=== PATIENT | male | born 1935 | race Caucasian/White ===

== ENCOUNTER → 2016-07-21 | Outpatient (CLI) | payer OTHER, BC ==
[~2016-07-21] MED LIST: ALL100 PO; AMB10 PO; AMLO2.5T PO; ASCA500 PO; BMX1 PO; CHOL100010 PO; CMBIN INH; CRG625 PO; GLIP-199 PO; LOSA100T2 PO; LYR50 PO; OXYC-57 PO; PRAV40TA2 PO; PRLSR20 PO
--- NOTE | 2016-07-21 10:52 | DIAGNOSTIC IMAGING REPORT ---
KUB HISTORY: Right-sided groin pain. Pubic pain. COMPARISON: Abdomen and pelvis CT 01/14/2011. FINDINGS: The bowel gas pattern is unremarkable. There are no dilated loops of small bowel to suggest an obstruction. No renal calculi. No ureteral calculi. No pneumoperitoneum or pneumatosis. No fractures within the visualized osseous structures. There is mild right and moderate left hip osteoarthritis. A few punctate calcifications overlying the sacrum are likely vascular. Multiple calcified pleural plaques seen within the lung bases. IMPRESSION: No renal or ureteral stones. Calcified pleural plaques. Electronically signed by: Milan Mast M.D. 07/21/2016 10:50 AM Dictated Date/Time: 07/21/2016 10:48 AM
== END | disposition home or self-care (01) ==
LOC: C.RAD 10:23
PROVIDERS: ATTEND Urology
DX: R10.30 Lower abdominal pain, unspecified (principal)

== ENCOUNTER → 2017-08-15 | Outpatient (CLI) | payer OTHER, BC | END | disposition home or self-care (01) | LOC: C.PATHSPEC 17:59 | PROVIDERS: ATTEND Urology | DX: R97.20 Elevated prostate specific antigen [PSA] (principal) ==

== ENCOUNTER → 2017-11-02 | Outpatient (CLI) | payer OTHER, BC ==
--- NOTE | 2017-11-02 14:49 | DIAGNOSTIC IMAGING REPORT ---
LEFT AXILLARY ULTRASOUND CLINICAL HISTORY: Left axillary pain and swelling. History of prior mastectomy. COMPARISON STUDY: No previous studies for comparison. FINDINGS: There is a thick walled complex fluid collection within the left chest wall at the site of the patient's mastectomy incision. This measures 5.7 x 1.0 x 4.5 cm. The patient reports a postoperative fluid collection at the same location which required multiple drainages. The significance of the current finding is therefore not known. There is a fatty replaced 20 mm left axillary lymph node. IMPRESSION: 1. Fatty-replaced 20 mm left axillary lymph node. No suspicious adenopathy by ultrasound criteria 2. 5.7 x 1.0 x 4.5 cm thick-walled complex fluid collection, at the site of the patient's prior mastectomy incision. Electronically signed by: Ciro Daly M.D. 11/02/2017 2:48 PM Dictated Date/Time: 11/02/2017 2:43 PM
== END | disposition home or self-care (01) ==
LOC: C.ULTRBC 14:03
PROVIDERS: ATTEND Internal Medicine
DX: M60.1 Interstitial myositis (principal); Z90.12 Acquired absence of left breast and nipple

== ENCOUNTER → 2018-02-19 | Outpatient (CLI) | payer OTHER, BC | END | disposition home or self-care (01) | LOC: C.LABBFT 14:51 | PROVIDERS: ATTEND Urology | DX: N40.3 Nodular prostate with lower urinary tract symptoms (principal); R97.20 Elevated prostate specific antigen [PSA] ==

== ENCOUNTER 2019-06-02 11:36 | Inpatient (IN) ==
[2019-06-02] MEDS ORDERED: FAMOTIDINE 20MG IV PUSH 20 MG/5 ML SYR IV STA (12:30)
[2019-06-02] MEDS ORDERED: SODIUM CHLORIDE 0.9% 500 ML IV ONE (12:30)
[2019-06-02] MEDS ORDERED: PROCHLORPERAZINE 1 ML IV ONE (12:30)
[2019-06-02] MEDS ORDERED: ACETAMINOPHEN 1,000 MG/100 ML VIAL IV STA (12:34)
--- NOTE | 2019-06-02 12:38 | Emergency Department Note ---
Entered by Mara Kelley acting as a scribe for History of Present Illness General Chief complaint: Abdominal Pain Stated complaint: BELLY PAIN Time Seen by Provider: 06/02/19 12:05 Source: patient Mode of arrival: ambulatory Limitations: no limitations History of Present Illness Onset (ago): hour(s) 10 Location: abdomen Radiation: non-radiation Pain Consistency: + constant Associated symptoms: + nausea/vomiting and + other (-diarrhea); no chest pain and no shortness of breath Treatments prior to arrival: none The patient is an 83 year old female who presents to the ED with complaints of abdominal pain that started a few hours after he ate dinner last night. He states he ate dinner at a restaurant and has also vomited several times in the past few hours. He denies any diarrhea, chest pain or shortness of breath. He admits to a history of GERD and states he had an endoscopy performed 2 months ago. He does admit to a history of diverticulitis. Home Medications Home Medications Medication Instructions Recorded Confirmed Type allopurinol 100 mg PO QDL 06/02/19 06/02/19 History allopurinol 300 mg PO QDL 06/02/19 06/02/19 History amlodipine 10 mg PO QAM 06/02/19 06/02/19 History aspirin 81 mg PO QAM 06/02/19 06/02/19 History carvedilol 6.25 mg PO BID 06/02/19 06/02/19 History duloxetine 20 mg PO QAM 06/02/19 06/02/19 History finasteride 5 mg PO QAM 06/02/19 06/02/19 History furosemide 20 mg PO QAM 06/02/19 06/02/19 History glipizide 10 mg PO BIDM 06/02/19 06/02/19 History losartan-hydrochlorothiazide 1 tab PO QAM 06/02/19 06/02/19 History omeprazole 20 mg PO BIDM 06/02/19 06/02/19 History oxycodone-acetaminophen 1 tab PO QID PRN 06/02/19 06/02/19 History pregabalin [Lyrica] 75 mg PO TID 06/02/19 06/02/19 History sodium chloride 1 drp OPB UD 06/02/19 06/02/19 History tamsulosin 0.4 mg PO HS 06/02/19 06/02/19 History zolpidem 5 mg PO HS 06/02/19 06/02/19 History Allergies Allergy/AdvReac Type Severity Reaction Status Date / Time LISBETH Inhibitors AdvReac Intermediate COUGH Verified 06/02/19 16:57 Past Med/Surg History Medical History BPH (benign prostatic hyperplasia) Breast cancer in male S/P Left mastectomy, radiation, chemo; 1998 Chronic pain CKD (chronic kidney disease), stage III Diabetes mellitus, type II Diverticulitis Dyslipidemia GERD (gastroesophageal reflux disease) Gout Hypertension Neuropathy Schatzki's ring EGD: 04/08/19 - gastritis, Schatzki ring, hiatal hernia - Dr Brunner EGD: 04/17/18 Surgical History History of esophagogastroduodenoscopy (EGD) History of mastectomy Left, 1998 Family History Other Colorectal cancer Diabetes Hypertension Social History Preferred Language: Arabic Communication Ability: Effective Beliefs That Will Affect Care: None marital status: Current Living Situation: Spouse Other Information That Helps Us Care for You: No Feels Safe at Home: Yes Safety Concerns: Feels Safe At This Time Smoking Status: Former smoker Hx Alcohol Use: Yes (1 shot hard liquor daily ) Alcohol type: hard liquor Hx Substance Use: No Review of Systems See HPI for pertinent positives & negatives. and A total of 10 systems reviewed and were otherwise negative Physical Exam Vital Signs Vital Signs - 24 hr 06/02/19 11:39 06/02/19 12:10 06/02/19 12:59 Temperature 36.3 C L Temperature Source Oral Pulse Rate 80 Pulse Rate [Finger] 67 Respiratory Rate 18 18 Respiratory Effort / Characteristics Non-Labored Spontaneous Non-Labored Respiratory Depth Normal Normal Respiratory Pattern Regular Blood Pressure 123/74 Blood Pressure [Right Arm] 167/81 H Blood Pressure Mean 90 Blood Pressure Mean [Right Arm] 109 Blood Pressure Position Sitting Pulse Oximetry 97 97 96 Oxygen Delivery Method Room Air Room Air Sepsis Recent Fever Within 48 Hours No Sepsis New/Unexplained Change in Mental Status No Sepsis Action Taken by Nursing No Action Required 12/08/19 13:41 Temperature Temperature Source Pulse Rate Pulse Rate [Finger] 62 Respiratory Rate 18 Respiratory Effort / Characteristics Respiratory Depth Respiratory Pattern Blood Pressure Blood Pressure [Right Arm] 145/71 H Blood Pressure Mean Blood Pressure Mean [Right Arm] 95 Blood Pressure Position Pulse Oximetry 94 Oxygen Delivery Method Sepsis Recent Fever Within 48 Hours Sepsis New/Unexplained Change in Mental Status Sepsis Action Taken by Nursing GENERAL: Awake, alert, uncomfortable-appearing, in no distress HENT: Normocephalic, atraumatic. Oropharynx with dry mucous membranes and otherwise unremarkable. EYES: Normal conjunctiva. Sclera non-icteric. NECK: Supple. No nuchal rigidity. FROM. No JVD. RESPIRATORY: CTAB. CARDIAC: Regular rate, normal rhythm. Extremities warm and well perfused. Pulses equal. ABDOMEN: Soft, non-distended. Mild LLQ tenderness to palpation. No rebound or guarding. No masses. RECTAL: Deferred. MUSCULOSKELETAL: Chest examination reveals no tenderness. The back is symmetrical on inspection without obvious abnormality. There is no CVA te nderness to palpation. No joint edema. LOWER EXTREMITIES: Calves are equal size bilaterally and non-tender. No edema. No discoloration. NEURO: Normal sensorium. No sensory or motor deficits noted. SKIN: No rash or jaundice noted. Course Course 1230: The patient was evaluated in room B5 and a complete history and physical were performed. 1439: I discussed the patients case with Dr. Brunner, [facility] General Surgery. The patient will be further evaluated. 1448: I discussed the patients case with Kaela Lucas PA-C, [facility] Hospitalist. The patient will be further evaluated. 1500: I reevaluated the patient. He is resting comfortably. I discussed his results and discharge instructions and he is agreeable with further evaluation from General Surgery and the hospital medicine team. Administered Medications Dulox[place] (Cymbalta) [facility] [place] [facility] [place]: 07/02/19 16:59 Last Admin: 06/03/19 08:42 Dose: 20 mg Documented by: [id number] Admin: 06/02/19 18:54 Dose: 20 mg Documented by: [id number] Enoxaparin Sodium (Lovenox) 40 [place] [facility] [place]: 07/03/19 08:59 Last Admin: 06/03/19 08:43 Dose: 40 mg Documented by: [id number] Glucose (Glucose 40%) 15 - 30 gm PO UD PRN; Protocol PRN Reason: Hypoglycemia Protocol Stop: 07/02/19 16:48 Last Admin: 06/02/19 18:20 Dose: 15 gm Documented by: [id number] Lactated Ringer's (Lr) 1,000 mls @ 100 mls/hr IV .Q10H [facility] Stop: 07/02/19 16:48 Last Admin: 06/03/19 14:48 Dose: 100 mls/hr Documented by: [id number] Infusion: 06/03/19 14:48 Dose: 100 mls/hr Documented by: [id number] Admin: 06/03/19 05:38 Dose: 100 mls/hr Documented by: [id number] Infusion: 06/03/19 04:53 Dose: 100 mls/hr Documented by: [id number] Admin: 06/02/19 18:53 Dose: 100 mls/hr Documented by: [id number] Insulin Aspart (Novolog Flexpen) 0 units SC ACHS [facility] Stop: 07/02/19 16:48 Last Admin: 06/03/19 13:33 Dose: 6 units Documented by: [id number] Cosigned by: [id number] Admin: 06/03/19 08:41 Dose: 5 units Documented by: [id number] Cosigned by: [id number] Admin: 06/02/19 21:40 Dose: Not Given Documented by: [id number] Cosigned by: [id number] Admin: 06/02/19 18:32 Dose: Not Given Documented by: [id number] Cosigned by: [id number] Ioversol (Optiray 320 100ml) 94 ml IV ONCE PRN PRN Reason: Interaction Checking Stop: 06/06/19 13:10 Last Admin: 06/02/19 13:11 Dose: 94 ml Documented by: [id number] Oxycodone/Acetaminophen (Percocet 5mg/325mg) 1 tab PO QID PRN PRN Reason: Pain Stop: 06/16/19 21:23 Last Admin: 06/02/19 22:10 Dose: 1 tab Documented by: [id number] Pantoprazole Sodium (Protonix) 40 mg PO BIDM [facility] Stop: 07/02/19 16:59 Last Admin: 06/03/19 08:42 Dose: 40 mg Documented by: [id number] Admin: 06/02/19 18:54 Dose: 40 mg Documented by: [id number] Pregabalin (Lyrica) 75 mg PO TID BARBY Stop: 07/02/19 20:59 Last Admin: 06/03/19 13:06 Dose: 75 mg Documented by: [id number] Admin: 06/03/19 08:43 Dose: 75 mg Documented by: [id number] Admin: 06/02/19 21:44 Dose: 75 mg Documented by: [id number] Zolpidem Tartrate (Ambien) 5 mg PO HS PRN PRN Reason: insomnia Stop: 07/03/19 20:59 Last Admin: 06/03/19 00:13 Dose: 5 mg Documented by: [id number] Discontinued Medications Prochlorperazine (Compazine) 1 mls @ 1 mls/min IV ONE ONE Stop: 06/02/19 12:31 Last Admin: 06/02/19 13:13 Dose: 1 mls/min Documented by: [id number] Famotidine (Pepcid 20mg Iv Push) 20 mg in 5 mls @ 2.5 mls/min IV NOW STA Stop: 06/02/19 12:31 Last Admin: 06/02/19 13:13 Dose: 2.5 mls/min Documented by: [id number] Sodium Chloride (Nss) 500 mls @ 999 mls/hr IV .Q31M ONE Stop: 06/02/19 13:00 Last Infusion: 06/02/19 13:38 Dose: 0 mls/hr Documented by: [id number] Admin: 06/02/19 13:01 Dose: 999 mls/hr Documented by: [id number] Acetaminophen (Ofirmev) 1,000 mg in 100 mls @ 400 mls/hr IV NOW STA Stop: 06/02/19 12:48 Last Infusion: 06/02/19 13:37 Dose: 0 mls/hr Documented by: [id number] Admin: 06/02/19 13:13 Dose: 400 mls/hr Documented by: [id number] Magnesium Sulfate/Dextrose (Magnesium Sulfate / D5w) 1 gm in 100 mls @ 100 mls/hr IV ONE ONE Stop: 06/02/19 14:49 Last Infusion: 06/02/19 14:40 Dose: 0 mls/hr Documented by: [id number] Admin: 06/02/19 14:02 Dose: 100 mls/hr Documented by: [id number] Potassium Chloride (Klor-Con M20) 40 meq PO NOW STA Stop: 06/03/19 09:09 Last Admin: 06/03/19 10:26 Dose: 40 meq Documented by: [id number] Medical Decision Making Differential Diagnosis Differential diagnoses includes but is not limited to gastritis, peptic ulcer disease, GERD, gallbladder disease, pancreatitis, small bowel obstruction, acute coronary syndrome, pericarditis, ischemic bowel, irritable bowel disease, irritable bowel syndrome, appendicitis, diverticulitis, malignancy, hernia, urinary tract infection, torsion, perforation, trauma, infectious. Medical Records Attestation: I reviewed the patient's medical records. Home Medications Current Medication List: was personally reviewed by me Laboratory Data Attestation: I reviewed the patient's lab results. Result diagrams: 06/03/19 06:53 06/03/19 06:53 Lab Results 06/02/19 06/02/19 Range/Units 11:27 11:27 WBC 14.09 H (4.8-10.8) K/uL RBC 4.66 L (4.7-6.1) M/uL Hgb 15.1 (14.0-18.0) g/dL Hct 43.1 (42-52) % MCV 92.5 (80-100) fL MCH 32.4 (25-34) pg MCHC 35.0 (32-36) g/dL RDW Std Deviation 48.2 H (36.4-46.3) fL RDW Coeff of Gena 14.3 (11.5-14.5) % Plt Count 252 (130-400) K/uL MPV 11.2 H (7.4-10.4) fL Immature Gran % (Auto) 0.2 % Neut % (Auto) 82.7 % Lymph % (Auto) 9.3 % Owen % (Auto) 4.4 % Eos % (Auto) 3.3 % Baso % (Auto) 0.1 % Immature Gran # (Auto) 0.03 H (0.00-0.02) K/uL Neut # (Auto) 11.66 H (1.4-6.5) K/uL Lymph # (Auto) 1.31 (1.2-3.4) K/uL Owen # (Auto) 0.62 H (0.11-0.59) K/uL Eos # (Auto) 0.46 (0-0.5) K/uL Baso # (Auto) 0.01 (0-0.2) K/uL Sodium 137 (136-145) mmol/L Potassium 3.6 (3.5-5.1) mmol/L Chloride 102 (98-107) mmol/L Carbon Dioxide 27 (21-32) mmol/L Anion Gap 8.0 (3-11) BUN 21 H (7-18) mg/dl Creatinine 1.31 (0.6-1.4) mg/dl Est Cr Clr Drug Dosing 44.7 ml/min Est GFR ( Amer) 57.5 Est GFR (Non-Af Amer) 49.6 BUN/Creatinine Ratio 15.8 (10-20) Glucose 155 H (70-99) mg/dl Calcium 8.9 (8.5-10.1) mg/dl Phosphorus 2.3 L (2.5-4.9) mg/dl Magnesium 1.7 L (1.8-2.4) mg/dl Total Bilirubin 0.6 (0.2-1) mg/dl AST 14 L (15-37) U/L ALT 21 (12-78) U/L Alkaline Phosphatase 85 (45-117) U/L Troponin I < 0.015 (0-0.045) ng/ml Total Protein 7.8 (6.4-8.2) gm/dl Albumin 3.7 (3.4-5.0) gm/dl Globulin 4.1 H (2.5-4.0) gm/dl Albumin/Globulin Ratio 0.9 (0.9-2) Lipase 63 L (73-393) U/L Imaging Data Radiologist's Impression: Radiology results as stated below per my review and the radiologist's interpretation: XR chest 1V portable HISTORY: 83 years-old Male Chest Pain acute atypical chest pain COMPARISON: KUB 07/21/2016 TECHNIQUE: Portable AP view of the chest FINDINGS: Bilateral pleural calcifications. No pneumothorax, pleural effusion, focal airspace consolidation or overt pulmonary edema. Cardiomediastinal and hilar silhouettes are within normal limits. Degenerative changes of the shoulders and spine. IMPRESSION: 1. No acute process. 2. 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 The above report was generated using voice recognition software. It may contain grammatical, syntax or spelling errors. Electronically signed by: Brady Carey M.D. 06/02/2019 1:04 PM ECG Data Attestation: I personally reviewed and interpreted this ECG as follows: Indication: + abdominal pain Rate (beats per minute): 64 Rhythm: + sinus with SA ECG Intervals/blocks: + First degree AV block, + Normal QRS (QRS is 100) and + Normal QT-c (QTC is 422) ECG [place]: + Normal ECG ST segments: no ST depression and no ST elevation ECG Findings: no PACs and no PVCs Blood Pressure Blood Pressure Findings: Elevated blood pressure Blood Pressure Disposition: Referred to patients primary care provider LILA Gonzales The patient is a pleasant 83-year-old gentleman with a past medical history of hypertension, GERD, hiatal hernia, esophageal dysmotility, schatzkis ring with a history of esophageal dilatations who presents emergency department with acute onset nausea and vomiting since last night per HPI. On arrival the patient is uncomfortable but no acute distress, afebrile stable vital signs. Patient appears clinically dry. He has mild left lower abdominal tenderness without guarding or rebound. EKG without acute ischemia. Chest x-ray negative for acute process. WBC 14, nonspecific in the setting of the patient's nausea and vomiting. H/H and platelets within normal limits. Chemistry without acidosis. Magnesium 1.7 with repletion provided. Electrolytes LFTs otherwise unremarkable. Troponin negative/undetectable. CT the abdomen pelvis demonstrates dilated fluid-filled duodenum and proximal jejunum with fluid- filled nondilated distal small bowel that is suggestive of enteritis/ileus however a low-grade small bowel obstruction could also appear similar. Patient was reevaluated and feel improved after IV fluid hydration, Pepcid, Compazine. Abdominal tenderness is also improved on exam. However he still reports a mild nausea and abdominal discomfort. Therefore, he is agreeable for admission for further observation. I did discuss the case with general surgery on-call, Dr. Brunner who will be available for inpatient consultation if the patient does not improve or worsen. I do not feel that an emergent surgical evaluation is necessary at this time. Case was discussed with Alona Lucas, [facility] PAC, who evaluate the patient for admission. Impression & Plan Abdominal pain, Nausea & vomiting, H/O hiatal hernia, CKD (chronic kidney disease), stage III Discharge Plan Visit Data *Final* Discharge Date/Time: 06/02/19 16:02 Chief Complaint: Abdominal Pain Stated Complaint: BELLY PAIN ED Provider: Romario Maria Discharge Problem: Abdominal pain, Nausea & vomiting, H/O hiatal hernia, CKD (chronic kidney disease), stage III Patient Disposition: Admitted As Inpatient Discharge Instructions Interventions: ED Discharge Assessment Last Done: 06/02/19 16:02 Discharge Problem: Abdominal pain Qualifiers: Abdominal location: left lower quadrant Qualified Code(s): R10.32 - Left lower quadrant pain Nausea & vomiting Qualifiers: Vomiting type: unspecified Vomiting Intractability: non-intractable Qualified Code(s): R11.2 - Nausea with vomiting, unspecified The scribe's documentation has been prepared under my direction and personally reviewed by me in its entirety. I confirm that the note above accurately reflects all work, treatment, procedures, and medical decision making performed by me.
[2019-06-02 12:45] LABS: Basophils # (auto) 0.01 K/uL (0-0.2); Basophils % (auto) 0.1 %; Eosinophils # (auto) 0.46 K/uL (0-0.5); Eosinophils % (auto) 3.3 %; Hematocrit (blood only) 43.1 % (42-52); Hemoglobin 15.1 g/dL (14.0-18.0); Immature Granulocytes # (auto) 0.03 K/uL (0.00-0.02); Immature Granulocytes % (auto) 0.2 %; Lymphocytes # (auto) 1.31 K/uL (1.2-3.4); Lymphocytes % (auto) 9.3 %; Mean Corpuscular Hemoglobin 32.4 pg (25-34); Mean Corpuscular Volume 92.5 fL (80-100); Mean Platelet Volume 11.2 fL (7.4-10.4); Monocytes # (auto) 0.62 K/uL (0.11-0.59); Monocytes % (auto) 4.4 %; Neutrophils # (auto) 11.66 K/uL (1.4-6.5); Neutrophils % (auto) 82.7 %; Platelet Count 252 K/uL (130-400); RDW Coefficient of Variation 14.3 % (11.5-14.5); RDW Standard Deviation 48.2 fL (36.4-46.3); Red Blood Count 4.66 M/uL (4.7-6.1); White Blood Count 14.09 K/uL (4.8-10.8)
[2019-06-02 12:52] LABS: Alanine Aminotransferase 21 U/L (12-78); Albumin Level 3.7 gm/dl (3.4-5.0); Aspartate Aminotransferase 14 U/L (15-37); BUN Creatinine Ratio 15.8 (10-20); Blood Urea Nitrogen 21 mg/dl (7-18); Calcium 8.9 mg/dl (8.5-10.1); Carbon Dioxide 27 mmol/L (21-32); Chloride 102 mmol/L (98-107); Creatinine Clr Calc Pharmacy 44.7 ml/min; Est GFR (African American) 57.5; Est GFR (Non-African American) 49.6; Glucose 155 mg/dl (70-99); Lipase 63 U/L (73-393); Magnesium 1.7 mg/dl (1.8-2.4); Potassium 3.6 mmol/L (3.5-5.1); Sodium 137 mmol/L (136-145)
[2019-06-02 12:57] LABS: Albumin Globulin Ratio 0.9 (0.9-2); Alkaline Phosphatase 85 U/L (45-117); Bilirubin,Total 0.6 mg/dl (0.2-1); Globulin 4.1 gm/dl (2.5-4.0); Phosphorus 2.3 mg/dl (2.5-4.9); Total Protein 7.8 gm/dl (6.4-8.2); Troponin I < 0.015 ng/ml (0-0.045)
--- NOTE | 2019-06-02 13:05 | XRay Report ---
XR chest 1V portable HISTORY: 83 years-old Male Chest Pain acute atypical chest pain COMPARISON: KUB 07/21/2016 TECHNIQUE: Portable AP view of the chest FINDINGS: Bilateral pleural calcifications. No pneumothorax, pleural effusion, focal airspace consolidation or overt pulmonary edema. Cardiomediastinal and hilar silhouettes are within normal limits. Degenerative changes of the shoulders and spine. IMPRESSION: 1. No acute process. 2. 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 The above report was generated using voice recognition software. It may contain grammatical, syntax o r spelling errors. Electronically signed by: Brady Carey M.D. 06/02/2019 1:04 PM
[2019-06-02] MEDS ORDERED: IOVERSOL 100ml IV PRN (13:11)
[2019-06-02] MEDS ORDERED: MAGNESIUM SULFATE / D5W 1 GM/100 ML BAG IV ONE (13:50)
--- NOTE | 2019-06-02 13:50 | CT Scan Report ---
ABDOMEN AND PELVIS CT WITH IV CONTRAST CT DOSE: 579.84 mGy.cm HISTORY: Acute left lower quadrant abdominal pain with nausea and vomiting LLQ abd pain,n/v TECHNIQUE: Multiaxial CT images of the abdomen and pelvis were performed following the IV administrat ion of 94 cc of Optiray 320, A dose lowering technique was utilized adhering to the principles of [place] APRIL. 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 6 mm subpleural solid n odule of the basal left lower lobe on image 26 series 3 is unchanged and likely benign. No pneumatosi s or pneumoperitoneum. The imaged inferior cardiac chambers are unremarkable. Spleen, pancreas, adren al glands and gallbladder are unremarkable. Slightly decreased attenuation of the liver suggests hepa tic steatosis. No hepatic mass lesion or evidence of cirrhosis. There is mild nonspecific bilateral perinephric stranding. Mild cortical thinning is noted, left grea ter than right. Probable cyst of the inferior pole left kidney, 11 mm. No renal or ureteral calculi o r obstructive uropathy. Moderate urinary bladder distention. Prostamegaly. Small fat filled inguinal hernias. Extensive calcified plaque of the abdominal aorta without aneurysm. 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 No adenopathy. Moderate hiatal hernia with trace fluid within the hernia sac. The terminal 9 mm dependent area of sl ightly increased attenuation about the dependent duodenum on image 172 series 3 which may reflect ing ested material versus lesion. Mild wall thickening of the pylorus is likely secondary to partial dist ention. Fluid-filled mildly dilated duodenum and proximal jejunum measures up to 3.3 cm. No transitio n point. Nondilated fluid-filled loops of distal small bowel are present. No small bowel wall thicken ing or inflammatory stranding identified. Significant colonic diverticulosis. Mild wall thickening th roughout the sigmoid colon is likely on a chronic basis. No evidence of acute diverticulitis. Unremar kable appendix. Soft tissues are within normal limits. Degenerative changes of the spine, pelvis and hips. Healed remote fracture of the anterolateral right eighth rib. Degenerative changes of the spine , pelvis and hips. IMPRESSION: 1. Dilated fluid-filled duodenum and proximal jejunum with fluid-filled nondilated distal small bowel is suggestive of enteritis/ileus with low-grade small bowel obstruction considered less likely. Heri elate clinically. 2. No pneumatosis or pneumoperitoneum. 3. Colonic diverticulosis without acute diverticulitis. Wall thickening throughout the sigmoid colon is likely secondary to chronic diverticular disease. 4. Normal appendix. 5. Moderate hiatal hernia with trace adjacent free fluid. 6. 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 7. Additional findings as above. Electronically signed by: Brady Carey M.D. 06/02/2019 1:47 PM
--- NOTE | 2019-06-02 16:31 | History & Physical Report ---
Date of Service June 02, 2019 Assessment & Plan (1) Nausea & vomiting: (2) Ileus: Pt is 83 y/o M with PMH HTN, dyslipidemia, DM II, CKD III, h/o breast CA s/p mastectomy, radiation, chemo, neuropathy, chronic pain, BPH, gout presented to ER with complaint of abdominal pain, nausea and vomiting x 3 episodes since last evening. Denies fever/chills, diarrhea, hematemesis. Last BM yesterday morning. Not passing flatus today In ER pt afebrile, vitals stable. WBC: 14, BUN: 21, Cr: 1.3 CT ABD/PELVIS: . Dilated fluid-filled duodenum and proximal jejunum with fluid- filled nondilated distal small bowel is suggestive of enteritis/ileus with low- grade small bowel obstruction considered less likely. Correlate clinically. No pneumatosis or pneumoperitoneum. Colonic diverticulosis without acute diverticulitis. Wall thickening throughout the sigmoid colon is likely secondary to chronic diverticular disease. Normal appendix. Moderate hiatal hernia with trace adjacent free fluid. -In ER given Tylenol IV, Pepcid, magnesium 1 g, Compazine -Lactate pending -No current vomiting. If further vomiting occurs consider NG tube -N.p.o. -IVF -Antiemetics as needed -Try to avoid narcotics at this time -KUB in a.m. -General surgery consult -CBC, BMP in a.m. (3) Hypomagnesemia: Magnesium 1.7 -In ER given magnesium 1 g -Magnesium lab in a.m. (4) CKD (chronic kidney disease), stage III: Cr: 1.3. Baseline Cr: 1.2 -Avoid nephrotoxic agents when possible -Monitor renal functions (5) Diabetes mellitus, type II: A1c: 6.1 on 04/29/2018 -Hold glipizide -Basal bolus insulin per protocol (6) Hypertension: Stable -Hold carvedilol, amlodipine, losartan/HCTZ, Lasix at this time while n.p.o. (7) GERD (gastroesophageal reflux disease): -Continue oral PPI (8) Gout: -Hold allopurinol while n.p.o. (9) BPH (benign prostatic hyperplasia): -Hold finasteride, tamsulosin while n.p.o. (10) Neuropathy: (11) Chronic pain: -Hold oxycodone with current ileus -Continue duloxetine, Lyrica DVT Prophylaxis -SCDs DNR/DNI as per discussion with pt Follows with Dr Harrison for routine care Pt was seen and care coordinated with Dr Marr. See addendum History of Present Illness Chief Complaint: abdominal pain Primary Care Provider: Darius Harrison, Pt is 83 y/o M with PMH HTN, dyslipidemia, DM II, CKD III, h/o breast CA s/p mastectomy, radiation, chemo, neuropathy, chronic pain, BPH, gout presented to ER with complaint of abdominal pain. Patient states ate out last night and had shrimp, scallops and pasta. Patient states later in the evening started with nausea and had 3 episodes of vomiting. Complains of some lower abdominal discomfort. Does not feel like he has passed flatus today. Reports last BM was yesterday morning which was formed normal stool. No prior treatment. Did not eat today. Did not take medications today. Patient is on oxycodone for chronic pain and states he usually takes about 3-4 times a day. Denies history of abdominal surgery. Denies history of SBO. Others did not have same food last night at restaurant. Denies ill contacts. Denies fever/chills, diaphoresis, diarrhea, hematemesis, melena, hematochezia, INGRAM, dizziness, syncope, vision changes, neck pain, CP, SOB, orthopnea, palpitations, cough, sore throat, choking, otalgia, rhinorrhea, paresthesias, weakness, extremity weakness, extremity edema, rashes, urinary symptoms. Allergies Allergy/AdvReac Type Severity Reaction Status Date / Time LISBETH Inhibitors AdvReac Intermediate COUGH Verified 06/02/19 16:57 Home Medications Home Medications Medication Instructions Recorded Confirmed Type allopurinol 100 mg PO QDL 06/02/19 06/02/19 History allopurinol 300 mg PO QDL 06/02/19 06/02/19 History amlodipine 10 mg PO QAM 06/02/19 06/02/19 History aspirin 81 mg PO QAM 06/02/19 06/02/19 History carvedilol 6.25 mg PO BID 06/02/19 06/02/19 History duloxetine 20 mg PO QAM 06/02/19 06/02/19 History finasteride 5 mg PO QAM 06/02/19 06/02/19 History furosemide 20 mg PO QAM 06/02/19 06/02/19 History glipizide 10 mg PO BIDM 06/02/19 06/02/19 History losartan-hydrochlorothiazide 1 tab PO QAM 06/02/19 06/02/19 History omeprazole 20 mg PO BIDM 06/02/19 06/02/19 History oxycodone-acetaminophen 1 tab PO QID PRN 06/02/19 06/02/19 History pregabalin [Lyrica] 75 mg PO TID 06/02/19 06/02/19 History sodium chloride 1 drp OPB UD 06/02/19 06/02/19 History tamsulosin 0.4 mg PO HS 06/02/19 06/02/19 History zolpidem 5 mg PO HS 06/02/19 06/02/19 History Past Med/Surg History Medical History (Updated 06/02/19 @ 16:40 by Kaela Lucas PA-C) BPH (benign prostatic hyperplasia) Breast cancer in male S/P Left mastectomy, radiation, chemo; 1998 Chronic pain CKD (chronic kidney disease), stage III Diabetes mellitus, type II Diverticulitis Dyslipidemia GERD (gastroesophageal reflux disease) Gout Hypertension Neuropathy Schatzki's ring EGD: 04/08/19 - gastritis, Schatzki ring, hiatal hernia - Dr Brunner EGD: 04/17/18 Surgical History (Updated 06/02/19 @ 16:36 by Kaela Lucas PA-C) History of esophagogastroduodenoscopy (EGD) History of mastectomy Left, 1998 Family History (Updated 06/02/19 @ 16:37 by Kaela Lucas PA-C) Other Colorectal cancer Diabetes Hypertension Social History (Updated 06/02/19 @ 16:37 by Kaela Lucas PA-C) Preferred Language: [place] Communication Ability: Effective Beliefs That Will Affect Care: None Current Living Situation: Spouse Other Information That Helps Us Care for You: No Feels Safe at Home: Yes Safety Concerns: Feels Safe At This Time Smoking Status: Former smoker Hx Alcohol Use: Yes (1 shot hard liquor daily ) Alcohol type: hard liquor Hx Substance Use: No Review of Systems Review of Systems: All systems reviewed & are unremarkable except as noted in HPI & below Physical Exam Physical Exam: General: no acute distress, WDWN Head: normocephalic, atraumatic Eyes: PERRL, EOM's intact, conjunctiva non-injected, anicteric ENT: normal inspection external ears, nose, mucous membranes moist Neck: supple, trachea midline Lungs: clear, no respiratory distress, no wheezing/rhonchi/rales CV: RRR, no murmur, no JVD, no pretibial edema Abd: normal BS, soft, non-tender to palpation Ext: no cyanosis, no calf tenderness Neuro: A&O x 3, no focal deficits noted, normal affect Skin: warm, dry Results & Data Vital Signs (Past 12 Hours) Vital Signs Temp Pulse Pulse Resp BP BP Pulse Ox 06/02/19 16:26 36.8 C 61 18 134/90 97 06/02/19 15:18 71 20 143/72 H 96 06/02/19 13:41 62 18 145/71 H 94 06/02/19 12:59 67 18 167/81 H 96 06/02/19 12:10 97 06/02/19 11:39 36.3 C L 80 18 123/74 97 Laboratory Results Short CBC 06/02/19 Range/Units 11:27 WBC 14.09 H (4.8-10.8) K/uL Hgb 15.1 (14.0-18.0) g/dL Hct 43.1 (42-52) % Plt Count 252 (130-400) K/uL BMP 06/02/19 11:27 Sodium 137 Potassium 3.6 Chloride 102 Carbon Dioxide 27 BUN 21 H Creatinine 1.31 Glucose 155 H Calcium 8.9 Cardiac Enzymes 06/02/19 Range/Units 11:27 Troponin I < 0.015 (0-0.045) ng/ml Liver Function 06/02/19 Range/Units 11:27 Total Bilirubin 0.6 (0.2-1) mg/dl AST 14 L (15-37) U/L ALT 21 (12-78) U/L Alkaline Phosphatase 85 (45-117) U/L Albumin 3.7 (3.4-5.0) gm/dl Diagnostic Findings CXR: IMPRESSION: 1. No acute process. 2. 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 CT ABD/PELVIS: IMPRESSION: 1. Dilated fluid-filled duodenum and proximal jejunum with fluid-filled nondilated distal small bowel is suggestive of enteritis/ileus with low-grade small bowel obstruction considered less likely. Correlate clinically. 2. No pneumatosis or pneumoperitoneum. 3. Colonic diverticulosis without acute diverticulitis. Wall thickening throughout the sigmoid colon is likely secondary to chronic diverticular disease. 4. Normal appendix. 5. Moderate hiatal hernia with trace adjacent free fluid. 6. 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 7. Additional findings as above. ECG Rate (beats per minute): 64 Rhythm: sinus with SA Findings: + 1st degree AV block Supervising Physician Co-Signing Physician Notes I have seen and examined the patient and have discussed the case with the provider above. I agree with the assessment and plan as stated with the following exceptions. 83 yo M reports eating seafood last night at a new restaurant, along with a strange brownish appearing broccoli soup. Other members at the dinner did not eat this and within 3 hours of coming home he had intermittent severe urgency to vomit that lasted overnight and into the morning today. Since this morning he denies any vomiting, nausea and reports feeling hungry. He also denies abdominal pain or diarrhea. Last BM was yesterday. Pt has hypoactive bowel sounds on exam and is not passing gas. Ileus was also considered in the differential because of this in the setting of chronic oxycodone use for neuropathy. The patient reports not having had oxycodone or Lyrica for his neuropathy in his feet in the last 24 hours and is having more severe pain now. Additionally, he has been hypoglycemic with not eating and ingram ving long-acting glipizide on board. For these reasons, and that he is hungry and vomiting has ceased, I think it is reasonable to continue his neuropathic medications now and give him a clear liquid food challenge. Abdominal exam was otherwise benign. Heart and lung exams were normal. He is ambulating without difficulty and does not appear ill at all. Expect he can go home in the next 1- 2 days once tolerating PO again and passing gas. Tejinder,
[2019-06-02] MEDS ORDERED: CARBOHYDRATES FOR HYPOGLYCEMIA PO PRN (16:49)
[2019-06-02] MEDS ORDERED: GLUCAGON FOR INJ 1 MG VIAL SQ PRN (16:49)
[2019-06-02] MEDS ORDERED: GLUCOSE 40% GEL 15 GM TUBE PO PRN (16:49)
[2019-06-02] MEDS ORDERED: DEXTROSE 50% 50 ML SYRINGE IV PRN (16:49)
[2019-06-02] MEDS ORDERED: ONDANSETRON INJ 2 MG/ML 2 ML VIAL IV PRN (16:49)
[2019-06-02] MEDS ORDERED: GLUCOSE 10 TABS/TUBE PO PRN (16:49)
[2019-06-02] MEDS ORDERED: ACETAMINOPHEN 325 MG TAB PO PRN (16:49)
[2019-06-02] MEDS: INSULIN ASPART 100 UNITS/ML 3 ML PEN SC SCH ×2 (18:32→21:40)
[2019-06-02] MEDS: LACTATED RINGER'S 1,000 ML IV SCH (18:53)
[2019-06-02] MEDS: DULOXETINE HCL 20 MG CAP PO SCH (18:54)
[2019-06-02] MEDS: PANTOprazole 40 MG TAB PO SCH (18:54)
[2019-06-02] MEDS: PREGABALIN 75 MG CAP PO SCH ×2 (20:43→21:44)
[2019-06-02] MEDS ORDERED: ACETAMINOPHEN 1,000 MG/100 ML VIAL IV PRN (21:00)
[2019-06-02] MEDS ORDERED: INSULIN GLARGINE SOLOSTAR 100 UNITS/ML 3 ML PEN SC SCH (21:00)
[2019-06-02] MEDS: OXYCODONE/ACETAMINOPHEN 5mg/325mg TAB PO PRN (22:10)
[2019-06-03] MEDS: ZOLPIDEM TARTRATE 5 MG TAB PO PRN (00:13)
[2019-06-03] MEDS: LACTATED RINGER'S 1,000 ML IV SCH ×3 (05:38→22:23)
[2019-06-03 07:12] LABS: Hematocrit (blood only) 38.5 % (42-52); Hemoglobin 13.3 g/dL (14.0-18.0); Mean Corpuscular Hemoglobin 31.9 pg (25-34); Mean Corpuscular Hgb Conc 34.5 g/dL (32-36); Mean Corpuscular Volume 92.3 fL (80-100); Mean Platelet Volume 10.5 fL (7.4-10.4); Platelet Count 208 K/uL (130-400); RDW Coefficient of Variation 14.4 % (11.5-14.5); RDW Standard Deviation 47.9 fL (36.4-46.3); Red Blood Count 4.17 M/uL (4.7-6.1); White Blood Count 9.35 K/uL (4.8-10.8)
[2019-06-03 07:43] LABS: BUN Creatinine Ratio 14.5 (10-20); Calcium 8.7 mg/dl (8.5-10.1); Creatinine Clr Calc Pharmacy 51.4 ml/min; Est GFR (African American) 68.1; Est GFR (Non-African American) 58.7; Potassium 3.4 mmol/L (3.5-5.1)
[2019-06-03 07:54] LABS: Appearance Urine Clear (Clear); Bilirubin Urine Negative (Negative); Blood Urine Negative (Negative); Color Urine Yellow; Glucose Urine UA Negative (Negative); Ketones Urine Negative (Negative); Leukocyte Esterase Urine Negative (Negative); Nitrite Urine Negative (Negative); Protein Urine Negative (Negative); Specific Gravity Urine 1.017 (1.000-1.030); Urobilinogen Urine Negative (Negative); pH Urine 6.5 (4.5-7.5)
--- NOTE | 2019-06-03 08:09 | XRay Report ---
XR KUB/Abdomen 1 view CLINICAL HISTORY: ileus, r/o SBO pain COMPARISON STUDY: No previous studies for comparison. FINDINGS: The soft tissues, psoas shadows, renal outlines and intestinal gas pattern appear normal. T here is no evidence for bowel obstruction. No abnormal abdominal calcifications are seen. IMPRESSION: Normal study. The above report was generated using voice recognition software. It may contain grammatical, syntax or spelling errors. Electronically signed by: Sabas Chogn M.D. 06/03/2019 8:08 AM
[2019-06-03] MEDS: INSULIN ASPART 100 UNITS/ML 3 ML PEN SC SCH ×4 (08:41→21:21)
[2019-06-03] MEDS: PANTOprazole 40 MG TAB PO SCH ×2 (08:42→17:47)
[2019-06-03] MEDS: DULOXETINE HCL 20 MG CAP PO SCH (08:42)
[2019-06-03] MEDS: PREGABALIN 75 MG CAP PO SCH ×3 (08:43→20:30)
[2019-06-03] MEDS: ENOXAPARIN INJ 40 MG/0.4 ML SYR SQ SCH (08:43)
[2019-06-03] MEDS ORDERED: POTASSIUM CHLORIDE 20 MEQ TABCR PO STA (09:08)
--- NOTE | 2019-06-03 09:44 | Surgery Consultation ---
Date of Consultation June 03, 2019 Assessment & Plan (1) Ileus: 83 year-old male who presented to emergency department with 1 day history of abdominal pain, nausea and vomiting after eating seafood at a new restaurant the night before. CT scan showing fluid filled small bowel without transition point consistent with ileus/enteritis. Leukocytosis of 14K now wnl. KUB this am was an unremarkable normal study. Abdomen is soft, nondistended, nontender. Plan: No surgical intervention required at this time. Likely has enteritis. May advance diet as tolerated encouraged patient to ambulate hallway to increase GI motility continue medical management Could resume his daily stool softener given chronic narcotic use (2) Nausea & vomiting: Resolved plan as above Dr. Davis has seen and exmained pt, agrees with above History of Present Illness Reason for Consultation: Partial SBO vs Ileus/enteritis Requesting Physician: Julius Sosa MD Attending Physician: Julius Sosa MD History of Present Illness Cuco is a pleasant 83 year-old male with past medical history of HTN, dyslipidemia, DM II, CKD III, h/o breast CA s/p mastectomy, radiation, chemo, neuropathy, chronic pain, BPH, gout presented to ER yesterday with complaint of abdominal pain, nausea and vomiting x 3 episodes since Monday evening. Ate seafood at new restaurant and started having cramping abdominal pain with associated nausea and vomiting. No other family members had similar symptoms. No prior abdominal surgeries. CT scan of abdomen and pelvis with IV contrast showed fluid filled duodenum and jejunum consistent with ileus/enteritis. Leukocytosis of 14K. Afebrile. Last bowel movement was Monday morning and was normal. No diarrhea, no blood in stools. Takes narcotic for chronic pain. No history of constipation. Takes stool softener daily. Werner states he is feeling much better today. Denies of any nausea, vomiting, or abdominal pain. Passing small amounts of gas but has not had bowel movement since admission. Usually has bowel movement daily in the morning. KUB this morning was unremarkable normal study. Tolerating clear liquids so far this morning. Allergies Allergy/AdvReac Type Severity Reaction Status Date / Time LISBETH Inhibitors AdvReac Intermediate COUGH Verified 06/02/19 16:57 Home Medications Home Medications Medication Instructions Recorded Confirmed Type allopurinol 100 mg PO QDL 06/02/19 06/02/19 History allopurinol 300 mg PO QDL 06/02/19 06/02/19 History amlodipine 10 mg PO QAM 06/02/19 06/02/19 History aspirin 81 mg PO QAM 06/02/19 06/02/19 History carvedilol 6.25 mg PO BID 06/02/19 06/02/19 History duloxetine 20 mg PO QAM 06/02/19 06/02/19 History finasteride 5 mg PO QAM 06/02/19 06/02/19 History furosemide 20 mg PO QAM 06/02/19 06/02/19 History glipizide 10 mg PO BIDM 06/02/19 06/02/19 History losartan-hydrochlorothiazide 1 tab PO QAM 06/02/19 06/02/19 History omeprazole 20 mg PO BIDM 06/02/19 06/02/19 History oxycodone-acetaminophen 1 tab PO QID PRN 06/02/19 06/02/19 History pregabalin [Lyrica] 75 mg PO TID 06/02/19 06/02/19 History sodium chloride 1 drp OPB UD 06/02/19 06/02/19 History tamsulosin 0.4 mg PO HS 06/02/19 06/02/19 History zolpidem 5 mg PO HS 06/02/19 06/02/19 History Patient History Medical History BPH (benign prostatic hyperplasia) Breast cancer in male S/P Left mastectomy, radiation, chemo; 1998 Chronic pain CKD (chronic kidney disease), stage III Diabetes mellitus, type II Diverticulitis Dyslipidemia GERD (gastroesophageal reflux disease) Gout Hypertension Neuropathy Schatzki's ring EGD: 04/08/19 - gastritis, Schatzki ring, hiatal hernia - Dr Brunner EGD: 04/17/18 Surgical History History of esophagogastroduodenoscopy (EGD) History of mastectomy Left, 1998 Family History Other Colorectal cancer Diabetes Hypertension Social History Preferred Language: Thai Communication Ability: Effective Beliefs That Will Affect Care: None marital status: Current Living Situation: Spouse Other Information That Helps Us Care for You: No Feels Safe at Home: Yes Safety Concerns: Feels Safe At This Time Smoking Status: Former smoker Hx Alcohol Use: Yes (1 shot hard liquor daily ) Alcohol type: hard liquor Hx Substance Use: No Review of Systems Review of Systems: All systems reviewed & are unremarkable except as noted in HPI & below Physical Exam Constitutional: WD/WN, vitals as above no acute distress Respiratory: normal respiratory effort, lungs clear to auscultation Cardiovascular: RRR, no murmur, no edema Gastrointestinal (Abdomen): Inspection/Auscultation: abdomen normal to inspection and normal bowel sounds; abdomen not distended Percussion/Palpation: abdomen soft; abdomen nontender, no guarding and abdomen not rigid Skin: no rashes, warm and dry Psychiatric: A+Ox3, euthymic affect Results & Data Vital Signs (Past 12 Hours) Vital Signs Temp Pulse Pulse Resp BP Pulse Ox 06/03/19 07:46 36.5 C 59 L 19 157/69 H 93 06/02/19 22:58 36.8 C 59 L 16 137/50 L 95 Laboratory Results 06/03/19 06/03/19 06/03/19 Range/Units 08:11 07:45 06:53 WBC (4.8-10.8) K/uL RBC (4.7-6.1) M/uL Hgb (14.0-18.0) g/dL Hct (42-52) % MCV (80-100) fL MCH (25-34) pg MCHC (32-36) g/dL RDW Std Deviation (36.4-46.3) fL RDW Coeff of Gena (11.5-14.5) % Plt Count (130-400) K/uL MPV (7.4-10.4) fL Immature Gran % (Auto) % Neut % (Auto) % Lymph % (Auto) % [place] % (Auto) % Eos % (Auto) % Baso % (Auto) % Immature Gran # (Auto) (0.00-0.02) K/uL Neut # (Auto) (1.4-6.5) K/uL Lymph # (Auto) (1.2-3.4) K/uL [place] # (Auto) (0.11-0.59) K/uL Eos # (Auto) (0-0.5) K/uL Baso # (Auto) (0-0.2) K/uL Sodium 140 (136-145) mmol/L Potassium 3.4 L (3.5-5.1) mmol/L Chloride 106 (98-107) mmol/L Carbon Dioxide 27 (21-32) mmol/L Anion Gap 7.0 (3-11) BUN 17 (7-18) mg/dl Creatinine 1.14 (0.6-1.4) mg/dl Est Cr Clr Drug Dosing 51.4 ml/min Est GFR ( Amer) 68.1 Est GFR (Non-Af Amer) 58.7 BUN/Creatinine Ratio 14.5 (10-20) Glucose 99 (70-99) mg/dl POC Glucose 126 H (70-99) Lactate (0.4-2.0) mmol/L Calcium 8.7 (8.5-10.1) mg/dl Phosphorus (2.5-4.9) mg/dl Magnesium 2.0 (1.8-2.4) mg/dl Total Bilirubin (0.2-1) mg/dl AST (15-37) U/L ALT (12-78) U/L Alkaline Phosphatase (45-117) U/L Troponin I (0-0.045) ng/ml Total Protein (6.4-8.2) gm/dl Albumin (3.4-5.0) gm/dl Globulin (2.5-4.0) gm/dl Albumin/Globulin Ratio (0.9-2) Lipase (73-393) U/L Urine Color Yellow Urine Appearance Clear (Clear) Urine pH 6.5 (4.5-7.5) Ur Specific [place] 1.017 (1.000-1.030) Urine Protein Negative (Negative) Urine Glucose (UA) Negative (Negative) Urine Ketones Negative (Negative) Urine Blood Negative (Negative) Urine Nitrite Negative (Negative) Urine Bilirubin Negative (Negative) Urine Urobilinogen Negative (Negative) Ur Leukocyte Esterase Negative (Negative) 06/03/19 06/02/19 06/02/19 Range/Units 06:53 21:38 18:39 WBC 9.35 (4.8-10.8) K/uL RBC 4.17 L (4.7-6.1) M/uL Hgb 13.3 L (14.0-18.0) g/dL Hct 38.5 L (42-52) % MCV 92.3 (80-100) fL MCH 31.9 (25-34) pg MCHC 34.5 (32-36) g/dL RDW Std Deviation 47.9 H (36.4-46.3) fL RDW Coeff of Gena 14.4 (11.5-14.5) % Plt Count 208 (130-400) K/uL MPV 10.5 H (7.4-10.4) fL Immature Gran % (Auto) % Neut % (Auto) % Lymph % (Auto) % [place] % (Auto) % Eos % (Auto) % Baso % (Auto) % Immature Gran # (Auto) (0.00-0.02) K/uL Neut # (Auto) (1.4-6.5) K/uL Lymph # (Auto) (1.2-3.4) K/uL [place] # (Auto) (0.11-0.59) K/uL Eos # (Auto) (0-0.5) K/uL Baso # (Auto) (0-0.2) K/uL Sodium (136-145) mmol/L Potassium (3.5-5.1) mmol/L Chloride (98-107) mmol/L Carbon Dioxide (21-32) mmol/L Anion Gap (3-11) BUN (7-18) mg/dl Creatinine (0.6-1.4) mg/dl Est Cr Clr Drug Dosing ml/min Est GFR ( Amer) Est GFR (Non-Af Amer) BUN/Creatinine Ratio (10-20) Glucose (70-99) mg/dl POC Glucose 91 73 (70-99) Lactate (0.4-2.0) mmol/L Calcium (8.5-10.1) mg/dl Phosphorus (2.5-4.9) mg/dl Magnesium (1.8-2.4) mg/dl Total Bilirubin (0.2-1) mg/dl AST (15-37) U/L ALT (12-78) U/L Alkaline Phosphatase (45-117) U/L Troponin I (0-0.045) ng/ml Total Protein (6.4-8.2) gm/dl Albumin (3.4-5.0) gm/dl Globulin (2.5-4.0) gm/dl Albumin/Globulin Ratio (0.9-2) Lipase (73-393) U/L Urine Color Urine Appearance (Clear) Urine pH (4.5-7.5) Ur Specific [place] (1.000-1.030) Urine Protein (Negative) Urine Glucose (UA) (Negative) Urine Ketones (Negative) Urine Blood (Negative) Urine Nitrite (Negative) Urine Bilirubin (Negative) Urine Urobilinogen (Negative) Ur Leukocyte Esterase (Negative) 06/02/19 06/02/19 06/02/19 Range/Units 18:12 18:08 17:29 WBC (4.8-10.8) K/uL RBC (4.7-6.1) M/uL Hgb (14.0-18.0) g/dL Hct (42-52) % MCV (80-100) fL MCH (25-34) pg MCHC (32-36) g/dL RDW Std Deviation (36.4-46.3) fL RDW Coeff of Gena (11.5-14.5) % Plt Count (130-400) K/uL MPV (7.4-10.4) fL Immature Gran % (Auto) % Neut % (Auto) % Lymph % (Auto) % [place] % (Auto) % Eos % (Auto) % Baso % (Auto) % Immature Gran # (Auto) (0.00-0.02) K/uL Neut # (Auto) (1.4-6.5) K/uL Lymph # (Auto) (1.2-3.4) K/uL [place] # (Auto) (0.11-0.59) K/uL Eos # (Auto) (0-0.5) K/uL Baso # (Auto) (0-0.2) K/uL Sodium (136-145) mmol/L Potassium (3.5-5.1) mmol/L Chloride (98-107) mmol/L Carbon Dioxide (21-32) mmol/L Anion Gap (3-11) BUN (7-18) mg/dl Creatinine (0.6-1.4) mg/dl Est Cr Clr Drug Dosing ml/min Est GFR ( Amer) Est GFR (Non-Af Amer) BUN/Creatinine Ratio (10-20) Glucose (70-99) mg/dl POC Glucose 68 L* 64 L* (70-99) Lactate 1.7 (0.4-2.0) mmol/L Calcium (8.5-10.1) mg/dl Phosphorus (2.5-4.9) mg/dl Magnesium (1.8-2.4) mg/dl Total Bilirubin (0.2-1) mg/dl AST (15-37) U/L ALT (12-78) U/L Alkaline Phosphatase (45-117) U/L Troponin I (0-0.045) ng/ml Total Protein (6.4-8.2) gm/dl Albumin (3.4-5.0) gm/dl Globulin (2.5-4.0) gm/dl Albumin/Globulin Ratio (0.9-2) Lipase (73-393) U/L Urine Color Urine Appearance (Clear) Urine pH (4.5-7.5) Ur Specific [place] (1.000-1.030) Urine Protein (Negative) Urine Glucose (UA) (Negative) Urine Ketones (Negative) Urine Blood (Negative) Urine Nitrite (Negative) Urine Bilirubin (Negative) Urine Urobilinogen (Negative) Ur Leukocyte Esterase (Negative) 06/02/19 06/02/19 Range/Units 11:27 11:27 WBC 14.09 H (4.8-10.8) K/uL RBC 4.66 L (4.7-6.1) M/uL Hgb 15.1 (14.0-18.0) g/dL Hct 43.1 (42-52) % MCV 92.5 (80-100) fL MCH 32.4 (25-34) pg MCHC 35.0 (32-36) g/dL RDW Std Deviation 48.2 H (36.4-46.3) fL RDW Coeff of Gena 14.3 (11.5-14.5) % Plt Count 252 (130-400) K/uL MPV 11.2 H (7.4-10.4) fL Immature Gran % (Auto) 0.2 % Neut % (Auto) 82.7 % Lymph % (Auto) 9.3 % [place] % (Auto) 4.4 % Eos % (Auto) 3.3 % Baso % (Auto) 0.1 % Immature Gran # (Auto) 0.03 H (0.00-0.02) K/uL Neut # (Auto) 11.66 H (1.4-6.5) K/uL Lymph # (Auto) 1.31 (1.2-3.4) K/uL [place] # (Auto) 0.62 H (0.11-0.59) K/uL Eos # (Auto) 0.46 (0-0.5) K/uL Baso # (Auto) 0.01 (0-0.2) K/uL Sodium 137 (136-145) mmol/L Potassium 3.6 (3.5-5.1) mmol/L Chloride 102 (98-107) mmol/L Carbon Dioxide 27 (21-32) mmol/L Anion Gap 8.0 (3-11) BUN 21 H (7-18) mg/dl Creatinine 1.31 (0.6-1.4) mg/dl Est Cr Clr Drug Dosing 44.7 ml/min Est GFR ( Amer) 57.5 Est GFR (Non-Af Amer) 49.6 BUN/Creatinine Ratio 15.8 (10-20) Glucose 155 H (70-99) mg/dl POC Glucose (70-99) Lactate (0.4-2.0) mmol/L Calcium 8.9 (8.5-10.1) mg/dl Phosphorus 2.3 L (2.5-4.9) mg/dl Magnesium 1.7 L (1.8-2.4) mg/dl Total Bilirubin 0.6 (0.2-1) mg/dl AST 14 L (15-37) U/L ALT 21 (12-78) U/L Alkaline Phosphatase 85 (45-117) U/L Troponin I < 0.015 (0-0.045) ng/ml Total Protein 7.8 (6.4-8.2) gm/dl Albumin 3.7 (3.4-5.0) gm/dl Globulin 4.1 H (2.5-4.0) gm/dl Albumin/Globulin Ratio 0.9 (0.9-2) Lipase 63 L (73-393) U/L Urine Color Urine Appearance (Clear) Urine pH (4.5-7.5) Ur Specific [place] (1.000-1.030) Urine Protein (Negative) Urine Glucose (UA) (Negative) Urine Ketones (Negative) Urine Blood (Negative) Urine Nitrite (Negative) Urine Bilirubin (Negative) Urine Urobilinogen (Negative) Ur Leukocyte Esterase (Negative) Diagnostic Findings ABDOMEN AND PELVIS CT WITH IV CONTRAST CT DOSE: 579.84 mGy.cm HISTORY: Acute left lower quadrant abdominal pain with nausea and vomiting LLQ abd pain,n/v TECHNIQUE: Multiaxial CT images of the abdomen and pelvis were performed following the IV administration of 94 cc of Optiray 320, A dose lowering technique was utilized adhering to the principles of ALARA. 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 6 mm subpleural solid nodule of the basal left lower lobe on image 26 series 3 is unchanged and likely benign. No pneumatosis or pneumoperitoneum. The imaged inferior cardiac chambers are unremarkable. Spleen, pancreas, adrenal glands and gallbladder are unremarkable. Slightly decreased attenuation of the liver suggests hepatic steatosis. No hepatic mass lesion or evidence of cirrhosis. There is mild nonspecific bilateral perinephric stranding. Mild cortical thinning is noted, left greater than right. Probable cyst of the inferior pole left kidney, 11 mm. No renal or ureteral calculi or obstructive uropathy. Moderate urinary bladder distention. Prostamegaly. Small fat filled inguinal hernias. Extensive calcified plaque of the abdominal aorta without aneurysm. 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 No adenopathy. Moderate hiatal hernia with trace fluid within the hernia sac. The terminal 9 mm dependent area of slightly increased attenuation about the dependent duodenum on image 172 series 3 which may reflect ingested material versus lesion. Mild wall thickening of the pylorus is likely secondary to partial distention. Fluid- filled mildly dilated duodenum and proximal jejunum measures up to 3.3 cm. No transition point. Nondilated fluid-filled loops of distal small bowel are present. No small bowel wall thickening or inflammatory stranding identified. Significant colonic diverticulosis. Mild wall thickening throughout the sigmoid colon is likely on a chronic basis. No evidence of acute diverticulitis. Unremarkable appendix. Soft tissues are within normal limits. Degenerative changes of the spine, pelvis and hips. Healed remote fracture of the anterolateral right eighth rib. Degenerative changes of the spine, pelvis and hips. IMPRESSION: 1. Dilated fluid-filled duodenum and proximal jejunum with fluid-filled nondilated distal small bowel is suggestive of enteritis/ileus with low-grade small bowel obstruction considered less likely. Correlate clinically. 2. No pneumatosis or pneumoperitoneum. 3. Colonic diverticulosis without acute diverticulitis. Wall thickening throughout the sigmoid colon is likely secondary to chronic diverticular disease. 4. Normal appendix. 5. Moderate hiatal hernia with trace adjacent free fluid. 6. 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 7. Additional findings as above. XR KUB/Abdomen 1 view CLINICAL HISTORY: ileus, r/o SBO pain COMPARISON STUDY: No previous studies for comparison. FINDINGS: The soft tissues, psoas shadows, renal outlines and intestinal gas pattern appear normal. There is no evidence for bowel obstruction. No abnormal abdominal calcifications are seen. IMPRESSION: Normal study.
--- NOTE | 2019-06-03 16:26 | Hospitalist Progress Note ---
Date of Service June 03, 2019 Assessment & Plan (1) Nausea & vomiting: (2) Ileus: Patient is an 83 yr male with H/O HTN, dyslipidemia, DM II, CKD III, h/o breast CA s/p mastectomy, radiation, chemo, neuropathy, chronic pain, BPH, gout presented to ER with complaint of abdominal pain, nausea and vomiting x 3 episodes Ileus --CT ABD/PELVIS: . Dilated fluid-filled duodenum and proximal jejunum with fluid-filled nondilated distal small bowel is suggestive of enteritis/ileus with low-grade small bowel obstruction considered less likely. Correlate clinically. No pneumatosis or pneumoperitoneum. Colonic diverticulosis without acute diverticulitis. Wall thickening throughout the sigmoid colon is likely secondary to chronic diverticular disease. Normal appendix. Moderate hiatal hernia with trace adjacent free fluid. --Continue IV fluids --Advance diet as tolerated --Normal KUB today --Appreciate surgery input --Encouraged to ambulate (3) Hypomagnesemia: Hypokalemia Hypomagnesemia Due to GI losses Replace electrolytes as needed (4) CKD (chronic kidney disease), stage III: Baseline Cr: 1.2 Avoid nephrotoxic agents when possible Monitor renal functions (5) Diabetes mellitus, type II: A1c: 6.1 on 04/29/2018 Hold glipizide Continue insulin therapy while hospitalized (6) Hypertension: Continue carvedilol, amlodipine, losartan Monitor (7) GERD (gastroesophageal reflux disease): Continue PPI (8) Gout: Resume allopurinol as able (9) BPH (benign prostatic hyperplasia): On finasteride, tamsulosin. (10) Neuropathy: (11) Chronic pain: Hold oxycodone with current ileus Continue duloxetine, Lyrica DVT Px Lovenox SQ Code Status DNR/DNI Disposition PT OT prior to discharge Follows with Dr Harrison for routine care Subjective Patient is seen and examined at bedside Nausea, vomiting, abdominal pain resolved + Flatus but no bowel movement Tolerating diet Denies any chest pain, shortness of breath, dizziness Offers no other complaints KUB done today is normal Review of Systems Review of Systems: All systems reviewed & are unremarkable except as noted in HPI & below Physical Exam Physical Exam: Physical Exam: Vitals signs as noted above General Appearance:Moderately built and nourished, no apparent distress Head: normocephalic, Atraumatic Eyes: normal inspection, EOMI Neck: supple, Trachea midline Respiratory/Chest: Normal breath sounds, CTA Cardiovascular: S1, S2, No murmur Abdomen/GI:Soft, Non tender, Bowel sounds decreased Extremities/Musculoskelatal:normal inspection, no edema Neurologic/Psych:AAOX3, grossly no focal neurological deficits Skin: normal color, warm Results & Data Vital Signs (Past 12 Hours) Vital Signs Temp Pulse Pulse Resp BP Pulse Ox 06/03/19 15:09 36.5 C 59 L 16 144/75 H 93 06/03/19 12:04 36.4 C L 55 L 20 164/76 H 94 06/03/19 07:46 36.5 C 59 L 19 157/69 H 93 Laboratory Results Short CBC 06/03/19 Range/Units 06:53 WBC 9.35 (4.8-10.8) K/uL Hgb 13.3 L (14.0-18.0) g/dL Hct 38.5 L (42-52) % Plt Count 208 (130-400) K/uL BMP 06/03/19 06:53 Sodium 140 Potassium 3.4 L Chloride 106 Carbon Dioxide 27 BUN 17 Creatinine 1.14 Glucose 99 Calcium 8.7 Urine 06/03/19 Range/Units 07:45 Urine Color Yellow Urine Appearance Clear (Clear) Urine pH 6.5 (4.5-7.5) Ur Specific [place] 1.017 (1.000-1.030) Urine Protein Negative (Negative) Urine Glucose (UA) Negative (Negative)
[2019-06-03] MEDS: LOSARTAN POTASSIUM 50 MG TAB PO SCH (17:46)
[2019-06-03] MEDS: carvediloL 6.25 MG TAB PO SCH (20:30)
[2019-06-03] MEDS ORDERED: TAMSULOSIN HCL 0.4 MG CAP PO SCH (21:00)
[2019-06-03] MEDS: OXYCODONE/ACETAMINOPHEN 5mg/325mg TAB PO PRN (21:26)
[2019-06-04] MEDS: ZOLPIDEM TARTRATE 5 MG TAB PO PRN (00:18)
[2019-06-04 05:57] LABS: BUN Creatinine Ratio 12.4 (10-20); Calcium 8.7 mg/dl (8.5-10.1); Creatinine Clr Calc Pharmacy 50.5 ml/min; Est GFR (African American) 66.7; Est GFR (Non-African American) 57.5; Magnesium 1.9 mg/dl (1.8-2.4); Potassium 3.9 mmol/L (3.5-5.1)
[2019-06-04] MEDS: LACTATED RINGER'S 1,000 ML IV SCH (07:44)
[2019-06-04] MEDS: OXYCODONE/ACETAMINOPHEN 5mg/325mg TAB PO PRN (07:44)
[2019-06-04] MEDS: carvediloL 6.25 MG TAB PO SCH (07:45)
[2019-06-04] MEDS: DULOXETINE HCL 20 MG CAP PO SCH (07:45)
[2019-06-04] MEDS: PANTOprazole 40 MG TAB PO SCH (07:45)
[2019-06-04] MEDS: LOSARTAN POTASSIUM 50 MG TAB PO SCH (07:45)
[2019-06-04] MEDS: ENOXAPARIN INJ 40 MG/0.4 ML SYR SQ SCH (07:46)
[2019-06-04] MEDS: PREGABALIN 75 MG CAP PO SCH ×2 (08:24→13:01)
[2019-06-04] MEDS ORDERED: AMLODIPINE BESYLATE 5 MG TAB PO SCH (09:00)
[2019-06-04] MEDS ORDERED: ASPIRIN 81 MG ECTAB PO SCH (09:00)
[2019-06-04] MEDS: INSULIN ASPART 100 UNITS/ML 3 ML PEN SC SCH ×2 (09:04→13:03)
--- NOTE | 2019-06-04 12:13 | Hospitalist Progress Note ---
Date of Service June 04, 2019 Assessment & Plan (1) Nausea & vomiting: (2) Ileus: Patient is an 83 yr male with H/O HTN, dyslipidemia, DM II, CKD III, h/o breast CA s/p mastectomy, radiation, chemo, neuropathy, chronic pain, BPH, gout presented to ER with complaint of abdominal pain, nausea and vomiting x 3 episodes Ileus --CT ABD/PELVIS: . Dilated fluid-filled duodenum and proximal jejunum with fluid-filled nondilated distal small bowel is suggestive of enteritis/ileus with low-grade small bowel obstruction considered less likely. Correlate clinically. No pneumatosis or pneumoperitoneum. Colonic diverticulosis without acute diverticulitis. Wall thickening throughout the sigmoid colon is likely secondary to chronic diverticular disease. Normal appendix. Moderate hiatal hernia with trace adjacent free fluid. --Received IV fluids --Tolerating diet --Had bowel movement --Appreciate surgery input --Encouraged to ambulate (3) Hypomagnesemia: Hypokalemia Hypomagnesemia Due to GI losses Replace electrolytes as needed Resolved (4) CKD (chronic kidney disease), stage III: Baseline Cr: 1.2 Avoid nephrotoxic agents when possible Monitor renal functions (5) Diabetes mellitus, type II: A1c: 6.1 on 04/29/2018 Hold glipizide Continue insulin therapy while hospitalized (6) Hypertension: Continue carvedilol, amlodipine, losartan Monitor (7) GERD (gastroesophageal reflux disease): Continue PPI (8) Gout: Resume allopurinol (9) BPH (benign prostatic hyperplasia): On finasteride, tamsulosin. (10) Neuropathy: (11) Chronic pain: Hold oxycodone with current ileus Continue duloxetine, Lyrica DVT Px Lovenox SQ Code Status DNR/DNI Disposition PT OT: Recommends to return home Follows with Dr Harrison for routine care Subjective Patient is seen and examined at bedside Doing much better today Had bowel movement yesterday Denies any nausea, vomiting, abdominal pain, chest pain, shortness of breath, dizziness Eager to get discharged Tolerating diet Discussed with surgery today Review of Systems Review of Systems: All systems reviewed & are unremarkable except as noted in HPI & below Physical Exam Physical Exam: Physical Exam: Vitals signs as noted above General Appearance:Moderately built and nourished, no apparent distress Head: normocephalic, Atraumatic Eyes: normal inspection, EOMI Neck: supple, Trachea midline Respiratory/Chest: Normal breath sounds, CTA Cardiovascular: S1, S2, No murmur Abdomen/GI:Soft, Non tender, Bowel sounds decreased Extremities/Musculoskelatal:normal inspection, no edema Neurologic/Psych:AAOX3, grossly no focal neurological deficits Skin: normal color, warm Results & Data Vital Signs (Past 12 Hours) Vital Signs Temp Pulse Resp BP Pulse Ox 06/04/19 07:20 36.7 C 50 L 16 166/74 H 95 Laboratory Results [facility] 06/04/19 04:52 Sodium 142 Potassium 3.9 Chloride 108 H Carbon Dioxide 29 BUN 14 Creatinine 1.16 Glucose 96 Calcium 8.7
--- NOTE | 2019-06-04 12:39 | Discharge Summary ---
Date of Service June 04, 2019 Admission HPI Per Admitting Provider Pt is 83 y/o M with PMH HTN, dyslipidemia, DM II, CKD III, h/o breast CA s/p mastectomy, radiation, chemo, neuropathy, chronic pain, BPH, gout presented to ER with complaint of abdominal pain. Patient states ate out last night and had shrimp, scallops and pasta. Patient states later in the evening started with nausea and had 3 episodes of vomiting. Complains of some lower abdominal discomfort. Does not feel like he has passed flatus today. Reports last BM was yesterday morning which was formed normal stool. No prior treatment. Did not eat today. Did not take medications today. Patient is on oxycodone for chronic pain and states he usually takes about 3-4 times a day. Denies history of abdominal surgery. Denies history of SBO. Others did not have same food last night at restaurant. Denies ill contacts. Denies fever/chills, diaphoresis, diarrhea, hematemesis, melena, hematochezia, INGRAM, dizziness, syncope, vision changes, neck pain, CP, SOB, orthopnea, palpitations, cough, sore throat, choking, otalgia, rhinorrhea, paresthesias, weakness, extremity weakness, extremity edema, rashes, urinary symptoms. Admission Exam Per Admitting Provider General: no acute distress, WDWN Head: normocephalic, atraumatic Eyes: PERRL, EOM's intact, conjunctiva non-injected, anicteric ENT: normal inspection external ears, nose, mucous membranes moist Neck: supple, trachea midline Lungs: clear, no respiratory distress, no wheezing/rhonchi/rales CV: RRR, no murmur, no JVD, no pretibial edema Abd: normal BS, soft, non-tender to palpation Ext: no cyanosis, no calf tenderness Neuro: A&O x 3, no focal deficits noted, normal affect Skin: warm, dry Principal Diagnosis Ileus Hypomagnesemia Hypokalemia Discharge Data Allergies Allergy/AdvReac Type Severity Reaction Status Date / Time LISBETH Inhibitors AdvReac Intermediate COUGH Verified 06/02/19 16:57 Consultations 06/02/19 14:42 ED Decision to Admit Stat 06/02/19 16:49 Consult Case Management - Discharge Planning Routine 06/03/19 06:00 Consult General Surgery Routine Procedures Performed -CT ABD/PELVIS: . Dilated fluid-filled duodenum and proximal jejunum with fluid- filled nondilated distal small bowel is suggestive of enteritis/ileus with low- grade small bowel obstruction considered less likely. Correlate clinically. No pneumatosis or pneumoperitoneum. Colonic diverticulosis without acute diverticulitis. Wall thickening throughout the sigmoid colon is likely secondary to chronic diverticular disease. Normal appendix. Moderate hiatal hernia with trace adjacent free fluid. Ordered Studies 06/02/19 12:32 CT abd pelvis IV con only Stat Hospital Course (1) Nausea & vomiting: (2) Ileus: Patient is an 83 yr male with H/O HTN, dyslipidemia, DM II, CKD III, h/o breast CA s/p mastectomy, radiation, chemo, neuropathy, chronic pain, BPH, gout presented to ER with complaint of abdominal pain, nausea and vomiting x 3 episodes Ileus --CT ABD/PELVIS: . Dilated fluid-filled duodenum and proximal jejunum with fluid-filled nondilated distal small bowel is suggestive of enteritis/ileus with low-grade small bowel obstruction considered less likely. Correlate clinically. No pneumatosis or pneumoperitoneum. Colonic diverticulosis without acute diverticulitis. Wall thickening throughout the sigmoid colon is likely secondary to chronic diverticular disease. Normal appendix. Moderate hiatal hernia with trace adjacent free fluid. --Received IV fluids --Tolerating diet --Had bowel movement --Appreciate surgery input --Encouraged to ambulate (3) Hypomagnesemia: Hypokalemia Hypomagnesemia Due to GI losses Replace electrolytes as needed Resolved (4) CKD (chronic kidney disease), stage III: Baseline Cr: 1.2 Avoid nephrotoxic agents when possible Monitor renal functions (5) Diabetes mellitus, type II: A1c: 6.1 on 04/29/2018 Hold glipizide Continue insulin therapy while hospitalized (6) Hypertension: Continue carvedilol, amlodipine, losartan Monitor (7) GERD (gastroesophageal reflux disease): Continue PPI (8) Gout: Resume allopurinol (9) BPH (benign prostatic hyperplasia): On finasteride, tamsulosin. (10) Neuropathy: (11) Chronic pain: Hold oxycodone with current ileus Continue duloxetine, Lyrica DVT Px Lovenox SQ Code Status DNR/DNI Disposition PT OT: Recommends to return home Follows with Dr Harrison for routine care Total Time Total Time Spent Total Time Spent (In Minutes): 38 minutes Total Time Includes: Examination of the Patient, Discharge Planning, Medication Reconciliation, Communication With Other Providers and Other Discharge Plan Discharge Items Patient Disposition: Home - Self-Care Reason For Visit: INTOLERANT PO, BOWEL OBSTRUCTION Discharge Diagnosis: Ileus Hypomagnesemia Hypokalemia Activity: Resume your previous activity Exercise/Sports: Gradually increase as tolerated Non-emergency contact: Primary Care Provider Call non-emergency contact if: you have any medication questions, your symptoms worsen, your pain is not controlled, your pain is worsening, your pain is unusual for you, your pain is concerning for you and you have a fever Follow-up/Referrals: Darius Harrison, [Primary Care Provider] - Diet: Carb Consistent or DM2 Addtl Attending Provider Instructions: Follow up with your PCP on June 07, 2019 at 2:45 PM Minimize pain medicines (narcotics) us as able as these can cause constipation. Seek immediate medical attention if your symptoms reoccur or worsen Pending Studies at Discharge: No Stand-Alone Forms: [facility], Smoking Cessation Medications and DC Order Prescriptions: Continued sodium chloride 5 % drops 1 drp OPB UD RF: 0 carvedilol 12.5 mg tablet 6.25 mg PO BID RF: 0 glipizide 10 mg tablet extended release 24hr 10 mg PO BIDM RF: 0 allopurinol 100 mg tablet 100 mg PO QDL RF: 0 aspirin 81 mg Tablet,Delayed Release (Dr/Ec) 81 mg PO QAM RF: 0 losartan-hydrochlorothiazide 100-25 mg tablet 1 tab PO QAM RF: 0 oxycodone-acetaminophen 5-325 mg tablet 1 tab PO QID PRN (Reason: Pain) RF: 0 amlodipine 10 mg tablet 10 mg PO QAM RF: 0 omeprazole 20 mg capsule,delayed release(DR/EC) 20 mg PO BIDM RF: 0 allopurinol 300 mg tablet 300 mg PO QDL RF: 0 zolpidem 5 mg tablet 5 mg PO HS RF: 0 furosemide 20 mg tablet 20 mg PO QAM RF: 0 duloxetine 20 mg capsule,delayed release(DR/EC) 20 mg PO QAM RF: 0 pregabalin [Lyrica] 75 mg capsule 75 mg PO TID RF: 0 tamsulosin 0.4 mg capsule 0.4 mg PO HS RF: 0 finasteride 5 mg tablet 5 mg PO QAM RF: 0 Discharge Orders: Discharge Order (Routine); Ordered 06/04/19 Ordered By: Julius Sosa Admission Data Admit Date/Time: 06/02/19 14:58 Attending Provider: Julius Sosa Admit Provider: Lubna Marr Primary Care Provider: Darius Harrison Other Providers: Lubna Marr ; Daniel Davis Other Interventions: Discharge Summary Assessment (RN) Last Done: 06/04/19 13:09 DC Date/Time DO NOT enter until pt leaves facility: 06/04/19 13:54
== END 2019-06-04 13:54 | disposition home or self-care (01) | DRG 390 ==
LOC: ED 11:36 → SUATTDRO 14:58 → 3W 14:58

== ENCOUNTER 2022-10-14 13:18 | Inpatient (IN) ==
[2022-10-14] MEDS ORDERED: LORazepam 2 MG/1 ML VIAL IV STA (13:39)
[2022-10-14] MEDS ORDERED: SODIUM CHLORIDE 0.9% 500 ML IV SCH (13:45)
--- NOTE | 2022-10-14 13:54 | Emergency Department Note ---
Impression & Plan Weakness, Involuntary movements, CAP (community acquired pneumonia) ED Provider Note Provider: Andrea Cespedes MD DATE OF SERVICE: 10/14/2022 CHIEF COMPLAINT: Tremors/movements, unable to get out of bed HISTORY OF PRESENT ILLNESS: Patient is a 86-year-old gentleman prior history of gout, CKD, breast cancer, diabetes, hypertension, neuropathy, RLS senting via ambulance from his home. Lives at home with his who helps take care of. States overnight began to have involuntary movements of his arms and legs jumping motions. States he did not sleep well and then was unable to get out of bed due to this. Not an amazing historian but did review the patient's medication list with him. Denies significant recent changes. has been taking his medications. Appears to be on baclofen as well as ropinirole at home and states has had some involuntary motions mildly in the past but this is increased. Denies recent illness PAST MEDICAL HISTORY: As noted above MEDICATIONS: Reviewed home medication list SOCIAL HISTORY: Lives at home with PHYSICAL EXAM: GENERAL: alert and oriented laying on the stretcher intermittently having involuntary spasms and movements of the arms and legs. Head: normocephalic and atraumatic EYES: No injection, discharge or icterus. PERRL, EOMI. NECK: Trachea midline. Supple. ENT: Mucous membranes pink and moist. LUNGS: Airway patent. No retractions. Breath sounds clear with good air entry bilaterally. HEART: Irregular rate and rhythm. No chest wall tenderness ABDOMEN: Soft and non-tender, without guarding or rebound. SKIN: Acyanotic, warm, dry, without rashes EXTREMITIES: Without swelling, tenderness or deformity NEUROLOGICAL: No focal deficits. No aphasia. No facial droop or slurred speech. Intact sensation in all extremities. Has some choreiform movements of the extremities. EK bpm significant baseline artifact but appears to show sinus rhythm with PACs. No acute ST segment elevation or depression noted. CONTINUOUS CARDIAC MONITORING: was ordered and showed a heart rate of 70s-80s bpm in sinus rhythm with PACs Patient's laboratory studies and imaging reviewed. Differential includes Infection, dehydration, metabolic abnormality, hypo/hyperglycemia, electrolyte disturbance, anemia, hypoxia, cardiac source s,neurologic, as well as other pathologies. IMPRESSION/MEDICAL DECISION MAKING: Reviewed patient's epic medical record as well as medication list. Has been on some spasm medications but do not see significant psychotropics that would necessarily cause this presentation and denies recent change. Denies recent illness. Not necessarily focal. Unclear exactly what to make of this choreiform type movements. Did complete a CT scan of the head as well as basic blood work and electrolytes. Patient with weakness inability get up and care for himself at home as significant issue with this as well. Given a bit of Ativan to see if this would relax the situation. This did help with his movemen ts. Borderline oxygen after the Ativan unsure if this is causing this or if it is from some other underlying process. Do not see significant leg swelling or risk factors for DVT at this time. Troponin and telemetry here reassuring with what appears to be sinus rhythm with some PACs. Some acute renal dysfunction noted today with a creatinine of 2 from baseline around 1.6. No signs of hepatitis or thyroid dysfunction. Negative COVID. No anemia but a slight leukocytosis noted of unclear significance. Urinalysis pending collection. He does not appear meningitic. Chest x-ray obtained to look for underlying pulmonary issue. Does have concerning bilateral findings at this point seems more likely to be pneumonia than CHF given leukocytosis and lack of significant swelling in extremities. Covered with ceftriaxone and doxycycline; does report some coughs earlier today. Attempted to sit up and ambulate the patient is movements are better but quite fatigued and dizzy with even trying to sit at the bed and not able to ambulate. Given this with his fatigue although the movements are better feel that he requires further care here in the hospital. Hospitalist contacted. DIAGNOSIS: Weakness, involuntary movements, multifocal community-acquired pneumonia DISPOSITION: Hospitalist will evaluate Patient was agreeable with this plan. Past Med/Surg History Medical History (Updated 10/14/22 @ 16:58 by Andrea Cespedes M.D.) Asbestosis BPH (benign prostatic hyperplasia) Breast cancer in male S/P Left mastectomy, radiation, chemo; 1998 Carotid stenosis under surveillance by cardiology Chronic pain CKD (chronic kidney disease), stage III Diabetes mellitus, type II NIDDM Dyslipidemia GERD (gastroesophageal reflux disease) Hearing deficit Hx of gout Hypertension Neuropathy Osteoarthritis Peripheral neuropathy Schatzki's ring s/p dilation (02/04/20) Sepsis due to pneumonia Surgical History H/O prostate biopsy History of cataract surgery RT/LEFT History of colonoscopy History of esophagogastroduodenoscopy (EGD) History of keratoplasty Left eye; 02/17/2020 [facility] [place] History of mastectomy Left, 1998 History of tooth extraction Hx of transurethral resection of prostate Family History Brother Family history of diabetes mellitus Family hx of colon cancer Other Colorectal cancer Diabetes Hypertension Social History Smoking Status: Never smoker Second Hand Exposure: Yes; Hx Alcohol Use: Yes Alcohol type: hard liquor Hx Substance Use: No Preferred Language: Thai Communication Ability: Effective Certified Nursing Assistant Required: No Beliefs That Will Affect Care: None marital status: Current Living Situation: Spouse Feels Safe at Home: Yes Assistive Devices: Cane, Denture - Upper, Denture - Lower, Glasses and Hearing Aid - Bilateral Allergies Allergies Allergy/AdvReac Type Severity Reaction Status Date / Time gabapentin AdvReac Intermediate Diarrhea Verified 10/14/22 15:47 simvastatin AdvReac Intermediate Muscle Pain Verified 10/14/22 15:47 LISBETH Inhibitors AdvReac Mild COUGH Verified 10/14/22 15:47 Home Meds Home Medications Medication Instructions Recorded Confirmed allopurinol 100 mg tablet 100 mg PO QDL 06/02/19 10/14/22 allopurinol 300 mg tablet 300 mg PO QDL 06/02/19 10/14/22 amlodipine 10 mg tablet 10 mg PO QAM 06/02/19 10/14/22 aspirin 81 mg tablet,delayed 81 mg PO QAM 06/02/19 10/14/22 release carvedilol 12.5 mg tablet 6.25 mg PO BID 06/02/19 10/14/22 furosemide 20 mg tablet 20 mg PO QAM 06/02/19 10/14/22 glipizide 10 mg tablet, extended 10 mg PO BIDM 06/02/19 10/14/22 release 24 hr losartan 100 1 tab PO QAM 06/02/19 10/14/22 mg-hydrochlorothiazide 25 mg tablet zolpidem 5 mg tablet 5 mg PO HS 06/02/19 10/14/22 albuterol sulfate 90 mcg/actuation 2 inh inhalation Q4H PRN Wheezing 02/05/20 10/14/22 aerosol inhaler (ProAir HFA) omeprazole 40 mg capsule,delayed 40 mg PO BID 02/05/20 10/14/22 release ascorbic acid (vitamin C) 500 mg 500 mg PO QDL 09/24/20 10/14/22 chewable tablet (Vitamin C) cholecalciferol (vitamin D3) 50 50 mcg PO DAILY 09/24/20 10/14/22 mcg (2,000 unit) capsule (Vitamin D3) cyanocobalamin (vitamin B-12) 1,000 mcg PO QDL 09/24/20 10/14/22 1,000 mcg tablet (Vitamin B-12) triamcinolone acetonide 0.1 % 1 applic topical DAILY PRN Rash 09/24/20 10/14/22 topical cream acetaminophen 500 mg tablet 1,000 mg PO Q8H PRN Pain 10/14/22 10/14/22 (Tylenol Extra Strength) albuterol sulfate 2.5 mg/3 mL 2.5 mg inhalation DIRECTED PRN 10/14/22 10/14/22 (0.083 %) solution for nebulization Shortness Of Breath Or Wheezing baclofen 10 mg tablet 10 mg PO BID 10/14/22 10/14/22 duloxetine 60 mg capsule,delayed 60 mg PO BID 10/14/22 10/14/22 release (Cymbalta) empagliflozin 10 mg tablet 10 mg PO QAM 10/14/22 10/14/22 famotidine 40 mg tablet (Pepcid) 40 mg PO DAILY PRN 10/14/22 10/14/22 INDIGESTION/HEARTBURN finasteride 5 mg tablet 5 mg PO QDL 10/14/22 10/14/22 fluorometholone 0.1 % eye 1 drp OPB HS 10/14/22 10/14/22 drops,suspension fluorouracil 0.5 % topical cream 1 applic topical BID PRN Skin 10/14/22 10/14/22 Irritation lidocaine 5 % topical patch 1 patch topical DAILY 10/14/22 10/14/22 linaclotide 72 mcg capsule 72 mcg PO DAILY PRN ABD PAIN 10/14/22 10/14/22 (Linzess) magnesium citrate 125 mg capsule 125 mg PO DAILY 10/14/22 10/14/22 memantine 5 mg tablet 5 mg PO BID 10/14/22 10/14/22 pregabalin 150 mg capsule (Lyrica) 150 mg PO BID 10/14/22 10/14/22 ropinirole 0.5 mg tablet 0.5 mg PO HS 10/14/22 10/14/22 rosuvastatin 20 mg tablet 20 mg PO DAILY 10/14/22 10/14/22 sildenafil (pulm.hypertension) 20 20 mg PO DIRECTED PRN sexual 10/14/22 10/14/22 mg tablet activity Previous Rx's Medication Instructions Recorded tamsulosin 0.4 mg capsule 0.4 mg PO HS #90 caps 01/26/22 Results & Data (ED) Vital Signs Vital Signs - 24 hr 10/14/22 13:25 10/14/22 13:41 10/14/22 14:57 Temperature 36.9 C Temperature Source Oral Pulse Rate 87 92 H Pulse Rate [Apical] Pulse Rhythm Irregular Pulse Strength Normal Respiratory Rate 18 Respiratory Effort / Characteristics Non-Labored Respiratory Depth Normal Respiratory Pattern Regular Blood Pressure 90/65 L Blood Pressure [Right Arm] Blood Pressure Mean 73 Blood Pressure Mean [Right Arm] Blood Pressure Position Lying Pulse Oximetry 92 92 Oxygen Delivery Method Nasal Cannula Nasal Cannula Oxygen Flow Rate 2 2 Sepsis Recent Fever Within 48 Hours No Sepsis New/Unexplained Change in Mental Status N/A Sepsis Action Taken by Nursing No Action Required 10/14/22 15:00 Temperature Temperature Source Pulse Rate Pulse Rate [Apical] 76 Pulse Rhythm Pulse Strength Respiratory Rate 15 Respiratory Effort / Characteristics Non-Labored Spontaneous Respiratory Depth Normal Respiratory Pattern Blood Pressure Blood Pressure [Right Arm] 95/64 L Blood Pressure Mean Blood Pressure Mean [Right Arm] 74 Blood Pressure Position Pulse Oximetry 91 Oxygen Delivery Method Oxygen Flow Rate Sepsis Recent Fever Within 48 Hours Sepsis New/Unexplained Change in Mental Status Sepsis Action Taken by Nursing Laboratory Data 10/14/22 13:53 10/14/22 13:53 Lab Results 10/14/22 10/14/22 10/14/22 Range/Units 13:53 13:53 13:53 WBC 15.30 H (4.8-10.8) K/ul RBC 4.39 L (4.70-6.10) M/uL Hgb 13.5 L (14.0-18.0) g/dl Hct 38.9 L (42.0-52.0) % MCV 88.6 (80.0-100.0) fL MCH 30.8 (25.0-34.0) pg MCHC 34.7 (32.0-36.0) g/dL RDW Std Deviation 50.2 H (36.4-46.3) fL RDW Coeff of Gena 15.4 H (11.5-14.5) % Plt Count 164 (130-400) K/uL MPV 12.0 (9.4-12.4) fL Immature Gran % (Auto) 0.4 % Neut % (Auto) 78.6 % Lymph % (Auto) 14.1 % [place] % (Auto) 5.8 % Eos % (Auto) 0.8 % Baso % (Auto) 0.3 % Neut # (Auto) 12.02 H (1.40-6.50) K/uL Lymph # (Auto) 2.16 (1.2-3.4) K/uL [place] # (Auto) 0.89 H (0.11-0.59) K/uL Eos # (Auto) 0.12 (0-0.50) K/uL Baso # (Auto) 0.05 (0-0.2) K/uL Immature Gran # (Auto) 0.06 (0.01-0.20) K/uL PT 11.0 (9.0-12.0) Seconds INR 1.0 (0.9-1.1) Sodium 135 L (136-145) mmol/L Potassium 3.9 (3.5-5.1) mmol/L Chloride 101 (98-107) mmol/L Carbon Dioxide 26 (21-32) mmol/L Anion Gap 8 (3-11) BUN 33 H (6-23) mg/dl Creatinine 2.09 H (0.6-1.4) mg/dl Est Cr Clr Drug Dosing 28.7 ml/min Est GFR ( Amer) 32.0 ml/min Est GFR (Non-Af Amer) 27.6 ml/min BUN/Creatinine Ratio 15.8 (10-20) Glucose 186 H (70-99(Fasting)) mg/dl Lactate (0.4-2.0) mmol/L Calcium 8.9 (8.6-10.3) mg/dl Magnesium 1.6 L (1.7-2.4) mg/dl Total Bilirubin 0.6 (0.2-1.0) mg/dl AST 10 L (13-39) U/L ALT 10 (7-52) U/L Alkaline Phosphatase 68 (34-104) U/L Total Creatine Kinase 39 (30-223) U/L Troponin I High Sens 12.1 (0-20) pg/ml Total Protein 6.4 (6.0-8.3) gm/dl Albumin 3.7 (3.4-5.0) gm/dl Globulin 2.7 (2.5-4.0) gm/dl Albumin/Globulin Ratio 1.4 (0.9-2) TSH (0.300-4.500) uIu/ml SARS-CoV-2, RNA, NAAT (NEGATIVE) 10/14/22 10/14/22 10/14/22 Range/Units 13:53 14:05 14:48 WBC (4.8-10.8) K/ul RBC (4.70-6.10) M/uL Hgb (14.0-18.0) g/dl Hct (42.0-52.0) % MCV (80.0-100.0) fL MCH (25.0-34.0) pg MCHC (32.0-36.0) g/dL RDW Std Deviation (36.4-46.3) fL RDW Coeff of Gena (11.5-14.5) % Plt Count (130-400) K/uL MPV (9.4-12.4) fL Immature Gran % (Auto) % Neut % (Auto) % Lymph % (Auto) % [place] % (Auto) % Eos % (Auto) % Baso % (Auto) % Neut # (Auto) (1.40-6.50) K/uL Lymph # (Auto) (1.2-3.4) K/uL [place] # (Auto) (0.11-0.59) K/uL Eos # (Auto) (0-0.50) K/uL Baso # (Auto) (0-0.2) K/uL Immature Gran # (Auto) (0.01-0.20) K/uL PT (9.0-12.0) Seconds INR (0.9-1.1) Sodium (136-145) mmol/L Potassium (3.5-5.1) mmol/L Chloride (98-107) mmol/L Carbon Dioxide (21-32) mmol/L Anion Gap (3-11) BUN (6-23) mg/dl Creatinine (0.6-1.4) mg/dl Est Cr Clr Drug Dosing ml/min Est GFR ( Amer) ml/min Est GFR (Non-Af Amer) ml/min BUN/Creatinine Ratio (10-20) Glucose (70-99(Fasting)) mg/dl Lactate 2.0 (0.4-2.0) mmol/L Calcium (8.6-10.3) mg/dl Magnesium (1.7-2.4) mg/dl Total Bilirubin (0.2-1.0) mg/dl AST (13-39) U/L ALT (7-52) U/L Alkaline Phosphatase (34-104) U/L Total Creatine Kinase (30-223) U/L Troponin I High Sens (0-20) pg/ml Total Protein (6.0-8.3) gm/dl Albumin (3.4-5.0) gm/dl Globulin (2.5-4.0) gm/dl Albumin/Globulin Ratio (0.9-2) TSH 2.678 (0.300-4.500) uIu/ml SARS-CoV-2, RNA, NAAT NEGATIVE (NEGATIVE) Administered Medications Discontinued Medications Doxycycline Hyclate (Doxycycline Hyclate 100 Mg Cap) 100 mg PO NOW STA Stop: 10/14/22 16:21 Last Admin: 10/14/22 16:32 Dose: 100 mg Documented By: NACHO Sodium Chloride (Nss) 500 mls @ 999 mls/hr IV .Q31M BARBY Stop: 10/14/22 14:15 Last Infusion: 10/14/22 14:39 Dose: 0 mls/hr Documented By: Admin: 10/14/22 14:03 Dose: 999 mls/hr Documented By: JEISON Sodium Chloride (Nss 1000ml) 1,000 mls @ 999 mls/hr IV .Q1H1M ONE Stop: 10/14/22 16:46 Last Admin: 10/14/22 16:35 Dose: 999 mls/hr Documented By: NACHO Ceftriaxone Sodium (Rocephin) 2,000 mg in 70 mls @ 140 mls/hr IV NOW STA Stop: 10/14/22 16:49 Last Admin: 10/14/22 16:32 Dose: 140 mls/hr Documented By: NACHO Lorazepam (Lorazepam 2 Mg/1 Ml Vial) 0.5 mg IV NOW STA Stop: 10/14/22 13:40 Last Admin: 10/14/22 14:02 Dose: 0.5 mg Documented By: AP Imaging Data Radiologist's Impression: Head CT 10/14/22 13:53 CT SCAN OF THE BRAIN WITHOUT IV CONTRAST CLINICAL HISTORY: Generalized weakness. Involuntary movements. COMPARISON STUDY: No priors. TECHNIQUE: Unenhanced axial CT scan of the brain is performed from the vertex to the skull base. A dose lowering technique was utilized adhering to the principles of ALARA. CT DOSE: 884.08 mGy.cm FINDINGS: Brain parenchyma: There is age-related involutional change noting moderate subcortical and periventricular microangiopathic disease. There is no hemorrhage, mass effect, or evidence of acute territorial ischemia by CT criteria. Espinoza-white matter differentiation is preserved. No extra-axial fluid collection is seen. Ventricles, sulci, cisterns: Prominent secondary to involutional change. Intracranial vasculature: There is atherosclerotic calcification of the cavernous carotid and vertebral arteries. Calvarium: Unremarkable. Sinuses and mastoids: The paranasal sinuses are clear. The mastoid air cells are well pneumatized. Orbits: The bony orbits are grossly intact. There are bilateral ocular lens implants IMPRESSION: There is no hemorrhage, mass effect, or evidence of acute territorial ischemia by CT criteria. ACT 112: Negative or not required by law. Electronically signed by: Aroldo Doan M.D. 10/14/2022 2:37 PM Chest X-Ray 10/14/22 15:54 SINGLE VIEW CHEST CLINICAL HISTORY: Dyspnea. Generalized weakness. FINDINGS: An AP, portable, upright chest radiograph is compared to study dated 06/02/2019. Correlation is made with abdominal CT dated 12/10/2020. A hiatal hernia is noted. The heart is enlarged noting atherosclerotic calcification of the thoracic aorta. There is pulmonary vascular congestion. Extensive bilateral calcified pleural plaques are similar to previous. There are bilateral airspace opacities. No large pleural effusion or pneumothorax is seen. The skeletal structures are osteopenic. The bony thorax is grossly intact. IMPRESSION: 1. Cardiomegaly with evidence of congestive failure. 2. Bilateral airspace opacities could represent pulmonary edema and/or an infectious/inflammatory pneumonitis. Clinical correlation will be required and radiographic follow-up to resolution is recommended. 3. Extensive bilateral calcified pleural plaques are similar to previous and consistent with asbestos-related pleural disease. ACT 112: Negative or not required by law. Electronically signed by: Aroldo Doan M.D. 10/14/2022 4:14 PM Discharge Plan Visit Data Chief Complaint: Illness Stated Complaint: TREMORS ED Provider: Andrea Cespedes Discharge Problem: Weakness, Involuntary movements, CAP (community acquired pneumonia) Patient Disposition: Being Evaluated by Hospitalist Forms Stand Alone Forms: My [facility] Prescriptions Prescriptions: No Action tamsulosin 0.4 mg capsule 0.4 mg PO HS Qty: 90 3RF omeprazole 40 mg Capsule,Delayed Release(Dr/Ec) 40 mg PO BID Rx Instructions: PER [facility]--PT ONLY TAKES DAILY albuterol sulfate [ProAir HFA] 90 mcg/actuation Hfa Aerosol Inhaler 2 inh INHALATION Q4H PRN (Reason: Wheezing) carvedilol 12.5 mg tablet 6.25 mg PO BID Rx Instructions: TAKES 0.5 TAB BID glipizide 10 mg tablet extended release 24hr 10 mg PO BIDM Rx Instructions: Take 30 minutes before meals allopurinol 100 mg tablet 100 mg PO QDL Rx Instructions: Take with 300mg to make 400mg total dose. aspirin 81 mg Tablet,Delayed Release (Dr/Ec) 81 mg PO QAM losartan-hydrochlorothiazide 100-25 mg tablet 1 tab PO QAM amlodipine 10 mg tablet 10 mg PO QAM allopurinol 300 mg tablet 300 mg PO QDL Rx Instructions: Take with 100mg to make 400mg total dose. zolpidem 5 mg tablet 5 mg PO HS furosemide 20 mg tablet 20 mg PO QAM cyanocobalamin (vitamin B-12) [Vitamin B-12] 1,000 mcg Tablet 1,000 mcg PO QDL triamcinolone acetonide 0.1 % cream 1 applic TOPICAL DAILY PRN (Reason: Rash) ascorbic acid (vitamin C) [Vitamin C] 500 mg Tablet,Chewable 500 mg PO QDL cholecalciferol (vitamin D3) [Vitamin D3] 50 mcg (2,000 unit) Capsule 50 mcg PO DAILY albuterol sulfate 2.5 mg /3 mL (0.083 %) Solution For Nebulization 2.5 mg INHALATION DIRECTED PRN (Reason: Shortness Of Breath Or Wheezing) famotidine [Pepcid] 40 mg Tablet 40 mg PO DAILY PRN (Reason: INDIGESTION/HEARTBURN) acetaminophen [Tylenol Extra Strength] 500 mg Tablet 1,000 mg PO Q8H PRN (Reason: Pain) baclofen 10 mg Tablet 10 mg PO BID ropinirole 0.5 mg Tablet 0.5 mg PO HS Rx Instructions: administer 1-3 hours before bedtime fluorometholone 0.1 % Drops,Suspension 1 drp OPB HS lidocaine 5 % Adhesive Patch,Medicated 1 patch TOPICAL DAILY Rx Instructions: leave on most painful area for up to 12 hrs fluorouracil 0.5 % Cream 1 applic TOPICAL BID PRN (Reason: Skin Irritation) rosuvastatin 20 mg Tablet 20 mg PO DAILY memantine 5 mg Tablet 5 mg PO BID duloxetine [Cymbalta] 60 mg Capsule,Delayed Release(Dr/Ec) 60 mg PO BID pregabalin [Lyrica] 150 mg Capsule 150 mg PO BID empagliflozin 10 mg Tablet 10 mg PO QAM Linzess 72 mcg Capsule 72 mcg PO DAILY PRN (Reason: ABD PAIN) magnesium citrate 125 mg Capsule 125 mg PO DAILY finasteride 5 mg tablet 5 mg PO QDL sildenafil (pulm.hypertension) 20 mg tablet 20 mg PO DIRECTED PRN (Reason: sexual activity) Rx Instructions: TAKE 1 TO 5 TABLETS 1 HOUR PRIOR TO NEED Referrals Referrals: Darius Harrison DO [Physician] -
[2022-10-14 14:33] LABS: Basophils # (auto) 0.05 K/uL (0-0.2); Basophils % (auto) 0.3 %; Eosinophils # (auto) 0.12 K/uL (0-0.50); Eosinophils % (auto) 0.8 %; Hematocrit (blood only) 38.9 % (42.0-52.0); Hemoglobin 13.5 g/dl (14.0-18.0); Immature Granulocytes # (auto) 0.06 K/uL (0.01-0.20); Immature Granulocytes % (auto) 0.4 %; Lymphocytes # (auto) 2.16 K/uL (1.2-3.4); Lymphocytes % (auto) 14.1 %; Mean Corpuscular Hemoglobin 30.8 pg (25.0-34.0); Mean Corpuscular Hgb Conc 34.7 g/dL (32.0-36.0); Mean Corpuscular Volume 88.6 fL (80.0-100.0); Monocytes # (auto) 0.89 K/uL (0.11-0.59); Monocytes % (auto) 5.8 %; Neutrophils # (auto) 12.02 K/uL (1.40-6.50); Neutrophils % (auto) 78.6 %; Platelet Count 164 K/uL (130-400); RDW Coefficient of Variation 15.4 % (11.5-14.5); RDW Standard Deviation 50.2 fL (36.4-46.3); Red Blood Count 4.39 M/uL (4.70-6.10)
--- NOTE | 2022-10-14 14:39 | CT Scan Report ---
CT SCAN OF THE BRAIN WITHOUT IV CONTRAST CLINICAL HISTORY: Generalized weakness. Involuntary movements. COMPARISON STUDY: No priors. TECHNIQUE: Unenhanced axial CT scan of the brain is performed from the vertex to the skull base. A do se lowering technique was utilized adhering to the principles of ALARA. CT DOSE: 884.08 mGy.cm FINDINGS: Brain parenchyma: There is age-related involutional change noting moderate subcortical and periventri cular microangiopathic disease. There is no hemorrhage, mass effect, or evidence of acute territorial ischemia by CT criteria. Espinoza-white matter differentiation is preserved. No extra-axial fluid collec tion is seen. Ventricles, sulci, cisterns: Prominent secondary to involutional change. Intracranial vasculature: There is atherosclerotic calcification of the cavernous carotid and vertebr al arteries. Calvarium: Unremarkable. Sinuses and mastoids: The paranasal sinuses are clear. The mastoid air cells are well pneumatized. Orbits: The bony orbits are grossly intact. There are bilateral ocular lens implants IMPRESSION: There is no hemorrhage, mass effect, or evidence of acute territorial ischemia by CT roberto melendez. ACT 112: Negative or not required by law. Electronically signed by: Aroldo Doan M.D. 10/14/2022 2:37 PM
[2022-10-14 15:09] LABS: Albumin Level 3.7 gm/dl (3.4-5.0); Bilirubin,Total 0.6 mg/dl (0.2-1.0); Calcium 8.9 mg/dl (8.6-10.3); Magnesium 1.6 mg/dl (1.7-2.4); Potassium 3.9 mmol/L (3.5-5.1)
[2022-10-14 15:11] LABS: Troponin I High Sensitivity 12.1 pg/ml (0-20)
[2022-10-14 15:15] LABS: Albumin Globulin Ratio 1.4 (0.9-2); BUN Creatinine Ratio 15.8 (10-20); Creatinine Clr Calc Pharmacy 28.7 ml/min; Est GFR (Non-African American) 27.6 ml/min; Globulin 2.7 gm/dl (2.5-4.0); Total Protein 6.4 gm/dl (6.0-8.3)
[2022-10-14] MEDS ORDERED: SODIUM CHLORIDE 0.9% 1000ML 1,000 ML IV ONE (15:46)
--- NOTE | 2022-10-14 16:15 | XRay Report ---
SINGLE VIEW CHEST CLINICAL HISTORY: Dyspnea. Generalized weakness. FINDINGS: An AP, portable, upright chest radiograph is compared to study dated 06/02/2019. Correlation is made with abdominal CT dated 12/10/2020. A hiatal hernia is noted. The heart is enlarged noting at herosclerotic calcification of the thoracic aorta. There is pulmonary vascular congestion. Extensive bilateral calcified pleural plaques are similar to previous. There are bilateral airspace opacities. No large pleural effusion or pneumothorax is seen. The skeletal structures are osteopenic. The bony t horax is grossly intact. IMPRESSION: 1. Cardiomegaly with evidence of congestive failure. 2. Bilateral airspace opacities could represent pulmonary edema and/or an infectious/inflammatory pne umonitis. Clinical correlation will be required and radiographic follow-up to resolution is recommend ed. 3. Extensive bilateral calcified pleural plaques are similar to previous and consistent with asbestos -related pleural disease. ACT 112: Negative or not required by law. Electronically signed by: Aroldo Doan M.D. 10/14/2022 4:14 PM
[2022-10-14] MEDS ORDERED: DOXYCYCLINE HYCLATE 100 MG CAP PO STA (16:20)
[2022-10-14] MEDS ORDERED: cefTRIAXone SODIUM 2,000 MG/70 ML BAG IV STA (16:20)
--- NOTE | 2022-10-14 16:45 | History & Physical Report ---
Date of Service October 14, 2022 Assessment & Plan (1) CAP (community acquired pneumonia): (2) Weakness: (3) Involuntary movements: (4) Diabetes mellitus, type II: (5) Neuropathy: (6) Hypertension: (7) Dyslipidemia: (8) Breast cancer in male: (9) GERD (gastroesophageal reflux disease): (10) BPH NOS w ur obs/LUTS: (11) Gout: Plan 86 year old presented from home with complaints of involuntary movements and fatigue. Pt has a complex medical history that includes Diabetes mellitus type 2 with peripheral neuropathy, HTN, HLD, history of breast cancer, gout, BPH status post LUTS, depression, GERD postmastectomy pain, RLS. CXR suggestive of pulmonary edema; however, clinically and review of imagines correlates with pneumonia. Patient with polypharmacy; on numerous medications for postmastectomy pain; baclofen, Namenda, and Requip; hold to determine contributing effects. Pt with acute on chronic kidney disease, also suggestive of not being able to renally clear the medications. Baseline Creatinine 1.6; today 2.09. Received 1LNSB in ED; hold additional fluids for now. Community Aquired Pneumonia: Weakness: Leukocytosis WBC 15.30 CXR: Cardiomegaly with evidence of congestive failure and bilateral airspace opacities could represent pulmonary edema and/or an infectious/inflammatory pneumonitis. Head CT: Negative Sputum culture ordered Blood cultures ordered Lactate ordered No additional fluids; check BNP if no improvement. Takes Lasix at home hold and reassess CXR in AM Started on Ceftriaxone + Doxy; continue and adjust based on culture results Acute on Chronic Kidney Failure: Creatinine 2.09, Baseline creatinine 1.6 Fluid resuscitation with 1LNSB Gentle fluids for maintenance Recheck CMP in AM Involuntary movements: bilateral jerking Head CT negative Hold Baclofen, Requip, and Namenda; reassess in AM Ativan 0.5 mg given in ED Follows with Neuro Hypomagnesemia: Mg+ 1.6; replace with 2 G; trend Mg+ in AM Diabetes mellitus type 2: Peripheral neuropathy: Takes Glipizide and Jardiance; hold while here Takes Lyrica; continue Place on ACHS FSBS SSI Check A1C; last A1C 7.8 03/17 HTN: Takes Amlodipine, Losartan, and Coreg; continue Lasix 20 mg daily; continue for now. Does not appear to be related to CHF per review of [facility] records normotensive in ED HLD: Takes Rosuvastatin; continue History of breast cancer: left breast cancer SP mastectomy in November 1998, SP radiation and chemotherapy left chest chronic seroma which had been draining intermittently in the past Saw Dr Brunner and sees onc once per year. He was told he was cancer free on 04/16. Takes Baclofen, and Namenda (off label use) for post mastectomy pain; Hold Baclofen and Namenda due to possible contributing to jerking movement; reassess GERD: Takes Omeprazole; continue Takes Pepcid PRN Gout: Takes Allopurinol; continue No active flares Depression: Takes Cymbalta; continue BPH: Takes Finasteride; continue Disposition: PCP: Dr. Marcy Diaz CODE STATUS: DNR/DNI VTE prophylaxis: Teds and SCDs for now I spent a total of 88 minutes coordinating, documenting, and providing care for this patient excluding time spent in the performance of separately billed services. All of the aforementioned completed while collaborating with the assigned attending physician for a full treatment plan. Please see their addendum for further details. History of Present Illness Chief Complaint: fatigue/hypoxia Primary Care Provider: Marcy Diaz MD 86 year old presented from home with complaints of involuntary movements and fatigue that has been going on for the past few days. No exacerbating or resolving parts of his day, but states it is constant. Pt states he has not had any known sick contacts lately. He does care for his at home. He describes the jerking as 'he is falling asleep' but he does not feel like he is falling asleep. Pt has a complex medical history that includes Diabetes mellitus type 2 with peripheral neuropathy, HTN, HLD, history of breast cancer, gout, BPH status post LUTS, depression, GERD postmastectomy pain, RLS. CXR suggestive of pulmonary edema; however, clinically and review of imagines correlates with pneumonia. Patient with polypharmacy; on numerous medications for postmastectomy pain; baclofen, Namenda, and Requip; hold to determine contributing effects. Pt with acute on chronic kidney disease, also suggestive of not being able to renally clear the medications. Baseline Creatinine 1.6; today 2.09. Pt sitting upright in his bed, sleepy, but arousable and able to answer questions appropriately (he had just received Ativan). Pt with involuntary jerking of all 4 limbs approximately every 30 seconds. Does not cause pain. Pt denies INGRAM, fever, chills, dizziness, SOB< chest pain, palpitations, N/V/D, b owel or bladder changes, recent falls or trauma. Pt takes care of his elderly at home and he is, at baseline, able to perform his own ADL's. Pt denies tobacco, alcohol, or recreational drug use. Pt has a son and daughter that live in [place], but not local. Patient will be admitted for further evaluation and management. Please see A/P for further details. Allergies Allergy/AdvReac Type Severity Reaction Status Date / Time gabapentin AdvReac Intermediate Diarrhea Verified 10/14/22 15:47 simvastatin AdvReac Intermediate Muscle Pain Verified 10/14/22 15:47 LISBETH Inhibitors AdvReac Mild COUGH Verified 10/14/22 15:47 Home Medications Medication Instructions Recorded Confirmed Type allopurinol 100 mg tablet 100 mg PO QDL 06/02/19 10/14/22 History allopurinol 300 mg tablet 300 mg PO QDL 06/02/19 10/14/22 History amlodipine 10 mg tablet 10 mg PO QAM 06/02/19 10/14/22 History aspirin 81 mg tablet,delayed 81 mg PO QAM 06/02/19 10/14/22 History release carvedilol 12.5 mg tablet 6.25 mg PO BID 06/02/19 10/14/22 History furosemide 20 mg tablet 20 mg PO QAM 06/02/19 10/14/22 History glipizide 10 mg tablet, extended 10 mg PO BIDM 06/02/19 10/14/22 History release 24 hr losartan 100 1 tab PO QAM 06/02/19 10/14/22 History mg-hydrochlorothiazide 25 mg tablet zolpidem 5 mg tablet 5 mg PO HS 06/02/19 10/14/22 History albuterol sulfate 90 mcg/actuation 2 inh inhalation Q4H PRN Wheezing 02/05/20 10/14/22 History aerosol inhaler (ProAir HFA) omeprazole 40 mg capsule,delayed 40 mg PO BID 02/05/20 10/14/22 History release ascorbic acid (vitamin C) 500 mg 500 mg PO QDL 09/24/20 10/14/22 History chewable tablet (Vitamin C) cholecalciferol (vitamin D3) 50 50 mcg PO DAILY 09/24/20 10/14/22 History mcg (2,000 unit) capsule (Vitamin D3) cyanocobalamin (vitamin B-12) 1,000 mcg PO QDL 09/24/20 10/14/22 History 1,000 mcg tablet (Vitamin B-12) triamcinolone acetonide 0.1 % 1 applic topical DAILY PRN Rash 09/24/20 10/14/22 History topical cream tamsulosin 0.4 mg capsule 0.4 mg PO HS #90 caps 01/26/22 10/14/22 Rx acetaminophen 500 mg tablet 1,000 mg PO Q8H PRN Pain 10/14/22 10/14/22 History (Tylenol Extra Strength) albuterol sulfate 2.5 mg/3 mL 2.5 mg inhalation DIRECTED PRN 10/14/22 10/14/22 History (0.083 %) solution for nebulization Shortness Of Breath Or Wheezing baclofen 10 mg tablet 10 mg PO BID 10/14/22 10/14/22 History duloxetine 60 mg capsule,delayed 60 mg PO BID 10/14/22 10/14/22 History release (Cymbalta) empagliflozin 10 mg tablet 10 mg PO QAM 10/14/22 10/14/22 History famotidine 40 mg tablet (Pepcid) 40 mg PO DAILY PRN 10/14/22 10/14/22 History INDIGESTION/HEARTBURN finasteride 5 mg tablet 5 mg PO QDL 10/14/22 10/14/22 History fluorometholone 0.1 % eye 1 drp OPB HS 10/14/22 10/14/22 History drops,suspension fluorouracil 0.5 % topical cream 1 applic topical BID PRN Skin 10/14/22 10/14/22 History Irritation lidocaine 5 % topical patch 1 patch topical DAILY 10/14/22 10/14/22 History linaclotide 72 mcg capsule 72 mcg PO DAILY PRN ABD PAIN 10/14/22 10/14/22 History (Linzess) magnesium citrate 125 mg capsule 125 mg PO DAILY 10/14/22 10/14/22 History memantine 5 mg tablet 5 mg PO BID 10/14/22 10/14/22 History pregabalin 150 mg capsule (Lyrica) 150 mg PO BID 10/14/22 10/14/22 History ropinirole 0.5 mg tablet 0.5 mg PO HS 10/14/22 10/14/22 History rosuvastatin 20 mg tablet 20 mg PO DAILY 10/14/22 10/14/22 History sildenafil (pulm.hypertension) 20 20 mg PO DIRECTED PRN sexual 10/14/22 10/14/22 History mg tablet activity Past Med/Surg History Medical History (Updated 10/14/22 @ 16:58 by Andrea Cespedes M.D.) Asbestosis BPH (benign prostatic hyperplasia) Breast cancer in male S/P Left mastectomy, radiation, chemo; 1998 Carotid stenosis under surveillance by cardiology Chronic pain CKD (chronic kidney disease), stage III Diabetes mellitus, type II NIDDM Dyslipidemia GERD (gastroesophageal reflux disease) Hearing deficit Hx of gout Hypertension Neuropathy Osteoarthritis Peripheral neuropathy Schatzki's ring s/p dilation (02/04/20) Sepsis due to pneumonia Surgical History H/O prostate biopsy History of cataract surgery RT/LEFT History of colonoscopy History of esophagogastroduodenoscopy (EGD) History of keratoplasty Left eye; 02/17/2020 [facility] [place] History of mastectomy Left, 1998 History of tooth extraction Hx of transurethral resection of prostate Family History Brother Family history of diabetes mellitus Family hx of colon cancer Other Colorectal cancer Diabetes Hypertension Social History Smoking Status: Never smoker Second Hand Exposure: Yes; Hx Alcohol Use: Yes Alcohol type: hard liquor Hx Substance Use: No Preferred Language: Angolan Communication Ability: Effective Commissioned Sales Associate Required: No Beliefs That Will Affect Care: None marital status: Current Living Situation: Spouse Feels Safe at Home: Yes Assistive Devices: Cane, Denture - Upper, Denture - Lower, Glasses and Hearing Aid - Bilateral Review of Systems Review of Systems: Neuro: (-) Falls, trauma, slurred speech HEENT: (-) INGRAM, dizziness, dysphagia, visual or auditory changes CV: (-) CP, palpitations, swelling Resp: (-) SOB GI: (-) appetite changes, N/V/D, bowel changes : (-) urinary changes Skin: (-) rashes Psych: (-) anxiety, depression Physical Exam Physical Exam: Neuro: AAOx4, PERRLA, no aphagia, memory changes, CNII-XII grossly intact. involuntary jerking of his arms and legs. (-) nystagmus. HEENT: head normocephalic, moist mucus membranes CV: S1/S2, (-) M/G/R, (-) edema, cap refill < 3 seconds Resp: Lungs CTA in all cisse. On RA GI: Abdomen S/NT/ND, Ax4 bowel sounds, (-) CVA tenderness Musculoskeletal: 5/5 B/L UE strength, 5/5 B/L LE strength. No gait disturbance Skin: (-) rashes , (-) erythema. Psych: euthymic mood Results & Data Results & Data Vital Signs (Past 12 Hours) Vital Signs Temp Pulse Pulse Resp BP BP Pulse Ox 10/14/22 15:00 76 15 95/64 L 91 10/14/22 14:57 92 10/14/22 13:41 92 H 10/14/22 13:25 36.9 C 87 18 90/65 L 92 O2 Del Method O2 Flow Rate 10/14/22 15:00 10/14/22 14:57 Nasal Cannula 2 10/14/22 13:41 10/14/22 13:25 Nasal Cannula 2 Laboratory Results Short CBC 10/14/22 Range/Units 13:53 WBC 15.30 H (4.8-10.8) K/ul Hgb 13.5 L (14.0-18.0) g/dl Hct 38.9 L (42.0-52.0) % Plt Count 164 (130-400) K/uL BMP 10/14/22 13:53 Sodium 135 L Potassium 3.9 Chloride 101 Carbon Dioxide 26 BUN 33 H Creatinine 2.09 H Glucose 186 H Calcium 8.9 Cardiac Enzymes 10/14/22 Range/Units 13:53 Total Creatine Kinase 39 (30-223) U/L Liver Function 10/14/22 Range/Units 13:53 Total Bilirubin 0.6 (0.2-1.0) mg/dl AST 10 L (13-39) U/L ALT 10 (7-52) U/L Alkaline Phosphatase 68 (34-104) U/L Albumin 3.7 (3.4-5.0) gm/dl Diagnostic Findings Head CT 10/14/22 13:53 CT SCAN OF THE BRAIN WITHOUT IV CONTRAST CLINICAL HISTORY: Generalized weakness. Involuntary movements. COMPARISON STUDY: No priors. TECHNIQUE: Unenhanced axial CT scan of the brain is performed from the vertex to the skull base. A dose lowering technique was utilized adhering to the principles of ALARA. CT DOSE: 884.08 mGy.cm FINDINGS: Brain parenchyma: There is age-related involutional change noting moderate subcortical and periventricular microangiopathic disease. There is no hemorrhage, mass effect, or evidence of acute territorial ischemia by CT criteria. Espinoza-white matter differentiation is preserved. No extra-axial fluid collection is seen. Ventricles, sulci, cisterns: Prominent secondary to involutional change. Intracranial vasculature: There is atherosclerotic calcification of the cavernous carotid and vertebral arteries. Calvarium: Unremarkable. Sinuses and mastoids: The paranasal sinuses are clear. The mastoid air cells are well pneumatized. Orbits: The bony orbits are grossly intact. There are bilateral ocular lens implants IMPRESSION: There is no hemorrhage, mass effect, or evidence of acute territorial ischemia by CT criteria. ACT 112: Negative or not required by law. Electronically signed by: Aroldo Doan M.D. 10/14/2022 2:37 PM Chest X-Ray 10/14/22 15:54 SINGLE VIEW CHEST CLINICAL HISTORY: Dyspnea. Generalized weakness. FINDINGS: An AP, portable, upright chest radiograph is compared to study dated 06/02/2019. Correlation is made with abdominal CT dated 12/10/2020. A hiatal hernia is noted. The heart is enlarged noting atherosclerotic calcification of the thoracic aorta. There is pulmonary vascular congestion. Extensive bilateral calcified pleural plaques are similar to previous. There are bilateral airspace opacities. No large pleural effusion or pneumothorax is seen. The skeletal structures are osteopenic. The bony thorax is grossly intact. IMPRESSION: 1. Cardiomegaly with evidence of congestive failure. 2. Bilateral airspace opacities could represent pulmonary edema and/or an infectious/inflammatory pneumonitis. Clinical correlation will be required and radiographic follow-up to resolution is recommended. 3. Extensive bilateral calcified pleural plaques are similar to previous and consistent with asbestos-related pleural disease. ACT 112: Negative or not required by law. Electronically signed by: Aroldo Doan M.D. 10/14/2022 4:14 PM Code Status & VTE Plan Code Status DNR/DNI in the event of cardiac or respiratory arrest
[2022-10-14] MEDS ORDERED: ACETAMINOPHEN 325 MG TAB PO PRN (16:48)
[2022-10-14] MEDS ORDERED: MAGNESIUM HYDROXIDE SUSP 30 ML UDC PO PRN (16:48)
[2022-10-14] MEDS ORDERED: POLYETHYLENE (MIRALAX) 17 GM PACK PO PRN (16:48)
[2022-10-14] MEDS ORDERED: ALUMINUM/MAGNESIUM SUSP 30 ML UDC PO PRN (16:48)
[2022-10-14] MEDS ORDERED: ONDANSETRON INJ 2 MG/ML 2 ML VIAL IV PRN (16:48)
[2022-10-14] MEDS ORDERED: FAMOTIDINE 40 MG TABLET PO PRN (17:19)
[2022-10-14] MEDS: MAGNESIUM SULFATE / D5W 1 GM/100 ML BAG IV SCH ×2 (17:48→19:48)
[2022-10-14] MEDS ORDERED: GLUCOSE 40% GEL 15 GM TUBE PO PRN (18:54)
[2022-10-14] MEDS ORDERED: CARBOHYDRATES FOR HYPOGLYCEMIA PO PRN (18:54)
[2022-10-14] MEDS ORDERED: DEXTROSE 50% 50 ML SYRINGE IV PRN (18:54)
[2022-10-14] MEDS ORDERED: PHARMACY GLYCEMIC MGMT CONSULT PRN (18:54)
[2022-10-14] MEDS ORDERED: GLUCAGON FOR INJ 1 MG VIAL SQ PRN (18:54)
[2022-10-14] MEDS ORDERED: GLUCOSE 10 TAB/TUBE PO PRN (18:54)
--- NOTE | 2022-10-14 20:01 | Electrocardiogram Report ---
Test Reason : Blood Pressure : / mmHG Vent. Rate : 091 BPM Atrial Rate : 241 BPM P-R Int : 000 ms QRS Dur : 096 ms QT Int : 336 ms P-R-T Axes : 000 010 180 degrees QTc Int : 413 ms Poor data quality, interpretation may be adversely affected probably Atrial fibrillation Nonspecific ST and T wave abnormality Abnormal ECG When compared with ECG of 24-SEP-2020 08:38, Atrial fibrillation has replaced Sinus rhythm Nonspecific T wave abnormality, worse in Inferior leads Nonspecific T wave abnormality now evident in Lateral leads Confirmed by Michael Da Silva ([id number]) on 10/14/2022 6:11:28 PM Referred By: Confirmed By:Ranjeet Da Silva
[2022-10-14] MEDS: INSULIN ASPART PER UNIT CHARGE SC SCH (20:31)
[2022-10-14] MEDS: DULoxetine HCL 60 MG CAP PO SCH (20:31)
[2022-10-14] MEDS: carvediloL 6.25 MG TAB PO SCH (20:31)
[2022-10-14] MEDS: PREGABALIN 150 MG CAP PO SCH (20:32)
[2022-10-14] MEDS: TAMSULOSIN HCL 0.4 MG CAP PO SCH (20:32)
[2022-10-14] MEDS: PANTOprazole 40 MG TAB PO SCH (20:34)
[2022-10-14] MEDS ORDERED: BACLOFEN 10 MG TAB PO SCH (21:00)
[2022-10-14] MEDS ORDERED: rOPINIRole HCL 0.25 MG TABLET PO SCH (21:00)
[2022-10-14] MEDS ORDERED: LANTUS PER UNIT CHARGE SQ SCH (21:00)
[2022-10-14] MEDS: ZOLPIDEM TARTRATE 5 MG TAB PO SCH (21:39)
[2022-10-15 00:28] LABS: Appearance Urine Clear (Clear); Bilirubin Urine Negative (Negative); Blood Urine Negative (Negative); Color Urine Yellow; Glucose Urine UA 1+ (Negative); Ketones Urine Negative (Negative); Leukocyte Esterase Urine Negative (Negative); Nitrite Urine Negative (Negative); Protein Urine Negative (Negative); Specific Gravity Urine 1.014 (1.000-1.030); Urobilinogen Urine Negative (Negative); pH Urine 5.5 (4.5-7.5)
[2022-10-15] MEDS: DOXYCYCLINE HYCLATE 100 MG in DEXTROSE 5% 100 ML IV SCH ×2 (03:16→15:41)
[2022-10-15] MEDS ORDERED: LANTUS PER UNIT CHARGE SQ SCH ×2 (09:00→21:00)
[2022-10-15] MEDS: INSULIN ASPART PER UNIT CHARGE SC SCH ×4 (09:24→20:36)
[2022-10-15 09:27] LABS: Hematocrit (blood only) 36.9 % (42.0-52.0); Hemoglobin 12.5 g/dl (14.0-18.0); Mean Corpuscular Hemoglobin 30.7 pg (25.0-34.0); Mean Corpuscular Hgb Conc 33.9 g/dL (32.0-36.0); Mean Corpuscular Volume 90.7 fL (80.0-100.0); Mean Platelet Volume 11.7 fL (9.4-12.4); Platelet Count 143 K/uL (130-400); RDW Coefficient of Variation 15.3 % (11.5-14.5); RDW Standard Deviation 50.3 fL (36.4-46.3); Red Blood Count 4.07 M/uL (4.70-6.10)
[2022-10-15 09:43] LABS: Albumin Globulin Ratio 1.3 (0.9-2); Albumin Level 3.5 gm/dl (3.4-5.0); BUN Creatinine Ratio 16.6 (10-20); Bilirubin,Total 0.6 mg/dl (0.2-1.0); Calcium 8.9 mg/dl (8.6-10.3); Est GFR (African American) 45.3 ml/min; Est GFR (Non-African American) 39.1 ml/min; Globulin 2.7 gm/dl (2.5-4.0); Magnesium 1.8 mg/dl (1.7-2.4); Potassium 3.7 mmol/L (3.5-5.1); Total Protein 6.2 gm/dl (6.0-8.3)
[2022-10-15] MEDS: ROSUVASTATIN CALCIUM 20 MG TAB PO SCH (09:43)
[2022-10-15] MEDS: PANTOprazole 40 MG TAB PO SCH ×2 (09:43→20:35)
[2022-10-15] MEDS: PREGABALIN 150 MG CAP PO SCH ×2 (09:43→20:34)
[2022-10-15] MEDS: ASPIRIN 81 MG ECTAB PO SCH (09:43)
[2022-10-15] MEDS: amLODIPine BESYLATE 5 MG TAB PO SCH (09:43)
[2022-10-15] MEDS: LOSARTAN/HCTZ 50/12.5MG TAB PO SCH (09:43)
[2022-10-15] MEDS: FUROSEMIDE 20 MG TAB PO SCH (09:43)
[2022-10-15] MEDS: carvediloL 6.25 MG TAB PO SCH ×2 (09:44→20:35)
[2022-10-15] MEDS: CHOLECALCIFEROL 1,000 UNITS 25 MCG TAB PO SCH (09:44)
[2022-10-15] MEDS: DULoxetine HCL 60 MG CAP PO SCH ×2 (09:44→20:34)
[2022-10-15 11:43] LABS: Estimated Average Glucose 143 mg/dl; Hemoglobin A1C 6.6 % (4.5-5.6)
[2022-10-15] MEDS: allopurinoL 300 MG TAB PO SCH (12:21)
[2022-10-15] MEDS: ASCORBIC ACID 500 MG TAB PO SCH (12:21)
[2022-10-15] MEDS: CYANOCOBALAMIN (B-12) 500 MCG TABLET PO SCH (12:21)
[2022-10-15] MEDS: FINASTERIDE 5 MG TAB PO SCH (12:21)
[2022-10-15] MEDS: allopurinoL 100 MG TAB PO SCH (12:23)
--- NOTE | 2022-10-15 13:50 | Pharmacy Report ---
Pharmacy Glycemic Short Note 2 - Date of Service October 15, 2022 - Glycemic Short BSG Results (Last 24 hours): 10/14/22 10/14/22 10/15/22 13:53 20:27 07:43 Glucose 186 H POC Glucose 117 H 127 H 10/15/22 10/15/22 09:00 11:37 Glucose 158 H POC Glucose 142 H OUTPATIENT ANTIDIABETIC REGIMEN: * Jardiance 10 mg PO daily * Glipizide 10 mg PO BIDM HbA1c: 6.6 (10/15/22) ASSESSMENT: * RB is an 86 year old male who presents with suspected CAP * Ceftriaxone + doxycycline * Reasonably controlled T2DM with orals only - will utilize conservative SC basal/bolus regimen for now * MARYSOL improved (SCr 2.09 -> 1.57 mg/dL) PLAN FOR INPATIENT GLYCEMIC CONTROL: * Hold outpatient oral diabetes medications * Basal insulin * Lantus 0-5 units SQ BID (see EHR for details) * Bolus insulin * NovoLog per scale ACHS or Q6hrs while NPO * Goal Range: Low 110 mg/dL - High 140 mg/dL * Correction Factor: 25 mg/dL/unit * Nutritional / Prandial insulin per carb ratio of 1 unit per 9 grams CHO consumed
--- NOTE | 2022-10-15 15:33 | Hospitalist Progress Note ---
Date of Service October 15, 2022 Assessment & Plan (1) CAP (community acquired pneumonia): Plan: 86 year old presented from home with complaints of involuntary movements and fatigue. Pt has a complex medical history that includes Diabetes mellitus type 2 with peripheral neuropathy, HTN, HLD, history of breast cancer, gout, BPH status post LUTS, depression, GERD postmastectomy pain, RLS. CXR suggestive of pulmonary edema; however, clinically and review of imagines correlates with pneumonia. Patient with polypharmacy; on numerous medications for postmastectomy pain; baclofen, Namenda, and Requip; hold to determine contributing effects. Pt with acute on chronic kidney disease, also suggestive of not being able to renally clear the medications. Baseline Creatinine 1.6; today 2.09. Received 1LNSB in ED; hold additional fluids for now. Community Aquired Pneumonia: Weakness: cxr questionable pneumonia vs chf WBC 15 empiric abx Rocephin and doxy leukocytosis resolved no cough or sob will get ct chest for better pics. Acute on Chronic Kidney Failure: Creatinine 2.09, Baseline creatinine 1.6 received fluids cr 1.5 todaY. Involuntary movements: bilateral jerking Head CT negative Holding Baclofen, Requip, and Namenda; reassess in AM Ativan 0.5 mg given in ED seems ativan helped as per patinet Follows with Neuro Hypomagnesemia: replaced. Diabetes mellitus type 2: Peripheral neuropathy: Takes Glipizide and Jardiance; hold while here Takes Lyrica; continue Place on ACHS FSBS SSI will monitor HTN: On Amlodipine, Losartan, and Coreg Lasix 20 mg daily; continue for now. Will monitor HLD: Takes Rosuvastatin; continue History of breast cancer: As per sandro andn P:left breast cancer SP mastectomy in November 1998, SP radiation and chemotherapy left chest chronic seroma which had been draining intermittently in the past Saw Dr Brunner and sees onc once per year. He was told he was cancer free on 04/16. Takes Baclofen, and Namenda (off label use) for post mastectomy pain; Hold Baclofen and Namenda due to possible contributing to jerking movement;" GERD: ON omeprazole Pepcid PRN Gout: On Allopurino Depression: On Cymbalta BPH: On Finasteride Disposition: PCP: Dr. Marcy Diaz CODE STATUS: DNR/DNI VTE prophylaxis: Teds and SCDs for now (2) Weakness: (3) Involuntary movements: Admission and Anticipated Discharge Date Admission Date: October 14, 2022 Subjective resting comfortably twitching in legs is better than yesterday denies cough denies sob no fevers afebrile no chest pain ambulated with walker with assistance as per nursing staff Review of Systems Review of Systems: Asper above Physical Exam Constitutional: WD/WN, vitals as above Eyes: EOMI Neck: trachea midline, no thyromegaly Respiratory: normal respiratory effort, lungs clear to auscultation Cardiovascular: RRR, no murmur, no edema Gastrointestinal (Abdomen): normal bowel sounds, soft, nontender, no hepatosplenomegaly Neurologic: alert and oriented speech clear no facialdroop obeys commands moves extremities Results & Data Results & Data Vital Signs (Past 12 Hours) Vital Signs Temp Pulse Pulse Resp BP Pulse Ox O2 Del Method 10/15/22 08:00 73 10/15/22 08:00 Nasal Cannula 10/15/22 11:50 36.4 C L 70 19 115/70 93 Nasal Cannula 10/15/22 08:16 36.4 C L 75 18 123/75 93 Nasal Cannula O2 Flow Rate 10/15/22 08:00 10/15/22 08:00 2 10/15/22 11:50 2 10/15/22 08:16 2
--- NOTE | 2022-10-15 15:46 | CT Scan Report ---
CT chest diagnostic wo con CT DOSE: 354.52 mGy.cm CLINICAL HISTORY: 86 years-old Male with infiltrates /congestion. Acute shortness of breath TECHNIQUE: Multiaxial CT images of the chest were performed without contrast. A dose lowering techni que was utilized adhering to the principles of ALARA. COMPARISON: Chest CT 10/14/2022 FINDINGS: No thyroid nodule. Calcified mediastinal lymph nodes. Mild cardiomegaly without pericardial effusion. Moderate coronary artery calcifications. Atherosclerosis of the aorta without aneurysm. Mo derate to large hiatal hernia with mid to distal esophageal wall thickening. Fluid is also noted with in the hernia sac. Bilateral calcified pleural plaques. Scattered pulmonary calcified granulomata. No pneumothorax or large pleural effusion. Patchy mixed gr oundglass and consolidative opacities are noted throughout the right lung. The left lung is generally clear. 6 mm fissural nodule of the right midlung, image 142. 6 cm solid nodule of the right midlung image 161. Central airways are patent. No acute process of the imaged upper abdomen. Unremarkable soft tissues. No acute fracture. Mild mid thoracic compression deformities are age-indeterminate however are favored to be chronic. No retropul lino. Asymmetric sclerosis of the right clavicular head, likely degenerative. Degenerative changes of the shoulders and spine. IMPRESSION: 1. Patchy intermixed groundglass and consolidative opacities throughout the right lung are suggestive of pneumonia. 2. Asbestos related pleural disease. 3. Moderate to large hiatal hernia with esophageal wall thickening. 4. Likely benign solid pulmonary nodules measure up to 6 mm. 5. Additional findings as above. Please refer to below summary of Fleischner criteria recommendations for follow-up of incidental CT n odules (Jose Gutierrez, Guidelines for management of small pulmonary nodules detected on CT scans: A sta tement from the Fleischner Society, Radiology 237: [phone].) SOLID NODULES Multiple nodules size: <6 mm * Low risk patients: no routine follow-up * high risk patients: optional CT at 12 months Multiple nodules size: 6-8 mm * Low risk patients: follow-up at 3-6 months, then consider further follow-up at 18-24 months * high risk patients: follow-up at 3-6 months, then at 18-24 months if no change Note: newly detected indeterminate nodule in persons 35 years of age or older. * Low risk patients: minimal or absent history of smoking and/or other known risk factors * high risk patients: history of smoking or of other known risk factors (e.g. first degree relative with lung cancer, or exposure to asbestos, radon, uranium) * if a nodule up to 8 mm is partly solid or is ground glass further follow-up is required after 24 m onths to exclude possible slow growing adenocarcinoma (CHRISTEN) ACT 112: Negative or not required by law. Electronically signed by: Gigi Carey M.D. 10/15/2022 3:44 PM
[2022-10-15] MEDS ORDERED: cefTRIAXone SODIUM 2,000 MG in DEXTROSE 5% 50 ML IV SCH (16:00)
[2022-10-15] MEDS: AMPICILLIN/SULBACTAM SOD 3,000 MG in 0.9 % SODIUM CHLORIDE 100 ML IV SCH ×2 (18:04→23:02)
[2022-10-15] MEDS: TAMSULOSIN HCL 0.4 MG CAP PO SCH (20:35)
[2022-10-15] MEDS: ZOLPIDEM TARTRATE 5 MG TAB PO SCH (21:29)
[2022-10-16] MEDS: DOXYCYCLINE HYCLATE 100 MG in DEXTROSE 5% 100 ML IV SCH ×2 (03:01→15:29)
[2022-10-16] MEDS: AMPICILLIN/SULBACTAM SOD 3,000 MG in 0.9 % SODIUM CHLORIDE 100 ML IV SCH ×4 (05:00→23:14)
[2022-10-16 05:55] LABS: Basophils # (auto) 0.04 K/uL (0-0.2); Basophils % (auto) 0.5 %; Eosinophils # (auto) 0.44 K/uL (0-0.50); Eosinophils % (auto) 5.2 %; Hematocrit (blood only) 35.8 % (42.0-52.0); Hemoglobin 12.5 g/dl (14.0-18.0); Immature Granulocytes # (auto) 0.04 K/uL (0.01-0.20); Immature Granulocytes % (auto) 0.5 %; Lymphocytes # (auto) 2.12 K/uL (1.2-3.4); Lymphocytes % (auto) 24.9 %; Mean Corpuscular Hemoglobin 31.3 pg (25.0-34.0); Mean Corpuscular Hgb Conc 34.9 g/dL (32.0-36.0); Mean Corpuscular Volume 89.7 fL (80.0-100.0); Mean Platelet Volume 11.5 fL (9.4-12.4); Monocytes # (auto) 0.76 K/uL (0.11-0.59); Monocytes % (auto) 8.9 %; Neutrophils # (auto) 5.12 K/uL (1.40-6.50); Platelet Count 150 K/uL (130-400); RDW Coefficient of Variation 15.2 % (11.5-14.5); RDW Standard Deviation 49.9 fL (36.4-46.3); Red Blood Count 3.99 M/uL (4.70-6.10); White Blood Count 8.52 K/ul (4.8-10.8)
[2022-10-16 06:10] LABS: BUN Creatinine Ratio 18.4 (10-20); Creatinine Clr Calc Pharmacy 40.2 ml/min; Est GFR (African American) 47.1 ml/min; Est GFR (Non-African American) 40.6 ml/min; Magnesium 1.6 mg/dl (1.7-2.4); Potassium 3.9 mmol/L (3.5-5.1)
[2022-10-16] MEDS: LANTUS PER UNIT CHARGE SQ SCH (08:25)
[2022-10-16] MEDS: INSULIN ASPART PER UNIT CHARGE SC SCH ×4 (08:25→20:14)
[2022-10-16] MEDS: ROSUVASTATIN CALCIUM 20 MG TAB PO SCH (08:26)
[2022-10-16] MEDS: DULoxetine HCL 60 MG CAP PO SCH ×2 (08:26→20:11)
[2022-10-16] MEDS: PANTOprazole 40 MG TAB PO SCH ×2 (08:26→20:10)
[2022-10-16] MEDS: CHOLECALCIFEROL 1,000 UNITS 25 MCG TAB PO SCH (08:26)
[2022-10-16] MEDS: carvediloL 6.25 MG TAB PO SCH ×2 (08:26→20:11)
[2022-10-16] MEDS: FUROSEMIDE 20 MG TAB PO SCH (08:27)
[2022-10-16] MEDS: amLODIPine BESYLATE 5 MG TAB PO SCH (08:27)
[2022-10-16] MEDS: LOSARTAN/HCTZ 50/12.5MG TAB PO SCH (08:27)
[2022-10-16] MEDS: ASPIRIN 81 MG ECTAB PO SCH (08:28)
[2022-10-16] MEDS: PREGABALIN 150 MG CAP PO SCH ×2 (08:34→20:23)
[2022-10-16] MEDS ORDERED: LANTUS PER UNIT CHARGE SQ SCH (09:00)
[2022-10-16] MEDS: FINASTERIDE 5 MG TAB PO SCH (11:30)
[2022-10-16] MEDS: ASCORBIC ACID 500 MG TAB PO SCH (11:30)
[2022-10-16] MEDS: allopurinoL 300 MG TAB PO SCH (11:30)
[2022-10-16] MEDS: CYANOCOBALAMIN (B-12) 500 MCG TABLET PO SCH (11:30)
[2022-10-16] MEDS: allopurinoL 100 MG TAB PO SCH (11:30)
--- NOTE | 2022-10-16 18:28 | Hospitalist Progress Note ---
Date of Service October 16, 2022 Assessment & Plan (1) CAP (community acquired pneumonia): Plan: (1) CAP (community acquired pneumonia): Plan: As per H and P:"86 year old presented from home with complaints of involuntary movements and fatigue. Pt has a complex medical history that includes Diabetes mellitus type 2 with peripheral neuropathy, HTN, HLD, history of breast cancer, gout, BPH status post LUTS, depression, GERD postmastectomy pain, RLS. CXR suggestive of pulmonary edema; however, clinically and review of imagines correlates with pneumonia. Patient with polypharmacy; on numerous medications for postmastectomy pain; baclofen, Namenda, and Requip; hold to determine contributing effects. Pt with acute on chronic kidney disease, also suggestive of not being able to renally clear the medications. Baseline Creatinine 1.6; today 2.09. Received 1LNSB in ED". Community Aquired Pneumonia: Weakness: cxr questionable pneumonia vs chf WBC 15 empiric abx leukocytosis resolved no cough or sob CT chest shows pneumonia and asbestos related pleural disease. on unasyn and doxy seen by speech and recommends easy to chew diet and aspiration precautions Acute on Chronic Kidney Failure: Creatinine 2.09, Baseline creatinine 1.6 received fluids cr 1.5 todaY. Involuntary movements: bilateral jerking Head CT negative Holding Baclofen, Requip, and Namenda; reassess in AM Ativan 0.5 mg given in ED Seems much better will resume Requip and Namenda today 10/16 and hold baclofen Follows with Neuro PT recommends home PT Hypomagnesemia: replaced. Diabetes mellitus type 2: Peripheral neuropathy: Takes Glipizide and Jardiance; hold while here Takes Lyrica; continue Place on ACHS FSBS SSI will monitor HTN: On Amlodipine, Losartan, and Coreg Lasix 20 mg daily; continue for now. Will monitor HLD: Takes Rosuvastatin; continue History of breast cancer: As per h andn P:left breast cancer SP mastectomy in November 1998, SP radiation and chemotherapy left chest chronic seroma which had been draining intermittently in the past Saw Dr Brunner and sees onc once per year. He was told he was cancer free on 04/16. Takes Baclofen, and Namenda (off label use) for post mastectomy pain; Holding Baclofen . GERD: ON omeprazole Pepcid PRN Gout: On Allopurinol Depression: On Cymbalta BPH: On Finasteride Disposition: PCP: Dr. Marcy Diaz CODE STATUS: DNR/DNI VTE prophylaxis: Teds and SCDs for now Possible d/c in am if stable. Admission and Anticipated Discharge Date Admission Date: October 14, 2022 Subjective says when he came to hospital all his body was shaking says it was going on for some time but got worse lately today tremors improved denies cough no sob afebrile eating ok Review of Systems Review of Systems: As above Physical Exam Constitutional: WD/WN, vitals as above Eyes: EOMI Neck: trachea midline, no thyromegaly Respiratory: normal respiratory effort, lungs clear to auscultation Cardiovascular: RRR, no murmur, no edema Gastrointestinal (Abdomen): normal bowel sounds, soft, nontender, no hepat osplenomegaly Neurologic: alert and oriented speech clear no facial drop obeys commands moves extremities Results & Data Results & Data Vital Signs (Past 12 Hours) Vital Signs Temp Pulse Pulse Resp BP Pulse Ox O2 Del Method 10/16/22 16:25 72 10/16/22 15:56 36.4 C L 64 20 118/80 94 Room Air 10/16/22 11:35 36.7 C 70 19 124/65 94 Room Air 10/16/22 08:00 71 10/16/22 07:57 36.7 C 74 20 133/66 92 Room Air
--- NOTE | 2022-10-16 18:37 | Communication Note ---
Date of Service: October 16, 2022 Started home Namenda and reduced dose of Requip today. Holding baclofen. Getting treated for pneumonia. Polypharmacy and pneumonia might be the cause for i nvoluntary movements which are improved now.
[2022-10-16] MEDS: TAMSULOSIN HCL 0.4 MG CAP PO SCH (20:10)
[2022-10-16] MEDS: ZOLPIDEM TARTRATE 5 MG TAB PO SCH (20:23)
[2022-10-16] MEDS: rOPINIRole HCL 0.25 MG TABLET PO SCH ×2 (20:23→20:24)
[2022-10-16] MEDS: MEMANTINE HCL 5 MG TAB PO SCH (20:23)
[2022-10-16] MEDS ORDERED: FLUOROMETHOLONE 0.1% OP SCH (23:00)
[2022-10-17] MEDS ORDERED: [UNRECOGNIZED DRUG - OTHER] SCH
[2022-10-17 00:23] LABS: Appearance Urine Clear (Clear); Bilirubin Urine Negative (Negative); Blood Urine Negative (Negative); Color Urine Yellow; Glucose Urine UA Negative (Negative); Ketones Urine Trace (Negative); Leukocyte Esterase Urine Negative (Negative); Nitrite Urine Negative (Negative); Protein Urine Negative (Negative); Specific Gravity Urine 1.015 (1.000-1.030); Urobilinogen Urine Negative (Negative); pH Urine 5.5 (4.5-7.5)
[2022-10-17] MEDS: DOXYCYCLINE HYCLATE 100 MG in DEXTROSE 5% 100 ML IV SCH (02:39)
[2022-10-17] MEDS: AMPICILLIN/SULBACTAM SOD 3,000 MG in 0.9 % SODIUM CHLORIDE 100 ML IV SCH (05:24)
[2022-10-17] MEDS: carvediloL 6.25 MG TAB PO SCH (08:04)
[2022-10-17] MEDS: DULoxetine HCL 60 MG CAP PO SCH (08:04)
[2022-10-17] MEDS: MEMANTINE HCL 5 MG TAB PO SCH (08:04)
[2022-10-17] MEDS: amLODIPine BESYLATE 5 MG TAB PO SCH (08:05)
[2022-10-17] MEDS: PANTOprazole 40 MG TAB PO SCH (08:05)
[2022-10-17] MEDS: FUROSEMIDE 20 MG TAB PO SCH (08:05)
[2022-10-17] MEDS: ROSUVASTATIN CALCIUM 20 MG TAB PO SCH (08:05)
[2022-10-17] MEDS: ASPIRIN 81 MG ECTAB PO SCH (08:05)
[2022-10-17] MEDS: CHOLECALCIFEROL 1,000 UNITS 25 MCG TAB PO SCH (08:06)
[2022-10-17] MEDS: PREGABALIN 150 MG CAP PO SCH (08:12)
[2022-10-17] MEDS: LANTUS PER UNIT CHARGE SQ SCH (08:15)
[2022-10-17] MEDS: INSULIN ASPART PER UNIT CHARGE SC SCH (08:19)
[2022-10-17 09:05] LABS: Calcium 9.4 mg/dl (8.6-10.3); Creatinine Clr Calc Pharmacy 44.3 ml/min; Est GFR (African American) 52.9 ml/min; Est GFR (Non-African American) 45.6 ml/min; Magnesium 1.6 mg/dl (1.7-2.4); Potassium 3.7 mmol/L (3.5-5.1)
--- NOTE | 2022-10-17 10:37 | Discharge Summary ---
Discharge Summary Date of Service October 17, 2022 Notes For Next Care Provider asbestos related pleural disease on imaging pneumonia, treated with abx No needs for oxygen going home Needs repeat chest imaging in 4 weeks to ensure resolution CT showed large hiatal hernia and esophageal wall thickening Speech pathology assessed him and feels he has esophageal dysmotility Also with pulmonary nodules on imaging. Medication Changes From Visit Augmentin x 5 days Doxycycline x 5 days Admission HPI Per Admitting Provider 86 year old presented from home with complaints of involuntary movements and fatigue that has been going on for the past few days. No exacerbating or resolving parts of his day, but states it is constant. Pt states he has not had any known sick contacts lately. He does care for his at home. He describes the jerking as 'he is falling asleep' but he does not feel like he is falling asleep. Pt has a complex medical history that includes Diabetes mellitus type 2 with peripheral neuropathy, HTN, HLD, history of breast cancer, gout, BPH status post LUTS, depression, GERD postmastectomy pain, RLS. CXR suggestive of pulmonary edema; however, clinically and review of imagines correlates with pneumonia. Patient with polypharmacy; on numerous medications for postmastectomy pain; baclofen, Namenda, and Requip; hold to determine contributing effects. Pt with acute on chronic kidney disease, also suggestive of not being able to renally clear the medications. Baseline Creatinine 1.6; today 2.09. Pt sitting upright in his bed, sleepy, but arousable and able to answer questions appropriately (he had just received Ativan). Pt with involuntary jerking of all 4 limbs approximately every 30 seconds. Does not cause pain. Pt denies INGRAM, fever, chills, dizziness, SOB< chest pain, palpitations, N/V/D, bowel or bladder changes, recent falls or trauma. Pt takes care of his elderly at home and he is, at baseline, able to perform his own ADL's. Pt denies tobacco, alcohol, or recreational drug use. Pt has a son and daughter that live in [place], but not local. Patient will be admitted for further evaluation and management. Please see A/P for further details. Principal Dx & Hospital Course #1 = Principal Diagnosis (1) CAP (community acquired pneumonia): (1) CAP (community acquired pneumonia): Plan: As per H and P:"86 year old presented from home with complaints of involuntary movements and fatigue. Pt has a complex medical history that includes Diabetes mellitus type 2 with peripheral neuropathy, HTN, HLD, history of breast cancer, gout, BPH status post LUTS, depression, GERD postmastectomy pain, RLS. CXR suggestive of pulmonary edema; however, clinically and review of imagines correlates with pneumonia. Patient with polypharmacy; on numerous medications for postmastectomy pain; baclofen, Namenda, and Requip; hold to determine contributing effects. Pt with acute on chronic kidney disease, also suggestive of not being able to renally clear the medications. Baseline Creatinine 1.6; today 2.09. Received 1LNSB in ED". Community Aquired Pneumonia: Weakness: cxr questionable pneumonia vs chf WBC 15 empiric abx leukocytosis resolved no cough or sob CT chest shows pneumonia and asbestos related pleural disease. on unasyn and doxy seen by speech and recommends easy to chew diet and aspiration precautions Acute on Chronic Kidney Failure: Creatinine 2.09, Baseline creatinine 1.6 received fluids cr 1.5 todaY. Involuntary movements: bilateral jerking Head CT negative Holding Baclofen, Requip, and Namenda; reassess in AM Ativan 0.5 mg given in ED Seems much better will resume Requip and Namenda today 10/16 and hold baclofen Follows with Neuro PT recommends home PT Hypomagnesemia: replaced. Diabetes mellitus type 2: Peripheral neuropathy: Takes Glipizide and Jardiance; hold while here Takes Lyrica; continue Place on ACHS FSBS SSI will monitor HTN: On Amlodipine, Losartan, and Coreg Lasix 20 mg daily; continue for now. Will monitor HLD: Takes Rosuvastatin; continue History of breast cancer: As per h andn P:left breast cancer SP mastectomy in November 1998, SP radiation and chemotherapy left chest chronic seroma which had been draining intermittently in the past Saw Dr Brunner and sees onc once per year. He was told he was cancer free on 04/16. Takes Baclofen, and Namenda (off label use) for post mastectomy pain; Holding Baclofen . GERD: ON omeprazole Pepcid PRN Gout: On Allopurinol Depression: On Cymbalta BPH: On Finasteride Disposition: PCP: Dr. Marcy Diaz CODE STATUS: DNR/DNI VTE prophylaxis: Teds and SCDs for now Possible d/c in am if stable. Updated Medication List Medication Instructions Recorded Confirmed Type allopurinol 100 mg tablet 100 mg PO QDL 06/02/19 10/14/22 History allopurinol 300 mg tablet 300 mg PO QDL 06/02/19 10/14/22 History amlodipine 10 mg tablet 10 mg PO QAM 06/02/19 10/14/22 History aspirin 81 mg tablet,delayed 81 mg PO QAM 06/02/19 10/14/22 History release carvedilol 12.5 mg tablet 6.25 mg PO BID 06/02/19 10/14/22 History furosemide 20 mg tablet 20 mg PO QAM 06/02/19 10/14/22 History glipizide 10 mg tablet, extended 10 mg PO BIDM 06/02/19 10/14/22 History release 24 hr losartan 100 1 tab PO QAM 06/02/19 10/14/22 History mg-hydrochlorothiazide 25 mg tablet zolpidem 5 mg tablet 5 mg PO HS 06/02/19 10/14/22 History albuterol sulfate 90 mcg/actuation 2 inh inhalation Q4H PRN Wheezing 02/05/20 10/14/22 History aerosol inhaler (ProAir HFA) omeprazole 40 mg capsule,delayed 40 mg PO BID 02/05/20 10/14/22 History release ascorbic acid (vitamin C) 500 mg 500 mg PO QDL 09/24/20 10/14/22 History chewable tablet (Vitamin C) cholecalciferol (vitamin D3) 50 50 mcg PO DAILY 09/24/20 10/14/22 History mcg (2,000 unit) capsule (Vitamin D3) cyanocobalamin (vitamin B-12) 1,000 mcg PO QDL 09/24/20 10/14/22 History 1,000 mcg tablet (Vitamin B-12) triamcinolone acetonide 0.1 % 1 applic topical DAILY PRN Rash 09/24/20 10/14/22 History topical cream tamsulosin 0.4 mg capsule 0.4 mg PO HS #90 caps 01/26/22 10/14/22 Rx acetaminophen 500 mg tablet 1,000 mg PO Q8H PRN Pain 10/14/22 10/14/22 History (Tylenol Extra Strength) albuterol sulfate 2.5 mg/3 mL 2.5 mg inhalation DIRECTED PRN 10/14/22 10/14/22 History (0.083 %) solution for nebulization Shortness Of Breath Or Wheezing baclofen 10 mg tablet 10 mg PO BID 10/14/22 10/14/22 History duloxetine 60 mg capsule,delayed 60 mg PO BID 10/14/22 10/14/22 History release (Cymbalta) empagliflozin 10 mg tablet 10 mg PO QAM 10/14/22 10/14/22 History famotidine 40 mg tablet (Pepcid) 40 mg PO DAILY PRN 10/14/22 10/14/22 History INDIGESTION/HEARTBURN finasteride 5 mg tablet 5 mg PO QDL 10/14/22 10/14/22 History fluorometholone 0.1 % eye 1 drp OPB HS 10/14/22 10/14/22 History drops,suspension fluorouracil 0.5 % topical cream 1 applic topical BID PRN Skin 10/14/22 10/14/22 History Irritation lidocaine 5 % topical patch 1 patch topical DAILY 10/14/22 10/14/22 History linaclotide 72 mcg capsule 72 mcg PO DAILY PRN ABD PAIN 10/14/22 10/14/22 History (Linzess) magnesium citrate 125 mg capsule 125 mg PO DAILY 10/14/22 10/14/22 History memantine 5 mg tablet 5 mg PO BID 10/14/22 10/14/22 History pregabalin 150 mg capsule (Lyrica) 150 mg PO BID 10/14/22 10/14/22 History ropinirole 0.5 mg tablet 0.5 mg PO HS 10/14/22 10/14/22 History rosuvastatin 20 mg tablet 20 mg PO DAILY 10/14/22 10/14/22 History sildenafil (pulm.hypertension) 20 20 mg PO DIRECTED PRN sexual 10/14/22 10/14/22 History mg tablet activity amoxicillin 875 mg-potassium 1 tab PO BID #10 tabs 10/17/22 Rx clavulanate 125 mg tablet doxycycline hyclate 100 mg tablet 100 mg PO BID #10 tabs 10/17/22 Rx Hospital Stay Data Consultations 10/14/22 16:21 ED Decision to Admit Stat Diagnostic Imagining Performed 10/14/22 13:53 CT head/brain wo con Stat 10/15/22 15:01 CT chest diagnostic wo con Urgent Pending Results Patient Have Any Pending Studies at Discharge: No Discharge Instructions Given to Patient (Per Discharging Provider) Please take all medications as instructed on discharge list below. You were diagnosed with pneumonia and are being given an additional 5 days of antibiotics to take at home to complete the course. Please follow-up with your primary care physician in a week. A repeat chest XRAY is recommended in 4 weeks to ensure complete resolution of the pneumonia. You were found on imaging to hve asbestos related lung disease. You were also found to have a large hiatal hernia with esophageal wall thickening. Finally, you have some lung nodules that measure up to 6mm. These findings should be discussed with your PCP on followup in case any further investigation is warranted. Please follow all recommendations for swallowing as discussed with the speech therapist. It was a pleasure taking care of you! Please call if you have any questions or problems. You can reach a [facility] hospitalist on duty at [facility] 24 hours a day by calling [phone]. Take care of yourself. Lubna Marr, [place] Hospitalist
[2022-10-17] MEDS: LOSARTAN/HCTZ 50/12.5MG TAB PO SCH (10:47)
== END 2022-10-17 11:35 | disposition home or self-care (01) | DRG 194 ==
LOC: ED 13:18 → 2N 16:48 → SUATTDRO 16:48 → 2N 18:16

== ENCOUNTER 2022-12-16 08:42 | Inpatient (IN) ==
[2022-12-16] MEDS ORDERED: SODIUM CHLORIDE 0.9% 500 ML IV ONE (09:09)
--- NOTE | 2022-12-16 09:09 | Emergency Department Note ---
Impression & Plan Pneumonia, Hypotension ED Provider Note NAME: PEDRO TOM AGE: 87 SEX: M : 1935 ARRIVES VIA: Walk-In INFORMANT: Patient ED PROVIDER(S): Carlos Marr DO CHIEF COMPLAINT: Cough, congestion, chills HPI: Patient is an 87-year-old male with a past medical history of d iverticulitis, BPH, GERD, diabetes, hypertension, dyslipidemia that presents to the ER for cough, congestion, chills as well as a sore throat which started within the past 48 hours. He denies any headache or change in vision. No chest pain or shortness of breath. No belly pain, nausea, vomiting or diarrhea. No dysuria, urgency or frequency. He notes he feels very weak and rundown. He admits that he did not do much yesterday as he was so tired. He has not been around anybody that has been sick. PAST MEDICAL HISTORY:See Below PAST SURGICAL HISTORY:See Below FAMILY HISTORY:See Below SOCIAL HISTORY:See Below HOME MEDICATIONS:See Below ALLERGIES:See Below VITALS:See Below PHYSICAL EXAMINATION: GENERAL: Sitting up in bed, alert, well appearing, intermittent coughing EYE EXAM: normal conjunctiva. PERRL and EOM's grossly intact. OROPHARYNX: no exudate, no erythema, lips, buccal mucosa, and tongue normal and mucous membranes are moist NECK: supple, no nuchal rigidity, no adenopathy, non-tender LUNGS: Clear to auscultation. Normal chest wall mechanics HEART: no murmurs, S1 normal and S2 normal ABDOMEN: abdomen soft, non-tender, normo-active bowel sounds, no masses, no rebound or guarding. UPPER EXTREMITIES: upper extremities are grossly normal. LOWER EXTREMITIES: No pitting edema. NEURO EXAM: Normal sensorium, cranial nerves II-XII grossly intact, normal speech, no gross weakness of arms, no gross weakness of legs. No drift. Finger to nose intact. Gross sensation intact. MEDICAL DECISION MAKING: Patient is an 87-year-old male who presents ER for above-stated complaint. IV was established blood work was obtained. External records were reviewed. Labs show mild leukocytosis at 11,000. No significant anemia. BMP along LFTs bilirubin and lipase is unremarkable. Viral panel was negative. Chest x-ray consistent with pneumonia. Patient was slightly hypotensive and with an elevated BUN and infiltrate patient's curb 65 score would suggest admission and I did take discussed with the hospitalist. Patient was given Rocephin and azithromycin. Updated at bedside admitted to the hospital for further work-up. Patient was also given IV fluids. Triage Nursing notes reviewed. Limited review of prior medical records performed Vital Signs: reviewed and remarkable for hypertension Differential diagnosis: Differential diagnosis includes etiologies such as sepsis, UTI, pneumonia, metabolic, electrolyte abnormalities, cardiac sources, intracerebral event, toxicologic, neurological, as well as others were entertained. ER treatment provided: See below Diagnostics interpreted by me include EKG and cardiac monitoring as listed below: -Cardiac Monitoring: An order was placed for continuous cardiac monitoring. The monitor shows a rate of 89 with sinus rhythm. -ECG: Sinus rhythm rate 85 Left axis No PVCs QTc 435 -Laboratory studies:Interpreted by me as stated above in MDM and shown below. Imaging studies: Xrays: As interpreted by me: Portable AP upright 1 view of the chest shows right upper lobe infiltrate CTs show: none Consultation(s): As described in MDM Procedures:none Critical Care: None Past Med/Surg History Medical History (Updated 12/16/22 @ 13:45 by Carlos Marr DO) Asbestosis BPH (benign prostatic hyperplasia) Breast cancer in male S/P Left mastectomy, radiation, chemo; 1998 CAP (community acquired pneumonia) Carotid stenosis under surveillance by cardiology Chronic pain CKD (chronic kidney disease), stage III Diabetes mellitus, type II NIDDM Dyslipidemia GERD (gastroesophageal reflux disease) Hearing deficit Hx of gout Hypertension Neuropathy Osteoarthritis Peripheral neuropathy Schatzki's ring s/p dilation (02/04/20) Sepsis due to pneumonia Surgical History (Updated 12/16/22 @ 13:31 by Omayra Ojeda MD) H/O prostate biopsy History of cataract surgery RT/LEFT History of colonoscopy History of esophagogastroduodenoscopy (EGD) History of keratoplasty Left eye; 02/17/2020 [facility] [place] History of mastectomy Left, 1998 History of tooth extraction Hx of transurethral resection of prostate Family History Brother Family history of diabetes mellitus Family hx of colon cancer Other Colorectal cancer Diabetes Hypertension Social History Smoking Status: Former smoker Cigarettes Per Day: 1 PPD; Second Hand Exposure: No; Do You Dip or Chew Tobacco: No; Hx Alcohol Use: No Hx Substance Use: No Preferred Language: Slovak Communication Ability: Effective 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 Beliefs That Will Affect Care: None marital status: Current Living Situation: Spouse Current Living Situation Comment: Lives w/ spouse at home Feels Safe at Home: Yes Assistive Devices: Denture - Upper, Denture - Lower, Glasses, Hearing Aid - Bilateral and Oxygen - Continuous Allergies Allergies Allergy/AdvReac Type Severity Reaction Status Date / Time gabapentin AdvReac Intermediate Diarrhea Verified 10/14/22 15:47 simvastatin AdvReac Intermediate Muscle Pain Verified 10/14/22 15:47 LISBETH Inhibitors AdvReac Mild COUGH Verified 10/14/22 15:47 Home Meds Home Medications Medication Instructions Recorded Confirmed allopurinol 100 mg tablet 100 mg PO QDL 06/02/19 12/16/22 allopurinol 300 mg tablet 300 mg PO QDL 06/02/19 12/16/22 amlodipine 10 mg tablet 10 mg PO QAM 06/02/19 12/16/22 aspirin 81 mg tablet,delayed 81 mg PO QAM 06/02/19 12/16/22 release carvedilol 12.5 mg tablet 6.25 mg PO BID 06/02/19 12/16/22 furosemide 20 mg tablet 20 mg PO QAM 06/02/19 12/16/22 glipizide 10 mg tablet, extended 10 mg PO BIDM 06/02/19 12/16/22 release 24 hr losartan 100 1 tab PO QAM 06/02/19 12/16/22 mg-hydrochlorothiazide 25 mg tablet zolpidem 5 mg tablet 5 mg PO HS 06/02/19 12/16/22 albuterol sulfate 90 mcg/actuation 2 inh inhalation Q4H PRN Wheezing 02/05/20 12/16/22 aerosol inhaler (ProAir HFA) omeprazole 40 mg capsule,delayed 40 mg PO BID 02/05/20 12/16/22 release ascorbic acid (vitamin C) 500 mg 500 mg PO QDL 09/24/20 12/16/22 chewable tablet (Vitamin C) cholecalciferol (vitamin D3) 50 50 mcg PO DAILY 09/24/20 12/16/22 mcg (2,000 unit) capsule (Vitamin D3) cyanocobalamin (vitamin B-12) 1,000 mcg PO QDL 09/24/20 12/16/22 1,000 mcg tablet (Vitamin B-12) triamcinolone acetonide 0.1 % 1 applic topical DAILY PRN Rash 09/24/20 12/16/22 topical cream acetaminophen 500 mg tablet 1,000 mg PO Q8H PRN Pain 10/14/22 12/16/22 (Tylenol Extra Strength) albuterol sulfate 2.5 mg/3 mL 2.5 mg inhalation DIRECTED PRN 10/14/22 12/16/22 (0.083 %) solution for nebulization Shortness Of Breath Or Wheezing baclofen 10 mg tablet 10 mg PO BID 10/14/22 12/16/22 duloxetine 60 mg capsule,delayed 60 mg PO BID 10/14/22 12/16/22 release (Cymbalta) empagliflozin 10 mg tablet 10 mg PO QAM 10/14/22 12/16/22 famotidine 40 mg tablet (Pepcid) 40 mg PO DAILY PRN 10/14/22 12/16/22 INDIGESTION/HEARTBURN finasteride 5 mg tablet 5 mg PO QDL 10/14/22 12/16/22 fluorometholone 0.1 % eye 1 drp OPB HS 10/14/22 12/16/22 drops,suspension fluorouracil 0.5 % topical cream 1 applic topical BID PRN Skin 10/14/22 12/16/22 Irritation lidocaine 5 % topical patch 1 patch topical DAILY 10/14/22 12/16/22 linaclotide 72 mcg capsule 72 mcg PO DAILY PRN ABD PAIN 10/14/22 12/16/22 (Linzess) magnesium citrate 125 mg capsule 125 mg PO DAILY 10/14/22 12/16/22 memantine 5 mg tablet 5 mg PO BID 10/14/22 12/16/22 pregabalin 150 mg capsule (Lyrica) 150 mg PO BID 10/14/22 12/16/22 ropinirole 0.5 mg tablet 0.5 mg PO HS 10/14/22 12/16/22 rosuvastatin 20 mg tablet 20 mg PO DAILY 10/14/22 12/16/22 sildenafil (pulm.hypertension) 20 20 mg PO DIRECTED PRN sexual 10/14/22 12/16/22 mg tablet activity Previous Rx's Medication Instructions Recorded tamsulosin 0.4 mg capsule 0.4 mg PO HS #90 caps 01/26/22 amoxicillin 875 mg-potassium 1 tab PO BID #10 tabs 10/17/22 clavulanate 125 mg tablet doxycycline hyclate 100 mg tablet 100 mg PO BID #10 tabs 10/17/22 Results & Data (ED) Vital Signs Vital Signs - 24 hr 12/16/22 08:50 12/16/22 09:27 12/16/22 09:29 Temperature 36.8 C Temperature Source Temporal Artery Scan Pulse Rate 91 H 84 Respiratory Rate 18 Respiratory Effort / Characteristics Non-Labored Respiratory Depth Normal Respiratory Pattern Regular Blood Pressure 92/57 L Blood Pressure Mean 68 Pulse Oximetry 96 94 Oxygen Delivery Method Room Air Room Air Sepsis Recent Fever Within 48 Hours No Sepsis New/Unexplained Change in Mental Status No Sepsis Action Taken by Nursing No Action Required Laboratory Data 12/16/22 09:21 12/16/22 09:21 Lab Results 12/16/22 12/16/22 12/16/22 Range/Units 09:21 09:21 09:21 WBC 11.68 H (4.8-10.8) K/ul RBC 4.58 L (4.70-6.10) M/uL Hgb 14.3 (14.0-18.0) g/dl Hct 42.1 (42.0-52.0) % MCV 91.9 (80.0-100.0) fL MCH 31.2 (25.0-34.0) pg MCHC 34.0 (32.0-36.0) g/dL RDW Std Deviation 50.2 H (36.4-46.3) fL RDW Coeff of Gena 14.9 H (11.5-14.5) % Plt Count 159 (130-400) K/uL MPV 11.5 (9.4-12.4) fL Immature Gran % (Auto) 0.6 % Neut % (Auto) 73.4 % Lymph % (Auto) 13.4 % Newton % (Auto) 9.8 % Eos % (Auto) 2.4 % Baso % (Auto) 0.4 % Neut # (Auto) 8.58 H (1.40-6.50) K/uL Lymph # (Auto) 1.56 (1.2-3.4) K/uL Newton # (Auto) 1.14 H (0.11-0.59) K/uL Eos # (Auto) 0.28 (0-0.50) K/uL Baso # (Auto) 0.05 (0-0.2) K/uL Immature Gran # (Auto) 0.07 (0.01-0.20) K/uL Sodium 138 (136-145) mmol/L Potassium 3.8 (3.5-5.1) mmol/L Chloride 98 (98-107) mmol/L Carbon Dioxide 32 (21-32) mmol/L Anion Gap 8 (3-11) BUN 24 H (6-23) mg/dl Creatinine 1.35 (0.6-1.4) mg/dl Est Cr Clr Drug Dosing 43.5 ml/min Est GFR ( Amer) 53.9 ml/min Est GFR (Non-Af Amer) 46.5 ml/min BUN/Creatinine Ratio 17.8 (10-20) Glucose 122 H (70-99(Fasting)) mg/dl Calcium 9.6 (8.6-10.3) mg/dl Total Bilirubin 0.9 (0.2-1.0) mg/dl AST 12 L (13-39) U/L ALT 9 (7-52) U/L Alkaline Phosphatase 80 (34-104) U/L Troponin I High Sens 9.6 (0-20) pg/ml Total Protein 7.7 (6.0-8.3) gm/dl Albumin 4.2 (3.4-5.0) gm/dl Globulin 3.5 (2.5-4.0) gm/dl Albumin/Globulin Ratio 1.2 (0.9-2) Lipase 6 L (11-82) U/L Adenovirus (PCR) Not Detected (NotDetected) B. pertussis DNA (PCR) Not Detected (NotDetected) B.parapertussis DNA PCR Not Detected (NotDetected) C. pneumoniae DNA (PCR) Not Detected (NotDetected) Coronavirus OC43 (PCR) Not Detected (NotDetected) Coronavirus HKU1 (PCR) Not Detected (NotDetected) Coronavirus 229E (PCR) Not Detected (NotDetected) SARS-CoV-2 (PCR) Not Detected (NotDetected) Coronavirus NL63 (PCR) Not Detected (NotDetected) Human Metapneumovir PCR Not Detected (NotDetected) Influenza Type A (PCR) Not Detected (NotDetected) Influenza Type B (PCR) Not Detected (NotDetected) M. pneumoniae (PCR) Not Detected (NotDetected) Parainfluenza 1 (PCR) Not Detected (NotDetected) Parainfluenza 2 (PCR) Not Detected (NotDetected) Parainfluenza 3 (PCR) Not Detected (NotDetected) Parainfluenza 4 (PCR) Not Detected (NotDetected) RSV (PCR) Not Detected (NotDetected) Entero/Rhino (PCR) Not Detected (NotDetected) Group A Strep (PCR) (NotDetected) 12/16/22 Range/Units 09:37 WBC (4.8-10.8) K/ul RBC (4.70-6.10) M/uL Hgb (14.0-18.0) g/dl Hct (42.0-52.0) % MCV (80.0-100.0) fL MCH (25.0-34.0) pg MCHC (32.0-36.0) g/dL RDW Std Deviation (36.4-46.3) fL RDW Coeff of Gena (11.5-14.5) % Plt Count (130-400) K/uL MPV (9.4-12.4) fL Immature Gran % (Auto) % Neut % (Auto) % Lymph % (Auto) % Newton % (Auto) % Eos % (Auto) % Baso % (Auto) % Neut # (Auto) (1.40-6.50) K/uL Lymph # (Auto) (1.2-3.4) K/uL Newton # (Auto) (0.11-0.59) K/uL Eos # (Auto) (0-0.50) K/uL Baso # (Auto) (0-0.2) K/uL Immature Gran # (Auto) (0.01-0.20) K/uL Sodium (136-145) mmol/L Potassium (3.5-5.1) mmol/L Chloride (98-107) mmol/L Carbon Dioxide (21-32) mmol/L Anion Gap (3-11) BUN (6-23) mg/dl Creatinine (0.6-1.4) mg/dl Est Cr Clr Drug Dosing ml/min Est GFR ( Amer) ml/min Est GFR (Non-Af Amer) ml/min BUN/Creatinine Ratio (10-20) Glucose (70-99(Fasting)) mg/dl Calcium (8.6-10.3) mg/dl Total Bilirubin (0.2-1.0) mg/dl AST (13-39) U/L ALT (7-52) U/L Alkaline Phosphatase (34-104) U/L Troponin I High Sens (0-20) pg/ml Total Protein (6.0-8.3) gm/dl Albumin (3.4-5.0) gm/dl Globulin (2.5-4.0) gm/dl Albumin/Globulin Ratio (0.9-2) Lipase (11-82) U/L Adenovirus (PCR) (NotDetected) B. pertussis DNA (PCR) (NotDetected) B.parapertussis DNA PCR (NotDetected) C. pneumoniae DNA (PCR) (NotDetected) Coronavirus OC43 (PCR) (NotDetected) Coronavirus HKU1 (PCR) (NotDetected) Coronavirus 229E (PCR) (NotDetected) SARS-CoV-2 (PCR) (NotDetected) Coronavirus NL63 (PCR) (NotDetected) Human Metapneumovir PCR (NotDetected) Influenza Type A (PCR) (NotDetected) Influenza Type B (PCR) (NotDetected) M. pneumoniae (PCR) (NotDetected) Parainfluenza 1 (PCR) (NotDetected) Parainfluenza 2 (PCR) (NotDetected) Parainfluenza 3 (PCR) (NotDetected) Parainfluenza 4 (PCR) (NotDetected) RSV (PCR) (NotDetected) Entero/Rhino (PCR) (NotDetected) Group A Strep (PCR) NOT DETECTED (NotDetected) Administered Medications Discontinued Medications Sodium Chloride (Nss) 500 mls @ 999 mls/hr IV .Q31M ONE Stop: 12/16/22 09:39 Last Infusion: 12/16/22 10:10 Dose: 0 mls/hr Documented By: Admin: 12/16/22 09:36 Dose: 999 mls/hr Documented By: VENUS Ceftriaxone Sodium (Rocephin) 2,000 mg in 70 mls @ 140 mls/hr IV NOW STA Stop: 12/16/22 12:00 Last Infusion: 12/16/22 13:41 Dose: 0 mls/hr Documented By: Admin: 12/16/22 12:54 Dose: 140 mls/hr Documented By: NRMayrlin Azithromycin 500 mg/ Dextrose 255 mls @ 125 mls/hr IV ONE ONE Stop: 12/16/22 13:33 Last Admin: 12/16/22 13:35 Dose: 125 mls/hr Documented By: NRMarylin Imaging Data Radiologist's Impression: Chest X-Ray 12/16/22 09:02 XR chest 1V portable HISTORY: 87 years-old Male Chest pain, nonspecific chest CT 10/15/2022 COMPARISON: Chest CT 10/15/2022 common chest radiograph 06/02/2019. TECHNIQUE: AP view of the chest FINDINGS: Calcified pleural plaques redemonstrated. Cardiomediastinal and hilar silhouettes are unchanged. Hiatal hernia. No pneumothorax, pleural effusion, or overt pulmonary edema. Ill-defined left upper lobe airspace opacities. IMPRESSION: 1. Ill-defined left upper lobe airspace opacity suspicious for pneumonia. Follow-up imaging after treatment course recommended in order to document resolution. 2. Cardiomegaly without pulmonary edema. 3. Asbestos-related pleural disease. 4. Hiatal hernia. ACT 112: Negative or not required by law. The above report was generated using voice recognition software. It may contain grammatical, syntax or spelling errors. Electronically signed by: Gigi Carey M.D. 12/16/2022 9:47 AM Discharge Plan Visit Data Chief Complaint: Sore Throat Stated Complaint: SORE THROAT, BODY ACHES ED Provider: Carlos Marr Discharge Problem: Pneumonia, Hypotension Discharge Instructions Interventions: ED Discharge Assessment Last Done: 12/16/22 13:51 Forms Stand Alone Forms: [employer] Prescriptions Prescriptions: No Action tamsulosin 0.4 mg capsule 0.4 mg PO HS Qty: 90 3RF omeprazole 40 mg Capsule,Delayed Release(Dr/Ec) 40 mg PO BID Rx Instructions: PER [facility]--PT ONLY TAKES DAILY albuterol sulfate [ProAir HFA] 90 mcg/actuation Hfa Aerosol Inhaler 2 inh INHALATION Q4H PRN (Reason: Wheezing) carvedilol 12.5 mg tablet 6.25 mg PO BID Rx Instructions: TAKES 0.5 TAB BID glipizide 10 mg tablet extended release 24hr 10 mg PO BIDM Rx Instructions: Take 30 minutes before meals allopurinol 100 mg tablet 100 mg PO QDL Rx Instructions: Take with 300mg to make 400mg total dose. aspirin 81 mg Tablet,Delayed Release (Dr/Ec) 81 mg PO QAM losartan-hydrochlorothiazide 100-25 mg tablet 1 tab PO QAM amlodipine 10 mg tablet 10 mg PO QAM allopurinol 300 mg tablet 300 mg PO QDL Rx Instructions: Take with 100mg to make 400mg total dose. zolpidem 5 mg tablet 5 mg PO HS furosemide 20 mg tablet 20 mg PO QAM cyanocobalamin (vitamin B-12) [Vitamin B-12] 1,000 mcg Tablet 1,000 mcg PO QDL triamcinolone acetonide 0.1 % cream 1 applic TOPICAL DAILY PRN (Reason: Rash) ascorbic acid (vitamin C) [Vitamin C] 500 mg Tablet,Chewable 500 mg PO QDL cholecalciferol (vitamin D3) [Vitamin D3] 50 mcg (2,000 unit) Capsule 50 mcg PO DAILY albuterol sulfate 2.5 mg /3 mL (0.083 %) Solution For Nebulization 2.5 mg INHALATION DIRECTED PRN (Reason: Shortness Of Breath Or Wheezing) famotidine [Pepcid] 40 mg Tablet 40 mg PO DAILY PRN (Reason: INDIGESTION/HEARTBURN) acetaminophen [Tylenol Extra Strength] 500 mg Tablet 1,000 mg PO Q8H PRN (Reason: Pain) baclofen 10 mg Tablet 10 mg PO BID ropinirole 0.5 mg Tablet 0.5 mg PO HS Rx Instructions: administer 1-3 hours before bedtime fluorometholone 0.1 % Drops,Suspension 1 drp OPB HS lidocaine 5 % Adhesive Patch,Medicated 1 patch TOPICAL DAILY Rx Instructions: leave on most painful area for up to 12 hrs fluorouracil 0.5 % Cream 1 applic TOPICAL BID PRN (Reason: Skin Irritation) rosuvastatin 20 mg Tablet 20 mg PO DAILY memantine 5 mg Tablet 5 mg PO BID duloxetine [Cymbalta] 60 mg Capsule,Delayed Release(Dr/Ec) 60 mg PO BID pregabalin [Lyrica] 150 mg Capsule 150 mg PO BID empagliflozin 10 mg Tablet 10 mg PO QAM Linzess 72 mcg Capsule 72 mcg PO DAILY PRN (Reason: ABD PAIN) magnesium citrate 125 mg Capsule 125 mg PO DAILY finasteride 5 mg tablet 5 mg PO QDL sildenafil (pulm.hypertension) 20 mg tablet 20 mg PO DIRECTED PRN (Reason: sexual activity) Rx Instructions: TAKE 1 TO 5 TABLETS 1 HOUR PRIOR TO NEED amoxicillin-pot clavulanate 875-125 mg tablet 1 tab PO BID Qty: 10 0RF doxycycline hyclate 100 mg tablet 100 mg PO BID Qty: 10 0RF Referrals Referrals: Marcy Diaz MD [Primary Care Provider] -
[2022-12-16 09:45] LABS: Basophils # (auto) 0.05 K/uL (0-0.2); Basophils % (auto) 0.4 %; Eosinophils # (auto) 0.28 K/uL (0-0.50); Eosinophils % (auto) 2.4 %; Hematocrit (blood only) 42.1 % (42.0-52.0); Hemoglobin 14.3 g/dl (14.0-18.0); Immature Granulocytes # (auto) 0.07 K/uL (0.01-0.20); Immature Granulocytes % (auto) 0.6 %; Lymphocytes # (auto) 1.56 K/uL (1.2-3.4); Lymphocytes % (auto) 13.4 %; Mean Corpuscular Hemoglobin 31.2 pg (25.0-34.0); Mean Corpuscular Volume 91.9 fL (80.0-100.0); Mean Platelet Volume 11.5 fL (9.4-12.4); Monocytes # (auto) 1.14 K/uL (0.11-0.59); Monocytes % (auto) 9.8 %; Neutrophils # (auto) 8.58 K/uL (1.40-6.50); Neutrophils % (auto) 73.4 %; Platelet Count 159 K/uL (130-400); RDW Coefficient of Variation 14.9 % (11.5-14.5); RDW Standard Deviation 50.2 fL (36.4-46.3); Red Blood Count 4.58 M/uL (4.70-6.10); White Blood Count 11.68 K/ul (4.8-10.8)
--- NOTE | 2022-12-16 09:48 | XRay Report ---
XR chest 1V portable HISTORY: 87 years-old Male Chest pain, nonspecific chest CT 10/15/2022 COMPARISON: Chest CT 10/15/2022 common chest radiograph 06/02/2019. TECHNIQUE: AP view of the chest FINDINGS: Calcified pleural plaques redemonstrated. Cardiomediastinal and hilar silhouettes are unchanged. Hiat al hernia. No pneumothorax, pleural effusion, or overt pulmonary edema. Ill-defined left upper lobe a irspace opacities. IMPRESSION: 1. Ill-defined left upper lobe airspace opacity suspicious for pneumonia. Follow-up imaging after cally atment course recommended in order to document resolution. 2. Cardiomegaly without pulmonary edema. 3. Asbestos-related pleural disease. 4. Hiatal hernia. ACT 112: Negative or not required by law. The above report was generated using voice recognition software. It may contain grammatical, syntax o r spelling errors. Electronically signed by: Gigi Carey M.D. 12/16/2022 9:47 AM
[2022-12-16 10:00] LABS: Albumin Globulin Ratio 1.2 (0.9-2); Albumin Level 4.2 gm/dl (3.4-5.0); BUN Creatinine Ratio 17.8 (10-20); Bilirubin,Total 0.9 mg/dl (0.2-1.0); Calcium 9.6 mg/dl (8.6-10.3); Creatinine Clr Calc Pharmacy 43.5 ml/min; Est GFR (African American) 53.9 ml/min; Est GFR (Non-African American) 46.5 ml/min; Globulin 3.5 gm/dl (2.5-4.0); Potassium 3.8 mmol/L (3.5-5.1); Total Protein 7.7 gm/dl (6.0-8.3)
[2022-12-16 10:04] LABS: Troponin I High Sensitivity 9.6 pg/ml (0-20)
[2022-12-16] MEDS ORDERED: AZITHROMYCIN 500 MG in DEXTROSE 5% 250 ML IV ONE (11:31)
[2022-12-16] MEDS ORDERED: cefTRIAXone SODIUM 2,000 MG/70 ML BAG IV STA (11:31)
[2022-12-16] MEDS ORDERED: cefTRIAXone SODIUM 2,000 MG in DEXTROSE 5% 50 ML IV SCH (11:45)
[2022-12-16] MEDS ORDERED: AZITHROMYCIN 500 MG in DEXTROSE 5% 250 ML IV SCH (11:45)
[2022-12-16] MEDS ORDERED: MAGNESIUM HYDROXIDE SUSP 30 ML UDC PO PRN (11:50)
[2022-12-16] MEDS ORDERED: ONDANSETRON INJ 2 MG/ML 2 ML VIAL IV PRN (11:50)
[2022-12-16] MEDS ORDERED: POLYETHYLENE (MIRALAX) 17 GM PACK PO PRN (11:50)
[2022-12-16] MEDS ORDERED: ALUMINUM/MAGNESIUM SUSP 30 ML UDC PO PRN (11:50)
[2022-12-16 11:51] LABS: Adenovirus PCR Not Detected (NotDetected); Bordetella parapertussis PCR Not Detected (NotDetected); Bordetella pertussis PCR Not Detected (NotDetected); Chlamydia pneumoniae PCR Not Detected (NotDetected); Coronavirus 229E PCR Not Detected (NotDetected); Coronavirus CoV-2 (COVID19)PCR Not Detected (NotDetected); Coronavirus HKU1 PCR Not Detected (NotDetected); Coronavirus NL63 PCR Not Detected (NotDetected); Coronavirus OC43PCR Not Detected (NotDetected); Human Metapneumovirus PCR Not Detected (NotDetected); Influenza A PCR Not Detected (NotDetected); Influenza B PCR Not Detected (NotDetected); Mycoplasma pneumoniae PCR Not Detected (NotDetected); Parainfluenza Virus 1 PCR Not Detected (NotDetected); Parainfluenza Virus 2 PCR Not Detected (NotDetected); Parainfluenza Virus 3 PCR Not Detected (NotDetected); Parainfluenza Virus 4 PCR Not Detected (NotDetected); Respiratory Syncytial VirusPCR Not Detected (NotDetected); Rhinovirus/Enterovirus PCR Not Detected (NotDetected)
--- NOTE | 2022-12-16 13:21 | History & Physical Report ---
Date of Service December 16, 2022 Assessment & Plan (1) Pneumonia of left upper lobe due to infectious organism: Plan: Does not meet criteria for sepsis. Only SIRS criteria is HR > 90. Will monitor VS and wbc as this could change ARLETTE PNA noted on imaging respiratory pathogen panel negative saturating well on room air Continue Azithromycin 500 mg IV daily and Ceftriaxone 2g IV daily (12/16 - present) BP is soft but not hypotensive, will give IVF f/u procalcitonin Present on Admission?: Yes (2) Weakness: Plan: D/t acute illness c/s to PT if this persists after fluids and abx (3) Diabetes mellitus, type II: Plan: NIDDM-II associated with HTN and HLP no indication to check an A1c currently well controlled continue Empagliflozin 10 mg daily, Glipizide 10 mg BID (4) CKD (chronic kidney disease), stage III: Plan: Cr and eGFR at baseline on presentation (1.35 and 40s) monitor daily bmp avoid nephrotoxins and hypotension Present on Admission?: Yes (5) BPH NOS w ur obs/LUTS: Plan: no complaints at this time continue home regimen of Finasteride 5 mg daily and Tamsulosin 0.4 mg hs (6) Dyslipidemia: Plan: continue statin therapy no indication to check a lipid panel at this time (7) Hypertension: Plan: Hold antihypertensives for now in the setting of soft BP d/t pna resume when appropriate based on BP Home regimen per pt is Amlodipine 10 mg daily (PCP considering decrease to 5 mg as BP has been low recently). Also on Carvedilol 6.25 mg BID, and Losartan HCTZ daily (does not know precise dose) Present on Admission?: Yes (8) Neuropathy: Plan: no complaints at this time continue Duloxetine 60 mg BID, Pregabalin 150 mg po BID, Ropinirole 0.5 mg hs for RLS (9) GERD (gastroesophageal reflux disease): Plan: no complaints at this time continue omeprazole 40 mg BID (10) Corneal transplant status: Plan: continue eye drops History of Present Illness Chief Complaint: myalgias Primary Care Provider: Marcy Diaz MD Mr. Araujo is an 87 year old male with pmhx (per chart, reviewed with patient) of Asbestosis, NIDDM-II (associated with HTN, HLP, and c/b nephropathy), GERD, Schatzki's ring, hiatal hernia, diverticulosis, CKD III, BPH, Gout, peripheral neuropathy, RLS, OA, and breast cancer s/p Left mastectomy, XRT, and chemo in 1998. He presented with diffuse myalgias, arthralgias, malaise, and fatigue. He was found to have ARLETTE pna on Chest x-ray. Pt states about 3-4 days ago he developed diffuse myalgias and arthralgias throughout his entire body. Everything feels stiff and painful. This was associated with fatigue, malaise, genearlized weakness, dry cough, mild sore throat, and rhinorrhea. He thought he might have COVID so he came in to get tested. He has some mild sob but states this is at baseline. He also has some chronic sharp chest pain and tightness that is related to postoperative changes from mastectomy back in 1998 and also remains at baseline. He denies INGRAM, dizziness, lightheadedness, f/c, abdominal pain, and diarrhea. He had pneumonia about a month and a half ago, possibly d/t aspiration. About 2- 3 times per week he has sudden vomiting after eating that he attributes to his hiatal hernia. He tries to watch what he eats to limit this, but it still happens. He has been told he could be getting some of the gastric contents into his lungs when he vomits. He thinks this could have happened again. He denies any difficulty with swallowing and choking. He has no other complaints. ED Course: CXR noted to have ARLETTE pna b/w notable for wbc 11.7, BUN 24. AST and lipase are low at 12 and 6 respectively. Remaining CMP and cbc are unimpressive. RPP is negative. VSS HR 91, BP 92/57, otherwise stable. Given Azithromcyin and Ceftriaxone, admitted to hospitalist service. Allergies Allergy/AdvReac Type Severity Reaction Status Date / Time gabapentin AdvReac Intermediate Diarrhea Verified 10/14/22 15:47 simvastatin AdvReac Intermediate Muscle Pain Verified 10/14/22 15:47 LISBETH Inhibitors AdvReac Mild COUGH Verified 10/14/22 15:47 Home Medications Medication Instructions Recorded Confirmed Type allopurinol 100 mg tablet 100 mg PO QDL 06/02/19 12/16/22 History allopurinol 300 mg tablet 300 mg PO QDL 06/02/19 12/16/22 History amlodipine 10 mg tablet 10 mg PO QAM 06/02/19 12/16/22 History aspirin 81 mg tablet,delayed 81 mg PO QAM 06/02/19 12/16/22 History release carvedilol 12.5 mg tablet 6.25 mg PO BID 06/02/19 12/16/22 History furosemide 20 mg tablet 20 mg PO QAM 06/02/19 12/16/22 History glipizide 10 mg tablet, extended 10 mg PO BIDM 06/02/19 12/16/22 History release 24 hr losartan 100 1 tab PO QAM 06/02/19 12/16/22 History mg-hydrochlorothiazide 25 mg tablet zolpidem 5 mg tablet 5 mg PO HS 06/02/19 12/16/22 History albuterol sulfate 90 mcg/actuation 2 inh inhalation Q4H PRN Wheezing 02/05/20 12/16/22 History aerosol inhaler (ProAir HFA) omeprazole 40 mg capsule,delayed 40 mg PO BID 02/05/20 12/16/22 History release ascorbic acid (vitamin C) 500 mg 500 mg PO QDL 09/24/20 12/16/22 History chewable tablet (Vitamin C) cholecalciferol (vitamin D3) 50 50 mcg PO DAILY 09/24/20 12/16/22 History mcg (2,000 unit) capsule (Vitamin D3) cyanocobalamin (vitamin B-12) 1,000 mcg PO QDL 09/24/20 12/16/22 History 1,000 mcg tablet (Vitamin B-12) triamcinolone acetonide 0.1 % 1 applic topical DAILY PRN Rash 09/24/20 12/16/22 History topical cream tamsulosin 0.4 mg capsule 0.4 mg PO HS #90 caps 01/26/22 12/16/22 Rx acetaminophen 500 mg tablet 1,000 mg PO Q8H PRN Pain 10/14/22 12/16/22 History (Tylenol Extra Strength) albuterol sulfate 2.5 mg/3 mL 2.5 mg inhalation DIRECTED PRN 10/14/22 12/16/22 History (0.083 %) solution for nebulization Shortness Of Breath Or Wheezing baclofen 10 mg tablet 10 mg PO BID 10/14/22 12/16/22 History duloxetine 60 mg capsule,delayed 60 mg PO BID 10/14/22 12/16/22 History release (Cymbalta) empagliflozin 10 mg tablet 10 mg PO QAM 10/14/22 12/16/22 History famotidine 40 mg tablet (Pepcid) 40 mg PO DAILY PRN 10/14/22 12/16/22 History INDIGESTION/HEARTBURN finasteride 5 mg tablet 5 mg PO QDL 10/14/22 12/16/22 History fluorometholone 0.1 % eye 1 drp OPB HS 10/14/22 12/16/22 History drops,suspension fluorouracil 0.5 % topical cream 1 applic topical BID PRN Skin 10/14/22 12/16/22 History Irritation lidocaine 5 % topical patch 1 patch topical DAILY 10/14/22 12/16/22 History linaclotide 72 mcg capsule 72 mcg PO DAILY PRN ABD PAIN 10/14/22 12/16/22 History (Linzess) magnesium citrate 125 mg capsule 125 mg PO DAILY 10/14/22 12/16/22 History memantine 5 mg tablet 5 mg PO BID 10/14/22 12/16/22 History pregabalin 150 mg capsule (Lyrica) 150 mg PO BID 10/14/22 12/16/22 History ropinirole 0.5 mg tablet 0.5 mg PO HS 10/14/22 12/16/22 History rosuvastatin 20 mg tablet 20 mg PO DAILY 10/14/22 12/16/22 History sildenafil (pulm.hypertension) 20 20 mg PO DIRECTED PRN sexual 10/14/22 12/16/22 History mg tablet activity amoxicillin 875 mg-potassium 1 tab PO BID #10 tabs 10/17/22 12/16/22 Rx clavulanate 125 mg tablet doxycycline hyclate 100 mg tablet 100 mg PO BID #10 tabs 10/17/22 12/16/22 Rx Past Med/Surg History Medical History (Updated 12/16/22 @ 13:29 by Omayra Ojeda MD) Asbestosis BPH (benign prostatic hyperplasia) Breast cancer in male S/P Left mastectomy, radiation, chemo; 1998 CAP (community acquired pneumonia) Carotid stenosis under surveillance by cardiology Chronic pain CKD (chronic kidney disease), stage III Diabetes mellitus, type II NIDDM Dyslipidemia GERD (gastroesophageal reflux disease) Hearing deficit Hx of gout Hypertension Neuropathy Osteoarthritis Peripheral neuropathy Schatzki's ring s/p dilation (02/04/20) Sepsis due to pneumonia Surgical History (Updated 12/16/22 @ 13:31 by Omayra Ojeda MD) H/O prostate biopsy History of cataract surgery RT/LEFT History of colonoscopy History of esophagogastroduodenoscopy (EGD) History of keratoplasty Left eye; 02/17/2020 [facility] History of mastectomy Left, 1998 History of tooth extraction Hx of transurethral resection of prostate Family History Brother Family history of diabetes mellitus Family hx of colon cancer Other Colorectal cancer Diabetes Hypertension Social History Smoking Status: Former smoker Cigarettes Per Day: 1 PPD; Second Hand Exposure: No; Do You Dip or Chew Tobacco: No; Hx Alcohol Use: No Hx Substance Use: No Preferred Language: Luxembourger Communication Ability: Effective Manager Regulatory Required: No Beliefs That Will Affect Care: None marital status: Current Living Situation: Spouse Current Living Situation Comment: Lives w/ spouse at home Feels Safe at Home: Yes Assistive Devices: Denture - Upper, Denture - Lower, Glasses, Hearing Aid - Bilateral and Oxygen - Continuous Review of Systems Review of Systems: as above under HPI Physical Exam Physical Exam: General: NAD, well nourished, well developed, non-toxic appearing Head: NC AT Eyes: anicteric sclera, no conjunctival injection Nose: normal, nares patent Mouth: dry Neck: supple, trachea midline CV: RRR S1 S2 Pulm: scattered crackles left lung. No wheezing or rhonchi. Abd/GI: + BS, soft, NT, ND, no guarding : no dow Ext: no pretibial edema, peripheral pulses intact MSK: normal bulk and tone Neuro: no focal deficits, alert, oriented, moving all 4 extremities symmetrically Psych: pleasant mood and affect Skin: diffuse actinic keratosis. visible skin is warm, dry, and without rash. Pt not fully undressed for exam. Results & Data Results & Data Vital Signs (Past 12 Hours) Vital Signs Temp Pulse Resp BP Pulse Ox O2 Del Method 12/16/22 09:29 94 Room Air 12/16/22 09:27 84 12/16/22 08:50 36.8 C 91 H 18 92/57 L 96 Room Air Laboratory Results Short CBC 12/16/22 Range/Units 09:21 WBC 11.68 H (4.8-10.8) K/ul Hgb 14.3 (14.0-18.0) g/dl Hct 42.1 (42.0-52.0) % Plt Count 159 (130-400) K/uL BMP 12/16/22 09:21 Sodium 138 Potassium 3.8 Chloride 98 Carbon Dioxide 32 BUN 24 H Creatinine 1.35 Glucose 122 H Calcium 9.6 Liver Function 12/16/22 Range/Units 09:21 Total Bilirubin 0.9 (0.2-1.0) mg/dl AST 12 L (13-39) U/L ALT 9 (7-52) U/L Alkaline Phosphatase 80 (34-104) U/L Albumin 4.2 (3.4-5.0) gm/dl Diagnostic Findings Chest X-Ray 12/16/22 09:02 XR chest 1V portable FINDINGS: Calcified pleural plaques redemonstrated. Cardiomediastinal and hilar silhouettes are unchanged. Hiatal hernia. No pneumothorax, pleural effusion, or overt pulmonary edema. Ill-defined left upper lobe airspace opacities. IMPRESSION: 1. Ill-defined left upper lobe airspace opacity suspicious for pneumonia. Follow-up imaging after treatment course recommended in order to document resolution. 2. Cardiomegaly without pulmonary edema. 3. Asbestos-related pleural disease. 4. Hiatal hernia. Code Status & VTE Plan Code Status DNR VTE Prophylaxis Plan VTE Prophylaxis will be ordered: Yes
[2022-12-16] MEDS ORDERED: TRIAMCINOLONE ACET 0.1% CR 15 GM TUBE TOP PRN (14:27)
[2022-12-16] MEDS ORDERED: linaCLOtide 72 MCG CAPSULE PO PRN (14:27)
[2022-12-16] MEDS ORDERED: FAMOTIDINE 40 MG TABLET PO PRN (14:27)
[2022-12-16] MEDS ORDERED: ALBUTEROL HFA 8 GM INHALER INH PRN (14:27)
[2022-12-16] MEDS ORDERED: GLUCAGON FOR INJ 1 MG VIAL IM PRN (15:15)
[2022-12-16] MEDS ORDERED: GLUCOSE 10 TAB/TUBE PO PRN (15:15)
[2022-12-16] MEDS ORDERED: DEXTROSE 50% 50 ML SYRINGE IV PRN (15:15)
[2022-12-16] MEDS ORDERED: CARBOHYDRATES FOR HYPOGLYCEMIA PO PRN ×2 (15:15→16:17)
[2022-12-16] MEDS ORDERED: GLUCOSE 40% GEL 15 GM TUBE PO PRN (15:15)
--- NOTE | 2022-12-16 15:30 | Electrocardiogram Report ---
Test Reason : Blood Pressure : / mmHG Vent. Rate : 085 BPM Atrial Rate : 085 BPM P-R Int : 200 ms QRS Dur : 096 ms QT Int : 366 ms P-R-T Axes : 010 -01 079 degrees QTc Int : 435 ms Normal sinus rhythm Normal ECG When compared with ECG of 14-OCT-2022 13:24, Sinus rhythm has replaced Atrial fibrillation Nonspecific T wave abnormality no longer evident in Inferior leads Confirmed by Jimenez Clayton ([id number]) on 12/16/2022 3:30:19 PM Referred By: Confirmed By:Jimenez Clayton
[2022-12-16] MEDS ORDERED: amLODIPine BESYLATE 5 MG TAB PO ONE (16:14)
[2022-12-16] MEDS: ENOXAPARIN INJ 40 MG/0.4 ML SYR SQ SCH (16:21)
[2022-12-16] MEDS: carvediloL 6.25 MG TAB PO SCH (17:03)
[2022-12-16] MEDS: rOPINIRole HCL 0.25 MG TABLET PO SCH (17:08)
[2022-12-16] MEDS: DULoxetine HCL 60 MG CAP PO SCH (20:26)
[2022-12-16] MEDS: MEMANTINE HCL 5 MG TAB PO SCH (20:26)
[2022-12-16] MEDS: FLUOROMETHOLONE 0.1% OP SCH (20:26)
[2022-12-16] MEDS: PANTOprazole 40 MG TAB PO SCH (20:27)
[2022-12-16] MEDS: TAMSULOSIN HCL 0.4 MG CAP PO SCH (20:28)
[2022-12-16] MEDS: PREGABALIN 150 MG CAP PO SCH (20:36)
[2022-12-16] MEDS: ZOLPIDEM TARTRATE 5 MG TAB PO SCH (20:36)
[2022-12-16] MEDS: ACETAMINOPHEN 325 MG TAB PO PRN (20:36)
[2022-12-16] MEDS ORDERED: NON-FORMULARY MEDICATION (Fluorometholone 0.1 % Drops,Suspension) OPB SCH (21:00)
[2022-12-17 05:01] LABS: Appearance Urine Clear (Clear); Bilirubin Urine Negative (Negative); Blood Urine Negative (Negative); Color Urine Yellow; Glucose Urine UA 2+ (Negative); Ketones Urine Negative (Negative); Leukocyte Esterase Urine Negative (Negative); Nitrite Urine Negative (Negative); Protein Urine Negative (Negative); Specific Gravity Urine 1.018 (1.000-1.030); Urobilinogen Urine Negative (Negative); pH Urine 5.5 (4.5-7.5)
[2022-12-17] MEDS: carvediloL 6.25 MG TAB PO SCH ×2 (08:27→17:09)
[2022-12-17] MEDS: ROSUVASTATIN CALCIUM 20 MG TAB PO SCH (08:28)
[2022-12-17] MEDS: ASPIRIN 81 MG ECTAB PO SCH (08:28)
[2022-12-17] MEDS: EMPAGLIFLOZIN 10 MG TAB PO SCH (08:28)
[2022-12-17] MEDS: MEMANTINE HCL 5 MG TAB PO SCH ×2 (08:29→19:39)
[2022-12-17] MEDS: PANTOprazole 40 MG TAB PO SCH (08:30)
[2022-12-17] MEDS: DULoxetine HCL 60 MG CAP PO SCH ×2 (08:30→19:39)
[2022-12-17] MEDS: amLODIPine BESYLATE 5 MG TAB PO SCH (08:30)
[2022-12-17] MEDS: LIDOCAINE 5% 1 PATCH TD SCH (08:31)
[2022-12-17] MEDS ORDERED: MAGNESIUM CITRATE 125 MG PO SCH (09:00)
[2022-12-17] MEDS ORDERED: cefTRIAXone SODIUM 2,000 MG in DEXTROSE 5% 50 ML IV SCH (09:00)
[2022-12-17] MEDS: PREGABALIN 150 MG CAP PO SCH ×2 (09:42→19:38)
--- NOTE | 2022-12-17 09:52 | Hospitalist Progress Note ---
Date of Service December 17, 2022 Assessment & Plan (1) Pneumonia of left upper lobe due to infectious organism: Plan: No sepsis on admission, improved on abx which were switched Roceph/azithro to cefepime by pulm today ARLETTE infiltrate which is new respiratory pathogen panel negative saturating well on room air f/u procalcitonin (2) Weakness: Plan: D/t acute illness, improved, PT/OT to assess (3) Diabetes mellitus, type II: Plan: NIDDM-II associated with HTN and HLP no indication to check an A1c currently well controlled continue Empagliflozin 10 mg daily, Glipizide 10 mg BID (4) CKD (chronic kidney disease), stage III: Plan: Cr and eGFR at baseline on presentation (1.35 and 40s) monitor daily bmp avoid nephrotoxins and hypotension (5) BPH NOS w ur obs/LUTS: Plan: chronic, stable. continue home regimen of Finasteride 5 mg daily and Tamsulosin 0.4 mg hs (6) Dyslipidemia: Plan: continue statin therapy no indication to check a lipid panel at this time (7) Hypertension: Plan: at goal, cont amlodipine, coreg per home regimen. Cont holding Losartan HCT (8) Neuropathy: Plan: chronic, stable continue Duloxetine 60 mg BID, Pregabalin 150 mg po BID, Ropinirole 0.5 mg hs for RLS (9) GERD (gastroesophageal reflux disease): Plan: chronic, stable. continue omeprazole 40 mg BID (10) Corneal transplant status: Plan: continue eye drops Lovenox Full Code Dispo- home pending PT/OT recs Lubna Marr DO [facility] Hospitalist Admission and Anticipated Discharge Date Admission Date: December 16, 2022 Subjective 87-year-old man recently admitted for pneumonia presents with cough and generalized weakness found to have a repeat pneumonia infection now in the left upper lobe. Patient is with his son and at bedside reports patient has been coughing at home and seemed to get worse with weakness 2 to 3 days prior to presentation Son is concerned about a missed read on the chest x-ray with a history of radiation to chest for breast cancer history. Patient feels improved today after antibiotics were started yesterday He feels this weakness has improved Review of Systems Review of Systems: All systems reviewed negative septa as indicated above. Physical Exam Physical Exam: CONSTITUTIONAL: WNWD, vitals as above, generally well-appearing, NAD EYES: normal conjunctivae, no scleral icterus ENT: external ear and nose normal,MMM NECK: trachea midline RESPIRATORY: clear to auscultation bilaterally, no crackles, rales or wheezes, normal respiratory effort CARDIOVASCULAR: regular rate and rhythm, S1 and 2 heard without murmurs, gallops or rubs, no JVD, no peripheral edema CHEST: inspection of chest was normal GASTROINTESTINAL: soft, nontender, ND, no guarding MUSCULOSKELETAL: strength 5/5 throughout, head is normocephalic and atraumatic, neck supple, normal palpation of chest wall without tenderness SKIN: warm and dry NEUROLOGIC: CN 2-12 grossly intact, no sensory deficit, normal cognition, normal speech, no tremor PSYCHIATRIC: alert cooperative and answering questions appropriately but patient is hard of hearing and mostly is deferring to his son for answers Results & Data Results & Data Vital Signs (Past 12 Hours) Vital Signs Temp Pulse Resp BP Pulse Ox O2 Del Method O2 Flow Rate 12/17/22 08:14 94 Nasal Cannula 2 12/17/22 08:09 36.8 C 76 18 150/73 H 88 L Room Air 12/17/22 03:28 37.1 C Laboratory Results BMP 12/16/22 09:21 Sodium 138 Potassium 3.8 Chloride 98 Carbon Dioxide 32 BUN 24 H Creatinine 1.35 Glucose 122 H Calcium 9.6 Liver Function 12/16/22 Range/Units 09:21 Total Bilirubin 0.9 (0.2-1.0) mg/dl AST 12 L (13-39) U/L ALT 9 (7-52) U/L Alkaline Phosphatase 80 (34-104) U/L Albumin 4.2 (3.4-5.0) gm/dl Urine 12/17/22 Range/Units 04:50 Urine Color Yellow Urine Appearance Clear (Clear) Urine pH 5.5 (4.5-7.5) Ur Specific [place] 1.018 (1.000-1.030) Urine Protein Negative (Negative) Urine Glucose (UA) 2+ H (Negative) Medications Administered Current Inpatient Medications Acetaminophen (Acetaminophen 325 Mg Tab) 650 mg PO Q4H PRN PRN Reason: pain/fever Stop: 01/15/23 11:49 Last Admin: 12/16/22 20:36 Dose: 650 mg Al Hydrox/Mg Hydrox/Simethicone (Aluminum/Magnesium Susp 30 Ml Udc) 30 ml PO Q6H PRN PRN Reason: Dyspepsia Stop: 01/15/23 11:49 Albuterol (Albuterol Hfa 8 Gm Inhaler) 2 puffs INH Q4H PRN; Protocol PRN Reason: Wheezing Stop: 01/15/23 14:26 Allopurinol (Allopurinol 100 Mg Tab) 100 mg PO QDL [facility] Stop: 01/16/23 11:29 Allopurinol (Allopurinol 300 Mg Tab) 300 mg PO QDL [facility] Stop: 01/16/23 11:29 Amlodipine Besylate (Amlodipine Besylate 5 Mg Tab) 10 mg PO QAM [facility] Stop: 01/16/23 08:59 Last Admin: 12/17/22 08:30 Dose: 10 mg Aspirin (Aspirin 81 Mg Ectab) 81 mg PO QAM [facility] Stop: 01/16/23 08:59 Last Admin: 12/17/22 08:28 Dose: 81 mg Carvedilol (Carvedilol 6.25 Mg Tab) 6.25 mg PO BIDM [facility] Stop: 01/15/23 16:59 Last Admin: 12/17/22 08:27 Dose: 6.25 mg Dextrose (Dextrose 50% 50 Ml Syringe) 25 - 50 ml IV UD PRN; Protocol PRN Reason: Hypoglycemia Protocol Stop: 01/15/23 15:14 Duloxetine HCl (Duloxetine Hcl 60 Mg Cap) 60 mg PO BID [facility] Stop: 01/15/23 20:59 Last Admin: 12/17/22 08:30 Dose: 60 mg Empagliflozin (Empagliflozin 10 Mg Tab) 10 mg PO QAM [facility] Stop: 01/16/23 08:59 Last Admin: 12/17/22 08:28 Dose: 10 mg Enoxaparin Sodium (Enoxaparin Inj 40 Mg/0.4 Ml Syr) 40 mg SQ Q24H [facility] Stop: 01/15/23 14:44 Last Admin: 12/16/22 16:21 Dose: 40 mg Famotidine (Famotidine 40 Mg Tablet) 40 mg PO DAILY PRN PRN Reason: INDIGESTION/HEARTBURN Stop: 01/15/23 14:26 Finasteride (Finasteride 5 Mg Tab) 5 mg PO QDL [facility] Stop: 01/16/23 11:29 Glucagon (Glucagon For Inj 1 Mg Vial) 1 mg IM UD PRN; Protocol PRN Reason: Hypoglycemia Protocol Stop: 01/15/23 15:14 Glucose (Glucose 40% Gel 15 Gm Tube) 15 - 30 gm PO UD PRN; Protocol PRN Reason: Hypoglycemia Protocol Stop: 01/15/23 15:14 Glucose (Glucose 10 Tab/Tube) 4 - 8 tab PO UD PRN; Protocol PRN Reason: Hypoglycemia Protocol Stop: 01/15/23 15:14 Azithromycin 500 mg/ Dextrose 255 mls @ 125 mls/hr IV Q24H [facility]; Protocol Stop: 12/22/22 08:59 Ceftriaxone Sodium 2,000 mg/ (Dextrose) 70 mls @ 100 mls/hr IV Q24H [facility]; Protocol Stop: 12/24/22 08:59 Last Admin: 12/17/22 09:43 Dose: 100 mls/hr Lidocaine (Lidocaine 5% 1 Patch) 1 patch TD DAILY [facility] Stop: 01/16/23 08:59 Last Admin: 12/17/22 08:31 Dose: Not Given Linaclotide (Linaclotide 72 Mcg Capsule) 72 mcg PO DAILY PRN PRN Reason: ABD PAIN Stop: 01/15/23 14:26 Magnesium Hydroxide (Magnesium Hydroxide Susp 30 Ml Udc) 30 ml PO Q6H PRN PRN Reason: Constipation Stop: 01/15/23 11:49 Memantine (Memantine Hcl 5 Mg Tab) 5 mg PO BID [facility] Stop: 01/15/23 20:59 Last Admin: 12/17/22 08:29 Dose: 5 mg Miscellaneous (Remove Lidoderm Patch) 1 each N/A DAILY@2100 [facility] Stop: 01/15/23 20:59 Last Admin: 12/16/22 20:36 Dose: Not Given Miscellaneous (Carbohydrates For Hypoglycemia ) 15 - 30 gm PO UD PRN PRN Reason: Hypoglycemia Treatment Stop: 01/15/23 15:14 Fluorometholone 0.1 % - Non-Formulary Patient's Own Med 1 each OP HS [facility] Stop: 01/15/23 20:59 Last Admin: 12/16/22 20:26 Dose: 1 drops Ondansetron HCl (Ondansetron Inj 2 Mg/Ml 2 Ml Vial) 4 mg IV Q6H PRN PRN Reason: Nausea Stop: 01/15/23 11:49 Pantoprazole Sodium (Pantoprazole 40 Mg Tab) 40 mg PO DAILY [facility] Stop: 01/15/23 20:59 Last Admin: 12/17/22 08:30 Dose: 40 mg Polyethylene Glycol (Polyethylene (Miralax) 17 Gm Pack) 17 gm PO DAILY PRN PRN Reason: Constipation Stop: 01/15/23 11:49 Pregabalin (Pregabalin 150 Mg Cap) 150 mg PO BID [facility] Stop: 01/15/23 20:59 Last Admin: 12/17/22 09:42 Dose: 150 mg Ropinirole HCl (Ropinirole Hcl 0.25 Mg Tablet) 0.5 mg PO DAILY@1900 [facility] Stop: 01/15/23 18:59 Last Admin: 12/16/22 17:08 Dose: 0.5 mg Rosuvastatin Calcium (Rosuvastatin Calcium 20 Mg Tab) 20 mg PO DAILY [facility] Stop: 01/16/23 08:59 Last Admin: 12/17/22 08:28 Dose: 20 mg Tamsulosin HCl (Tamsulosin Hcl 0.4 Mg Cap) 0.4 mg PO HS [facility] Stop: 01/15/23 20:59 Last Admin: 12/16/22 20:28 Dose: 0.4 mg Triamcinolone Acetonide (Triamcinolone Acet 0.1% Cr 15 Gm Tube) 1 appln TOP DAILY PRN PRN Reason: Rash Stop: 01/15/23 14:26 Zolpidem Tartrate (Zolpidem Tartrate 5 Mg Tab) 5 mg PO HS [facility] Stop: 01/15/23 20:59 Last Admin: 12/16/22 20:36 Dose: 5 mg
[2022-12-17] MEDS: AZITHROMYCIN 500 MG in DEXTROSE 5% 250 ML IV SCH (10:48)
[2022-12-17] MEDS: FINASTERIDE 5 MG TAB PO SCH (12:00)
[2022-12-17] MEDS: allopurinoL 300 MG TAB PO SCH (12:00)
[2022-12-17] MEDS: allopurinoL 100 MG TAB PO SCH (12:00)
--- NOTE | 2022-12-17 12:07 | Pulmonary Consultation ---
Date of Consultation December 17, 2022 Assessment & Plan (1) Aspiration pneumonitis: Patient with likely recurrent aspiration pneumonitis due to large hiatal hernia and dementia. Speech therapy consult ordered to evaluate swallowing mechanism and GI consultation ordered to evaluate hiatal hernia. We will check procalcitonin. If negative, will discontinue antibiotics. Aspiration precautions. We will obtain CT chest to evaluate the left upper lobe infiltrate. Additionally, there is no evidence of "recurrent left upper lobe pneumonia" as the prior imaging did not reveal left upper lobe pneumonia. His last CT in September was consistent with classic aspiration pneumonitis with aspiration in his right lung. Recommend CODE STATUS discussion as he is currently listed as a full code. Prior admissions indicated that he was a DNR/DNI. (2) Large hiatal hernia: GI consult as above. (3) Abnormal CT scan, chest: Patient with diffuse calcifications noted in the pleura presumably secondary to prior asbestos exposure. I do not think that radiation therapy from 24 years ago is playing a role in the left upper lobe haziness we are seeing on chest x- ray. CT chest will better define this area. History of Present Illness Reason for Consultation: "repeat PNA ARLETTE, h/o chest XRT" Attending Physician: Lubna Marr, DO History of Present Illness 87-year-old male with a past medical history of diabetes mellitus type 2, large hiatal hernia, Schatzki's ring, diverticulosis, breast cancer status post left mastectomy, chemoradiation 1999 restless leg syndrome who presented to the hospital yesterday due to diffuse myalgias and fatigue. He developed fatigue and myalgias about a week ago. He also noted an occasional dry cough and sore throat. He had a respiratory viral panel on admission which was negative. Patient was discharged from the hospital in September for "community-acquired pneumonia". Blood cultures from that admission were negative. No sputum cultures were sent. CT chest in September 2022 revealed diffuse pleural thickening with calcifications and predominantly right-sided groundglass opacities in the right upper lobe, right middle lobe and right lower lobe distribution. The patient also has a large hiatal hernia. Chest x-ray this admission reveals similar findings of calcified pleural changes and an infiltrate in the left upper lobe. Video swallow study was performed 02/23/2020 which did not reveal any signs of aspiration at that time. No significant leukocytosis was noted on admission. Procalcitonin and MRSA screen were not drawn. The patient is currently on azithromycin and ceftriaxone. 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 This was over 40 years ago. Allergies Allergy/AdvReac Type Severity Reaction Status Date / Time gabapentin AdvReac Intermediate Diarrhea Verified 10/14/22 15:47 simvastatin AdvReac Intermediate Muscle Pain Verified 10/14/22 15:47 LISBETH Inhibitors AdvReac Mild COUGH Verified 10/14/22 15:47 Home Medications Medication Instructions Recorded Confirmed Type allopurinol 100 mg tablet 100 mg PO QDL 06/02/19 12/16/22 History allopurinol 300 mg tablet 300 mg PO QDL 06/02/19 12/16/22 History amlodipine 10 mg tablet 10 mg PO QAM 06/02/19 12/16/22 History aspirin 81 mg tablet,delayed 81 mg PO QAM 06/02/19 12/16/22 History release carvedilol 12.5 mg tablet 6.25 mg PO BID 06/02/19 12/16/22 History furosemide 20 mg tablet 20 mg PO QAM 06/02/19 12/16/22 History glipizide 10 mg tablet, extended 10 mg PO BIDM 06/02/19 12/16/22 History release 24 hr losartan 100 1 tab PO QAM 06/02/19 12/16/22 History mg-hydrochlorothiazide 25 mg tablet zolpidem 5 mg tablet 5 mg PO HS 06/02/19 12/16/22 History albuterol sulfate 90 mcg/actuation 2 inh inhalation Q4H PRN Wheezing 02/05/20 12/16/22 History aerosol inhaler (ProAir HFA) omeprazole 40 mg capsule,delayed 40 mg PO BID 02/05/20 12/16/22 History release ascorbic acid (vitamin C) 500 mg 500 mg PO QDL 09/24/20 12/16/22 History chewable tablet (Vitamin C) cholecalciferol (vitamin D3) 50 50 mcg PO DAILY 09/24/20 12/16/22 History mcg (2,000 unit) capsule (Vitamin D3) cyanocobalamin (vitamin B-12) 1,000 mcg PO QDL 09/24/20 12/16/22 History 1,000 mcg tablet (Vitamin B-12) triamcinolone acetonide 0.1 % 1 applic topical DAILY PRN Rash 09/24/20 12/16/22 History topical cream tamsulosin 0.4 mg capsule 0.4 mg PO HS #90 caps 01/26/22 12/16/22 Rx acetaminophen 500 mg tablet 1,000 mg PO Q8H PRN Pain 10/14/22 12/16/22 History (Tylenol Extra Strength) albuterol sulfate 2.5 mg/3 mL 2.5 mg inhalation DIRECTED PRN 10/14/22 12/16/22 History (0.083 %) solution for nebulization Shortness Of Breath Or Wheezing baclofen 10 mg tablet 10 mg PO BID 10/14/22 12/16/22 History duloxetine 60 mg capsule,delayed 60 mg PO BID 10/14/22 12/16/22 History release (Cymbalta) empagliflozin 10 mg tablet 10 mg PO QAM 10/14/22 12/16/22 History famotidine 40 mg tablet (Pepcid) 40 mg PO DAILY PRN 10/14/22 12/16/22 History INDIGESTION/HEARTBURN finasteride 5 mg tablet 5 mg PO QDL 10/14/22 12/16/22 History fluorometholone 0.1 % eye 1 drp OPB HS 10/14/22 12/16/22 History drops,suspension fluorouracil 0.5 % topical cream 1 applic topical BID PRN Skin 10/14/22 12/16/22 History Irritation lidocaine 5 % topical patch 1 patch topical DAILY 10/14/22 12/16/22 History linaclotide 72 mcg capsule 72 mcg PO DAILY PRN ABD PAIN 10/14/22 12/16/22 History (Linzess) magnesium citrate 125 mg capsule 125 mg PO DAILY 10/14/22 12/16/22 History memantine 5 mg tablet 5 mg PO BID 10/14/22 12/16/22 History pregabalin 150 mg capsule (Lyrica) 150 mg PO BID 10/14/22 12/16/22 History ropinirole 0.5 mg tablet 0.5 mg PO HS 10/14/22 12/16/22 History rosuvastatin 20 mg tablet 20 mg PO DAILY 10/14/22 12/16/22 History sildenafil (pulm.hypertension) 20 20 mg PO DIRECTED PRN sexual 10/14/22 12/16/22 History mg tablet activity amoxicillin 875 mg-potassium 1 tab PO BID #10 tabs 10/17/22 12/16/22 Rx clavulanate 125 mg tablet doxycycline hyclate 100 mg tablet 100 mg PO BID #10 tabs 10/17/22 12/16/22 Rx Patient History Medical History (Updated 12/17/22 @ 12:05 by Marquise Galvez MD) Abnormal CT scan, chest Asbestosis Aspiration pneumonitis BPH (benign prostatic hyperplasia) Breast cancer in male S/P Left mastectomy, radiation, chemo; 1998 CAP (community acquired pneumonia) Carotid stenosis under surveillance by cardiology Chronic pain CKD (chronic kidney disease), stage III Diabetes mellitus, type II NIDDM Dyslipidemia GERD (gastroesophageal reflux disease) Hearing deficit Hx of gout Hypertension Large hiatal hernia Neuropathy Osteoarthritis Peripheral neuropathy Schatzki's ring s/p dilation (02/04/20) Sepsis due to pneumonia Surgical History (Updated 12/16/22 @ 13:31 by Omayra Ojeda MD) H/O prostate biopsy History of cataract surgery RT/LEFT History of colonoscopy History of esophagogastroduodenoscopy (EGD) History of keratoplasty Left eye; [place] [facility] [place] of mastectomy Left, 1998 History of tooth extraction Hx of transurethral resection of prostate Family History Brother Family history of diabetes mellitus Family hx of colon cancer Other Colorectal cancer Diabetes Hypertension Social History Smoking Status: Former smoker Cigarettes Per Day: 1 PPD; Second Hand Exposure: No; Do You Dip or Chew Tobacco: No; Tobacco Cessation Education Requested by Patient: No Hx Alcohol Use: No Hx Substance Use: No Preferred Language: Tamaz[place] Communication Ability: Effective Veterinary Practice Manager Required: No Beliefs That Will Affect Care: None marital status: Current Living Situation: Spouse Current Living Situation Comment: Lives w/ spouse at home Other Information That Helps Us Care for You: No Feels Safe at Home: Yes Safety Concerns: Feels Safe At This Time Assistive Devices: Cane, Glasses and Walker Review of Systems Review of Systems: All systems reviewed & are unremarkable except as noted in HPI & below Physical Exam Physical Exam: Constitutional: Patient appears to be of their stated age. Patient is in no apparent distress. Patient is well-developed. Eyes: Pupils are equal round and reactive to light. Conjunctivae are normal. Anicteric sclera. Ears nose, mouth and throat: Mallampati class 2. Normal posterior oropharynx. Uvula is midline. Neck: Trachea is midline. Visual inspection is normal. Respiratory: Clear to auscultation bilaterally. No use of accessory muscles. No significant clubbing noted. Cardiovascular: Regular rate and rhythm. No murmurs. No edema. Gastrointestinal: Normal bowel sounds, soft, nontender and nondistended. No hepatosplenomegaly noted. Musculoskeletal: No cyanosis. Patient is able to move all extremities. Strength is 5 out of 5 in the upper and lower extremities. Skin: No rashes, warm dry and intact. Neurologic: No obvious focal neurological deficits seen. Psychiatric: Alert and oriented x3 with a euthymic affect. Results & Data Results & Data Vital Signs (Past 12 Hours) Vital Signs Temp Pulse Resp BP Pulse Ox O2 Del Method O2 Flow Rate 12/17/22 08:14 94 Nasal Cannula 2 12/17/22 08:09 36.8 C 76 18 150/73 H 88 L Room Air 12/17/22 03:28 37.1 C PG Care Time/CCT Total # of Minutes Spent Total Time Spent with Patient: Total time spent is greater than 50% in coordination of care (as documented) at patient's floor/unit and/or counseling patient: Coding Level of Care Code 26275 INT INP/OBS CARE 2/55MIN Diagnoses Aspiration pneumonitis J69.0 Large hiatal hernia K44.[address] scan, chest R93.89
--- NOTE | 2022-12-17 12:45 | Communication Note ---
Date of Service: December 17, 2022 There is a large left upper lobe dense infiltrate with peripheral groundglass noted on CT chest which was not seen on the CT chest from 10/15/2022. The right lung infiltrates from prior CT chest have resolved. Recommend to continue IV antibiotics and check an MRSA screen. If MRSA screen is positive, will start vancomycin. Will change Rocephin to cefepime. Obtain induced sputum culture. Start percussive vest therapy 4 times daily and hypertonic saline twice daily to promote mucociliary clearance.
--- NOTE | 2022-12-17 12:51 | CT Scan Report ---
CT chest diagnostic wo con CLINICAL HISTORY: laurita pna TECHNIQUE: Multidetector row helical CT of the chest was performed. Coronal and sagittal reformations were obtained. Automated dose lowering techniques and/or adjustment according to patient size were u tilized for this exam. CT DOSE: 739.56 mGy.cm Comparison: Comparison is made to CT chest 10/15/2022 and chest radiograph 12/16/2022 FINDINGS: Lungs and pleura: Focal opacification is seen in the right upper lobe. Atelectasis is seen throughout . Pleural thickening with calcified pleural plaques noted. Stable pulmonary nodules measure up to 6 m m in diameter. Heart and pericardium: Heart size is normal. No pericardial effusion. Vessels: Severe atherosclerotic changes in the aorta and coronary arteries. Pulmonary trunk measures 31 mm. Mediastinum and adan: Scattered partially calcified lymph nodes are seen. Chest wall and lower neck: Unremarkable. Abdomen: Large hiatal hernia is seen. Perinephric stranding is seen. Bones: Degenerative changes in the thoracic spine. IMPRESSION: 1. Left upper lobe pneumonia is seen. 2. Redemonstration of pleural thickening compatible with asbestos related pleural disease. Ossified lymph nodes may be related. 3. Stable pulmonary nodules. ACT 112: Negative or not required by law. Electronically signed by: Bishnu Rojas M.D. 12/17/2022 12:49 PM
[2022-12-17] MEDS ORDERED: SODIUM CHLOR 7% 4 ML NEB ONE (13:30)
[2022-12-17] MEDS: CEFEPIME 2,000 MG in SYRINGE 0 ML IV SCH (14:07)
[2022-12-17] MEDS: ENOXAPARIN INJ 40 MG/0.4 ML SYR SQ SCH (15:44)
[2022-12-17] MEDS: rOPINIRole HCL 0.25 MG TABLET PO SCH (18:08)
[2022-12-17] MEDS: ACETAMINOPHEN 325 MG TAB PO PRN (19:37)
[2022-12-17] MEDS: FLUOROMETHOLONE 0.1% OP SCH (19:38)
[2022-12-17] MEDS: TAMSULOSIN HCL 0.4 MG CAP PO SCH (19:40)
[2022-12-17] MEDS: SODIUM CHLOR 7% 4 ML NEB NEB SCH (19:51)
[2022-12-17] MEDS: ZOLPIDEM TARTRATE 5 MG TAB PO SCH (21:47)
[2022-12-18] MEDS: CEFEPIME 2,000 MG in SYRINGE 0 ML IV SCH ×2 (01:44→13:06)
[2022-12-18] MEDS: ACETAMINOPHEN 325 MG TAB PO PRN ×2 (07:22→17:05)
[2022-12-18 07:53] LABS: Hematocrit (blood only) 39.2 % (42.0-52.0); Hemoglobin 13.7 g/dl (14.0-18.0); Mean Corpuscular Hemoglobin 31.1 pg (25.0-34.0); Mean Corpuscular Hgb Conc 34.9 g/dL (32.0-36.0); Mean Corpuscular Volume 89.1 fL (80.0-100.0); Mean Platelet Volume 11.7 fL (9.4-12.4); Platelet Count 163 K/uL (130-400); RDW Coefficient of Variation 14.4 % (11.5-14.5); RDW Standard Deviation 46.6 fL (36.4-46.3); White Blood Count 10.08 K/ul (4.8-10.8)
[2022-12-18 07:54] LABS: BUN Creatinine Ratio 21.4 (10-20); Calcium 9.3 mg/dl (8.6-10.3); Creatinine Clr Calc Pharmacy 47.2 ml/min; Est GFR (African American) 58.6 ml/min; Est GFR (Non-African American) 50.6 ml/min; Potassium 3.6 mmol/L (3.5-5.1)
[2022-12-18] MEDS: SODIUM CHLOR 7% 4 ML NEB NEB SCH ×2 (07:57→19:16)
[2022-12-18] MEDS: amLODIPine BESYLATE 5 MG TAB PO SCH (08:50)
[2022-12-18] MEDS: carvediloL 6.25 MG TAB PO SCH ×2 (08:50→17:01)
[2022-12-18] MEDS: PANTOprazole 40 MG TAB PO SCH (08:50)
[2022-12-18] MEDS: ASPIRIN 81 MG ECTAB PO SCH (08:51)
[2022-12-18] MEDS: ROSUVASTATIN CALCIUM 20 MG TAB PO SCH (08:51)
[2022-12-18] MEDS: DULoxetine HCL 60 MG CAP PO SCH ×2 (08:51→20:34)
[2022-12-18] MEDS: MEMANTINE HCL 5 MG TAB PO SCH ×2 (08:51→20:34)
[2022-12-18] MEDS: EMPAGLIFLOZIN 10 MG TAB PO SCH (08:51)
[2022-12-18] MEDS: LIDOCAINE 5% 1 PATCH TD SCH (08:52)
[2022-12-18] MEDS: PREGABALIN 150 MG CAP PO SCH ×2 (08:58→20:34)
[2022-12-18] MEDS: AZITHROMYCIN 500 MG in DEXTROSE 5% 250 ML IV SCH (08:59)
--- NOTE | 2022-12-18 10:18 | Gastrointestinal Consultation ---
Date of Consultation December 18, 2022 Assessment & Plan (1) Large hiatal hernia: He has a large hiatal hernia that may or may not be contributing to his pneumonia. There is nothing from a GI standpoint that we can do about his hiatal hernia. For large hiatal hernias that are causing issues the only thing that can be done is surgical reduction and repair. His primary GI team will take over tomorrow and may have more information from their charts about his hernia. History of Present Illness Reason for Consultation: hiatal hernia Attending Physician: Nacho Lee MD History of Present Illness 87 year old man admitted with what is felt to be aspiration pneumonia possibly related to his hiatal hernia. He tells me he has had a hiatal hernia for at least ten years and he sees Dr. Brunner about it. He has had multiple endoscopies and he describes to me as an attempt (unsuccessful) at motility study. He says his hiatal hernia is a "pain in the ass". He has to watch what he eats but he doesn't have any heartburn. Allergies Allergy/AdvReac Type Severity Reaction Status Date / Time gabapentin AdvReac Intermediate Diarrhea Verified 10/14/22 15:47 simvastatin AdvReac Intermediate Muscle Pain Verified 10/14/22 15:47 LISBETH Inhibitors AdvReac Mild COUGH Verified 10/14/22 15:47 Home Medications Medication Instructions Recorded Confirmed Type allopurinol 100 mg tablet 100 mg PO QDL 06/02/19 12/16/22 History allopurinol 300 mg tablet 300 mg PO QDL 06/02/19 12/16/22 History amlodipine 10 mg tablet 10 mg PO QAM 06/02/19 12/16/22 History aspirin 81 mg tablet,delayed 81 mg PO QAM 06/02/19 12/16/22 History release carvedilol 12.5 mg tablet 6.25 mg PO BID 06/02/19 12/16/22 History furosemide 20 mg tablet 20 mg PO QAM 06/02/19 12/16/22 History glipizide 10 mg tablet, extended 10 mg PO BIDM 06/02/19 12/16/22 History release 24 hr losartan 100 1 tab PO QAM 06/02/19 12/16/22 History mg-hydrochlorothiazide 25 mg tablet zolpidem 5 mg tablet 5 mg PO HS 06/02/19 12/16/22 History albuterol sulfate 90 mcg/actuation 2 inh inhalation Q4H PRN Wheezing 02/05/20 12/16/22 History aerosol inhaler (ProAir HFA) omeprazole 40 mg capsule,delayed 40 mg PO BID 02/05/20 12/16/22 History release ascorbic acid (vitamin C) 500 mg 500 mg PO QDL 09/24/20 12/16/22 History chewable tablet (Vitamin C) cholecalciferol (vitamin D3) 50 50 mcg PO DAILY 09/24/20 12/16/22 History mcg (2,000 unit) capsule (Vitamin D3) cyanocobalamin (vitamin B-12) 1,000 mcg PO QDL 09/24/20 12/16/22 History 1,000 mcg tablet (Vitamin B-12) triamcinolone acetonide 0.1 % 1 applic topical DAILY PRN Rash 09/24/20 12/16/22 History topical cream tamsulosin 0.4 mg capsule 0.4 mg PO HS #90 caps 01/26/22 12/16/22 Rx acetaminophen 500 mg tablet 1,000 mg PO Q8H PRN Pain 10/14/22 12/16/22 History (Tylenol Extra Strength) albuterol sulfate 2.5 mg/3 mL 2.5 mg inhalation DIRECTED PRN 10/14/22 12/16/22 History (0.083 %) solution for nebulization Shortness Of Breath Or Wheezing baclofen 10 mg tablet 10 mg PO BID 10/14/22 12/16/22 History duloxetine 60 mg capsule,delayed 60 mg PO BID 10/14/22 12/16/22 History release (Cymbalta) empagliflozin 10 mg tablet 10 mg PO QAM 10/14/22 12/16/22 History famotidine 40 mg tablet (Pepcid) 40 mg PO DAILY PRN 10/14/22 12/16/22 History INDIGESTION/HEARTBURN finasteride 5 mg tablet 5 mg PO QDL 10/14/22 12/16/22 History fluorometholone 0.1 % eye 1 drp OPB HS 10/14/22 12/16/22 History drops,suspension fluorouracil 0.5 % topical cream 1 applic topical BID PRN Skin 10/14/22 12/16/22 History Irritation lidocaine 5 % topical patch 1 patch topical DAILY 10/14/22 12/16/22 History linaclotide 72 mcg capsule 72 mcg PO DAILY PRN ABD PAIN 10/14/22 12/16/22 History (Linzess) magnesium citrate 125 mg capsule 125 mg PO DAILY 10/14/22 12/16/22 History memantine 5 mg tablet 5 mg PO BID 10/14/22 12/16/22 History pregabalin 150 mg capsule (Lyrica) 150 mg PO BID 10/14/22 12/16/22 History ropinirole 0.5 mg tablet 0.5 mg PO HS 10/14/22 12/16/22 History rosuvastatin 20 mg tablet 20 mg PO DAILY 10/14/22 12/16/22 History sildenafil (pulm.hypertension) 20 20 mg PO DIRECTED PRN sexual 10/14/22 12/16/22 History mg tablet activity amoxicillin 875 mg-potassium 1 tab PO BID #10 tabs 10/17/22 12/16/22 Rx clavulanate 125 mg tablet doxycycline hyclate 100 mg tablet 100 mg PO BID #10 tabs 10/17/22 12/16/22 Rx Patient History Medical History Abnormal CT scan, chest Asbestosis Aspiration pneumonitis BPH (benign prostatic hyperplasia) Breast cancer in male S/P Left mastectomy, radiation, chemo; 1998 CAP (community acquired pneumonia) Carotid stenosis under surveillance by cardiology Chronic pain CKD (chronic kidney disease), stage III Diabetes mellitus, type II NIDDM Dyslipidemia GERD (gastroesophageal reflux disease) Hearing deficit Hx of gout Hypertension Large hiatal hernia Neuropathy Osteoarthritis Peripheral neuropathy Schatzki's ring s/p dilation (02/04/20) Sepsis due to pneumonia Surgical History H/O prostate biopsy History of cataract surgery RT/LEFT History of colonoscopy History of esophagogastroduodenoscopy (EGD) History of keratoplasty Left eye; [place] [facility] [place] History of mastectomy Left, 1998 History of tooth extraction Hx of transurethral resection of prostate Family History Brother Family history of diabetes mellitus Family hx of colon cancer Other Colorectal cancer Diabetes Hypertension Social History Smoking Status: Former smoker Cigarettes Per Day: 1 PPD; Second Hand Exposure: No; Do You Dip or Chew Tobacco: No; Tobacco Cessation Education Requested by Patient: No Hx Alcohol Use: No Hx Substance Use: No Preferred Language: Bangladeshi Communication Ability: Effective Customs Import Specialist Required: No Beliefs That Will Affect Care: None marital status: Current Living Situation: Spouse Current Living Situation Comment: Lives w/ spouse at home Other Information That Helps Us Care for You: No Feels Safe at Home: Yes Safety Concerns: Feels Safe At This Time Assistive Devices: Cane, Glasses and Walker Review of Systems Review of Systems: All systems reviewed & are unremarkable except as noted in HPI & below Physical Exam Constitutional: WD/WN, vitals as above no acute distress Eyes: PERRL, conjunctivae normal, anicteric sclerae ENMT: external ear and nose normal, oropharynx normal Neck: trachea midline, no thyromegaly Respiratory: normal respiratory effort, lungs clear to auscultation Cardiovascular: RRR, no murmur, no edema Gastrointestinal (Abdomen): normal bowel sounds, soft, nontender, no hepatosplenomegaly Musculoskeletal: Extremities: no cyanosis and no clubbing Skin: no rashes, warm and dry Neurologic: PERRL, EOMI, accommodation nl, no face palsy, no dysarthria Psychiatric: Orientation: alert and oriented x 3 Results & Data Vital Signs (Past 12 Hours) Vital Signs Temp Pulse Resp BP Pulse Ox O2 Del Method O2 Flow Rate 12/18/22 07:57 80 16 96 Nasal Cannula 2 12/18/22 07:51 95 Nasal Cannula 2 12/18/22 07:51 37.0 C 73 18 123/72 88 L Room Air Laboratory Results 12/18/22 12/18/22 12/18/22 Range/Units 08:10 07:06 07:06 WBC 10.08 (4.8-10.8) K/ul RBC 4.40 L (4.70-6.10) M/uL Hgb 13.7 L (14.0-18.0) g/dl Hct 39.2 L (42.0-52.0) % MCV 89.1 (80.0-100.0) fL MCH 31.1 (25.0-34.0) pg MCHC 34.9 (32.0-36.0) g/dL RDW Std Deviation 46.6 H (36.4-46.3) fL RDW Coeff of Gena 14.4 (11.5-14.5) % Plt Count 163 (130-400) K/uL MPV 11.7 (9.4-12.4) fL Sodium 135 L (136-145) mmol/L Potassium 3.6 (3.5-5.1) mmol/L Chloride 98 (98-107) mmol/L Carbon Dioxide 26 (21-32) mmol/L Anion Gap 11 (3-11) BUN 27 H (6-23) mg/dl Creatinine 1.26 (0.6-1.4) mg/dl Est Cr Clr Drug Dosing 47.2 ml/min Est GFR ( Amer) 58.6 ml/min Est GFR (Non-Af Amer) 50.6 ml/min BUN/Creatinine Ratio 21.4 H (10-20) Glucose 137 H (70-99(Fasting)) mg/dl POC Glucose 147 H (70-99) mg/dl Calcium 9.3 (8.6-10.3) mg/dl Procalcitonin (0-0.5) ng/ml Nasal Screen MRSA (PCR) (Negative) 12/17/22 12/17/22 12/17/22 Range/Units Unknown 20:14 17:02 WBC (4.8-10.8) K/ul RBC (4.70-6.10) M/uL Hgb (14.0-18.0) g/dl Hct (42.0-52.0) % MCV (80.0-100.0) fL MCH (25.0-34.0) pg MCHC (32.0-36.0) g/dL RDW Std Deviation (36.4-46.3) fL RDW Coeff of Gena (11.5-14.5) % Plt Count (130-400) K/uL MPV (9.4-12.4) fL Sodium (136-145) mmol/L Potassium (3.5-5.1) mmol/L Chloride (98-107) mmol/L Carbon Dioxide (21-32) mmol/L Anion Gap (3-11) BUN (6-23) mg/dl Creatinine (0.6-1.4) mg/dl Est Cr Clr Drug Dosing ml/min Est GFR ( Amer) ml/min Est GFR (Non-Af Amer) ml/min BUN/Creatinine Ratio (10-20) Glucose (70-99(Fasting)) mg/dl POC Glucose 153 H 129 H (70-99) mg/dl Calcium (8.6-10.3) mg/dl Procalcitonin (0-0.5) ng/ml Nasal Screen MRSA (PCR) Negative (Negative) 12/17/22 12/17/22 Range/Units 12:37 12:07 WBC (4.8-10.8) K/ul RBC (4.70-6.10) M/uL Hgb (14.0-18.0) g/dl Hct (42.0-52.0) % MCV (80.0-100.0) fL MCH (25.0-34.0) pg MCHC (32.0-36.0) g/dL RDW Std Deviation (36.4-46.3) fL RDW Coeff of Gena (11.5-14.5) % Plt Count (130-400) K/uL MPV (9.4-12.4) fL Sodium (136-145) mmol/L Potassium (3.5-5.1) mmol/L Chloride (98-107) mmol/L Carbon Dioxide (21-32) mmol/L Anion Gap (3-11) BUN (6-23) mg/dl Creatinine (0.6-1.4) mg/dl Est Cr Clr Drug Dosing ml/min Est GFR ( Amer) ml/min Est GFR (Non-Af Amer) ml/min BUN/Creatinine Ratio (10-20) Glucose (70-99(Fasting)) mg/dl POC Glucose 167 H (70-99) mg/dl Calcium (8.6-10.3) mg/dl Procalcitonin < 0.05 (0-0.5) ng/ml Nasal Screen MRSA (PCR) (Negative) Diagnostic Findings Chest X-Ray 12/16/22 09:02 XR chest 1V portable HISTORY: 87 years-old Male Chest pain, nonspecific chest CT 10/15/2022 COMPARISON: Chest CT 10/15/2022 common chest radiograph 06/02/2019. TECHNIQUE: AP view of the chest FINDINGS: Calcified pleural plaques redemonstrated. Cardiomediastinal and hilar silhouettes are unchanged. Hiatal hernia. No pneumothorax, pleural effusion, or overt pulmonary edema. Ill-defined left upper lobe airspace opacities. IMPRESSION: 1. Ill-defined left upper lobe airspace opacity suspicious for pneumonia. Follow-up imaging after treatment course recommended in order to document resolution. 2. Cardiomegaly without pulmonary edema. 3. Asbestos-related pleural disease. 4. Hiatal hernia. ACT 112: Negative or not required by law. The above report was generated using voice recognition software. It may contain grammatical, syntax or spelling errors. Electronically signed by: Gigi Carey M.D. 12/16/2022 9:[address] 12/17/22 11:53 CT chest diagnostic wo con CLINICAL HISTORY: laurita pna TECHNIQUE: Multidetector row helical CT of the chest was performed. Coronal and sagittal reformations were obtained. Automated dose lowering techniques and/or adjustment according to patient size were utilized for this exam. CT DOSE: 739.56 mGy.cm Comparison: Comparison is made to CT chest 10/15/2022 and chest radiograph 12/16/2022 FINDINGS: Lungs and pleura: Focal opacification is seen in the right upper lobe. Atelectasis is seen throughout. Pleural thickening with calcified pleural plaques noted. Stable pulmonary nodules measure up to 6 mm in diameter. Heart and pericardium: Heart size is normal. No pericardial effusion. Vessels: Severe atherosclerotic changes in the aorta and coronary arteries. Pulmonary trunk measures 31 mm. Mediastinum and adan: Scattered partially calcified lymph nodes are seen. Chest wall and lower neck: Unremarkable. Abdomen: Large hiatal hernia is seen. Perinephric stranding is seen. Bones: Degenerative changes in the thoracic spine. IMPRESSION: 1. Left upper lobe pneumonia is seen. 2. Redemonstration of pleural thickening compatible with asbestos related pleural disease. Ossified lymph nodes may be related. 3. Stable pulmonary nodules. ACT 112: Negative or not required by law. Electronically signed by: Bishnu Rojas M.D. 12/17/2022 12:49 PM
[2022-12-18] MEDS: allopurinoL 300 MG TAB PO SCH (11:15)
[2022-12-18] MEDS: FINASTERIDE 5 MG TAB PO SCH (11:15)
[2022-12-18] MEDS: allopurinoL 100 MG TAB PO SCH (11:15)
--- NOTE | 2022-12-18 13:24 | Pulmonology Progress Note ---
Date of Service December 18, 2022 Assessment & Plan (1) Community acquired pneumonia: Plan: CT chest yesterday revealed a left upper lobe infiltrate consistent with pneumonia. Patient can be transitioned to p.o. Levaquin for 7 days (QTc intervals 435 ms based on EKG 12/16/2022). Continue mucociliary clearance with flutter valve/percussive vest therapy. Okay to dismiss from the hospital from pulmonary perspective. MRSA screen negative. (2) Abnormal CT scan, chest: Plan: He will need a follow-up chest x-ray in 4 to 6 weeks with his PCP. (3) Large hiatal hernia: Plan: GI consultation appreciated. No changes in care at this time. Continue aspiration precautions. Plan No further recommendations at this time. Thank you for allowing me to participate in the care of the patient. Please call with questions. Admission and Anticipated Discharge Date Admission Date: December 16, 2022 Subjective No issues overnight. Patient saturating well on room air. Denies any complaint at present including chest pain, fevers, chills, shortness of breath or night sweats. Review of Systems Review of Systems: All systems reviewed & are unremarkable except as noted in HPI & below Physical Exam Physical Exam: Constitutional: Patient appears to be of their stated age. Patient is in no apparent distress. Patient is well-developed. Eyes: Pupils are equal round and reactive to light. Conjunctivae are normal. Anicteric sclera. Ears nose, mouth and throat: Mallampati class 2. Normal posterior oropharynx. Uvula is midline. Neck: Trachea is midline. Visual inspection is normal. Respiratory: Crackles noted in the left upper lobe. Clear to auscultation elsewhere. Cardiovascular: Regular rate and rhythm. No murmurs. No edema. Gastrointestinal: Normal bowel sounds, soft, nontender and nondistended. No hepatosplenomegaly noted. Musculoskeletal: No cyanosis. Patient is able to move all extremities. Strength is 5 out of 5 in the upper and lower extremities. Skin: No rashes, warm dry and intact. Neurologic: No obvious focal neurological deficits seen. Psychiatric: Alert and oriented x3 with a euthymic affect. Results & Data Results & Data Vital Signs (Past 12 Hours) Vital Signs Temp Pulse Resp BP Pulse Ox O2 Del Method O2 Flow Rate 12/18/22 07:57 80 16 96 Nasal Cannula 2 12/18/22 07:51 95 Nasal Cannula 2 12/18/22 07:51 37.0 C 73 18 123/72 88 L Room Air PG Care Time/CCT Total # of Minutes Spent Total Time Spent with Patient: Total time spent is greater than 50% in coordination of care (as documented) at patient's floor/unit and/or counseling patient: Coding Level of Care Code 40525 SUB INP/OBS CARE 2/35MIN Diagnoses Community acquired pneumonia J18.[address] scan, chest R93.89 Large hiatal hernia K44.9
[2022-12-18] MEDS: ENOXAPARIN INJ 40 MG/0.4 ML SYR SQ SCH (14:09)
--- NOTE | 2022-12-18 15:14 | Hospitalist Progress Note ---
Date of Service December 18, 2022 Assessment & Plan (1) Pneumonia of left upper lobe due to infectious organism: (2) Weakness: (3) Diabetes mellitus, type II: (4) CKD (chronic kidney disease), stage III: (5) BPH NOS w ur obs/LUTS: (6) Dyslipidemia: (7) Hypertension: (8) Neuropathy: (9) GERD (gastroesophageal reflux disease): (10) Corneal transplant status: Plan 87-year-old male presented to ED with diffuse myalgia, arthralgia, malaise, fatigue on 12/16 and admitted with left upper lobe pneumonia, improving on antibiotics CT chest- 1. Left upper lobe pneumonia is seen. 2. 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 Ossified lymph nodes may be related. 3. Stable pulmonary nodules. Left upper lobe pneumonia-patient did not meet SIRS criteria. Pro-Ricki negative. Respiratory pathogen panel negative. Minimal leukocytosis resolved. Symptomatically improving on empiric antibiotic -Seen by pulmonology-continue empiric cefepime/azithromycin, follow-up sputum culture, continue pulmonary toileting and aspiration precaution. Blood culture and sputum culture negative till date -Change Levaquin at discharge for total of 7 days antibiotics. Continue flutter valve -Follow-up chest x-ray in 4 weeks -Seen by GI for hiatal hernia as possible cause for recurrent aspiration pneumonia Large hiatal hernia-seen by GI. Weakness-in setting of pneumonia-PT OT skyler Diabetes mellitus type 2-on empagliflozin, glipizide CKD 3-creatinine at baseline of 1.3-1.4 BPH-stable, on Flomax, Proscar Essential hypertension-BP stable, continue amlodipine, Coreg Neuropathy-chronic, stable, on duloxetine, pregabalin Restless leg syndrome-on Requip Status post corneal transplant-on eyedrops DVT prophylaxis-supplement Disposition-anticipate discharge tomorrow home pending PT OT skyler Updated family at bedside Admission and Anticipated Discharge Date Admission Date: December 16, 2022 Subjective Patient was seen and examined at bedside. He feels better since admission. No fever, chills, chest pain, nausea or vomiting. Review of Systems Review of Systems: All systems reviewed & are unremarkable except as noted in Subjective Physical Exam Physical Exam: General: Sitting comfortably in bed, not in distress, on room air during my encounter HEENT: EOMI, SHALA, MMM Chest: Clear breath sounds bilaterally with left upper lobe crackle CVS: Regular rate and rhythm, normal heart sounds, no murmur Abdomen: Soft, non tender, not distended, normal bowel sounds Neuro: Awake, alert, oriented, conversing well, non focal Extremities: No cyanosis, clubbing or edema Results & Data Results & Data Vital Signs (Past 12 Hours) Vital Signs Temp Pulse Resp BP Pulse Ox O2 Del Method O2 Flow Rate 12/18/22 07:57 80 16 96 Nasal Cannula 2 12/18/22 07:51 95 Nasal Cannula 2 12/18/22 07:51 37.0 C 73 18 123/72 88 L Room Air Laboratory Results Short CBC 12/18/22 Range/Units 07:06 WBC 10.08 (4.8-10.8) K/ul Hgb 13.7 L (14.0-18.0) g/dl Hct 39.2 L (42.0-52.0) % Plt Count 163 (130-400) K/uL BMP 12/18/22 07:06 Sodium 135 L Potassium 3.6 Chloride 98 Carbon Dioxide 26 BUN 27 H Creatinine 1.26 Glucose 137 H Calcium 9.3 Medications Administered Current Inpatient Medications Acetaminophen (Acetaminophen 325 Mg Tab) 650 mg PO Q4H PRN PRN Reason: pain/fever Stop: 01/15/23 11:49 Last Admin: 12/18/22 07:22 Dose: 650 mg Al Hydrox/Mg Hydrox/Simethicone (Aluminum/Magnesium Susp 30 Ml Udc) 30 ml PO Q6H PRN PRN Reason: Dyspepsia Stop: 01/15/23 11:49 Albuterol (Albuterol Hfa 8 Gm Inhaler) 2 puffs INH Q4H PRN; Protocol PRN Reason: Wheezing Stop: 01/15/23 14:26 Allopurinol (Allopurinol 100 Mg Tab) 100 mg PO QDL [facility] Stop: 01/16/23 11:29 Last Admin: 12/18/22 11:15 Dose: 100 mg Allopurinol (Allopurinol 300 Mg Tab) 300 mg PO QDL [facility] Stop: 01/16/23 11:29 Last Admin: 12/18/22 11:15 Dose: 300 mg Amlodipine Besylate (Amlodipine Besylate 5 Mg Tab) 10 mg PO QAM [facility] Stop: 01/16/23 08:59 Last Admin: 12/18/22 08:50 Dose: 10 mg Aspirin (Aspirin 81 Mg Ectab) 81 mg PO QAM [facility] Stop: 01/16/23 08:59 Last Admin: 12/18/22 08:51 Dose: 81 mg Carvedilol (Carvedilol 6.25 Mg Tab) 6.25 mg PO BIDM [facility] Stop: 01/15/23 16:59 Last Admin: 12/18/22 08:50 Dose: 6.25 mg Dextrose (Dextrose 50% 50 Ml Syringe) 25 - 50 ml IV UD PRN; Protocol PRN Reason: Hypoglycemia Protocol Stop: 01/15/23 15:14 Duloxetine HCl (Duloxetine Hcl 60 Mg Cap) 60 mg PO BID [facility] Stop: 01/15/23 20:59 Last Admin: 12/18/22 08:51 Dose: 60 mg Empagliflozin (Empagliflozin 10 Mg Tab) 10 mg PO QAM [facility] Stop: 01/16/23 08:59 Last Admin: 12/18/22 08:51 Dose: 10 mg Enoxaparin Sodium (Enoxaparin Inj 40 Mg/0.4 Ml Syr) 40 mg SQ Q24H [facility] Stop: 01/15/23 14:44 Last Admin: 12/18/22 14:09 Dose: 40 mg Famotidine (Famotidine 40 Mg Tablet) 40 mg PO DAILY PRN PRN Reason: INDIGESTION/HEARTBURN Stop: 01/15/23 14:26 Finasteride (Finasteride 5 Mg Tab) 5 mg PO QDL [facility] Stop: 01/16/23 11:29 Last Admin: 12/18/22 11:15 Dose: 5 mg Glucagon (Glucagon For Inj 1 Mg Vial) 1 mg IM UD PRN; Protocol PRN Reason: Hypoglycemia Protocol Stop: 01/15/23 15:14 Glucose (Glucose 40% Gel 15 Gm Tube) 15 - 30 gm PO UD PRN; Protocol PRN Reason: Hypoglycemia Protocol Stop: 01/15/23 15:14 Glucose (Glucose 10 Tab/Tube) 4 - 8 tab PO UD PRN; Protocol PRN Reason: Hypoglycemia Protocol Stop: 01/15/23 15:14 Azithromycin 500 mg/ Dextrose 255 mls @ 125 mls/hr IV Q24H [facility]; Protocol Stop: 12/22/22 08:59 Last Infusion: 12/18/22 11:09 Dose: Infused Cefepime HCl 2,000 mg/ Syringe 20 mls @ 5 mls/min IV Q12H [facility]; Protocol Stop: 12/24/22 13:29 Last Admin: 12/18/22 13:06 Dose: 5 mls/min Lidocaine (Lidocaine 5% 1 Patch) 1 patch TD DAILY [facility] Stop: 01/16/23 08:59 Last Admin: 12/18/22 08:52 Dose: Not Given Linaclotide (Linaclotide 72 Mcg Capsule) 72 mcg PO DAILY PRN PRN Reason: ABD PAIN Stop: 01/15/23 14:26 Last Admin: 12/18/22 06:47 Dose: 72 mcg Magnesium Hydroxide (Magnesium Hydroxide Susp 30 Ml Udc) 30 ml PO Q6H PRN PRN Reason: Constipation Stop: 01/15/23 11:49 Memantine (Memantine Hcl 5 Mg Tab) 5 mg PO BID [facility] Stop: 01/15/23 20:59 Last Admin: 12/18/22 08:51 Dose: 5 mg Miscellaneous (Remove Lidoderm Patch) 1 each N/A DAILY@2100 [facility] Stop: 01/15/23 20:59 Last Admin: 12/17/22 19:41 Dose: Not Given Miscellaneous (Carbohydrates For Hypoglycemia ) 15 - 30 gm PO UD PRN PRN Reason: Hypoglycemia Treatment Stop: 01/15/23 15:14 Fluorometholone 0.1 % - Non-Formulary Patient's Own Med 1 each OP HS [facility] Stop: 01/15/23 20:59 Last Admin: 12/17/22 19:38 Dose: 1 drops Ondansetron HCl (Ondansetron Inj 2 Mg/Ml 2 Ml Vial) 4 mg IV Q6H PRN PRN Reason: Nausea Stop: 01/15/23 11:49 Pantoprazole Sodium (Pantoprazole 40 Mg Tab) 40 mg PO DAILY [facility] Stop: 01/15/23 20:59 Last Admin: 12/18/22 08:50 Dose: 40 mg Polyethylene Glycol (Polyethylene (Miralax) 17 Gm Pack) 17 gm PO DAILY PRN PRN Reason: Constipation Stop: 01/15/23 11:49 Last Admin: 12/17/22 18:30 Dose: 17 gm Pregabalin (Pregabalin 150 Mg Cap) 150 mg PO BID [facility] Stop: 01/15/23 20:59 Last Admin: 12/18/22 08:58 Dose: 150 mg Ropinirole HCl (Ropinirole Hcl 0.25 Mg Tablet) 0.5 mg PO DAILY@1900 [facility] Stop: 01/15/23 18:59 Last Admin: 12/17/22 18:08 Dose: 0.5 mg Rosuvastatin Calcium (Rosuvastatin Calcium 20 Mg Tab) 20 mg PO DAILY [facility] Stop: 01/16/23 08:59 Last Admin: 12/18/22 08:51 Dose: 20 mg Sodium Chloride (Sodium Chlor 7% 4 Ml Neb) 4 ml NEB BIDR [facility] Stop: 01/16/23 18:59 Last Admin: 12/18/22 07:57 Dose: 4 ml Tamsulosin HCl (Tamsulosin Hcl 0.4 Mg Cap) 0.4 mg PO HS [facility] Stop: 01/15/23 20:59 Last Admin: 12/17/22 19:40 Dose: 0.4 mg Triamcinolone Acetonide (Triamcinolone Acet 0.1% Cr 15 Gm Tube) 1 appln TOP DAILY PRN PRN Reason: Rash Stop: 01/15/23 14:26 Zolpidem Tartrate (Zolpidem Tartrate 5 Mg Tab) 5 mg PO HS [facility] Stop: 01/15/23 20:59 Last Admin: 12/17/22 21:47 Dose: 5 mg
[2022-12-18] MEDS: rOPINIRole HCL 0.25 MG TABLET PO SCH (18:02)
[2022-12-18] MEDS: TAMSULOSIN HCL 0.4 MG CAP PO SCH (20:34)
[2022-12-18] MEDS: FLUOROMETHOLONE 0.1% OP SCH (20:34)
[2022-12-18] MEDS: ZOLPIDEM TARTRATE 5 MG TAB PO SCH (21:39)
[2022-12-19] MEDS: CEFEPIME 2,000 MG in SYRINGE 0 ML IV SCH ×2 (00:47→13:47)
[2022-12-19] MEDS: ACETAMINOPHEN 325 MG TAB PO PRN (00:51)
[2022-12-19] MEDS: SODIUM CHLOR 7% 4 ML NEB NEB SCH (07:16)
[2022-12-19] MEDS: MEMANTINE HCL 5 MG TAB PO SCH (08:25)
[2022-12-19] MEDS: ROSUVASTATIN CALCIUM 20 MG TAB PO SCH (08:25)
[2022-12-19] MEDS: carvediloL 6.25 MG TAB PO SCH (08:25)
[2022-12-19] MEDS: EMPAGLIFLOZIN 10 MG TAB PO SCH (08:25)
[2022-12-19] MEDS: PANTOprazole 40 MG TAB PO SCH (08:26)
[2022-12-19] MEDS: amLODIPine BESYLATE 5 MG TAB PO SCH (08:26)
[2022-12-19] MEDS: ASPIRIN 81 MG ECTAB PO SCH (08:26)
[2022-12-19] MEDS: DULoxetine HCL 60 MG CAP PO SCH (08:26)
[2022-12-19] MEDS: LIDOCAINE 5% 1 PATCH TD SCH ×2 (08:26→13:47)
[2022-12-19] MEDS: PREGABALIN 150 MG CAP PO SCH (08:31)
[2022-12-19] MEDS: AZITHROMYCIN 500 MG in DEXTROSE 5% 250 ML IV SCH (08:31)
--- NOTE | 2022-12-19 09:18 | Gastroenterology Progress Note ---
Date of Service December 19, 2022 Assessment & Plan (1) Large hiatal hernia: Plan 87 year old male w/ reflux, regurgitation admitted w/ PNA. He has history of dysphagia, manometry in 2017 is more suggestive of hypofunctioning esophageal muscles/poor motility with breaks in the muscular contraction on swallows, prior radiation to this area may be contributing to the poor muscular function which responded to Baclofen. There is concern that his hiatal hernia could be contributing to aspiration. Upper GI series Continue GERD dietary/lifestyle changes Continue aspirations precautions Continue Baclofen Increase PPI to Pantoprazole 40 mg BID Thank you for allowing us to participate in the care of this patient. Please call with any acute changes, questions or concerns. Please see addendum below with additional recommendation from my supervising physician. Admission and Anticipated Discharge Date Admission Date: December 16, 2022 Supervising Physician Co-Signing Physician Notes I saw and evaluated the patient. We were asked to see him with regard to history of dysphagia. The patient does have a moderate-sized hiatal hernia, given his presentation with recommend further evaluation with an upper GI series to better evaluate the hernia should he have significant intrathoracic stomach referred to a tertiary center for surgical revision. Subjective Pt was seen and evaluated, chart reviewed. Notes daily issues with GERD, reflux/regurditation post-prandially. No abd pain, nausea, vomiting. He is followed as an OP for both constipation and upper GI symptoms. 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 EGD 2021: - Normal upper third of esophagus and middle third of esophagus. - Tortuous esophagus. - Mild Schatzki ring. Dilated to 57Fr. - Medium-sized hiatal hernia. - Normal gastric fundus, gastric body, incisura and antrum. - Normal examined duodenum. - No specimens collected. Video swallow 2019: no aspiration EGD 2019: Medium-sized hiatal hernia. - Mild Schatzki ring. Dilated to 57 Fr. - Normal gastric fundus, gastric body, incisura and antrum. - Normal examined duodenum. - No specimens collected. Colonoscopy 2017:The examined portion of the ileum was normal. - Mild diverticulosis in the sigmoid colon, in the descending colon and in the ascending colon. - Internal hemorrhoids. - The examination was otherwise normal. - No specimens collected. - Advance diet as tolerated today. - Repeat colonoscopy is not recommended for surveillance. Mano/pH 2017: manometry is more suggestive of hypofunctioning esophageal muscles/poor motility with breaks in the muscular contraction on swallows.His hx of prior radiation to this area may be contributing to the poor muscular function Review of Systems Review of Systems: All systems reviewed & are unremarkable except as noted in HPI & below Physical Exam Constitutional: WD/WN, vitals as above Respiratory: normal respiratory effort, lungs clear to auscultation Cardiovascular: Rate/Rhythm: regular rate Gastrointestinal (Abdomen): normal bowel sounds, soft, nontender, no hepatosp lenomegaly Skin: no rashes, warm and dry Results & Data Vital Signs (Past 12 Hours) Vital Signs Temp Pulse Resp BP Pulse Ox O2 Del Method O2 Flow Rate 12/19/22 08:47 92 Room Air 12/19/22 07:20 36.7 C 81 16 170/76 H 96 Oxymask 8 12/19/22 07:17 82 18 92 Room Air Laboratory Results 12/19/22 12/18/22 12/18/22 Range/Units 07:57 20:20 17:02 POC Glucose 137 H 186 H 139 H (70-99) mg/dl 12/18/22 Range/Units 12:06 POC Glucose 164 H (70-99) mg/dl
--- NOTE | 2022-12-19 11:28 | Discharge Summary ---
Date of Service December 19, 2022 Admission HPI Per Admitting Provider Mr. Araujo is an 87 year old male with pmhx (per chart, reviewed with patient) of Asbestosis, NIDDM-II (associated with HTN, HLP, and c/b nephropathy), GERD, Schatzki's ring, hiatal hernia, diverticulosis, CKD III, BPH, Gout, peripheral neuropathy, RLS, OA, and breast cancer s/p Left mastectomy, XRT, and chemo in 1998. He presented with diffuse myalgias, arthralgias, malaise, and fatigue. He was found to have LAURITA pna on Chest x-ray. Pt states about 3-4 days ago he developed diffuse myalgias and arthralgias throughout his entire body. Everything feels stiff and painful. This was associated with fatigue, malaise, genearlized weakness, dry cough, mild sore throat, and rhinorrhea. He thought he might have COVID so he came in to get tested. He has some mild sob but states this is at baseline. He also has some chronic sharp chest pain and tightness that is related to postoperative changes from mastectomy back in 1998 and also remains at baseline. He denies INGRAM, dizziness, lightheadedness, f/c, abdominal pain, and diarrhea. He had pneumonia about a month and a half ago, possibly d/t aspiration. About 2- 3 times per week he has sudden vomiting after eating that he attributes to his hiatal hernia. He tries to watch what he eats to limit this, but it still happens. He has been told he could be getting some of the gastric contents into his lungs when he vomits. He thinks this could have happened again. He denies any difficulty with swallowing and choking. He has no other complaints. ED Course: CXR noted to have LAURITA pna b/w notable for wbc 11.7, BUN 24. AST and lipase are low at 12 and 6 respectively. Remaining CMP and cbc are unimpressive. RPP is negative. VSS HR 91, BP 92/57, otherwise stable. Given Azithromcyin and Ceftriaxone, admitted to hospitalist service. Admission Exam Per Admitting Provider General:NAD, well nourished, well developed, non-toxic appearing Head:NC AT Eyes: anicteric sclera, no conjunctival injection Nose:normal, nares patent Mouth:dry Neck:supple, trachea midline CV:RRR S1 S2 Pulm:scattered crackles left lung. No wheezing or rhonchi. Abd/GI:+ BS, soft, NT, ND, no guarding :no dow Ext:no pretibial edema, peripheral pulses intact MSK:normal bulk and tone Neuro:no focal deficits, alert, oriented, moving all 4 extremities symmetrically Psych:pleasant mood and affect Skin:diffuse actinic keratosis. visible skin is warm, dry, and without rash. Pt not fully undressed for exam. Principal Diagnosis Left upper lobe Pneumonia Discharge Exam General: Sitting comfortably in bed, not in distress, on room air since yesterday HEENT: EOMI, SHALA, MMM Chest: Clear breath sounds bilaterally with improved left upper lobe crackle CVS: Regular rate and rhythm, normal heart sounds, no murmur Abdomen: Soft, non tender, not distended, normal bowel sounds Neuro: Awake, alert, oriented, conversing well, non focal Extremities: No cyanosis, clubbing or edema Discharge Data Allergies Allergy/AdvReac Type Severity Reaction Status Date / Time gabapentin AdvReac Intermediate Diarrhea Verified 10/14/22 15:47 simvastatin AdvReac Intermediate Muscle Pain Verified 10/14/22 15:47 LISBETH Inhibitors AdvReac Mild COUGH Verified 10/14/22 15:47 Consultations 12/16/22 11:36 ED Decision to Admit Stat 12/17/22 11:45 Consult Pulmonology Routine 12/17/22 12:02 Consult Gastroenterology Routine Ordered Studies 12/17/22 11:53 CT chest diagnostic wo con Urgent Laboratory Results WBC 10.08 K/ul (4.8-10.8) 12/18/22 07:06 RBC 4.40 M/uL (4.70-6.10) L 12/18/22 07:06 Hgb 13.7 g/dl (14.0-18.0) L 12/18/22 07:06 Hct 39.2 % (42.0-52.0) L 12/18/22 07:06 MCV 89.1 fL (80.0-100.0) 12/18/22 07:06 MCH 31.1 pg (25.0-34.0) 12/18/22 07:06 MCHC 34.9 g/dL (32.0-36.0) 12/18/22 07:06 RDW Std Deviation 46.6 fL (36.4-46.3) H 12/18/22 07:06 RDW Coeff of Gena 14.4 % (11.5-14.5) 12/18/22 07:06 Plt Count 163 K/uL (130-400) 12/18/22 07:06 MPV 11.7 fL (9.4-12.4) 12/18/22 07:06 Immature Gran % (Auto) 0.6 % 12/16/22 09:21 Neut % (Auto) 73.4 % 12/16/22 09:21 Lymph % (Auto) 13.4 % 12/16/22 09:21 [place] % (Auto) 9.8 % 12/16/22 09:21 Eos % (Auto) 2.4 % 12/16/22 09:21 Baso % (Auto) 0.4 % 12/16/22 09:21 Neut # (Auto) 8.58 K/uL (1.40-6.50) H 12/16/22 09:21 Lymph # (Auto) 1.56 K/uL (1.2-3.4) 12/16/22 09:21 [place] # (Auto) 1.14 K/uL (0.11-0.59) H 12/16/22 09:21 Eos # (Auto) 0.28 K/uL (0-0.50) 12/16/22 09:21 Baso # (Auto) 0.05 K/uL (0-0.2) 12/16/22 09:21 Immature Gran # (Auto) 0.07 K/uL (0.01-0.20) 12/16/22 09:21 Sodium 135 mmol/L (136-145) L 12/18/22 07:06 Potassium 3.6 mmol/L (3.5-5.1) 12/18/22 07:06 Chloride 98 mmol/L (98-107) 12/18/22 07:06 Carbon Dioxide 26 mmol/L (21-32) 12/18/22 07:06 Anion Gap 11 (3-11) 12/18/22 07:06 BUN 27 mg/dl (6-23) H 12/18/22 07:06 Creatinine 1.26 mg/dl (0.6-1.4) 12/18/22 07:06 Est Cr Clr Drug Dosing 47.2 ml/min 12/18/22 07:06 Est GFR ( Amer) 58.6 ml/min 12/18/22 07:06 Est GFR (Non-Af Amer) 50.6 ml/min 12/18/22 07:06 BUN/Creatinine Ratio 21.4 (10-20) H 12/18/22 07:06 Glucose 137 mg/dl (70-99(Fasting)) H 12/18/22 07:06 POC Glucose 137 mg/dl (70-99) H 12/19/22 07:57 Calcium 9.3 mg/dl (8.6-10.3) 12/18/22 07:06 Total Bilirubin 0.9 mg/dl (0.2-1.0) 12/16/22 09:21 AST 12 U/L (13-39) L 12/16/22 09:21 ALT 9 U/L (7-52) 12/16/22 09:21 Alkaline Phosphatase 80 U/L (34-104) 12/16/22 09:21 Troponin I High Sens 9.6 pg/ml (0-20) 12/16/22 09:21 Total Protein 7.7 gm/dl (6.0-8.3) 12/16/22 09:21 Albumin 4.2 gm/dl (3.4-5.0) 12/16/22 09:21 Globulin 3.5 gm/dl (2.5-4.0) 12/16/22 09:21 Albumin/Globulin Ratio 1.2 (0.9-2) 12/16/22 09:21 Lipase 6 U/L (11-82) L 12/16/22 09:21 Procalcitonin < 0.05 ng/ml (0-0.5) 12/17/22 12:37 Urine Color Yellow 12/17/22 04:50 Urine Appearance Clear (Clear) 12/17/22 04:50 Urine pH 5.5 (4.5-7.5) 12/17/22 04:50 Ur Specific [place] 1.018 (1.000-1.030) 12/17/22 04:50 Urine Protein Negative (Negative) 12/17/22 04:50 Urine Glucose (UA) 2+ (Negative) H 12/17/22 04:50 Urine Ketones Negative (Negative) 12/17/22 04:50 Urine Blood Negative (Negative) 12/17/22 04:50 Urine Nitrite Negative (Negative) 12/17/22 04:50 Urine Bilirubin Negative (Negative) 12/17/22 04:50 Urine Urobilinogen Negative (Negative) 12/17/22 04:50 Ur Leukocyte Esterase Negative (Negative) 12/17/22 04:50 Nasal Screen MRSA (PCR) Negative (Negative) 12/17/22 Unknown Adenovirus (PCR) Not Detected (NotDetected) 12/16/22 09:21 B. pertussis DNA (PCR) Not Detected (NotDetected) 12/16/22 09:21 B.parapertussis DNA PCR Not Detected (NotDetected) 12/16/22 09:21 C. pneumoniae DNA (PCR) Not Detected (NotDetected) 12/16/22 09:21 Coronavirus OC43 (PCR) Not Detected (NotDetected) 12/16/22 09:21 Coronavirus HKU1 (PCR) Not Detected (NotDetected) 12/16/22 09:21 Coronavirus 229E (PCR) Not Detected (NotDetected) 12/16/22 09:21 SARS-CoV-2 (PCR) Not Detected (NotDetected) 12/16/22 09:21 Coronavirus NL63 (PCR) Not Detected (NotDetected) 12/16/22 09:21 Human Metapneumovir PCR Not Detected (NotDetected) 12/16/22 09:21 Influenza Type A (PCR) Not Detected (NotDetected) 12/16/22 09:21 Influenza Type B (PCR) Not Detected (NotDetected) 12/16/22 09:21 M. pneumoniae (PCR) Not Detected (NotDetected) 12/16/22 09:21 Parainfluenza 1 (PCR) Not Detected (NotDetected) 12/16/22 09:21 Parainfluenza 2 (PCR) Not Detected (NotDetected) 12/16/22 09:21 Parainfluenza 3 (PCR) Not Detected (NotDetected) 12/16/22 09:21 Parainfluenza 4 (PCR) Not Detected (NotDetected) 12/16/22 09:21 RSV (PCR) Not Detected (NotDetected) 12/16/22 09:21 Entero/Rhino (PCR) Not Detected (NotDetected) 12/16/22 09:21 Group A Strep (PCR) NOT DETECTED (NotDetected) 12/16/22 09:37 Impressions Chest X-Ray 12/16/22 09:02 XR chest 1V portable HISTORY: 87 years-old Male Chest pain, nonspecific chest CT 10/15/2022 COMPARISON: Chest CT 10/15/2022 common chest radiograph 06/02/2019. TECHNIQUE: AP view of the chest FINDINGS: Calcified pleural plaques redemonstrated. Cardiomediastinal and hilar silhouet koko are unchanged. Hiatal hernia. No pneumothorax, pleural effusion, or overt pulmonary edema. Ill-defined left upper lobe airspace opacities. IMPRESSION: 1. Ill-defined left upper lobe airspace opacity suspicious for pneumonia. Follow-up imaging after treatment course recommended in order to document resolution. 2. Cardiomegaly without pulmonary edema. 3. Asbestos-related pleural disease. 4. Hiatal hernia. ACT 112: Negative or not required by law. The above report was generated using voice recognition software. It may contain grammatical, syntax or spelling errors. Electronically signed by: Gigi Carey M.D. 12/16/2022 9:[address] 12/17/22 11:53 CT chest diagnostic wo con CLINICAL HISTORY: laurita pna TECHNIQUE: Multidetector row helical CT of the chest was performed. Coronal and sagittal reformations were obtained. Automated dose lowering techniques and/or adjustment according to patient size were utilized for this exam. CT DOSE: 739.56 mGy.cm Comparison: Comparison is made to CT chest 10/15/2022 and chest radiograph 12/16/2022 FINDINGS: Lungs and pleura: Focal opacification is seen in the right upper lobe. Atelectasis is seen throughout. Pleural thickening with calcified pleural plaques noted. Stable pulmonary nodules measure up to 6 mm in diameter. Heart and pericardium: Heart size is normal. No pericardial effusion. Vessels: Severe atherosclerotic changes in the aorta and coronary arteries. Pulmonary trunk measures 31 mm. Mediastinum and adan: Scattered partially calcified lymph nodes are seen. Chest wall and lower neck: Unremarkable. Abdomen: Large hiatal hernia is seen. Perinephric stranding is seen. Bones: Degenerative changes in the thoracic spine. IMPRESSION: 1. Left upper lobe pneumonia is seen. 2. Redemonstration of pleural thickening compatible with asbestos related pleural disease. Ossified lymph nodes may be related. 3. Stable pulmonary nodules. ACT 112: Negative or not required by law. Electronically signed by: Bishnu Rojas M.D. 12/17/2022 12:49 PM Hospital Course (1) Pneumonia of left upper lobe due to infectious organism: (2) Weakness: (3) Diabetes mellitus, type II: (4) CKD (chronic kidney disease), stage III: (5) BPH NOS w ur obs/LUTS: (6) Dyslipidemia: (7) Hypertension: (8) Neuropathy: (9) GERD (gastroesophageal reflux disease): (10) Corneal transplant status: Plan 87-year-old male presented to ED with diffuse myalgia, arthralgia, malaise, fatigue on 12/16 and admitted with left upper lobe pneumonia. He did not meet SIRS criteria on admission. He did not look sick or septic. He was started on empiric antibiotics with improvement in his symptoms. He initially required supplemental oxygen but has been off of oxygen since yesterday and saturating well on room air. He was started on hypertonic saline and vest therapy but has not produced anything recently. His blood and sputum cultures remain negative. Evaluation by [facility] was unremarkable. He does have large hiatal hernia which probably is contributing to his recurrent pneumonia. He was seen by GI who did not recommend any further inpatient work-up and recommend outpatient management. I spoke to Jasmin KENNEY prior to discharge who stated upper GI series can be done as outpatient and no need to hold the discharge for it. He is being discharged on Levaquin for total of 7 days as per pulmonology recommendation. Recommended repeat chest x-ray in 4 to 6 weeks to ensure results of pneumonia. Recommended that if he has recurrent pneumonia, he should follow-up for possible surgical correction of his hiatal hernia. Home health was set up. He is comfortable and stable for discharge home Left upper lobe pneumonia-patient did not meet SIRS criteria. Pro-Ricki negative. Respiratory pathogen panel negative. Sputum and blood culture negative. Minimal leukocytosis resolved. Symptomatically improving on empiric antibiotic -Seen by pulmonology- Empiric cefepime/azithromycin ->Levaquin for total of 7 days. -Follow-up chest x-ray in 4-6 weeks Large hiatal hernia-seen by GI. Upper GI series to be done as OP per GI who I spoke to prior to discharge. 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 Total Time Total Time Spent Total Time Spent (In Minutes): 40 Discharge Plan Discharge Items Patient Disposition: Home - Self-Care Reason For Visit: PNEUMONIA, SEPSIS Discharge Diagnosis: Left upper lobe pneumonia Activity: Per Instructions section Non-emergency contact: Primary Care Provider and 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[employer] Teacher Call non-emergency contact if: you have any medication questions, your symptoms worsen and you have a fever Follow-up/Referrals: Marcy Diaz MD [Primary Care Provider] - Diet: Carb Consistent or DM2 Addtl Attending Provider Instructions: Continue levaquin 1 tab daily starting tomorrow morning for the next 5 days You can take over the probiotic while you are on antibiotic Follow up chest xray with the family doctor in 4-6 weeks to ensure resolution of your pneumonia Follow up with GI for further management of your hiatal hernia If you have recurrent pneumonias from your hernia, it will probably benefit from surgical correction Follow up with your family doctor Pending Studies at Discharge: No Stand-Alone Forms: My [facility], Smoking Cessation Medications and DC Order Prescriptions: New levofloxacin 750 mg tablet 750 mg PO DAILY 5 Days Qty: 5 0RF Continued tamsulosin 0.4 mg capsule 0.4 mg PO HS Qty: 90 3RF omeprazole 40 mg Capsule,Delayed Release(Dr/Ec) 40 mg PO BID Rx Instructions: PER [facility]--PT ONLY TAKES DAILY albuterol sulfate [ProAir HFA] 90 mcg/actuation Hfa Aerosol Inhaler 2 inh INHALATION Q4H PRN (Reason: Wheezing) carvedilol 12.5 mg tablet 6.25 mg PO BID Rx Instructions: TAKES 0.5 TAB BID glipizide 10 mg tablet extended release 24hr 10 mg PO BIDM Rx Instructions: Take 30 minutes before meals allopurinol 100 mg tablet 100 mg PO QDL Rx Instructions: Take with 300mg to make 400mg total dose. aspirin 81 mg Tablet,Delayed Release (Dr/Ec) 81 mg PO QAM losartan-hydrochlorothiazide 100-25 mg tablet 1 tab PO QAM amlodipine 10 mg tablet 10 mg PO QAM allopurinol 300 mg tablet 300 mg PO QDL Rx Instructions: Take with 100mg to make 400mg total dose. zolpidem 5 mg tablet 5 mg PO HS furosemide 20 mg tablet 20 mg PO QAM cyanocobalamin (vitamin B-12) [Vitamin B-12] 1,000 mcg Tablet 1,000 mcg PO QDL triamcinolone acetonide 0.1 % cream 1 applic TOPICAL DAILY PRN (Reason: Rash) ascorbic acid (vitamin C) [Vitamin C] 500 mg Tablet,Chewable 500 mg PO QDL cholecalciferol (vitamin D3) [Vitamin D3] 50 mcg (2,000 unit) Capsule 50 mcg PO DAILY albuterol sulfate 2.5 mg /3 mL (0.083 %) Solution For Nebulization 2.5 mg INHALATION DIRECTED PRN (Reason: Shortness Of Breath Or Wheezing) famotidine [Pepcid] 40 mg Tablet 40 mg PO DAILY PRN (Reason: INDIGESTION/HEARTBURN) acetaminophen [Tylenol Extra Strength] 500 mg Tablet 1,000 mg PO Q8H PRN (Reason: Pain) baclofen 10 mg Tablet 10 mg PO BID ropinirole 0.5 mg Tablet 0.5 mg PO HS Rx Instructions: administer 1-3 hours before bedtime fluorometholone 0.1 % Drops,Suspension 1 drp OPB HS lidocaine 5 % Adhesive Patch,Medicated 1 patch TOPICAL DAILY Rx Instructions: leave on most painful area for up to 12 hrs fluorouracil 0.5 % Cream 1 applic TOPICAL BID PRN (Reason: Skin Irritation) rosuvastatin 20 mg Tablet 20 mg PO DAILY memantine 5 mg Tablet 5 mg PO BID duloxetine [Cymbalta] 60 mg Capsule,Delayed Release(Dr/Ec) 60 mg PO BID pregabalin [Lyrica] 150 mg Capsule 150 mg PO BID empagliflozin 10 mg Tablet 10 mg PO QAM Linzess 72 mcg Capsule 72 mcg PO DAILY PRN (Reason: ABD PAIN) magnesium citrate 125 mg Capsule 125 mg PO DAILY finasteride 5 mg tablet 5 mg PO QDL sildenafil (pulm.hypertension) 20 mg tablet 20 mg PO DIRECTED PRN (Reason: sexual activity) Rx Instructions: TAKE 1 TO 5 TABLETS 1 HOUR PRIOR TO NEED Discontinued amoxicillin-pot clavulanate 875-125 mg tablet 1 tab PO BID Qty: 10 0RF doxycycline hyclate 100 mg tablet 100 mg PO BID Qty: 10 0RF Discharge Orders: Discharge Order (Routine); Ordered 12/19/22 Ordered By: Nacho Lee Admission Data Admit Date/Time: 12/16/22 11:50 Attending Provider: Nacho Lee Admit Provider: Omayra Ojeda Primary Care Provider: Marcy Diaz Other Providers: Omayra Ojeda ; Pearl Colby ; Dennis Carranza ; Malorie Munoz ; Emily Alexandra ; Ariella Srivastava ; Lucrecia Denis ; Marjorie,Jake ; Popeye Leyva ; Sonali Brunner ; Adrian Crowder ; Rubén Walter ; Jasmin Mcneill ; Nguyen Barton ; Modesta Hameed ; Lien Vernon ; Sergey Herrera ; Drew Wayne ; Manish Moise ; Susana Solares ; Elvia Richardson Jr ; Marquise Galvez
[2022-12-19] MEDS: allopurinoL 100 MG TAB PO SCH (12:08)
[2022-12-19] MEDS: FINASTERIDE 5 MG TAB PO SCH (12:08)
[2022-12-19] MEDS: allopurinoL 300 MG TAB PO SCH (12:08)
[2022-12-19] MEDS: ENOXAPARIN INJ 40 MG/0.4 ML SYR SQ SCH (15:02)
--- NOTE | 2022-12-21 10:41 | Coding Query ---
CODING QUERY To promote full compliance with coding requirements relating to patient care, provider participation is requested in all cases of pressure washer uncertainty. Please assist us with the question(s) below: Coding Question(s): Per the DS, "The patient had pneumonia about a month and a half ago, possibly d/t aspiration. About 2-3 times per week he has sudden vomiting after eating that he attributes to his hiatal hernia. He tries to watch what he eats to limit this, but it still happens. He has been told he could be getting some of the gastric contents into his lungs when he vomits. He thinks this could have happened again. He denies any difficulty with swallowing and choking. He does have large hiatal hernia which probably is contributing to his recurrent pneumonia." Please clarify the diagnosis of pneumonia: ( x) Pneumonia of left upper lobe due to infectious organism ( ) Aspiration pneumonia ( ) Both infectious and aspiration pneumonia ( ) Other, please explain Physician's Response(s): Thank you for your time, Flor Maguire, [place], [facility]
== END 2022-12-19 15:00 | disposition home health service (06) | DRG 195 ==
LOC: ED 08:42 → 3W 11:50 → SUATTDRO 11:50 → 3W 13:51

== ENCOUNTER 2023-12-11 09:08 | Inpatient (IN) ==
--- NOTE | 2023-12-11 09:43 | Emergency Department Note ---
History of Present Illness General Chief complaint: Dizziness Stated complaint: DIZZINESS Time Seen by Provider: 12/11/23 09:28 History of Present Illness This is an 88-year-old male that presents to the emergency department via EMS with complaints of "dizziness, diaphoresis, nausea". Patient awoke this morning and felt fine. Then, the patient states that around 0800 hrs. this morning he became dizzy described as a room spinning sensation, noted that he was profusely sweating and was nauseated as if he was about to vomit. He then sat down, EMS was summoned and he was brought here for evaluation. Per EMS report patient was found to be hypoxic 80% on room air on arrival to the patient's home, and then titrated well up to 4 L to 94%. Patient denies any headache or neck pain. No chest pain or abdominal pain. No back pain. Patient does note a history of breast cancer left side with extremity restriction. Patient denies any history of similar. Patient notes he feels tired and overall weak at this time and a room spinning sensation. Home Medications Medication Instructions Recorded Confirmed Type allopurinol 300 mg tablet 300 mg PO QAM 06/02/19 12/11/23 History aspirin 81 mg tablet,delayed 81 mg PO QAM 06/02/19 12/11/23 History release carvedilol 12.5 mg tablet 6.25 mg PO BID 06/02/19 12/11/23 History glipizide 10 mg tablet, extended 10 mg PO BID 06/02/19 12/11/23 History release 24 hr albuterol sulfate 90 mcg/actuation 2 inh inhalation Q4H PRN SOB or 02/05/20 12/11/23 History aerosol inhaler (ProAir HFA) Wheezing omeprazole 40 mg capsule,delayed 40 mg PO DAILY 02/05/20 12/11/23 History release ascorbic acid (vitamin C) 500 mg 500 mg PO DAILY 09/24/20 12/11/23 History chewable tablet (Vitamin C) cholecalciferol (vitamin D3) 50 50 mcg PO QAM 09/24/20 12/11/23 History mcg (2,000 unit) capsule (Vitamin D3) cyanocobalamin (vitamin B-12) 1,000 mcg PO DAILY 09/24/20 12/11/23 History 1,000 mcg tablet (Vitamin B-12) triamcinolone acetonide 0.1 % 1 applic topical DAILY PRN Rash 09/24/20 12/11/23 History topical cream acetaminophen 500 mg tablet 1,000 mg PO Q8H PRN Pain 10/14/22 12/11/23 History (Tylenol Extra Strength) baclofen 10 mg tablet 10 mg PO BID 10/14/22 12/11/23 History duloxetine 60 mg capsule,delayed 60 mg PO BID 10/14/22 12/11/23 History release (Cymbalta) fluorometholone 0.1 % eye 1 drp OPB HS 10/14/22 12/11/23 History drops,suspension fluorouracil 0.5 % topical cream 1 applic topical DAILY PRN Skin 10/14/22 12/11/23 History Irritation linaclotide 72 mcg capsule 72 mcg PO DAILY PRN ABD PAIN 10/14/22 12/11/23 History (Linzess) pregabalin 150 mg capsule (Lyrica) 150 mg PO BID 10/14/22 12/11/23 History ropinirole 0.5 mg tablet 0.5 mg PO HS 10/14/22 12/11/23 History rosuvastatin 20 mg tablet 20 mg PO QAM 10/14/22 12/11/23 History magnesium oxide 400 mg PO HS 02/03/23 12/11/23 History finasteride 5 mg tablet 5 mg PO DAILY #90 tabs 11/29/23 12/11/23 Rx tamsulosin 0.4 mg capsule 0.4 mg PO HS #90 caps 11/29/23 12/11/23 Rx losartan 50 mg tablet 50 mg PO QAM 12/11/23 12/11/23 History memantine 10 mg tablet 5 mg PO BID 12/11/23 12/11/23 History zolpidem 6.25 mg tablet,extended 6.25 mg PO HS 12/11/23 12/11/23 History release,multiphase Allergies Allergy/AdvReac Type Severity Reaction Status Date / Time gabapentin AdvReac Intermediate Diarrhea Verified 12/11/23 14:25 simvastatin AdvReac Intermediate Muscle Pain Verified 12/11/23 14:25 LISBETH Inhibitors AdvReac Mild COUGH Verified 12/11/23 14:25 Past Med/Surg History Problem List (Updated 12/11/23 @ 22:52 by Guille Flores PA-C) Fatigue (Acute) Diaphoresis (Acute) Vertigo (Acute) Neurological symptoms Positive Lyme disease serology Lung nodule seen on imaging study Episode of dizziness Incomplete emptying of bladder Diverticulitis Ileus Gout H/O hiatal hernia (Acute) Encounter for pre-operative examination BPH NOS w ur obs/LUTS (Chronic) Feeling of incomplete bladder emptying Elevated prostate specific antigen (PSA) Erectile dysfunction Involuntary movements (Acute) Pneumonia of left upper lobe due to infectious organism (Acute) Corneal transplant status Abnormal CT scan, chest Large hiatal hernia Sepsis due to pneumonia resolved per pt History of esophagogastroduodenoscopy (EGD) History of mastectomy Left, (1998) Schatzki's ring s/p dilation (2019) Breast cancer in male S/P Left mastectomy, radiation, chemo (1998) CKD (chronic kidney disease), stage III (Chronic) BPH (benign prostatic hyperplasia) Chronic pain Diabetes mellitus, type II (Chronic) NIDDM Dyslipidemia (Chronic) Hypertension (Chronic) Neuropathy GERD (gastroesophageal reflux disease) Medical History Hypertension Gout GERD (gastroesophageal reflux disease) Nodular prostate with urinary obstruction Nocturia Diabetes mellitus COPD (chronic obstructive pulmonary disease) BPH with obstruction/lower urinary tract symptoms Arthritis Actinic keratosis History of prostate cancer "cancerous" prostate biopsy noted in [facility] Diverticular disease Bruised rib Left sided "Bruised rib" after mechanical fall tripping over dog 3 months ago, CXR with no fractures per patient, residual pain (Lidocaine patches PRN) CAD (coronary artery disease) follows with Dr. Phan Aspiration pneumonitis Hx, "resolved" per pt CAP (community acquired pneumonia) 11/2022 "Resolved" s/p abx, reason for inhaler PRN prescription per patient Carotid stenosis under surveillance by cardiology Osteoarthritis Hearing deficit Peripheral neuropathy Hx of gout Asbestosis Surgical History Hx of cornea transplant R/L History of keratoplasty Left eye (2019) H/O prostate biopsy cancerous > TURP Hx of transurethral resection of prostate History of colonoscopy History of tooth extraction History of cataract surgery R/L Family History Brother Family history of diabetes mellitus Family hx of colon cancer Other Colorectal cancer Diabetes Hypertension Social History Smoking Status: Never smoker Cigarettes Per Day: 1 PPD; Second Hand Exposure: No; Do You Dip or Chew Tobacco: No; Hx Alcohol Use: Yes Alcohol type: hard liquor Hx Substance Use: No Preferred Language: Mohawk Communication Ability: Effective 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 Beliefs That Will Affect Care: None marital status: Current Living Situation: Spouse Current Living Situation Comment: Lives w/ spouse at home Feels Safe at Home: Yes Assistive Devices: Cane, Denture - Upper, Denture - Lower, Glasses, Hearing Aid - Bilateral and Walker Review of Systems A total of 10 systems reviewed and were otherwise negative Physical Exam Vital Signs Vital Signs - 24 hr 12/11/23 09:13 12/11/23 09:15 12/11/23 09:15 Temperature Temperature Source Pulse Rate - Lying Pulse Rate - Sitting Pulse Rate - Standing Pulse Rate 60 62 Pulse Rate [Finger] Pulse Rate from SpO2 Sensor 62 Pulse Rhythm [Finger] Pulse Strength [Finger] Respiratory Rate 20 Respiratory Effort / Characteristics Respiratory Depth Respiratory Pattern Blood Pressure - Lying Blood Pressure - Sitting Blood Pressure- Standing Blood Pressure 161/86 H Blood Pressure [Right Arm] Blood Pressure Mean 126 Blood Pressure Mean [Right Arm] Blood Pressure Position [Right Arm] Pulse Oximetry 97 Oxygen Delivery Method Sepsis Recent Fever Within 48 Hours Sepsis New/Unexplained Change in Mental Status Sepsis Action Taken by Nursing 12/11/23 09:18 12/11/23 09:23 12/11/23 09:24 Temperature 36.4 C L Temperature Source Oral Pulse Rate - Lying Pulse Rate - Sitting Pulse Rate - Standing Pulse Rate 57 L 62 Pulse Rate [Finger] Pulse Rate from SpO2 Sensor 62 Pulse Rhythm [Finger] Pulse Strength [Finger] Respiratory Rate 21 15 Respiratory Effort / Characteristics Respiratory Depth Respiratory Pattern Blood Pressure - Lying Blood Pressure - Sitting Blood Pressure- Standing Blood Pressure 161/85 H Blood Pressure [Right Arm] Blood Pressure Mean 110 Blood Pressure Mean [Right Arm] Blood Pressure Position [Right Arm] Pulse Oximetry 95 93 90 Oxygen Delivery Method Room Air Room Air Sepsis Recent Fever Within 48 Hours No Sepsis New/Unexplained Change in Mental Status N/A Sepsis Action Taken by Nursing No Action Required 12/11/23 09:33 12/11/23 09:41 12/11/23 09:45 Temperature Temperature Source Pulse Rate - Lying Pulse Rate - Sitting Pulse Rate - Standing Pulse Rate 62 61 Pulse Rate [Finger] Pulse Rate from SpO2 Sensor 63 61 Pulse Rhythm [Finger] Pulse Strength [Finger] Respiratory Rate 20 17 Respiratory Effort / Characteristics Respiratory Depth Respiratory Pattern Blood Pressure - Lying Blood Pressure - Sitting Blood Pressure- Standing Blood Pressure Blood Pressure [Right Arm] Blood Pressure Mean Blood Pressure Mean [Right Arm] Blood Pressure Position [Right Arm] Pulse Oximetry 92 93 93 Oxygen Delivery Method Room Air Sepsis Recent Fever Within 48 Hours Sepsis New/Unexplained Change in Mental Status Sepsis Action Taken by Nursing 12/11/23 09:51 12/11/23 10:09 12/11/23 10:12 Temperature Temperature Source Pulse Rate - Lying Pulse Rate - Sitting Pulse Rate - Standing Pulse Rate 60 56 L 58 L Pulse Rate [Finger] Pulse Rate from SpO2 Sensor 60 Pulse Rhythm [Finger] Pulse Strength [Finger] Respiratory Rate 22 16 24 Respiratory Effort / Characteristics Respiratory Depth Respiratory Pattern Blood Pressure - Lying Blood Pressure - Sitting Blood Pressure- Standing Blood Pressure Blood Pressure [Right Arm] Blood Pressure Mean Blood Pressure Mean [Right Arm] Blood Pressure Position [Right Arm] Pulse Oximetry 91 92 91 Oxygen Delivery Method Sepsis Recent Fever Within 48 Hours Sepsis New/Unexplained Change in Mental Status Sepsis Action Taken by Nursing 12/11/23 10:21 12/11/23 10:30 12/11/23 10:36 Temperature Temperature Source Pulse Rate - Lying Pulse Rate - Sitting Pulse Rate - Standing Pulse Rate 57 L 59 L 60 Pulse Rate [Finger] Pulse Rate from SpO2 Sensor 60 Pulse Rhythm [Finger] Pulse Strength [Finger] Respiratory Rate 16 13 16 Respiratory Effort / Characteristics Respiratory Depth Respiratory Pattern Blood Pressure - Lying Blood Pressure - Sitting Blood Pressure- Standing Blood Pressure Blood Pressure [Right Arm] Blood Pressure Mean Blood Pressure Mean [Right Arm] Blood Pressure Position [Right Arm] Pulse Oximetry 91 90 92 Oxygen Delivery Method Sepsis Recent Fever Within 48 Hours Sepsis New/Unexplained Change in Mental Status Sepsis Action Taken by Nursing 12/11/23 11:15 12/11/23 11:18 12/11/23 11:21 Temperature Temperature Source Pulse Rate - Lying Pulse Rate - Sitting Pulse Rate - Standing Pulse Rate 58 L Pulse Rate [Finger] 58 L Pulse Rate from SpO2 Sensor 58 L Pulse Rhythm [Finger] Regular Pulse Strength [Finger] Normal Respiratory Rate 18 12 Respiratory Effort / Characteristics Non-Labored Respiratory Depth Normal Respiratory Pattern Regular Blood Pressure - Lying Blood Pressure - Sitting Blood Pressure- Standing Blood Pressure 171/120 H Blood Pressure [Right Arm] 176/86 H Blood Pressure Mean 121 Blood Pressure Mean [Right Arm] 116 Blood Pressure Position [Right Arm] Lying Pulse Oximetry 93 92 Oxygen Delivery Method Room Air Sepsis Recent Fever Within 48 Hours Sepsis New/Unexplained Change in Mental Status Sepsis Action Taken by Nursing 12/11/23 11:30 12/11/23 11:30 12/11/23 12:00 Temperature Temperature Source Pulse Rate - Lying Pulse Rate - Sitting Pulse Rate - Standing Pulse Rate 59 L 62 Pulse Rate [Finger] Pulse Rate from SpO2 Sensor 60 62 Pulse Rhythm [Finger] Pulse Strength [Finger] Respiratory Rate 13 18 Respiratory Effort / Characteristics Respiratory Depth Respiratory Pattern Blood Pressure - Lying Blood Pressure - Sitting Blood Pressure- Standing Blood Pressure 177/88 H Blood Pressure [Right Arm] Blood Pressure Mean 147 Blood Pressure Mean [Right Arm] Blood Pressure Position [Right Arm] Pulse Oximetry 94 98 Oxygen Delivery Method Sepsis Recent Fever Within 48 Hours Sepsis New/Unexplained Change in Mental Status Sepsis Action Taken by Nursing 12/11/23 12:15 12/11/23 12:19 12/11/23 13:00 Temperature Temperature Source Pulse Rate - Lying Pulse Rate - Sitting Pulse Rate - Standing Pulse Rate 63 59 L Pulse Rate [Finger] Pulse Rate from SpO2 Sensor 62 59 L Pulse Rhythm [Finger] Pulse Strength [Finger] Respiratory Rate 21 Respiratory Effort / Characteristics Respiratory Depth Respiratory Pattern Blood Pressure - Lying Blood Pressure - Sitting Blood Pressure- Standing Blood Pressure 189/85 H Blood Pressure [Right Arm] Blood Pressure Mean 119 Blood Pressure Mean [Right Arm] Blood Pressure Position [Right Arm] Pulse Oximetry 93 95 Oxygen Delivery Method Sepsis Recent Fever Within 48 Hours Sepsis New/Unexplained Change in Mental Status Sepsis Action Taken by Nursing 12/11/23 13:00 12/11/23 13:12 12/11/23 13:18 Temperature Temperature Source Pulse Rate - Lying Pulse Rate - Sitting Pulse Rate - Standing Pulse Rate 61 61 Pulse Rate [Finger] Pulse Rate from SpO2 Sensor 60 Pulse Rhythm [Finger] Pulse Strength [Finger] Respiratory Rate 23 Respiratory Effort / Characteristics Respiratory Depth Respiratory Pattern Blood Pressure - Lying Blood Pressure - Sitting Blood Pressure- Standing Blood Pressure 184/87 H Blood Pressure [Right Arm] Blood Pressure Mean 136 Blood Pressure Mean [Right Arm] Blood Pressure Position [Right Arm] Pulse Oximetry 92 Oxygen Delivery Method Sepsis Recent Fever Within 48 Hours Sepsis New/Unexplained Change in Mental Status Sepsis Action Taken by Nursing 12/11/23 13:24 12/11/23 13:30 12/11/23 13:30 Temperature Temperature Source Pulse Rate - Lying Pulse Rate - Sitting Pulse Rate - Standing Pulse Rate 59 L 59 L Pulse Rate [Finger] Pulse Rate from SpO2 Sensor 58 L 58 L Pulse Rhythm [Finger] Pulse Strength [Finger] Respiratory Rate 18 24 Respiratory Effort / Characteristics Respiratory Depth Respiratory Pattern Blood Pressure - Lying Blood Pressure - Sitting Blood Pressure- Standing Blood Pressure 182/87 H Blood Pressure [Right Arm] Blood Pressure Mean 139 Blood Pressure Mean [Right Arm] Blood Pressure Position [Right Arm] Pulse Oximetry 88 L 94 Oxygen Delivery Method Sepsis Recent Fever Within 48 Hours Sepsis New/Unexplained Change in Mental Status Sepsis Action Taken by Nursing 12/11/23 13:54 12/11/23 14:00 12/11/23 14:00 Temperature Temperature Source Pulse Rate - Lying Pulse Rate - Sitting Pulse Rate - Standing Pulse Rate 61 60 Pulse Rate [Finger] Pulse Rate from SpO2 Sensor 62 58 L Pulse Rhythm [Finger] Pulse Strength [Finger] Respiratory Rate 20 16 Respiratory Effort / Characteristics Respiratory Depth Respiratory Pattern Blood Pressure - Lying Blood Pressure - Sitting Blood Pressure- Standing Blood Pressure 191/91 H Blood Pressure [Right Arm] Blood Pressure Mean 138 Blood Pressure Mean [Right Arm] Blood Pressure Position [Right Arm] Pulse Oximetry 95 96 Oxygen Delivery Method Sepsis Recent Fever Within 48 Hours Sepsis New/Unexplained Change in Mental Status Sepsis Action Taken by Nursing 12/11/23 15:18 12/11/23 15:30 12/11/23 15:36 Temperature Temperature Source Pulse Rate - Lying Pulse Rate - Sitting Pulse Rate - Standing Pulse Rate Pulse Rate [Finger] Pulse Rate from SpO2 Sensor 66 63 64 Pulse Rhythm [Finger] Pulse Strength [Finger] Respiratory Rate 19 24 19 Respiratory Effort / Characteristics Respiratory Depth Respiratory Pattern Blood Pressure - Lying Blood Pressure - Sitting Blood Pressure- Standing Blood Pressure Blood Pressure [Right Arm] Blood Pressure Mean Blood Pressure Mean [Right Arm] Blood Pressure Position [Right Arm] Pulse Oximetry 96 96 93 Oxygen Delivery Method Sepsis Recent Fever Within 48 Hours Sepsis New/Unexplained Change in Mental Status Sepsis Action Taken by Nursing 12/11/23 15:47 12/11/23 16:00 12/11/23 16:09 Temperature Temperature Source Pulse Rate - Lying 64 Pulse Rate - Sitting 64 Pulse Rate - Standing 65 Pulse Rate Pulse Rate [Finger] Pulse Rate from SpO2 Sensor 64 Pulse Rhythm [Finger] Pulse Strength [Finger] Respiratory Rate 17 Respiratory Effort / Characteristics Respiratory Depth Respiratory Pattern Blood Pressure - Lying 195/101 H Blood Pressure - Sitting 171/87 H Blood Pressure- Standing 160/89 H Blood Pressure 201/95 H Blood Pressure [Right Arm] Blood Pressure Mean 165 Blood Pressure Mean [Right Arm] Blood Pressure Position [Right Arm] Pulse Oximetry 95 Oxygen Delivery Method Sepsis Recent Fever Within 48 Hours Sepsis New/Unexplained Change in Mental Status Sepsis Action Taken by Nursing VITAL SIGNS - Vital signs and nursing notes were reviewed. Stable and afebrile. GENERAL -88-year-old male appearing his stated age who is in no acute distress but tired appearing and semireclining in the examination bed. Communicates well with provider and answers questions appropriately. SKIN - Without rashes. No meningeal or petechial rash. HEAD - NC/AT. EYES - PERRL with EOMI bilaterally. Sclera anicteric. EARS - No deformities of external structures noted on gross examination bilaterally. External auditory canals without discharge or otorrhea. Tympanic membranes pearly espinoza without retraction or bulging. No fluid or purulent material visualized behind the TM. Handle of malleus, umbo, cone of light, pars tensa/flaccid all easily visualized. NOSE - Midline and without cyanosis. No epistaxis or purulent drainage noted. Septum midline without deviation or septal hematoma noted. MOUTH/OROPHARYNX - Without perioral cyanosis. Buccal mucosa pink and moist and without leukoplakia. Tongue midline with equal elevation of palate bilaterally. No tonsillar hypertrophy, erythema, or exudates noted. Good dentition noted. NECK - Neck with FROM. No nuchal rigidity. LUNGS - Chest wall symmetric without accessory muscle use, intercostals retractions, or central cyanosis. Normal vesicular breath sounds CTA B/L. No wheezes, rales, or rhonchi appreciated. CARDIAC - RRR ABDOMEN - Abdominal contour normal without pulsations or visible masses. BS normoactive all four quadrants. No tenderness, palpable masses, hepatosplenomegaly, or ascites noted. EXTREMITIES - No clubbing or peripheral cyanosis. +5/5 strength noted in UE/LE bilaterally. NEUROLOGIC - Cranial nerves II through XII grossly intact. No deficits PSYCH -alert, oriented and pleasant on exam. pt is very pleasant and interacts well with examiner. Course Administered Medications Baclofen (Baclofen 10 Mg Tab) 10 mg PO BID [facility] Stop: 01/10/24 20:59 Last Admin: 12/11/23 19:55 Dose: 10 mg Documented By: ANNA Carvedilol (Carvedilol 6.25 Mg Tab) 6.25 mg PO BID [facility] Stop: 01/10/24 20:59 Last Admin: 12/11/23 19:54 Dose: 6.25 mg Documented By: ANNA Duloxetine HCl (Duloxetine Hcl 60 Mg Cap) 60 mg PO BID [facility] Stop: 01/10/24 20:59 Last Admin: 12/11/23 19:54 Dose: 60 mg Documented By: ANNA Ceftriaxone Sodium (Rocephin) 2,000 mg in 50 mls @ 100 mls/hr IV Q24H [facility] Stop: 12/21/23 18:59 Last Infusion: 12/11/23 20:00 Dose: Infused Documented By: Admin: 12/11/23 19:24 Dose: 100 mls/hr Documented By: ANNA Insulin Aspart (Insulin Aspart Per Unit Charge) 0 units SC [facility] Stop: 01/10/24 18:34 Last Admin: 12/11/23 21:08 Dose: Not Given Documented By: Admin: 12/11/23 21:07 Dose: Not Given Documented By: ANNA Magnesium Oxide (Magnesium Oxide 400 Mg Tab) 400 mg PO [facility] Stop: 01/10/24 20:59 Last Admin: 12/11/23 19:56 Dose: 400 mg Documented By: ANNA Memantine (Memantine Hcl 5 Mg Tab) 5 mg PO BID [facility] Stop: 01/10/24 20:59 Last Admin: 12/11/23 19:55 Dose: 5 mg Documented By: ANNA Fluorometholone 0.1% Opth--Non-Formulary Patient's Own Med 1 each OP [facility] Stop: 01/10/24 20:59 Last Admin: 12/11/23 22:30 Dose: 1 ea Documented By: ANNA Pregabalin (Pregabalin 150 Mg Cap) 150 mg PO BID [facility] Stop: 01/10/24 20:59 Last Admin: 12/11/23 21:09 Dose: 150 mg Documented By: ANNA Ropinirole HCl (Ropinirole Hcl 0.25 Mg Tablet) 0.5 mg PO [facility] Stop: 01/10/24 20:59 Last Admin: 12/11/23 19:54 Dose: 0.5 mg Documented By: ANNA Tamsulosin HCl (Tamsulosin Hcl 0.4 Mg Cap) 0.4 mg PO HS [facility] Stop: 01/10/24 20:59 Last Admin: 12/11/23 19:58 Dose: 0.4 mg Documented By: ANNA Zolpidem Tartrate (Zolpidem Tartrate 5 Mg Tab) 5 mg PO HS [facility]; Protocol Stop: 01/10/24 20:59 Last Admin: 12/11/23 22:24 Dose: 5 mg Documented By: ANNA Discontinued Medications Sodium Chloride (Nss) 500 mls @ 500 mls/hr IV .Q1H ONE Stop: 12/11/23 12:09 Last Infusion: 12/11/23 12:27 Dose: Infused Documented By: Admin: 12/11/23 11:17 Dose: 500 mls/hr Documented By: TIERRA Ioversol (Optiray 320 125ml) 120 ml IV ONCE ONE Stop: 12/11/23 10:51 Last Admin: 12/11/23 10:50 Dose: 120 ml Documented By: IOANA Miscellaneous (Order Awaiting Action [Fluorometholone 0.1 % Drops,Suspension]) 1 each N/A QS [facility] Stop: 01/10/24 15:59 Last Admin: 12/11/23 19:10 Dose: Not Given Documented By: ANNA Medical Decision Making Laboratory Data 12/11/23 09:20 12/11/23 09:20 Lab Results 12/11/23 12/11/23 12/11/23 Range/Units 09:20 09:20 09:51 WBC 9.33 (4.8-10.8) K/ul RBC 4.76 (4.70-6.10) M/uL Hgb 14.6 (14.0-18.0) g/dl Hct 43.7 (42.0-52.0) % MCV 91.8 (80.0-100.0) fL MCH 30.7 (25.0-34.0) pg MCHC 33.4 (32.0-36.0) g/dL RDW Std Deviation 48.7 H (36.4-46.3) fL RDW Coeff of Gena 14.6 H (11.5-14.5) % Plt Count 145 (130-400) K/uL MPV 11.2 (9.4-12.4) fL Immature Gran % (Auto) 0.6 % Neut % (Auto) 70.5 % Lymph % (Auto) 16.7 % Emery % (Auto) 5.8 % Eos % (Auto) 5.9 % Baso % (Auto) 0.5 % Neut # (Auto) 6.57 H (1.40-6.50) K/uL Lymph # (Auto) 1.56 (1.20-3.40) K/uL Emery # (Auto) 0.54 (0.11-0.59) K/uL Eos # (Auto) 0.55 H (0.00-0.50) K/uL Baso # (Auto) 0.05 (0.00-0.20) K/uL Immature Gran # (Auto) 0.06 (0.01-0.20) K/uL PT 10.5 (9.0-12.0) Seconds INR 1.0 (0.9-1.1) APTT 26 (21-31) Seconds PTT Ratio 1.0 Sodium 141 (136-145) mmol/L Potassium 3.8 (3.5-5.1) mmol/L Chloride 107 (98-107) mmol/L Carbon Dioxide 27 (21-32) mmol/L Anion Gap 7 (3-11) BUN 25 H (6-23) mg/dl Creatinine 1.27 (0.6-1.4) mg/dl Est Cr Clr Drug Dosing 42.0 ml/min Est GFR ( Amer) 57.7 ml/min Est GFR (Non-Af Amer) 49.8 ml/min BUN/Creatinine Ratio 19.7 (10-20) Glucose 176 H (70-99(Fasting)) mg/dl Lactate (0.4-2.0) mmol/L Calcium 9.3 (8.6-10.3) mg/dl Magnesium 2.0 (1.7-2.4) mg/dl Total Bilirubin 0.3 (0.2-1.0) mg/dl AST 12 L (13-39) U/L ALT 9 (7-52) U/L Alkaline Phosphatase 88 (34-104) U/L Troponin I High Sens 11.4 (0-20) pg/ml Total Protein 7.0 (6.0-8.3) gm/dl Albumin 3.9 (3.4-5.0) gm/dl Globulin 3.1 (2.5-4.0) gm/dl Albumin/Globulin Ratio 1.3 (0.9-2) Lipase 7 L (11-82) U/L Procalcitonin Cancelled < 0.02 TSH 2.782 (0.300-4.500) uIu/ml Adenovirus (PCR) Not Detected (NotDetected) B. pertussis DNA (PCR) Not Detected (NotDetected) B.parapertussis DNA PCR Not Detected (NotDetected) Lyme Disease Screen Positive H (Negative) Lyme Disease IgG Ab Positive H (Negative) Lyme Disease IgM Ab Positive H (Negative) C. pneumoniae DNA (PCR) Not Detected (NotDetected) Coronavirus OC43 (PCR) Not Detected (NotDetected) Coronavirus HKU1 (PCR) Not Detected (NotDetected) Coronavirus 229E (PCR) Not Detected (NotDetected) SARS-CoV-2 (PCR) Not Detected (NotDetected) Coronavirus NL63 (PCR) Not Detected (NotDetected) Human Metapneumovir PCR Not Detected (NotDetected) Influenza Type A (PCR) Not Detected (NotDetected) Influenza Type B (PCR) Not Detected (NotDetected) M. pneumoniae (PCR) Not Detected (NotDetected) Parainfluenza 1 (PCR) Not Detected (NotDetected) Parainfluenza 2 (PCR) Not Detected (NotDetected) Parainfluenza 3 (PCR) Not Detected (NotDetected) Parainfluenza 4 (PCR) Not Detected (NotDetected) RSV (PCR) Not Detected (NotDetected) Entero/Rhino (PCR) Not Detected (NotDetected) 12/11/23 Range/Units 10:00 WBC (4.8-10.8) K/ul RBC (4.70-6.10) M/uL Hgb (14.0-18.0) g/dl Hct (42.0-52.0) % MCV (80.0-100.0) fL MCH (25.0-34.0) pg MCHC (32.0-36.0) g/dL RDW Std Deviation (36.4-46.3) fL RDW Coeff of Gena (11.5-14.5) % Plt Count (130-400) K/uL MPV (9.4-12.4) fL Immature Gran % (Auto) % Neut % (Auto) % Lymph % (Auto) % Emery % (Auto) % Eos % (Auto) % Baso % (Auto) % Neut # (Auto) (1.40-6.50) K/uL Lymph # (Auto) (1.20-3.40) K/uL Emery # (Auto) (0.11-0.59) K/uL Eos # (Auto) (0.00-0.50) K/uL Baso # (Auto) (0.00-0.20) K/uL Immature Gran # (Auto) (0.01-0.20) K/uL PT (9.0-12.0) Seconds INR (0.9-1.1) APTT (21-31) Seconds PTT Ratio Sodium (136-145) mmol/L Potassium (3.5-5.1) mmol/L Chloride (98-107) mmol/L Carbon Dioxide (21-32) mmol/L Anion Gap (3-11) BUN (6-23) mg/dl Creatinine (0.6-1.4) mg/dl Est Cr Clr Drug Dosing ml/min Est GFR ( Amer) ml/min Est GFR (Non-Af Amer) ml/min BUN/Creatinine Ratio (10-20) Glucose (70-99(Fasting)) mg/dl Lactate 1.6 (0.4-2.0) mmol/L Calcium (8.6-10.3) mg/dl Magnesium (1.7-2.4) mg/dl Total Bilirubin (0.2-1.0) mg/dl AST (13-39) U/L ALT (7-52) U/L Alkaline Phosphatase (34-104) U/L Troponin I High Sens (0-20) pg/ml Total Protein (6.0-8.3) gm/dl Albumin (3.4-5.0) gm/dl Globulin (2.5-4.0) gm/dl Albumin/Globulin Ratio (0.9-2) Lipase (11-82) U/L Procalcitonin TSH (0.300-4.500) uIu/ml Adenovirus (PCR) (NotDetected) B. pertussis DNA (PCR) (NotDetected) B.parapertussis DNA PCR (NotDetected) Lyme Disease Screen (Negative) Lyme Disease IgG Ab (Negative) Lyme Disease IgM Ab (Negative) C. pneumoniae DNA (PCR) (NotDetected) Coronavirus OC43 (PCR) (NotDetected) Coronavirus HKU1 (PCR) (NotDetected) Coronavirus 229E (PCR) (NotDetected) SARS-CoV-2 (PCR) (NotDetected) Coronavirus NL63 (PCR) (NotDetected) Human Metapneumovir PCR (NotDetected) Influenza Type A (PCR) (NotDetected) Influenza Type B (PCR) (NotDetected) M. pneumoniae (PCR) (NotDetected) Parainfluenza 1 (PCR) (NotDetected) Parainfluenza 2 (PCR) (NotDetected) Parainfluenza 3 (PCR) (NotDetected) Parainfluenza 4 (PCR) (NotDetected) RSV (PCR) (NotDetected) Entero/Rhino (PCR) (NotDetected) Imaging Data Radiologist's Impression: Head CT 12/11/23 09:36 CT head/brain wo con CLINICAL HISTORY: dizziness Technique: Contiguous axial CT images of the head were acquired from the base of the skull to the vertex without intravenous contrast administration. Images were viewed in brain, subdural and bone windows. Automated dose lowering techniques and/or adjustment according to patient size were utilized for this exam. Comparison: Comparison is made to CT head 03/09/2023 Findings: Areas of decreased attenuation are present in the periventricular and subcortical white matter bilaterally consistent with small vessel ischemic disease. Generalized cerebral atrophy with commensurate enlargement of the ventricles, sulci, and cisterns is also present. There is no acute intracranial hemorrhage or evidence of acute territorial infarction. No shift of the midline structures, mass effect, or extra-axial abnormalities are shown. Atherosclerotic calcifications are present in the intracranial segments of the internal carotid arteries. Imaged portions of the paranasal sinuses and mastoid air cells are clear. The orbits appear normal. There are no acute fractures of the calvaria or scalp swelling. Impression: No acute intracranial hemorrhage, no evidence of acute territorial infarction or other acute intracranial disease process. ACT 112: Negative or not required by law. Electronically signed by: Bishnu Rojas M.D. 12/11/2023 11:06 AM Chest CTA 12/11/23 09:44 CT angio chest PE protocol HISTORY: 88 years-old Male with dizziness, nausea, weakness, hypoxia. Acute shortness of breath TECHNIQUE: Multiple CTA images of the chest were obtained after the intravenous administration of 120 ml Optiray. Coronal and sagittal MIPS were obtained from the axial data set and were submitted for review. All measurements were obtained according to NASCET criteria. A dose lowering technique was utilized adhering to the principles of ALARA. COMPARISON: Chest radiograph of same day, chest CT 12/17/2022, 10/15/2022 FINDINGS: CTA: Mild cardiomegaly. Moderate coronary artery calcifications. No pericardial effusion. Atherosclerosis of the aorta without aneurysm or dissection. 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 No pulmonary emboli identified. CT CHEST: Unremarkable thyroid. Calcified mediastinal and hilar lymph nodes. No pneumothorax or pleural effusion. Large hiatal hernia with diffuse esophageal wall thickening. 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 No airspace consolidation typical for pneumonia. 7 mm solid nodule in the left lower lobe on image 144 is unchanged. 6 cm fissural nodule the right midlung on image 220 is also stable and likely benign. 7 mm left upper lobe pulmonary nodule, image 327. Respiratory motion artifact limits evaluation of the lungs. No acute upper abdominal abnormality. No acute fracture. IMPRESSION: 1. No pulmonary emboli identified. 2. No pleural effusion or airspace consolidation typical for pneumonia. 3. 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 4. Large hiatal hernia with esophageal wall thickening redemonstrated. 5. Stable subcentimeter bilateral solid pulmonary nodules redemonstrated with a new 7 mm nodule within the apical posterior segment left upper lobe. Follow-up guidelines below. Please refer to below summary of Fleischner criteria recommendations for follow- up of incidental CT nodules (Jose Gutierrez, Guidelines for management of small pulmonary nodules detected on CT scans: A statement from the Fleischner Society, Radiology 237: [phone].) SOLID NODULES Multiple nodules size: <6 mm * Low risk patients: no routine follow-up * high risk patients: optional CT at 12 months Multiple nodules size: 6-8 mm * Low risk patients: follow-up at 3-6 months, then consider further follow-up at 18-24 months * high risk patients: follow-up at 3-6 months, then at 18-24 months if no change Multiple nodules size: >8 mm * Low risk patients: follow-up at 3-6 months, then consider further follow-up at 18-24 months * high risk patients: follow-up at 3-6 months, then at 18-24 months if no change Note: newly detected indeterminate nodule in persons 35 years of age or older. * Low risk patients: minimal or absent history of smoking and/or other known risk factors * high risk patients: history of smoking or of other known risk factors (e.g. first degree relative with lung cancer, or exposure to asbestos, radon, uranium) * if a nodule up to 8 mm is partly solid or is ground glass further follow-up is required after 24 months to exclude possible slow growing adenocarcinoma (CHRISTEN) ACT 112: Negative or not required by law. The above report was generated using voice recognition software. It may contain grammatical, syntax or spelling errors. Electronically signed by: Gigi Carey M.D. 12/11/2023 11:36 AM Head CTA 12/11/23 09:44 CT ANGIOGRAM OF THE BRAIN; CT ANGIOGRAM OF THE NECK CLINICAL HISTORY: Dizziness. Nausea and weakness. COMPARISON STUDY: Unenhanced CT of the brain performed concurrently on 12/11/2023. TECHNIQUE: Following the IV administration of 120 of Optiray 320, CT angiogram of the head and neck was performed from the aortic arch to the vertex. Images are reviewed in the axial, sagittal, and coronal planes. 3-D MIPS images are created and assessed. IV contrast was administered without complication. All measurements were calculated based on NASCET criteria. A dose lowering technique was utilized adhering to the principles of ALARA. CT DOSE: 1840.91 mGy.cm FINDINGS: Brain parenchyma: There is age related involutional change noting moderate subcortical and periventricular microangiopathic disease. There is no evidence of hemorrhage, mass effect, or acute territorial ischemia noting angiographic phase technique. There is no evidence of enhancing mass lesion on the angiogram phase images. The ventricles, sulci, and cisterns are prominent secondary to notable change. Espinoza-white matter differentiation is preserved. No extra-axial fluid collection is seen. Thoracic aorta: There is atherosclerotic calcification of the thoracic aorta. Visualized portions of the thoracic aorta are normal in caliber. The aortic arch demonstrates standard 3-vessel anatomy. Right carotid arterial system: The right common carotid artery is widely patent noting atherosclerotic plaque and irregularity. There is advanced atherosclerotic plaque in the carotid bulb and proximal ICA. This causes less than 50% stenosis of the proximal internal carotid artery. There is mild stenosis at the origin of the right external carotid artery. The internal and external carotid arteries are otherwise widely patent. Left carotid arterial system: The left common carotid artery is widely patent and advanced atherosclerotic plaque and irregularity. Advanced plaque is seen in the carotid bulb. This causes less than 50% narrowing at the origin of the left internal carotid artery. Internal and external carotid arteries are widely patent. Vertebral arteries: Widely patent bilaterally noting right-sided dominance. Subclavian arteries: Widely patent bilaterally. Intracranial vasculature: There is atherosclerotic calcification of the cavernous carotid and vertebral arteries. The internal carotid arteries are patent at the skull base, as are the anterior and middle cerebral arteries bilaterally. The vertebral and basilar arteries are patent, as is the right posterior cerebral artery. There is no flow seen within the mid to distal left posterior cerebral artery. The right vertebral artery is dominant. There is origin of the right posterior cerebral artery. A large posterior communicating artery is seen on the left. There is no aneurysm, high-grade stenosis, or focal vessel cut off seen throughout the intracranial circulation. Jugular veins: Patent bilaterally. Dural sinuses: Patent. Lung apices: Calcific pleural plaques are partially visualized in both lungs. A calcified granuloma seen at the right apex. A 7 mm left upper lobe nodule is seen on image #23. Soft tissues: The visualized pharyngeal soft tissues are normal in appearance noting angiographic phase technique. The oropharyngeal airway appears widely patent. The salivary and thyroid glands are normal in appearance. No cervical lymphadenopathy is seen. Skeletal structures: The skeletal structures are osteopenic. The calvarium appears intact. The cervical spine is maintained noting multilevel spondylosis. Orbits: The bony orbits are intact. Orbital contents are normal as visualized noting bilateral ocular lens implants. Sinuses and mastoids: The paranasal sinuses are clear. The mastoid air cells are well pneumatized. IMPRESSION: 1. There is no evidence of hemorrhage, mass effect, or acute territorial ischemia noting angiographic phase technique. 2. No flow is clearly seen within the mid to distal left posterior cerebral artery. Ischemia is not excluded. Consider MRI for further assessment. 3. Otherwise unremarkable CT angiogram of the brain. 4. Atherosclerotic plaque causes less than 50% luminal narrowing of the proximal internal carotid artery bilaterally. 5. Additional findings as above. ACT 112: Negative or not required by law. Electronically signed by: Aroldo Doan M.D. 12/11/2023 11:25 AM Neck CTA 12/11/23 09:44 CT ANGIOGRAM OF THE BRAIN; CT ANGIOGRAM OF THE NECK CLINICAL HISTORY: Dizziness. Nausea and weakness. COMPARISON STUDY: Unenhanced CT of the brain performed concurrently on 12/11/2023. TECHNIQUE: Following the IV administration of 120 of Optiray 320, CT angiogram of the head and neck was performed from the aortic arch to the vertex. Images are reviewed in the axial, sagittal, and coronal planes. 3-D MIPS images are created and assessed. IV contrast was administered without complication. All measurements were calculated based on NASCET criteria. A dose lowering technique was utilized adhering to the principles of ALARA. CT DOSE: 1840.91 mGy.cm FINDINGS: Brain parenchyma: There is age related involutional change noting moderate subcortical and periventricular microangiopathic disease. There is no evidence of hemorrhage, mass effect, or acute territorial ischemia noting angiographic phase technique. There is no evidence of enhancing mass lesion on the angiogram phase images. The ventricles, sulci, and cisterns are prominent secondary to notable change. Espinoza-white matter differentiation is preserved. No extra-axial fluid collection is seen. Thoracic aorta: There is atherosclerotic calcification of the thoracic aorta. Visualized portions of the thoracic aorta are normal in caliber. The aortic arch demonstrates standard 3-vessel anatomy. Right carotid arterial system: The right common carotid artery is widely patent noting atherosclerotic plaque and irregularity. There is advanced atherosclerotic plaque in the carotid bulb and proximal ICA. This causes less than 50% stenosis of the proximal internal carotid artery. There is mild stenosis at the origin of the right external carotid artery. The internal and external carotid arteries are otherwise widely patent. Left carotid arterial system: The left common carotid artery is widely patent and advanced atherosclerotic plaque and irregularity. Advanced plaque is seen in the carotid bulb. This causes less than 50% narrowing at the origin of the left internal carotid artery. Internal and external carotid arteries are widely patent. Vertebral arteries: Widely patent bilaterally noting right-sided dominance. Subclavian arteries: Widely patent bilaterally. Intracranial vasculature: There is atherosclerotic calcification of the cavernous carotid and vertebral arteries. The internal carotid arteries are patent at the skull base, as are the anterior and middle cerebral arteries bilaterally. The vertebral and basilar arteries are patent, as is the right posterior cerebral artery. There is no flow seen within the mid to distal left posterior cerebral artery. The right vertebral artery is dominant. There is origin of the right posterior cerebral artery. A large posterior communicating artery is seen on the left. There is no aneurysm, high-grade stenosis, or focal vessel cut off seen throughout the intracranial circulation. Jugular veins: Patent bilaterally. Dural sinuses: Patent. Lung apices: Calcific pleural plaques are partially visualized in both lungs. A calcified granuloma seen at the right apex. A 7 mm left upper lobe nodule is seen on image #23. Soft tissues: The visualized pharyngeal soft tissues are normal in appearance noting angiographic phase technique. The oropharyngeal airway appears widely patent. The salivary and thyroid glands are normal in appearance. No cervical lymphadenopathy is seen. Skeletal structures: The skeletal structures are osteopenic. The calvarium appears intact. The cervical spine is maintained noting multilevel spondylosis. Orbits: The bony orbits are intact. Orbital contents are normal as visualized noting bilateral ocular lens implants. Sinuses and mastoids: The paranasal sinuses are clear. The mastoid air cells are well pneumatized. IMPRESSION: 1. There is no evidence of hemorrhage, mass effect, or acute territorial ischemia noting angiographic phase technique. 2. No flow is clearly seen within the mid to distal left posterior cerebral artery. Ischemia is not excluded. Consider MRI for further assessment. 3. Otherwise unremarkable CT angiogram of the brain. 4. Atherosclerotic plaque causes less than 50% luminal narrowing of the proximal internal carotid artery bilaterally. 5. Additional findings as above. ACT 112: Negative or not required by law. Electronically signed by: Aroldo Doan M.D. 12/11/2023 11:25 AM Brain MRI 12/11/23 11:58 MRI OF THE BRAIN WITHOUT IV CONTRAST CLINICAL HISTORY: Vertigo. Dizziness. Abnormal CT angiogram of the brain. COMPARISON STUDY: CT and CT angiogram of the brain dated 12/11/2023. TECHNIQUE: MRI of the brain was performed utilizing various T1 and T2-weighted sequences in the axial, sagittal, and coronal planes. IV contrast was not administered for this examination. FINDINGS: Brain parenchyma: There is age related involutional change noting moderate subcortical and periventricular microangiopathic disease. There is no hemorrhage or mass effect. There is no restricted diffusion typical for acute ischemia. Espinoza-white matter differentiation is preserved. No extra-axial fluid collection is seen. The cerebellar tonsils are normal in configuration. Ventricles, sulci, and cisterns: Prominent circumferential change. Pituitary and sella: Unremarkable. Intracranial vasculature: Normal flow voids are maintained at the skull base. Orbits: The bony orbits are grossly intact. Orbital contents are normal in appearance noting bilateral ocular lens implant. Sinuses and mastoids: Clear. Calvarium: Unremarkable. Cervical cord: Partially visualized cervical spinal cord is normal in morphology and signal intensity. IMPRESSION: No acute intracranial abnormality is identified. Specifically, there is no MR evidence of left [employer] territory ischemia ACT 112: Negative or not required by law. Electronically signed by: Aroldo Doan M.D. 12/11/2023 12:55 PM [facility] Narrative Patient was seen and evaluated as above in room B11. Review was performed of triage nursing notes and vital signs. I did review pertinent previous visits and patient history. After obtaining a thorough history and physical examination the above work up was performed. Patient presents to us today for evaluation of dizziness, diaphoresis and nausea. Patient tired appearing on exam but without deficit. He is neurovascularly intact. GCS 15. No reported trauma or injury. No signs of trauma or injury on assessment. He denies any chest pain. EKG was reviewed and reveals sinus bradycardia with first-degree AV block at a rate of 59 bpm. QTc 413. QRS 108. No ST elevation. NIHSS 0. IV access was already established. Labs were drawn. CT scan of the head as well as chest x-ray were ordered. Angios were also ordered of the head, neck and chest to further evaluate. Patient's NIH scale is 0. Labs reveal no leukocytosis or concerning anemia. Coags normal. No emergent metabolic disturbance. Elevation of BUN at 25. Hyperglycemia 176. Troponin within normal range. Procalcitonin less than 0.02. TSH reveals euthyroid state. Patient has a positive Lyme screen. Chest x-ray is as above and with chronic findings. CT angio is as above and specifically will note that, #2 one of the angio head/neck reveals no flow clearly seen within the mid to distal left posterior cerebral artery. The patient denies any vision changes at this time. His main concern is vertigo/dizziness. MRI of the brain recommended and was ordered. As the patient is clear that his onset of symptoms was around 8 AM, I did proceed with discussion with the [place] telestroke team. I spoke with the [place] stroke service, Dr. Rajan Cárdenas. We reviewed the case. Per review of the EMR patient currently on aspirin 81 mg daily. Will hold off on further antiplatelet at this time. Statin may also be considered as well as checking lipid and A1c. Dr. Cárdenas currently awaiting imaging review and he notes he will reach back out if change in management is needed. I discussed this with the hospitalist service. Please refer to further documentation regarding his stay. GCS: 15 In the evaluation and treatment of this patient the following differential diagnoses were entertained: CVA, TIA, dissection, electrolyte disturbance, hypoglycemia, Lyme disease, among others. Impression & Plan Vertigo, Diaphoresis, Fatigue Discharge Plan Visit Data Chief Complaint: Dizziness Stated Complaint: DIZZINESS ED Provider: Carlos Marr ED Midlevel Provider: Guille Flores Discharge Problem: Vertigo, Diaphoresis, Fatigue Patient Disposition: Admitted As Inpatient Condition: Good Discharge Instructions Interventions: ED Discharge Assessment Last Done: 12/11/23 19:45
--- NOTE | 2023-12-11 09:54 | XRay Report ---
XR chest 1V portable CLINICAL HISTORY: dizziness TECHNIQUE: Single frontal radiograph of the chest was obtained. Comparison: Comparison is made to chest radiograph 03/09/[address] chest 12/17/2022 FINDINGS: No lines and tubes are seen. Cardiomegaly is noted. Densities compatible with bilateral pleural plaqu es seen. No evidence of pleural effusion or pneumothorax. IMPRESSION: Pleural calcifications again seen compatible with asbestos related pleural disease. No superimposed a bnormalities are seen. ACT 112: Negative or not required by law. Electronically signed by: Bishnu Rojas M.D. 12/11/2023 9:52 AM
[2023-12-11 10:01] LABS: Basophils # (auto) 0.05 K/uL (0.00-0.20); Basophils % (auto) 0.5 %; Eosinophils # (auto) 0.55 K/uL (0.00-0.50); Eosinophils % (auto) 5.9 %; Hematocrit (blood only) 43.7 % (42.0-52.0); Hemoglobin 14.6 g/dl (14.0-18.0); Immature Granulocytes # (auto) 0.06 K/uL (0.01-0.20); Immature Granulocytes % (auto) 0.6 %; Lymphocytes # (auto) 1.56 K/uL (1.20-3.40); Lymphocytes % (auto) 16.7 %; Mean Corpuscular Hemoglobin 30.7 pg (25.0-34.0); Mean Corpuscular Hgb Conc 33.4 g/dL (32.0-36.0); Mean Corpuscular Volume 91.8 fL (80.0-100.0); Mean Platelet Volume 11.2 fL (9.4-12.4); Monocytes # (auto) 0.54 K/uL (0.11-0.59); Monocytes % (auto) 5.8 %; Neutrophils # (auto) 6.57 K/uL (1.40-6.50); Neutrophils % (auto) 70.5 %; Platelet Count 145 K/uL (130-400); RDW Coefficient of Variation 14.6 % (11.5-14.5); RDW Standard Deviation 48.7 fL (36.4-46.3); Red Blood Count 4.76 M/uL (4.70-6.10); White Blood Count 9.33 K/ul (4.8-10.8)
[2023-12-11 10:16] LABS: Albumin Globulin Ratio 1.3 (0.9-2); Albumin Level 3.9 gm/dl (3.4-5.0); BUN Creatinine Ratio 19.7 (10-20); Bilirubin,Total 0.3 mg/dl (0.2-1.0); Calcium 9.3 mg/dl (8.6-10.3); Est GFR (African American) 57.7 ml/min; Est GFR (Non-African American) 49.8 ml/min; Globulin 3.1 gm/dl (2.5-4.0); Potassium 3.8 mmol/L (3.5-5.1)
[2023-12-11 10:22] LABS: Troponin I High Sensitivity 11.4 pg/ml (0-20)
[2023-12-11 10:27] LABS: Partial Thromboplastin Time 26 Seconds (21-31); Prothrombin Time 10.5 Seconds (9.0-12.0)
[2023-12-11 10:31] LABS: Procalcitonin < 0.02 ng/ml (0-0.5); Thyroid Stimulating Hormone 2.782 uIu/ml (0.300-4.500)
[2023-12-11] MEDS: OPTIRAY 320 125ml IV ONE (10:50)
[2023-12-11 10:56] LABS: Lyme Screen Rflx Confirmation Positive (Negative)
[2023-12-11 11:05] LABS: Adenovirus PCR Not Detected (NotDetected); Bordetella parapertussis PCR Not Detected (NotDetected); Bordetella pertussis PCR Not Detected (NotDetected); Chlamydia pneumoniae PCR Not Detected (NotDetected); Coronavirus 229E PCR Not Detected (NotDetected); Coronavirus CoV-2 (COVID19)PCR Not Detected (NotDetected); Coronavirus HKU1 PCR Not Detected (NotDetected); Coronavirus NL63 PCR Not Detected (NotDetected); Coronavirus OC43PCR Not Detected (NotDetected); Human Metapneumovirus PCR Not Detected (NotDetected); Influenza A PCR Not Detected (NotDetected); Influenza B PCR Not Detected (NotDetected); Mycoplasma pneumoniae PCR Not Detected (NotDetected); Parainfluenza Virus 1 PCR Not Detected (NotDetected); Parainfluenza Virus 2 PCR Not Detected (NotDetected); Parainfluenza Virus 3 PCR Not Detected (NotDetected); Parainfluenza Virus 4 PCR Not Detected (NotDetected); Respiratory Syncytial VirusPCR Not Detected (NotDetected); Rhinovirus/Enterovirus PCR Not Detected (NotDetected)
--- NOTE | 2023-12-11 11:07 | CT Scan Report ---
CT head/brain wo con CLINICAL HISTORY: dizziness Technique: Contiguous axial CT images of the head were acquired from the base of the skull to the jerrell castro without intravenous contrast administration. Images were viewed in brain, subdural and bone [facility]. Automated dose lowering techniques and/or adjustment according to patient size were utilized for this exam. Comparison: Comparison is made to CT head 03/09/2023 Findings: Areas of decreased attenuation are present in the periventricular and subcortical white matter bilate rally consistent with small vessel ischemic disease. Generalized cerebral atrophy with commensurate e nlargement of the ventricles, sulci, and cisterns is also present. There is no acute intracranial hem orrhage or evidence of acute territorial infarction. No shift of the midline structures, mass effect, or extra-axial abnormalities are shown. Atherosclerotic calcifications are present in the intracran ial segments of the internal carotid arteries. Imaged portions of the paranasal sinuses and mastoid air cells are clear. The orbits appear normal. There are no acute fractures of the calvaria or scalp swelling. Impression: No acute intracranial hemorrhage, no evidence of acute territorial infarction or other acute intracra nial disease process. ACT 112: Negative or not required by law. Electronically signed by: Bishnu Rojas M.D. 12/11/2023 11:06 AM
[2023-12-11] MEDS: SODIUM CHLORIDE 0.9% 500 ML IV ONE (11:17)
--- NOTE | 2023-12-11 11:27 | CT Scan Report ---
CT ANGIOGRAM OF THE BRAIN; CT ANGIOGRAM OF THE NECK CLINICAL HISTORY: Dizziness. Nausea and weakness. COMPARISON STUDY: Unenhanced CT of the brain performed concurrently on 12/11/2023. TECHNIQUE: Following the IV administration of 120 of Optiray 320, CT angiogram of the head and neck w as performed from the aortic arch to the vertex. Images are reviewed in the axial, sagittal, and julissa nal planes. 3-D MIPS images are created and assessed. IV contrast was administered without complicati on. All measurements were calculated based on NASCET criteria. A dose lowering technique was utilize d adhering to the principles of ALARA. CT DOSE: 1840.91 mGy.cm FINDINGS: Brain parenchyma: There is age related involutional change noting moderate subcortical and periventri cular microangiopathic disease. There is no evidence of hemorrhage, mass effect, or acute territorial ischemia noting angiographic phase technique. There is no evidence of enhancing mass lesion on the a ngiogram phase images. The ventricles, sulci, and cisterns are prominent secondary to notable change. Espinoza-white matter differentiation is preserved. No extra-axial fluid collection is seen. Thoracic aorta: There is atherosclerotic calcification of the thoracic aorta. Visualized portions of the thoracic aorta are normal in caliber. The aortic arch demonstrates standard 3-vessel anatomy. Right carotid arterial system: The right common carotid artery is widely patent noting atheroscleroti c plaque and irregularity. There is advanced atherosclerotic plaque in the carotid bulb and proximal ICA. This causes less than 50% stenosis of the proximal internal carotid artery. There is mild stenos is at the origin of the right external carotid artery. The internal and external carotid arteries are otherwise widely patent. Left carotid arterial system: The left common carotid artery is widely patent and advanced atheroscle rotic plaque and irregularity. Advanced plaque is seen in the carotid bulb. This causes less than 50% narrowing at the origin of the left internal carotid artery. Internal and external carotid arteries are widely patent. Vertebral arteries: Widely patent bilaterally noting right-sided dominance. Subclavian arteries: Widely patent bilaterally. Intracranial vasculature: There is atherosclerotic calcification of the cavernous carotid and vertebr al arteries. The internal carotid arteries are patent at the skull base, as are the anterior and midd le cerebral arteries bilaterally. The vertebral and basilar arteries are patent, as is the right post erior cerebral artery. There is no flow seen within the mid to distal left posterior cerebral artery. The right vertebral artery is dominant. There is origin of the right posterior cerebral artery . A large posterior communicating artery is seen on the left. There is no aneurysm, high-grade stenos is, or focal vessel cut off seen throughout the intracranial circulation. Jugular veins: Patent bilaterally. Dural sinuses: Patent. Lung apices: Calcific pleural plaques are partially visualized in both lungs. A calcified granuloma s een at the right apex. A 7 mm left upper lobe nodule is seen on image #23. Soft tissues: The visualized pharyngeal soft tissues are normal in appearance noting angiographic pha se technique. The oropharyngeal airway appears widely patent. The salivary and thyroid glands are nor mal in appearance. No cervical lymphadenopathy is seen. Skeletal structures: The skeletal structures are osteopenic. The calvarium appears intact. The cervic al spine is maintained noting multilevel spondylosis. Orbits: The bony orbits are intact. Orbital contents are normal as visualized noting bilateral ocular lens implants. Sinuses and mastoids: The paranasal sinuses are clear. The mastoid air cells are well pneumatized. IMPRESSION: 1. There is no evidence of hemorrhage, mass effect, or acute territorial ischemia noting angiographic phase technique. 2. No flow is clearly seen within the mid to distal left posterior cerebral artery. Ischemia is not e xcluded. Consider MRI for further assessment. 3. Otherwise unremarkable CT angiogram of the brain. 4. Atherosclerotic plaque causes less than 50% luminal narrowing of the proximal internal carotid art erica bilaterally. 5. Additional findings as above. ACT 112: Negative or not required by law. Electronically signed by: Aroldo Doan M.D. 12/11/2023 11:25 AM
[2023-12-11 11:30] LABS: Lyme Ab IgG 2nd Tier Confirm Positive (Negative); Lyme Ab IgM 2nd Tier Confirm Positive (Negative)
--- NOTE | 2023-12-11 11:37 | CT Scan Report ---
CT angio chest PE protocol HISTORY: 88 years-old Male with dizziness, nausea, weakness, hypoxia. Acute shortness of breath TECHNIQUE: Multiple CTA images of the chest were obtained after the intravenous administration of 120 ml Optiray. Coronal and sagittal MIPS were obtained from the axial data set and were submitted for review. All measurements were obtained according to NASCET criteria. A dose lowering technique was u tilized adhering to the principles of ALARA. COMPARISON: Chest radiograph of same day, chest CT 12/17/2022, 10/15/2022 FINDINGS: CTA: Mild cardiomegaly. Moderate coronary artery calcifications. No pericardial effusion. Atherosclerosis of the aorta without aneurysm or dissection. 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 No pulmonary emboli identified. CT CHEST: Unremarkable thyroid. Calcified mediastinal and hilar lymph nodes. No pneumothorax or pleural effusio n. Large hiatal hernia with diffuse esophageal wall thickening. 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 No airspace consolidation typical for pneumonia. 7 mm solid nodule in the left lower lobe on image 144 is unchanged. 6 cm fissural nodule the right m idlung on image 220 is also stable and likely benign. 7 mm left upper lobe pulmonary nodule, image 32 7. Respiratory motion artifact limits evaluation of the lungs. No acute upper abdominal abnormality. No acute fracture. IMPRESSION: 1. No pulmonary emboli identified. 2. No pleural effusion or airspace consolidation typical for pneumonia. 3. 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 4. Large hiatal hernia with esophageal wall thickening redemonstrated. 5. Stable subcentimeter bilateral solid pulmonary nodules redemonstrated with a new 7 mm nodule withi n the apical posterior segment left upper lobe. Follow-up guidelines below. Please refer to below summary of Fleischner criteria recommendations for follow-up of incidental CT n odules (Jose Gutierrez, Guidelines for management of small pulmonary nodules detected on CT scans: A sta tement from the Fleischner Society, Radiology 237: [phone].) SOLID NODULES Multiple nodules size: <6 mm * Low risk patients: no routine follow-up * high risk patients: optional CT at 12 months Multiple nodules size: 6-8 mm * Low risk patients: follow-up at 3-6 months, then consider further follow-up at 18-24 months * high risk patients: follow-up at 3-6 months, then at 18-24 months if no change Multiple nodules size: >8 mm * Low risk patients: follow-up at 3-6 months, then consider further follow-up at 18-24 months * high risk patients: follow-up at 3-6 months, then at 18-24 months if no change Note: newly detected indeterminate nodule in persons 35 years of age or older. * Low risk patients: minimal or absent history of smoking and/or other known risk factors * high risk patients: history of smoking or of other known risk factors (e.g. first degree relative with lung cancer, or exposure to asbestos, radon, uranium) * if a nodule up to 8 mm is partly solid or is ground glass further follow-up is required after 24 m onths to exclude possible slow growing adenocarcinoma (CHRISTEN) ACT 112: Negative or not required by law. The above report was generated using voice recognition software. It may contain grammatical, syntax o r spelling errors. Electronically signed by: Gigi Carey M.D. 12/11/2023 11:36 AM
--- NOTE | 2023-12-11 12:56 | Magnetic Resonance Report ---
MRI OF THE BRAIN WITHOUT IV CONTRAST CLINICAL HISTORY: Vertigo. Dizziness. Abnormal CT angiogram of the brain. COMPARISON STUDY: CT and CT angiogram of the brain dated 12/11/2023. TECHNIQUE: MRI of the brain was performed utilizing various T1 and T2-weighted sequences in the axial , sagittal, and coronal planes. IV contrast was not administered for this examination. FINDINGS: Brain parenchyma: There is age related involutional change noting moderate subcortical and periventri cular microangiopathic disease. There is no hemorrhage or mass effect. There is no restricted diffusi on typical for acute ischemia. Espinoza-white matter differentiation is preserved. No extra-axial fluid c ollection is seen. The cerebellar tonsils are normal in configuration. Ventricles, sulci, and cisterns: Prominent circumferential change. Pituitary and sella: Unremarkable. Intracranial vasculature: Normal flow voids are maintained at the skull base. Orbits: The bony orbits are grossly intact. Orbital contents are normal in appearance noting bilatera l ocular lens implant. Sinuses and mastoids: Clear. Calvarium: Unremarkable. Cervical cord: Partially visualized cervical spinal cord is normal in morphology and signal intensity . IMPRESSION: No acute intracranial abnormality is identified. Specifically, there is no MR evidence of left DIRECTOR CHILD territory ischemia ACT 112: Negative or not required by law. Electronically signed by: Aroldo Doan M.D. 12/11/2023 12:55 PM
--- NOTE | 2023-12-11 13:00 | History & Physical Report ---
Date of Service December 11, 2023 Assessment & Plan (1) Neurological symptoms: (2) Episode of dizziness: (3) Lung nodule seen on imaging study: (4) Positive Lyme disease serology: Plan Cuco Araujo is an 88y/o M with PMHx of DM type II w/ peripheral neuropathy, HTN, HLD, hx of L breast cancer s/p mastectomy + chemo/radiation therapy, CKD stage III, asbestosis/COPD, asymptomatic b/l carotid artery stenosis, GERD w/o esophagitis, gouty arthropathy, squamous cell carcinoma s/p Mohs surgery, RLS, sensorineural hearing loss of both ears, dementia, depression, insomnia, BPH w/ LUTS and other problems listed below who presented to the ED via EMS for evaluation following an episode of dizziness and was found to have NO acute ischemic changes on brain MRI. Neurological symptoms Episode of dizziness --> Still having dizziness upon standing and w/ sitting up from a lying position. * Was concern for possible ischemia in the L posterior cerebral artery on head/neck CTA. Guille Flores PA-C spoke w/ [facility] (Dr. Cárdenas) regarding that finding. However, brain MRI was NEGATIVE. Instructed to continue his aspirin, statin therapy. Recommend Hgb A1C, lipid panel in AM. No further input at this time, Dr. Cárdenas will reach out if he has any other rec ommendations. -Received 500mL NSS in ED -Neurology consulted -Fall precautions -Head CT negative -Blood culture pending -UA (+/-) culture pending -EKG w/out any acute changes -Continue TIMBER SPOTTER aspirin -Continuous cardiac monitoring -Lipid panel, Hgb A1C in AM -Repeat CBC, BMP in AM Hx of asbestosis/COPD Lung nodule seen on imaging study --> Chest CTA revealed a new 7mm nodule w/in the apical posterior segment left upper lobe. 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 (unchanged) -No superimposed abnormalities on chest x-ray -Denies any SOB, currently 95% SpO2 on RA -Continue TIMBER SPOTTER PRN albuterol inhaler -Continuous pulse ox monitoring Positive Lyme disease serology -Lyme screen positive on admission -No leukocytosis -Will start IV Rocephin DM type II -Hgb A1C 6.5 on 07/18/23 -Hold TIMBER SPOTTER glipizide -SSI therapy initiated -BSG checks ACHS -Repeat Hgb A1C in AM Hx of b/l corneal transplants -Continue TIMBER SPOTTER anti-rejection eye drops -Son will be bringing these in for him from home HTN -Slightly hypertensive at 189/85 on admission -Continue losartan, carvedilol CKD stage III -Cr 1.27 on admission -Baseline Cr ~1.3 per chart review --> No evidence of MARYSOL Hyperlipidemia -Continue rosuvastatin BPH w/ LUTS -Continue TIMBER SPOTTER medication regimen Hx of dysphagia -Dysphagia screen pending --> Can begin easy to chew, CC diet if he passes -Aspiration precautions Hx of dementia -Continue memantine -Monitor for any signs of delirium throughout hospitalization Other chronic medical conditions/problems: RLS, gouty arthropathy, peripheral neuropathy, persistent insomnia and GERD --> Can continue TIMBER SPOTTER medications for these conditions/problems while admitted. DVT Prophylaxis: SCDs/TEDs - For now Code Status: Full Code PCP: Marcy Diaz MD Dispo: Admit to Med/Surg w/ Telemetry Patient seen in collaboration with Dr. Tidwell. Please see addendum. I spent a total of 75 minutes coordinating, documenting, and providing care for this patient excluding time spent in the performance of separately billed services. This included personally reviewing all current laboratories and imaging studies, medical reconciliation, outpatient chart review and discussion with specialists. This chart was completed in part utilizing Speech Voice Recognition Software. Grammatical errors, random word insertions, pronoun errors, and incomplete sentences are an occasional consequence of this system due to software limitations, ambient noise, and hardware issues. Any formal questions or concerns about the content, text, or information contained within the body of this dictation should be directly addressed to the provider for clarification. History of Present Illness Chief Complaint: Episode of dizziness Primary Care Provider: Marcy Diaz MD Cuco Araujo is an 88y/o M with PMHx of DM type II w/ peripheral neuropathy, HTN, HLD, hx of L breast cancer s/p mastectomy + chemo/radiation therapy, CKD stage III, asbestosis/COPD, asymptomatic b/l carotid artery stenosis, GERD w/o esophagitis, gouty arthropathy, squamous cell carcinoma s/p Mohs surgery, RLS, sensorineural hearing loss of both ears, dementia, depression, insomnia, BPH w/ LUTS and other problems listed below who presented to the ED via EMS for evaluation following an episode of dizziness. History obtained from patient, son at bedside and associated chart review. Patient states that he was attempting to put on his socks this morning while standing ~8AM and suddenly became very dizzy with some associated sweating and nausea. Mentions he was able to sit on the bed nearby, but then subsequently slid down onto the floor from the bed onto his sacral region. Did not hit his head, never lost consciousness. Was able to call EMS himself. States the dizziness was more of a "room-spinning sensation." No episodes of vomiting. Per EMS, patient was found to be hypoxic on room air upon arrival to his house. Was titrated up to 4 L to 94% SpO2. He denies any SOB or chest pain during our discussion. Currently 95% SpO2 on RA. Patient denies any headache or neck pain. States he did not experience any visual changes with this episode of dizziness. Denies any recent illnesses, fever or known sick contacts. States he was feeling well prior to this incidence of dizziness. Notes he does feel somewhat tired and overall weak at this time. Has chronic pain at baseline, unchanged at this time. Not currently dizzy whilst lying in bed. Patient does live at home by himself. Uses walker or cane at baseline. No recent issues with ambulation, denies any recent falls. Allergies Allergy/AdvReac Type Severity Reaction Status Date / Time gabapentin AdvReac Intermediate Diarrhea Verified 12/11/23 14:25 simvastatin AdvReac Intermediate Muscle Pain Verified 12/11/23 14:25 LISBETH Inhibitors AdvReac Mild COUGH Verified 12/11/23 14:25 Home Medications Medication Instructions Recorded Confirmed Type allopurinol 300 mg tablet 300 mg PO QAM 06/02/19 12/11/23 History aspirin 81 mg tablet,delayed 81 mg PO QAM 06/02/19 12/11/23 History release carvedilol 12.5 mg tablet 6.25 mg PO BID 06/02/19 12/11/23 History glipizide 10 mg tablet, extended 10 mg PO BID 06/02/19 12/11/23 History release 24 hr albuterol sulfate 90 mcg/actuation 2 inh inhalation Q4H PRN SOB or 02/05/20 12/11/23 History aerosol inhaler (ProAir HFA) Wheezing omeprazole 40 mg capsule,delayed 40 mg PO DAILY 02/05/20 12/11/23 History release ascorbic acid (vitamin C) 500 mg 500 mg PO DAILY 09/24/20 12/11/23 History chewable tablet (Vitamin C) cholecalciferol (vitamin D3) 50 50 mcg PO QAM 09/24/20 12/11/23 History mcg (2,000 unit) capsule (Vitamin D3) cyanocobalamin (vitamin B-12) 1,000 mcg PO DAILY 09/24/20 12/11/23 History 1,000 mcg tablet (Vitamin B-12) triamcinolone acetonide 0.1 % 1 applic topical DAILY PRN Rash 09/24/20 12/11/23 History topical cream acetaminophen 500 mg tablet 1,000 mg PO Q8H PRN Pain 10/14/22 12/11/23 History (Tylenol Extra Strength) baclofen 10 mg tablet 10 mg PO BID 10/14/22 12/11/23 History duloxetine 60 mg capsule,delayed 60 mg PO BID 10/14/22 12/11/23 History release (Cymbalta) fluorometholone 0.1 % eye 1 drp OPB HS 10/14/22 12/11/23 History drops,suspension fluorouracil 0.5 % topical cream 1 applic topical DAILY PRN Skin 10/14/22 12/11/23 History Irritation linaclotide 72 mcg capsule 72 mcg PO DAILY PRN ABD PAIN 10/14/22 12/11/23 History (Linzess) pregabalin 150 mg capsule (Lyrica) 150 mg PO BID 10/14/22 12/11/23 History ropinirole 0.5 mg tablet 0.5 mg PO HS 10/14/22 12/11/23 History rosuvastatin 20 mg tablet 20 mg PO QAM 10/14/22 12/11/23 History magnesium oxide 400 mg PO HS 02/03/23 12/11/23 History finasteride 5 mg tablet 5 mg PO DAILY #90 tabs 11/29/23 12/11/23 Rx tamsulosin 0.4 mg capsule 0.4 mg PO HS #90 caps 11/29/23 12/11/23 Rx losartan 50 mg tablet 50 mg PO QAM 12/11/23 12/11/23 History memantine 10 mg tablet 5 mg PO BID 12/11/23 12/11/23 History zolpidem 6.25 mg tablet,extended 6.25 mg PO HS 12/11/23 12/11/23 History release,multiphase Past Med/Surg History Problem List Neurological symptoms Positive Lyme disease serology Lung nodule seen on imaging study Episode of dizziness Incomplete emptying of bladder Diverticulitis Ileus Gout H/O hiatal hernia (Acute) Encounter for pre-operative examination BPH NOS w ur obs/LUTS (Chronic) Feeling of incomplete bladder emptying Elevated prostate specific antigen (PSA) Erectile dysfunction Involuntary movements (Acute) Pneumonia of left upper lobe due to infectious organism (Acute) Corneal transplant status Abnormal CT scan, chest Large hiatal hernia Sepsis due to pneumonia resolved per pt History of esophagogastroduodenoscopy (EGD) History of mastectomy Left, (1998) Schatzki's ring s/p dilation (2019) Breast cancer in male S/P Left mastectomy, radiation, chemo (1998) CKD (chronic kidney disease), stage III (Chronic) BPH (benign prostatic hyperplasia) Chronic pain Diabetes mellitus, type II (Chronic) NIDDM Dyslipidemia (Chronic) Hypertension (Chronic) Neuropathy GERD (gastroesophageal reflux disease) Medical History Hypertension Gout GERD (gastroesophageal reflux disease) Nodular prostate with urinary obstruction Nocturia Diabetes mellitus COPD (chronic obstructive pulmonary disease) BPH with obstruction/lower urinary tract symptoms Arthritis Actinic keratosis History of prostate cancer "cancerous" prostate biopsy noted in [facility] Diverticular disease Bruised rib Left sided "Bruised rib" after mechanical fall tripping over dog 3 months ago, CXR with no fractures per patient, residual pain (Lidocaine patches PRN) CAD (coronary artery disease) follows with Dr. Phan Aspiration pneumonitis Hx, "resolved" per pt CAP (community acquired pneumonia) 11/2022 "Resolved" s/p abx, reason for inhaler PRN prescription per patient Carotid stenosis under surveillance by cardiology Osteoarthritis Hearing deficit Peripheral neuropathy Hx of gout Asbestosis Surgical History Hx of cornea transplant R/L History of keratoplasty Left eye (2019) H/O prostate biopsy cancerous > TURP Hx of transurethral resection of prostate History of colonoscopy History of tooth extraction History of cataract surgery R/L Family History Brother Family history of diabetes mellitus Family hx of colon cancer Other Colorectal cancer Diabetes Hypertension Social History Smoking Status: Never smoker Cigarettes Per Day: 1 PPD; Second Hand Exposure: No; Do You Dip or Chew Tobacco: No; Hx Alcohol Use: Yes Alcohol type: hard liquor Hx Substance Use: No Preferred Language: Swiss Communication Ability: Effective Rail Transit Operator Required: No Beliefs That Will Affect Care: None marital status: Current Living Situation: Spouse Current Living Situation Comment: Lives w/ spouse at home Feels Safe at Home: Yes Assistive Devices: Cane, Denture - Upper, Denture - Lower, Glasses, Hearing Aid - Bilateral and Walker Review of Systems Review of Systems: At least ten systems reviewed and negative, except as noted in the HPI. Physical Exam Physical Exam: General Appearance: WD/WN, vitals as above, NAD, laying up in bed, pleasant, conversing. Head: Normocephalic, atraumatic. Eyes: Normal inspection, PERRL, conjunctivae normal, anicteric sclerae. ENT: External ear and nose normal, oropharynx normal. Neck: Normal visual inspection, trachea midline, no thyromegaly. Respiratory: Normal respiratory effort, decreased breath sounds b/l, no wheeze, rales, rhonchi. No accessory muscle use. Cardiovascular: Regular rate, rhythm, no murmur, normal peripheral pulses, no BLE edema. Vessels: No JVD. Chest: Normal inspection of chest. Abdomen/GI: Normal bowel sounds, soft, nontender, no hepatosplenomegaly. Extremities/Musculoskeletal: No cyanosis or clubbing, extremities motor strength 5/5, moves all extremities. Neurologic: PERRL, EOMI, accommodation nl, no face palsy, no dysarthria, CN's II-XI not formally tested but appear grossly intact bilaterally. Psychiatric: A+Ox3, euthymic affect. Skin: No rashes, normal color, warm/dry. Results & Data Results & Data Vital Signs (Past 12 Hours) Vital Signs Temp Pulse Pulse Resp BP BP Pulse Ox 12/11/23 11:18 58 L 18 176/86 H 93 12/11/23 10:30 59 L 13 90 12/11/23 10:21 57 L 16 91 12/11/23 10:12 58 L 24 91 12/11/23 10:09 56 L 16 92 12/11/23 09:51 60 22 91 12/11/23 09:45 61 17 93 12/11/23 09:41 93 12/11/23 09:33 62 20 92 12/11/23 09:24 62 15 90 12/11/23 09:23 93 12/11/23 09:18 36.4 C L 57 L 21 161/85 H 95 12/11/23 09:15 62 20 97 12/11/23 09:15 60 12/11/23 09:13 161/86 H O2 Del Method 12/11/23 11:18 Room Air 12/11/23 10:30 12/11/23 10:21 12/11/23 10:12 12/11/23 10:09 12/11/23 09:51 12/11/23 09:45 12/11/23 09:41 Room Air 12/11/23 09:33 12/11/23 09:24 12/11/23 09:23 Room Air 12/11/23 09:18 Room Air 12/11/23 09:15 12/11/23 09:15 12/11/23 09:13 Laboratory Results Short CBC 12/11/23 Range/Units 09:20 WBC 9.33 (4.8-10.8) K/ul Hgb 14.6 (14.0-18.0) g/dl Hct 43.7 (42.0-52.0) % Plt Count 145 (130-400) K/uL BMP 12/11/23 09:20 Sodium 141 Potassium 3.8 Chloride 107 Carbon Dioxide 27 BUN 25 H Creatinine 1.27 Glucose 176 H Calcium 9.3 Liver Function 12/11/23 Range/Units 09:20 Total Bilirubin 0.3 (0.2-1.0) mg/dl AST 12 L (13-39) U/L ALT 9 (7-52) U/L Alkaline Phosphatase 88 (34-104) U/L Albumin 3.9 (3.4-5.0) gm/dl Diagnostic Findings Chest X-Ray 12/11/23 09:36 XR chest 1V portable CLINICAL HISTORY: dizziness TECHNIQUE: Single frontal radiograph of the chest was obtained. Comparison: Comparison is made to chest radiograph 03/09/[address] chest 12/17/2022 FINDINGS: No lines and tubes are seen. Cardiomegaly is noted. Densities compatible with bilateral pleural plaques seen. No evidence of pleural effusion or pneumothorax. IMPRESSION: Pleural calcifications again seen compatible with asbestos related pleural disease. No superimposed abnormalities are seen. ACT 112: Negative or not required by law. Electronically signed by: Bishnu Rojas M.D. 12/11/2023 9:[address] 12/11/23 09:36 CT head/brain wo con CLINICAL HISTORY: dizziness Technique: Contiguous axial CT images of the head were acquired from the base of the skull to the vertex without intravenous contrast administration. Images were viewed in brain, subdural and bone windows. Automated dose lowering techniques and/or adjustment according to patient size were utilized for this exam. Comparison: Comparison is made to CT head 03/09/2023 Findings: Areas of decreased attenuation are present in the periventricular and subcortical white matter bilaterally consistent with small vessel ischemic disease. Generalized cerebral atrophy with commensurate enlargement of the ventricles, sulci, and cisterns is also present. There is no acute intracranial hemorrhage or evidence of acute territorial infarction. No shift of the midline structures, mass effect, or extra-axial abnormalities are shown. Atherosclerotic calcifications are present in the intracranial segments of the internal carotid arteries. Imaged portions of the paranasal sinuses and mastoid air cells are clear. The orbits appear normal. There are no acute fractures of the calvaria or scalp swelling. Impression: No acute intracranial hemorrhage, no evidence of acute territorial infarction or other acute intracranial disease process. ACT 112: Negative or not required by law. Electronically signed by: Bishnu Rojas M.D. 12/11/2023 11:06 AM Chest CTA 12/11/23 09:44 CT angio chest PE protocol HISTORY: 88 years-old Male with dizziness, nausea, weakness, hypoxia. Acute shortness of breath TECHNIQUE: Multiple CTA images of the chest were obtained after the intravenous administration of 120 ml Optiray. Coronal and sagittal MIPS were obtained from the axial data set and were submitted for review. All measurements were obtained according to NASCET criteria. A dose lowering technique was utilized adhering to the principles of ALARA. COMPARISON: Chest radiograph of same day, chest CT 12/17/2022, 10/15/2022 FINDINGS: CTA: Mild cardiomegaly. Moderate coronary artery calcifications. No pericardial effusion. Atherosclerosis of the aorta without aneurysm or dissection. 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 No pulmonary emboli identified. CT CHEST: Unremarkable thyroid. Calcified mediastinal and hilar lymph nodes. No pneumothorax or pleural effusion. Large hiatal hernia with diffuse esophageal wall thickening. 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 No airspace consolidation typical for pneumonia. 7 mm solid nodule in the left lower lobe on image 144 is unchanged. 6 cm fissural nodule the right midlung on image 220 is also stable and likely benign. 7 mm left upper lobe pulmonary nodule, image 327. Respiratory motion artifact limits evaluation of the lungs. No acute upper abdominal abnormality. No acute fracture. IMPRESSION: 1. No pulmonary emboli identified. 2. No pleural effusion or airspace consolidation typical for pneumonia. 3. 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 4. Large hiatal hernia with esophageal wall thickening redemonstrated. 5. Stable subcentimeter bilateral solid pulmonary nodules redemonstrated with a new 7 mm nodule within the apical posterior segment left upper lobe. Follow-up guidelines below. Please refer to below summary of Fleischner criteria recommendations for follow- up of incidental CT nodules (Jose Gutierrez, Guidelines for management of small pulmonary nodules detected on CT scans: A statement from the Fleischner Society, Radiology 237: [phone].) SOLID NODULES Multiple nodules size: <6 mm * Low risk patients: no routine follow-up * high risk patients: optional CT at 12 months Multiple nodules size: 6-8 mm * Low risk patients: follow-up at 3-6 months, then consider further follow-up at 18-24 months * high risk patients: follow-up at 3-6 months, then at 18-24 months if no change Multiple nodules size: >8 mm * Low risk patients: follow-up at 3-6 months, then consider further follow-up at 18-24 months * high risk patients: follow-up at 3-6 months, then at 18-24 months if no change Note: newly detected indeterminate nodule in persons 35 years of age or older. * Low risk patients: minimal or absent history of smoking and/or other known risk factors * high risk patients: history of smoking or of other known risk factors (e.g. first degree relative with lung cancer, or exposure to asbestos, radon, uranium) * if a nodule up to 8 mm is partly solid or is ground glass further follow-up is required after 24 months to exclude possible slow growing adenocarcinoma (CHRISTEN) ACT 112: Negative or not required by law. The above report was generated using voice recognition software. It may contain grammatical, syntax or spelling errors. Electronically signed by: Gigi Carey M.D. 12/11/2023 11:36 AM Head CTA 12/11/23 09:44 CT ANGIOGRAM OF THE BRAIN; CT ANGIOGRAM OF THE NECK CLINICAL HISTORY: Dizziness. Nausea and weakness. COMPARISON STUDY: Unenhanced CT of the brain performed concurrently on 12/11/2023. TECHNIQUE: Following the IV administration of 120 of Optiray 320, CT angiogram of the head and neck was performed from the aortic arch to the vertex. Images are reviewed in the axial, sagittal, and coronal planes. 3-D MIPS images are created and assessed. IV contrast was administered without complication. All measurements were calculated based on NASCET criteria. A dose lowering technique was utilized adhering to the principles of ALARA. CT DOSE: 1840.91 mGy.cm FINDINGS: Brain parenchyma: There is age related involutional change noting moderate subcortical and periventricular microangiopathic disease. There is no evidence of hemorrhage, mass effect, or acute territorial ischemia noting angiographic phase technique. There is no evidence of enhancing mass lesion on the angiogram phase images. The ventricles, sulci, and cisterns are prominent secondary to notable change. Espinoza-white matter differentiation is preserved. No extra-axial fluid collection is seen. Thoracic aorta: There is atherosclerotic calcification of the thoracic aorta. Visualized portions of the thoracic aorta are normal in caliber. The aortic arch demonstrates standard 3-vessel anatomy. Right carotid arterial system: The right common carotid artery is widely patent noting atherosclerotic plaque and irregularity. There is advanced atherosclerotic plaque in the carotid bulb and proximal ICA. This causes less than 50% stenosis of the proximal internal carotid artery. There is mild stenosis at the origin of the right external carotid artery. The internal and external carotid arteries are otherwise widely patent. Left carotid arterial system: The left common carotid artery is widely patent and advanced atherosclerotic plaque and irregularity. Advanced plaque is seen in the carotid bulb. This causes less than 50% narrowing at the origin of the left internal carotid artery. Internal and external carotid arteries are widely patent. Vertebral arteries: Widely patent bilaterally noting right-sided dominance. Subclavian arteries: Widely patent bilaterally. Intracranial vasculature: There is atherosclerotic calcification of the cavernous carotid and vertebral arteries. The internal carotid arteries are patent at the skull base, as are the anterior and middle cerebral arteries bilaterally. The vertebral and basilar arteries are patent, as is the right posterior cerebral artery. There is no flow seen within the mid to distal left posterior cerebral artery. The right vertebral artery is dominant. There is origin of the right posterior cerebral artery. A large posterior communicating artery is seen on the left. There is no aneurysm, high-grade stenosis, or focal vessel cut off seen throughout the intracranial circulation. Jugular veins: Patent bilaterally. Dural sinuses: Patent. Lung apices: Calcific pleural plaques are partially visualized in both lungs. A calcified granuloma seen at the right apex. A 7 mm left upper lobe nodule is seen on image #23. Soft tissues: The visualized pharyngeal soft tissues are normal in appearance noting angiographic phase technique. The oropharyngeal airway appears widely patent. The salivary and thyroid glands are normal in appearance. No cervical lymphadenopathy is seen. Skeletal structures: The skeletal structures are osteopenic. The calvarium appears intact. The cervical spine is maintained noting multilevel spondylosis. Orbits: The bony orbits are intact. Orbital contents are normal as visualized noting bilateral ocular lens implants. Sinuses and mastoids: The paranasal sinuses are clear. The mastoid air cells are well pneumatized. IMPRESSION: 1. There is no evidence of hemorrhage, mass effect, or acute territorial ischemia noting angiographic phase technique. 2. No flow is clearly seen within the mid to distal left posterior cerebral artery. Ischemia is not excluded. Consider MRI for further assessment. 3. Otherwise unremarkable CT angiogram of the brain. 4. Atherosclerotic plaque causes less than 50% luminal narrowing of the proximal internal carotid artery bilaterally. 5. Additional findings as above. ACT 112: Negative or not required by law. Electronically signed by: Aroldo Doan M.D. 12/11/2023 11:25 AM Neck CTA 12/11/23 09:44 CT ANGIOGRAM OF THE BRAIN; CT ANGIOGRAM OF THE NECK CLINICAL HISTORY: Dizziness. Nausea and weakness. COMPARISON STUDY: Unenhanced CT of the brain performed concurrently on 12/11/2023. TECHNIQUE: Following the IV administration of 120 of Optiray 320, CT angiogram of the head and neck was performed from the aortic arch to the vertex. Images are reviewed in the axial, sagittal, and coronal planes. 3-D MIPS images are created and assessed. IV contrast was administered without complication. All measurements were calculated based on NASCET criteria. A dose lowering technique was utilized adhering to the principles of ALARA. CT DOSE: 1840.91 mGy.cm FINDINGS: Brain parenchyma: There is age related involutional change noting moderate subcortical and periventricular microangiopathic disease. There is no evidence of hemorrhage, mass effect, or acute territorial ischemia noting angiographic phase technique. There is no evidence of enhancing mass lesion on the angiogram phase images. The ventricles, sulci, and cisterns are prominent secondary to notable change. Espinoza-white matter differentiation is preserved. No extra-axial fluid collection is seen. Thoracic aorta: There is atherosclerotic calcification of the thoracic aorta. Visualized portions of the thoracic aorta are normal in caliber. The aortic arch demonstrates standard 3-vessel anatomy. Right carotid arterial system: The right common carotid artery is widely patent noting atherosclerotic plaque and irregularity. There is advanced atherosclerotic plaque in the carotid bulb and proximal ICA. This causes less than 50% stenosis of the proximal internal carotid artery. There is mild stenosis at the origin of the right external carotid artery. The internal and external carotid arteries are otherwise widely patent. Left carotid arterial system: The left common carotid artery is widely patent and advanced atherosclerotic plaque and irregularity. Advanced plaque is seen in the carotid bulb. This causes less than 50% narrowing at the origin of the left internal carotid artery. Internal and external carotid arteries are widely patent. Vertebral arteries: Widely patent bilaterally noting right-sided dominance. Subclavian arteries: Widely patent bilaterally. Intracranial vasculature: There is atherosclerotic calcification of the cavernous carotid and vertebral arteries. The internal carotid arteries are patent at the skull base, as are the anterior and middle cerebral arteries bilaterally. The vertebral and basilar arteries are patent, as is the right posterior cerebral artery. There is no flow seen within the mid to distal left posterior cerebral artery. The right vertebral artery is dominant. There is origin of the right posterior cerebral artery. A large posterior communicating artery is seen on the left. There is no aneurysm, high-grade stenosis, or focal vessel cut off seen throughout the intracranial circulation. Jugular veins: Patent bilaterally. Dural sinuses: Patent. Lung apices: Calcific pleural plaques are partially visualized in both lungs. A calcified granuloma seen at the right apex. A 7 mm left upper lobe nodule is seen on image #23. Soft tissues: The visualized pharyngeal soft tissues are normal in appearance noting angiographic phase technique. The oropharyngeal airway appears widely patent. The salivary and thyroid glands are normal in appearance. No cervical lymphadenopathy is seen. Skeletal structures: The skeletal structures are osteopenic. The calvarium appears intact. The cervical spine is maintained noting multilevel spondylosis. Orbits: The bony orbits are intact. Orbital contents are normal as visualized noting bilateral ocular lens implants. Sinuses and mastoids: The paranasal sinuses are clear. The mastoid air cells are well pneumatized. IMPRESSION: 1. There is no evidence of hemorrhage, mass effect, or acute territorial ischemia noting angiographic phase technique. 2. No flow is clearly seen within the mid to distal left posterior cerebral artery. Ischemia is not excluded. Consider MRI for further assessment. 3. Otherwise unremarkable CT angiogram of the brain. 4. Atherosclerotic plaque causes less than 50% luminal narrowing of the proximal internal carotid artery bilaterally. 5. Additional findings as above. ACT 112: Negative or not required by law. Electronically signed by: Aroldo Doan M.D. 12/11/2023 11:25 AM Brain MRI 12/11/23 11:58 MRI OF THE BRAIN WITHOUT IV CONTRAST CLINICAL HISTORY: Vertigo. Dizziness. Abnormal CT angiogram of the brain. COMPARISON STUDY: CT and CT angiogram of the brain dated 12/11/2023. TECHNIQUE: MRI of the brain was performed utilizing various T1 and T2-weighted sequences in the axial, sagittal, and coronal planes. IV contrast was not administered for this examination. FINDINGS: Brain parenchyma: There is age related involutional change noting moderate subcortical and periventricular microangiopathic disease. There is no hemorrhage or mass effect. There is no restricted diffusion typical for acute ischemia. Espinoza-white matter differentiation is preserved. No extra-axial fluid collection is seen. The cerebellar tonsils are normal in configuration. Ventricles, sulci, and cisterns: Prominent circumferential change. Pituitary and sella: Unremarkable. Intracranial vasculature: Normal flow voids are maintained at the skull base. Orbits: The bony orbits are grossly intact. Orbital contents are normal in appearance noting bilateral ocular lens implant. Sinuses and mastoids: Clear. Calvarium: Unremarkable. Cervical cord: Partially visualized cervical spinal cord is normal in morphology and signal intensity. IMPRESSION: No acute intracranial abnormality is identified. Specifically, there is no MR evidence of left PEG DRIVER territory ischemia ACT 112: Negative or not required by law. Electronically signed by: Aroldo Doan M.D. 12/11/2023 12:55 PM Medications Administered Discontinued Medications Sodium Chloride (Nss) 500 mls @ 500 mls/hr IV .Q1H ONE Stop: 12/11/23 12:09 Last Infusion: 12/11/23 12:27 Dose: Infused Documented By: Admin: 12/11/23 11:17 Dose: 500 mls/hr Documented By: TIERRA Ioversol (Optiray 320 125ml) 120 ml IV ONCE ONE Stop: 12/11/23 10:51 Last Admin: 12/11/23 10:50 Dose: 120 ml Documented By: IOANA ECG Additional Comments: EKG interpreted by myself and reveals sinus bradycardia w/ 1st-degree AV block (unchanged from previous EKG done 10/27/23), nonspecific T wave abnormality (unchanged from previous EKG done 10/27/23), HR 59bpm and QT/QTc Int 418/413. Code Status & VTE Plan Code Status FULL CODE VTE Prophylaxis Plan VTE Prophylaxis will be ordered: Yes Supervising Physician Co-Signing Physician Notes 88-year-old male with PMH of T2DM with peripheral neuropathy, HTN, HLD, left breast cancer status postmastectomy plus chemo/radiation, CKD stage III, asbestosis/COPD, symptomatic bilateral carotid artery stenosis, GERD without e sophagitis, gouty arthropathy, SCC status post Mohs surgery, RLS, sensorineural hearing loss of both ears, dementia, depression, insomnia, BPH with LUTS presented to the ED for evaluation of an episode of dizziness that he started today morning. Patient reports waking up fine in the morning, after he got dressed up and took his morning medication, when he tried to stand up from the bed he got dizzy along with some nausea/diaphoresis. At bedside exam, he was reporting that he is getting some lightheadedness with standing up. Orthostatic vitals are positive. Slow transition during change in position. b/l thigh high compression stockings. No other neurological symptoms exceptDizziness likely secondary to orthostatic hypotension. Slow transition during change in position. No need for neurology consult. Lung nodule seen on imaging study, follow-up CT scan in 3 to 6 months. Positive Lyme disease: Start rocephin. On examination: GENERAL: Alert and oriented x3. NAD, on RA. HEENT: No pallor, no icterus. Pupils equal, round and reactive to light. Oral mucosa moist. NECK: No JVD, no neck masses. HEART: S1 and S2 heard. Regular rate and rhythm. No murmur, no gallop. RESPIRATORY SYSTEM: Normal AP diameter. No accessory muscle use. No wheezing, no crackles. ABDOMEN: Soft, bowel sounds present, nontender, no distention. CENTRAL NERVOUS SYSTEM: No facial droop. Speech is clear. Obeys simple commands. Moves extremities. power 5/5 ble bue EXTREMITIES: No edema, no erythema seen. I have seen and examined the patient and have discussed the case with the provider above. I agree with the assessment and plan as stated.
[2023-12-11] MEDS ORDERED: ALBUTEROL HFA 8 GM INHALER INH PRN (14:49)
--- NOTE | 2023-12-11 17:14 | Electrocardiogram Report ---
Test Reason : Blood Pressure : / mmHG Vent. Rate : 059 BPM Atrial Rate : 059 BPM P-R Int : 236 ms QRS Dur : 108 ms QT Int : 418 ms P-R-T Axes : 020 -05 068 degrees QTc Int : 413 ms Sinus bradycardia with 1st degree A-V block Moderate voltage criteria for LVH, may be normal variant ( R in aVL ) Nonspecific T wave abnormality Abnormal ECG When compared with ECG of 09-MAR-2023 17:02, No significant change was found Confirmed by Jimenez Clayton ([id number]) on 12/11/2023 5:14:31 PM Referred By: REFERRED SELF Confirmed By:Jimenez Clayton
[2023-12-11] MEDS ORDERED: hydrALAZINE HCL 20 MG/ML VIAL IV PRN (18:08)
[2023-12-11] MEDS ORDERED: ONDANSETRON INJ 2 MG/ML 2 ML VIAL IV PRN (18:35)
[2023-12-11] MEDS ORDERED: DEXTROSE 50% 50 ML SYRINGE IV PRN (18:35)
[2023-12-11] MEDS ORDERED: MAGNESIUM HYDROXIDE SUSP 30 ML UDC PO PRN (18:35)
[2023-12-11] MEDS ORDERED: GLUCAGON FOR INJ 1 MG VIAL SQ PRN (18:35)
[2023-12-11] MEDS ORDERED: POLYETHYLENE (MIRALAX) 17 GM PACK PO PRN (18:35)
[2023-12-11] MEDS ORDERED: ACETAMINOPHEN 325 MG TAB PO PRN (18:35)
[2023-12-11] MEDS ORDERED: GLUCOSE 40% GEL 15 GM TUBE PO PRN (18:35)
[2023-12-11] MEDS ORDERED: ALUMINUM/MAGNESIUM SUSP 30 ML UDC PO PRN (18:35)
[2023-12-11] MEDS ORDERED: CARBOHYDRATES FOR HYPOGLYCEMIA PO PRN (18:35)
[2023-12-11] MEDS ORDERED: GLUCOSE 10 TAB/TUBE PO PRN (18:35)
[2023-12-11] MEDS: cefTRIAXone SODIUM 2,000 MG/50 ML BAG IV SCH (19:24)
[2023-12-11] MEDS: carvediloL 6.25 MG TAB PO SCH (19:54)
[2023-12-11] MEDS: rOPINIRole HCL 0.25 MG TABLET PO SCH (19:54)
[2023-12-11] MEDS: DULoxetine HCL 60 MG CAP PO SCH (19:54)
[2023-12-11] MEDS: BACLOFEN 10 MG TAB PO SCH (19:55)
[2023-12-11] MEDS: MEMANTINE HCL 5 MG TAB PO SCH (19:55)
[2023-12-11] MEDS: MAGNESIUM OXIDE 400 MG TAB PO SCH (19:56)
[2023-12-11] MEDS: TAMSULOSIN HCL 0.4 MG CAP PO SCH (19:58)
[2023-12-11] MEDS: INSULIN ASPART PER UNIT CHARGE SC SCH (21:07)
[2023-12-11] MEDS: PREGABALIN 150 MG CAP PO SCH (21:09)
[2023-12-11 22:03] LABS: Appearance Urine Clear (Clear); Bacteria Urine Automated None Seen (None Seen); Bilirubin Urine Negative (Negative); Blood Urine Negative (Negative); Cast Urine Automated 0-2 /lpf (0-2); Color Urine Yellow; Epithelial Cell Urine Auto 0-2 /hpf (0-2); Glucose Urine UA 3+ (Negative); Ketones Urine Negative (Negative); Leukocyte Esterase Urine 1+ (Negative); Nitrite Urine Negative (Negative); Protein Urine Negative (Negative); RBC Urine Automated 0-2 /hpf (0-2); Specific Gravity Urine 1.044 (1.000-1.030); Urobilinogen Urine Negative (Negative); WBC Urine Automated >50 /hpf (0-5)
[2023-12-11] MEDS: ZOLPIDEM TARTRATE 5 MG TAB PO SCH (22:24)
[2023-12-12 07:40] LABS: Hematocrit (blood only) 40.4 % (42.0-52.0); Hemoglobin 13.6 g/dl (14.0-18.0); Mean Corpuscular Hemoglobin 30.4 pg (25.0-34.0); Mean Corpuscular Hgb Conc 33.7 g/dL (32.0-36.0); Mean Corpuscular Volume 90.4 fL (80.0-100.0); Mean Platelet Volume 11.6 fL (9.4-12.4); Platelet Count 156 K/uL (130-400); RDW Coefficient of Variation 14.5 % (11.5-14.5); RDW Standard Deviation 47.8 fL (36.4-46.3); Red Blood Count 4.47 M/uL (4.70-6.10); White Blood Count 9.46 K/ul (4.8-10.8)
[2023-12-12 08:03] LABS: BUN Creatinine Ratio 18.8 (10-20); Calcium 9.2 mg/dl (8.6-10.3); Chol HDL Ratio 3.4 (0-5); Creatinine Clr Calc Pharmacy 51.4 ml/min; Est GFR (African American) 67.1 ml/min; Est GFR (Non-African American) 57.9 ml/min; Phosphorus 3.3 mg/dl (2.5-4.9); Potassium 4.1 mmol/L (3.5-5.1)
[2023-12-12 08:06] LABS: Estimated Average Glucose 140 mg/dl; Hemoglobin A1C 6.5 % (4.5-5.6)
[2023-12-12] MEDS: FINASTERIDE 5 MG TAB PO SCH (08:37)
[2023-12-12] MEDS: LOSARTAN POTASSIUM 50 MG TAB PO SCH (08:37)
[2023-12-12] MEDS: ROSUVASTATIN CALCIUM 20 MG TAB PO SCH (08:37)
[2023-12-12] MEDS: CYANOCOBALAMIN (B-12) 500 MCG TABLET PO SCH (08:37)
[2023-12-12] MEDS: ASPIRIN 81 MG ECTAB PO SCH (08:37)
[2023-12-12] MEDS: allopurinoL 300 MG TAB PO SCH (08:37)
[2023-12-12] MEDS: PANTOprazole 40 MG TAB PO SCH (08:37)
--- NOTE | 2023-12-12 12:20 | Discharge Summary ---
Discharge Summary Date of Service December 12, 2023 Principal Dx & Hospital Course #1 = Principal Diagnosis (1) Episode of dizziness: (2) Adverse reaction to drug: (3) Lung nodule seen on imaging study: (4) Positive Lyme disease serology: (5) Restless legs: (6) Involuntary movements: Plan Patient was admitted to the hospital for his complaints of dizziness/vertigo. Patient's symptoms completely resolved at the time of admission. He ruled out for acute stroke with a negative brain MRI. His vital signs remained stable and he had no significant orthostasis. On the day of discharge further history was obtained from the patient. He reports that because he takes so many medications he was splitting up some of his medication. He reports that yesterday morning was the first time he took his baclofen in the morning when usually he was taking it in the afternoon and at bedtime. His symptoms really started immediately after he took the his medications. Other evaluation here in the hospital did not reveal any other etiologies for his symptoms and his symptoms have completely resolved. Patient states he does live near [facility] but does not know that he has been bit by a tick he apparently has been positive in the past. However his IgM is elevated and positive as well which would indicate a more acute infection. He will be transition to oral doxycycline for 21-day treatment. Patient appears to be asymptomatic from this. Ultimately patient states he is taking the baclofen for some restless legs and involuntary leg movement. We discussed perhaps not taking it in the morning and only using it at bedtime to help him sleep. He is agreeable to this plan of care. Otherwise nursing reports he is up and ambulatory with his walker. He be discharged home with outpatient follow-up with his PCP. Notes For Next Care Provider Continue to evaluate how patient's restless legs are being controlled with just the nightly dosing of baclofen Medication Changes From Visit Baclofen changed to bedtime only Doxycycline for treatment of positive Lyme titer Admission HPI Per Admitting Provider Cuco Araujo is an 88y/o M with PMHx of DM type II w/ peripheral neuropathy, HTN, HLD, hx of L breast cancer s/p mastectomy + chemo/radiation therapy, CKD stage III, asbestosis/COPD, asymptomatic b/l carotid artery stenosis, GERD w/o esophagitis, gouty arthropathy, squamous cell carcinoma s/p Mohs surgery, RLS, sensorineural hearing loss of both ears, dementia, depression, insomnia, BPH w/ LUTS and other problems listed below who presented to the ED via EMS for evaluation following an episode of dizziness. History obtained from patient, son at bedside and associated chart review. Patient states that he was attempting to put on his socks this morning while standing ~8AM and suddenly became very dizzy with some associated sweating and nausea. Mentions he was able to sit on the bed nearby, but then subsequently slid down onto the floor from the bed onto his sacral region. Did not hit his head, never lost consciousness. Was able to call EMS himself. States the dizziness was more of a "room-spinning sensation." No episodes of vomiting. Per EMS, patient was found to be hypoxic on room air upon arrival to his house. Was titrated up to 4 L to 94% SpO2. He denies any SOB or chest pain during our discussion. Currently 95% SpO2 on RA. Patient denies any headache or neck pain. States he did not experience any visual changes with this episode of dizziness. Denies any recent illnesses, fever or known sick contacts. States he was feeling well prior to this incidence of dizziness. Notes he does feel somewhat tired and overall weak at this time. Has chronic pain at baseline, unchanged at this time. Not currently dizzy whilst lying in bed. Patient does live at home by himself. Uses walker or cane at baseline. No recent issues with ambulation, denies any recent falls. Admission Exam Per Admitting Provider See H&P Discharge Exam Constitutional: Alert HEENT: Mucous membranes moist. Lungs: Clear to auscultation, decreased, no wheezes rales or rhonchi CV: S1-S2, regular Abdomen: Soft, nontender, nondistended Extremities: No significant edema Neuro: No focal deficits, restless legs Psych: Cooperative, normal mood Updated Medication List Medication Instructions Recorded Confirmed Type allopurinol 300 mg tablet 300 mg PO QAM 06/02/19 12/11/23 History aspirin 81 mg tablet,delayed 81 mg PO QAM 06/02/19 12/11/23 History release carvedilol 12.5 mg tablet 6.25 mg PO BID 06/02/19 12/11/23 History glipizide 10 mg tablet, extended 10 mg PO BID 06/02/19 12/11/23 History release 24 hr albuterol sulfate 90 mcg/actuation 2 inh inhalation Q4H PRN SOB or 02/05/20 12/11/23 History aerosol inhaler (ProAir HFA) Wheezing omeprazole 40 mg capsule,delayed 40 mg PO DAILY 02/05/20 12/11/23 History release ascorbic acid (vitamin C) 500 mg 500 mg PO DAILY 09/24/20 12/11/23 History chewable tablet (Vitamin C) cholecalciferol (vitamin D3) 50 50 mcg PO QAM 09/24/20 12/11/23 History mcg (2,000 unit) capsule (Vitamin D3) cyanocobalamin (vitamin B-12) 1,000 mcg PO DAILY 09/24/20 12/11/23 History 1,000 mcg tablet (Vitamin B-12) triamcinolone acetonide 0.1 % 1 applic topical DAILY PRN Rash 09/24/20 12/11/23 History topical cream acetaminophen 500 mg tablet 1,000 mg PO Q8H PRN Pain 10/14/22 12/11/23 History (Tylenol Extra Strength) duloxetine 60 mg capsule,delayed 60 mg PO BID 10/14/22 12/11/23 History release (Cymbalta) fluorometholone 0.1 % eye 1 drp OPB HS 10/14/22 12/11/23 History drops,suspension fluorouracil 0.5 % topical cream 1 applic topical DAILY PRN Skin 10/14/22 12/11/23 History Irritation linaclotide 72 mcg capsule 72 mcg PO DAILY PRN ABD PAIN 10/14/22 12/11/23 History (Linzess) pregabalin 150 mg capsule (Lyrica) 150 mg PO BID 10/14/22 12/11/23 History ropinirole 0.5 mg tablet 0.5 mg PO HS 10/14/22 12/11/23 History rosuvastatin 20 mg tablet 20 mg PO QAM 10/14/22 12/11/23 History magnesium oxide 400 mg PO HS 02/03/23 12/11/23 History finasteride 5 mg tablet 5 mg PO DAILY #90 tabs 11/29/23 12/11/23 Rx tamsulosin 0.4 mg capsule 0.4 mg PO HS #90 caps 11/29/23 12/11/23 Rx losartan 50 mg tablet 50 mg PO QAM 06/17/24 06/17/24 History memantine 10 mg tablet 5 mg PO BID 12/11/23 12/11/23 History zolpidem 6.25 mg tablet,extended 6.25 mg PO HS 12/11/23 12/11/23 History release,multiphase baclofen 10 mg tablet 10 mg PO HS 30 days #30 tabs 12/12/23 Rx doxycycline hyclate 100 mg capsule 100 mg PO BID 21 days #42 caps 12/12/23 Rx Hospital Stay Data Consultations 12/11/23 12:13 ED Decision to Admit Stat Diagnostic Imagining Performed 12/11/23 09:36 CT head/brain wo con Stat 12/11/23 09:44 CT angio chest PE protocol Stat CT angio head w con Stat CT angio neck with con Stat 12/11/23 11:58 MR brain wo con Stat Reviewed imaging, laboratory and diagnostic studies. Pertinent findings as below. MRI of the brain negative for acute stroke Hemoglobin A1c 6.5% Lyme Screen positive, IgG positive, IgM positive Respiratory viral panel negative Pending Results Patient Have Any Pending Studies at Discharge: No Discharge Instructions Given to Patient (Per Discharging Provider) Continue use her walker Recommend only taking baclofen at bedtime Total Time Total Time Spent Total Time Spent (In Minutes): 35
[2023-12-12 12:25] LABS: A calco-baum cmplx NotReported Not Detected (NotDetected); Bact fragilis Not Reported Not Detected (NotDetected); Blood Culture Id Panel See PCR Comment (NotDetected); C auris Not Reported Not Detected (NotDetected); Calbicans Not Reported Not Detected (NotDetected); Candida glabrata Not Reported Not Detected (NotDetected); Candida krusei Not Reported Not Detected (NotDetected); Cneoformans/gatti Not Reported Not Detected (NotDetected); Cparapsilosis Not Reported Not Detected (NotDetected); E cloacae compx Not Reported Not Detected (NotDetected); Efaecalis Not Reported Not Detected (NotDetected); Efaecium Not Reported Not Detected (NotDetected); Enterobacterales Not Reported Not Detected (NotDetected); Escherichia coli Not Reported Not Detected (NotDetected); H influenzae Not Reported Not Detected (NotDetected); K aerogenes Not Reported Not Detected (NotDetected); Koxytoca Not Reported Not Detected (NotDetected); Kpneumoniae grp Not Reported Not Detected (NotDetected); Lmonocyt Not Reported Not Detected (NotDetected); N meningitidis Not Reported Not Detected (NotDetected); P aeruginosa Not Reported Not Detected (NotDetected); Proteus spp Not Reported Not Detected (NotDetected); Salmonella spp Not Reported Not Detected (NotDetected); Smarcescens Not Reported Not Detected (NotDetected); Staph lugdunensis Not Reported Not Detected (NotDetected); Staph spp. Not Reported DETECTED (NotDetected); Staphaureus Not Reported Not Detected (NotDetected); Staphepi Not Reported Not Detected (NotDetected); Stenmaltophilia Not Reported Not Detected (NotDetected); Strep agal(GrpB) Not Reported Not Detected (NotDetected); Strep pneum Not Reported Not Detected (NotDetected); Strep pyog (GrpA) Not Reported Not Detected (NotDetected); Strep spp Not Reported Not Detected (NotDetected)
[2023-12-12 12:32] LABS: Staphylococcus spp. DETECTED (NotDetected)
--- NOTE | 2023-12-12 12:54 | Hospitalist Progress Note ---
Date of Service December 12, 2023 Assessment & Plan (1) Episode of dizziness: (2) Adverse reaction to drug: (3) Lung nodule seen on imaging study: (4) Positive Lyme disease serology: (5) Restless legs: (6) Involuntary movements: Plan Patient presented to the hospital with acute episode of dizziness. Most likely this was due to the fact that he had taken his baclofen in the morning which was a new for him. His dizziness is completely resolved. As part of workup in the emergency room he was tested for Lyme disease and up having a positive IgM. Unclear how he may have contacted Lyme, will continue to treat with oral doxycycline 1 Patient was feeling well had an etiology for his dizziness he ruled out for stroke with MRI plan was to discharge him home today. However prior to discharge one of his blood cultures did become positive for gram-positive cocci. This did screen PCR as a staph species. With positive blood culture will treat with vancomycin Repeat blood cultures Await final identification of his initial blood culture, this may end up being contaminant. May need to do further investigation for source of bacteremia if indicated. Follow basic laboratory studies and renal function Admission and Anticipated Discharge Date Admission Date: December 11, 2023 Subjective Patient feels great today, no recurrent dizziness. He shared with me that yesterday was the first time he took his baclofen first thing in the morning. He usually only takes it in the afternoons and at bedtime. Has no idea how he may have gone line. He says he does have a dog but he treats his dog regularly and [place] not out walking in [place] or in [place]. Denies any fever or other issues. Physical Exam Physical Exam: Constitutional: Alert HEENT: Mucous membranes moist. Lungs: Clear to auscultation, decreased, no wheezes rales or rhonchi CV: S1-S2, regular Abdomen: Soft, nontender, nondistended Extremities: No significant edema Neuro: No focal deficits Psych: Cooperative, normal mood Results & Data Results & Data Vital Signs (Past 12 Hours) Vital Signs Temp Pulse Pulse Resp BP Pulse Ox O2 Del Method 12/12/23 12:17 36.6 C 61 16 160/71 H 93 12/12/23 11:43 36.6 C 61 16 160/71 H 93 Room Air 12/12/23 08:00 162/69 H 91 Room Air 12/12/23 07:31 36.4 C L 61 18 168/75 H 90 Room Air 12/12/23 07:08 61 12/12/23 03:58 36.3 C L 60 18 159/77 H 92 Room Air Diagnostic Findings Reviewed imaging, laboratory and diagnostic studies. Pertinent findings as below. Hemoglobin 13.6, WBCs 9.4 Base metabolic profile within normal range Glucose reviewed MRI of the brain report reviewed, no evidence of stroke
[2023-12-12] MEDS ORDERED: VANCOMYCIN CONSULT ACTIVE PRN (12:55)
[2023-12-12] MEDS ORDERED: VANCOMYCIN HCL 2,250 MG in SODIUM CHLORIDE 0.9% 500 ML IV ONE (13:30)
[2023-12-12 13:42] LABS: Creatinine Clr Calc Pharmacy 53.3 ml/min; Est GFR (African American) 70.2 ml/min; Est GFR (Non-African American) 60.5 ml/min
[2023-12-12] MEDS ORDERED: DOXYCYCLINE HYCLATE 100 MG CAP PO SCH (21:00)
== END 2023-12-12 16:06 | disposition home or self-care (01) | DRG 149 ==
LOC: ED 09:08 → EDINP 16:28 → SUATTDRO 16:28 → 2N 18:09

== ENCOUNTER 2024-10-29 05:25 | Observation (INO) ==
--- NOTE | 2024-10-08 10:07 | PAT Medication Instructions ---
Medication Instructions Date of Service October 08, 2024 Home Medications Medication Instructions Recorded tamsulosin 0.4 mg capsule 0.4 mg PO HS #90 caps 11/29/23 allopurinol 300 mg tablet 300 mg PO QAM carvedilol 12.5 mg tablet 6.25 mg PO BID glipizide 10 mg tablet, extended release 24 hr 10 mg PO BID albuterol sulfate 90 mcg/actuation aerosol inhaler (ProAir HFA) 2 inh inhalation Q4H PRN SOB or Wheezing ascorbic acid (vitamin C) 500 mg chewable tablet (Vitamin C) 500 mg PO DAILY cholecalciferol (vitamin D3) 50 mcg (2,000 unit) capsule (Vitamin D3) 50 mcg PO QAM cyanocobalamin (vitamin B-12) 1,000 mcg tablet (Vitamin B-12) 1,000 mcg PO QAM triamcinolone acetonide 0.1 % topical cream 1 applic topical DAILY PRN Rash acetaminophen 500 mg tablet (Tylenol Extra Strength) 1,000 mg PO Q8H PRN Pain duloxetine 60 mg capsule,delayed release (Cymbalta) 60 mg PO BID fluorometholone 0.1 % eye drops,suspension 1 drp OPB HS fluorouracil 0.5 % topical cream 1 applic topical DAILY PRN Skin Irritation linaclotide 72 mcg capsule (Linzess) 72 mcg PO DAILY PRN ABD PAIN pregabalin 150 mg capsule (Lyrica) 150 mg PO BID ropinirole 0.5 mg tablet 1 mg PO HS rosuvastatin 20 mg tablet 20 mg PO QAM magnesium oxide 400 mg PO HS tamsulosin 0.4 mg capsule 0.4 mg PO HS losartan 50 mg tablet 50 mg PO QAM memantine 10 mg tablet 10 mg PO BID zolpidem 6.25 mg tablet,extended release,multiphase 6.25 mg PO HS apixaban 5 mg tablet 5 mg PO BID baclofen 10 mg tablet 10 mg PO BID empagliflozin 10 mg tablet (Jardiance) 10 mg PO QAM finasteride 5 mg tablet 5 mg PO QDL nortriptyline 10 mg capsule 10 mg PO HS pantoprazole 20 mg tablet,delayed release 20 mg PO HS Continue as directed finasteride 5 mg tablet 5 mg PO QDL ASK your prescriber and surgeon apixaban/Eliquis 5 mg tablet 5 mg PO BID (From anesthesia perspective, apixaban/Eliquis needs to be stopped 72 hours before surgery. Please check if okay with doctor that prescribes this to you) STOP taking 24 hours before surgery triamcinolone acetonide 0.1 % topical cream 1 applic topical DAILY PRN Rash fluorouracil 0.5 % topical cream 1 applic topical DAILY PRN Skin Irritation STOP taking 3 days before surgery empagliflozin 10 mg tablet (Jardiance) 10 mg PO QAM DO NOT take the morning of surgery glipizide 10 mg tablet, extended release 24 hr 10 mg PO BID ascorbic acid (vitamin C) 500 mg chewable tablet (Vitamin C) 500 mg PO DAILY cholecalciferol (vitamin D3) 50 mcg (2,000 unit) capsule (Vitamin D3) 50 mcg PO QAM cyanocobalamin (vitamin B-12) 1,000 mcg tablet (Vitamin B-12) 1,000 mcg PO QAM linaclotide 72 mcg capsule (Linzess) 72 mcg PO DAILY PRN ABD PAIN losartan 50 mg tablet 50 mg PO QAM Take morning of surgery With a small sip of water, OTHERWISE NOTHING TO EAT OR DRINK AFTER MIDNIGHT: allopurinol 300 mg tablet 300 mg PO QAM carvedilol 12.5 mg tablet 6.25 mg PO BID albuterol sulfate 90 mcg/actuation aerosol inhaler (ProAir HFA) 2 inh inhalation Q4H PRN SOB or Wheezing (use if needed; please bring rescue inhaler with you to hospital day of surgery if possible) acetaminophen 500 mg tablet (Tylenol Extra Strength) 1,000 mg PO Q8H PRN Pain (if needed) duloxetine 60 mg capsule,delayed release (Cymbalta) 60 mg PO BID pregabalin 150 mg capsule (Lyrica) 150 mg PO BID rosuvastatin 20 mg tablet 20 mg PO QAM memantine 10 mg tablet 10 mg PO BID Take evening before surgery carvedilol 12.5 mg tablet 6.25 mg PO BID glipizide 10 mg tablet, extended release 24 hr 10 mg PO BID albuterol sulfate 90 mcg/actuation aerosol inhaler (ProAir HFA) 2 inh inhalation Q4H PRN SOB or Wheezing (if needed) acetaminophen 500 mg tablet (Tylenol Extra Strength) 1,000 mg PO Q8H PRN Pain (if needed) duloxetine 60 mg capsule,delayed release (Cymbalta) 60 mg PO BID fluorometholone 0.1 % eye drops,suspension 1 drp OPB HS linaclotide 72 mcg capsule (Linzess) 72 mcg PO DAILY PRN ABD PAIN (if needed) pregabalin 150 mg capsule (Lyrica) 150 mg PO BID ropinirole 0.5 mg tablet 1 mg PO HS magnesium oxide 400 mg PO HS tamsulosin 0.4 mg capsule 0.4 mg PO HS memantine 10 mg tablet 10 mg PO BID zolpidem 6.25 mg tablet,extended release,multiphase 6.25 mg PO HS baclofen 10 mg tablet 10 mg PO BID nortriptyline 10 mg capsule 10 mg PO HS pantoprazole 20 mg tablet,delayed release 20 mg PO HS Other Notes If you have any questions please call us at [phone] or [phone] or [phone] or [phone]
--- NOTE | 2024-10-09 10:06 | Anesthesiology Consultation ---
Date of Service October 09, 2024 Assessment & Plan (1) Encounter for pre-operative examination: Plan - check BSG am DOS. - awaiting PCP clearance 10/11 and surgeon ordered UA-patient plans to take specimen to [facility] or [facility]. Chart Review Chart Review: Pending: Refer to Additional Notes / Consult section and Patient seen in Pre Admission Testing Teaching & Discussion Pre-Anesthesia Teaching/Discussion Notes: Instructed NPO after midnight before surgery, except medications with 15 cc of water. Medication instructions provided according to the PAT guidelines. History Surgery Operation Date: 10/29/24 09:50 Proposed Procedures p Right Total Knee Arthroplasty - Ashish Mimi Gordillo MD Height/Weight Height: 5 ft 11 in Weight: 95.5 kg Allergies Allergy/AdvReac Type Severity Reaction Status Date / Time gabapentin AdvReac Intermediate Diarrhea Verified 10/08/24 08:29 simvastatin AdvReac Intermediate Muscle Pain Verified 10/08/24 08:29 LISBETH Inhibitors AdvReac Mild COUGH Verified 10/08/24 08:29 Medications Home Medications Medication Instructions Recorded Confirmed Last Taken allopurinol 300 mg tablet 300 mg PO QAM 06/02/19 10/08/24 12/10/20 carvedilol 12.5 mg tablet 6.25 mg PO BID 06/02/19 10/08/24 12/10/20 08:00 glipizide 10 mg tablet, extended 10 mg PO BID 06/02/19 10/08/24 12/10/20 07:00 release 24 hr albuterol sulfate 90 mcg/actuation 2 inh inhalation Q4H PRN SOB or 02/05/20 10/08/24 02/15/20 aerosol inhaler (ProAir HFA) Wheezing ascorbic acid (vitamin C) 500 mg 500 mg PO DAILY 09/24/20 10/08/24 12/10/20 chewable tablet (Vitamin C) cholecalciferol (vitamin D3) 50 50 mcg PO QAM 09/24/20 10/08/24 12/10/20 mcg (2,000 unit) capsule (Vitamin D3) cyanocobalamin (vitamin B-12) 1,000 mcg PO QAM 09/24/20 10/08/24 12/10/20 1,000 mcg tablet (Vitamin B-12) triamcinolone acetonide 0.1 % 1 applic topical DAILY PRN Rash 09/24/20 10/08/2412/10/21 topical cream acetaminophen 500 mg tablet 1,000 mg PO Q8H PRN Pain 10/14/22 10/08/24 Unknown (Tylenol Extra Strength) duloxetine 60 mg capsule,delayed 60 mg PO BID 10/14/22 10/08/24 Unknown release (Cymbalta) fluorometholone 0.1 % eye 1 drp OPB HS 10/14/22 10/08/24 Unknown drops,suspension fluorouracil 0.5 % topical cream 1 applic topical DAILY PRN Skin 10/14/22 10/08/24 Unknown Irritation linaclotide 72 mcg capsule 72 mcg PO DAILY PRN ABD PAIN 10/14/22 10/08/24 Unknown (Linzess) pregabalin 150 mg capsule (Lyrica) 150 mg PO BID 10/14/22 10/08/24 Unknown ropinirole 0.5 mg tablet 1 mg PO HS 10/14/22 10/08/24 Unknown rosuvastatin 20 mg tablet 20 mg PO QAM 10/14/22 10/08/24 Unknown magnesium oxide 400 mg PO HS 02/03/23 10/08/24 Unknown tamsulosin 0.4 mg capsule 0.4 mg PO HS #90 caps 11/29/23 10/08/24 Unknown losartan 50 mg tablet 50 mg PO QAM 12/11/23 10/08/24 Unknown memantine 10 mg tablet 10 mg PO BID 12/11/23 10/08/24 Unknown zolpidem 6.25 mg tablet,extended 6.25 mg PO HS 12/11/23 10/08/24 Unknown release,multiphase apixaban 5 mg tablet 5 mg PO BID 10/08/24 10/08/24 Unknown baclofen 10 mg tablet 10 mg PO BID 10/08/24 10/08/24 Unknown empagliflozin 10 mg tablet 10 mg PO QAM 10/08/24 10/08/24 Unknown (Jardiance) finasteride 5 mg tablet 5 mg PO QDL 10/08/24 10/08/24 Unknown nortriptyline 10 mg capsule 10 mg PO HS 10/08/24 10/08/24 Unknown pantoprazole 20 mg tablet,delayed 20 mg PO HS 10/08/24 10/08/24 Unknown release Past Medical History Medical History (Updated 10/10/24 @ 09:12 by Adelina Aguilar PA-C) Actinic keratosis Arthritis Asbestosis follows with pulm - dr. [facility]y [facility] at [facility] Aspiration pneumonitis Hx, "resolved" per pt Atrial fibrillation no cardioversion, follows with [facility] BPH with obstruction/lower urinary tract symptoms CAD (coronary artery disease) follows with Dr. Phan CAP (community acquired pneumonia) 11/2022 "Resolved" s/p abx, reason for inhaler PRN prescription per patient Carotid stenosis under surveillance by cardiology Chronic pain COPD (chronic obstructive pulmonary disease) follows with pulm - dr. tracey [facility] at [facility] Diabetes mellitus NIDDM Dyslipidemia Dysphagia occasional, has had esophageal dialation in past GERD (gastroesophageal reflux disease) controlled, stable per pt Hearing deficit History of diverticulitis last episode several years ago History of esophageal dilatation History of left breast cancer (1997) surgery, chemo and xrt History of Lyme disease multiple-denies known residual effects History of prostate cancer "cancerous" prostate biopsy noted in [facility] Hx of chest pain not cardiac related, feels related to mastectomy- states has daily Hx of colonic polyps Hx of frostbite , both feet, has chronic pain Hx of gout Hx of sepsis (2022) due to pneumonia Hypertension controlled, stable per pt Large hiatal hernia Limb alert care status left arm Nocturia Nodular prostate with urinary obstruction Osteoarthritis Peripheral neuropathy feet Restless leg Schatzki's ring Sleep apnea no current treatment Stage III chronic kidney disease Vertigo Patient denies h/o stroke, seizures, heart attack, heart failure, blood clots/DVTs or blood transfusions. 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 Hx of esophagogastroduodenoscopy Hx of left mastectomy (1997) male breast cancer Hx of transurethral resection of prostate Past Anesthesia History No Hx of Anesthesia Complications and No Family Hx of Anesthesia Complications History of PONV No Hx of PONV and No Hx of Motion Sickness Social History Smoking Status: Former smoker tobacco type: cigarettes Smoking cigarettes per day: 1 PPD Do You Dip or Chew Tobacco: No Smoking End Date: ~ 50 years Hx Alcohol Use: Yes Alcohol type: hard liquor alcohol intake frequency: 0-2 drinks per day Alcohol Intake Frequency Comment: 1 shot of whiskey per day Hx Substance Use: No substance use type: does not use Review of Systems Patient denies chest pain, shortness of breath, dyspnea on exertion, fever, chills, cough, wheezing, or palpitations. Physical Exam Vital Signs Vitals BP 119/70 P 63 TEMP 97.8 SP02 95% on RA RESP 18 Physical Patient resting comfortably in chair in no acute distress, alert and oriented, responding appropriately throughout visit Full cervical extension range of motion without pain TMD 3.5 finger breadths Mallampati Score 2 Dentition: edentulous, implant posts with full upper and lower dentures Lungs: normal respiratory effort. Good air movement, clear throughout to auscultation, no adventitious breath sounds Cardiac: regular rate and rhythm, no murmurs noted Carotid arteries: negative bruit bilat Lab Results Anesthesia Preop Results Results Anesthesia Widget: WBC 9.84 K/ul (4.8-10.8) 10/09/24 Hgb 14.9 g/dl (14.0-18.0) 10/09/24 Hct 44.4 % (42.0-52.0) 10/09/24 Plt 163 K/uL (130-400) 10/09/24 Na 139 mmol/L (136-145) 10/09/24 K 4.8 mmol/L (3.5-5.1) 10/09/24 Cl 104 mmol/L (98-107) 10/09/24 CO2 32 mmol/L (21-32) 10/09/24 BUN 20 mg/dl (6-23) 10/09/24 Creat 1.40 mg/dl (0.6-1.4) 10/09/24 Glucose Level 107 mg/dl (70-99(Fasting)) H 10/09/24 PT 10.9 Seconds (9.0-12.0) 10/09/24 PTT 30 Seconds (21-31) 10/09/24 INR 1.0 (0.9-1.1) 10/09/24 HA1c 6.8 % (4.5-5.6) H 10/09/24 Blood Type O Positive 10/09/24 Antibody Screen NEGATIVE 10/09/24 Testing Electrocardiogram Date: 12/11/23 Sinus bradycardia with 1st degree AV block, rate 59 bpm Moderate voltage criteria for LVH, may be normal variant Nonspecific T wave abnormality Chest X-Ray Date: 12/11/23 *1 view* Pleural calcifications again seen compatible with asbestos related pleural disease. No superimposed abnormalities are seen. Other Testing Brain MRI 12/11/23 No acute intracranial abnormality is identified. Specifically, there is no MR evidence of left [employer] territory ischemia Head and neck CTA 12/11/23 1. There is no evidence of hemorrhage, mass effect, or acute territorial ischemia noting angiographic phase technique. 2. No flow is clearly seen within the mid to distal left posterior cerebral artery. Ischemia is not excluded. Consider MRI for further assessment. 3. Otherwise unremarkable CT angiogram of the brain. 4. Atherosclerotic plaque causes less than 50% luminal narrowing of the proximal internal carotid artery bilaterally. 5. Additional findings as above. Chest CTA 12/11/23 1. No pulmonary emboli identified. 2. No pleural effusion or airspace consolidation typical for pneumonia. 3. 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 4. Large hiatal hernia with esophageal wall thickening re-demonstrated. 5. Stable subcentimeter bilateral solid pulmonary nodules re-demonstrated with a new 7 mm nodule within the apical posterior segment left upper lobe. Follow-up guidelines below. Carotid doppler 11/07/19 50-69% stenosis right ICA < 50% stenosis left ICA
--- OUTSIDE RECORDS SUMMARY | 2024-10-29 05:51 | External Medical Summary | Summary of Care ---
Author Name Unknown Organization [facility] Address [address] [place] [address] Phone [phone] Care Team Providers Care Textile Conversion Manager Name Role Phone Marcy Diaz MD Primary Care Provider [phone] Encounter Details Date Type Department Care Team (Late st Contact Info) Description 10/28/2024 Orders Only General Internal Medicine [facility] [address] [place] [address] Marcy Diaz MD [address] [place] [place] [address] Allergies Active Allergy Reactions Criticality Noted Date Comments Juan Inhibitors Cough High 12/04/2012 Gabapentin Diarrhea High 09/27/2010 Simvastatin Muscle pain High 08/17/2009 documented as of this encounter (statuses as of 10/28/2024) Medications ONE TOUCH BASIC SYSTEM KITIndications:DM type 2, goal A1c below 7 use as directed 1 0 3 Active Cyanocobalamin (VITAMIN B-12) 1000 MCG Tablet Take 1 Tablet by mouth daily at noon. Active Ascorbic Acid (VITAMIN C) 500 MG chewable tablet Take 1 Tablet by mouth daily at noon. 30 Tab 5 7 Active finasteride (PROSCAR) 5 MG TabletIndications :takes at lunch Take 1 Tablet by mouth daily at noon. 3 8 Active tamsulosin (FLOMAX) 0.4 MG Capsule Take 1 Capsule by mouth at bedtime. Active Fluorometholone 0.1 % Ophthalmic Suspension Instill 1 Drop into both eyes every evening. 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 -09/20/2021. 30 Capsule 5 2 Active Empagliflozin 10 MG Oral Tablet Take 1 Tablet by mouth in the morning. Active Magnesium Oxide 420 (252 Mg) MG Oral Tablet Take by mouth. Act phyllis Linzess 72 MCG Oral Capsule (linaCLOtide)Shirin cations:Chronic constipation Take 1 Capsule by mouth in the morning. 90 Capsule 3 4 Active Apixaban 5 MG Oral Tablet (Eliquis)Indicati ons:Paroxysmal A-fib (HCC) Take 1 Tablet by mouth in the morning and 1 Tablet before bedtime. 4 Active Baclofen 10 MG Oral Tablet (Lioresal)Indicat ions:Gastroesopha geal reflux disease without esophagitis,Histo ry of dysphagia TAKE 1 TABLET BY MOUTH IN THE MORNING AND BEFORE BEDTIME 180 Tablet 3 4 Active Nortriptyline HCl 10 MG Oral Capsule (Pamelor) Take 1 Capsule by mouth at bedtime. Active rOPINIRole HCl 1 MG Oral Tablet (Requip)Indicatio ns:RLS (restless legs syndrome),PLMD (periodic limb movement disorder) 1 tab 2 hrs before bedtime -[facility] 1 Tablet 4 Active Memantine HCl 10 MG Oral Tablet (Namenda)Indicati ons:Mild vascular dementia without behavioral disturbance, psychotic disturbance, mood disturbance, or anxiety (HCC) Take 1 Tablet by mouth in the morning and 1 Tablet before bedtime. 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 Dec 07/29/2024. 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 90 Tablet 2 5 Active Carvedilol 12.5 MG Oral Tablet (Coreg)Indication s:Type 2 DM with CKD stage 3 and hypertension ([facility]) TAKE 1/2 TABLET BY MOUTH TWICE A DAY WITH FOOD 90 Tablet 3 5 Active DULoxetine HCl 60 MG Oral Capsule Delayed Release Particles (Cymbalta)Indicat ions:Neuropathy due to type 2 diabetes mellitus ([facility]) Take 1 Capsule by mouth in the morning and 1 Capsule before bedtime. 180 Capsule 3 5 Active Pantoprazole Sodium 20 MG Oral Tablet Delayed Release (Protonix)Indicat ions:Gastroesopha geal reflux disease without esophagitis,Hiata l hernia,History of dysphagia,Chronic chest pain Take 1 tab by mouth 30 min before breakfast and at bedtime 180 Tablet 3 5 Active Albuterol Sulfate HFA 108 (90 Base) MCG/ACT Inhalation Aerosol SolutionIndicatio ns:Asbestosis ([facility]) INHALE BY MOUTH 2 PUFFS EVERY 4 HOURS NEEDED FOR WHEEZING. MCG/ACT 8.5 g 3 5 Active Zolpidem Tartrate 5 MG Oral Tablet (Ambien)Indicatio ns:Chronic insomnia Take 1 Tablet by mouth at bedtime as needed for Sleep. 30 Tablet Active Hospital, Clinic, or Other Facility Administered Medication Ordered Dose Route Frequency Start Date End Date Status Albuterol Sulfate (Proventil) (5 MG/ML) 0.5% *conc* inhalation solution 2.5 mgIndications:Dyspnea and respiratory abnormalities,Chronic respiratory failure with hypoxia (HCC) 2.5 mg NEBULIZER PRN 02/06/2024 02/05/2025 Active Albuterol Sulfate (Proventil) (2.5 MG/3ML) 0.083% inhalation solution 2.5 mgIndications:Dyspnea and respiratory abnormalities,Chronic respiratory failure with hypoxia (HCC) 2.5 mg NEBULIZER PRN 02/06/2024 02/05/2025 Active Albuterol Sulfate (Proventil) (5 MG/ML) 0.5% *conc* inhalation solution 2.5 mgIndications:Dyspnea and respiratory abnormalities,Chronic respiratory failure with hypoxia (HCC) 2.5 mg NEBULIZER PRN 02/06/2024 02/05/2025 Active Albuterol Sulfate (Proventil) (2.5 MG/3ML) 0.083% inhalation solution 2.5 mgIndications:Dyspnea and respiratory abnormalities,Chronic respiratory failure with hypoxia (HCC) 2.5 mg NEBULIZER PRN 02/06/2024 02/05/2025 Active documented as of this encounter (statuses as of 10/28/2024) Active Problems Problem Noted Date Diagnosed Date Paroxysmal A-fib 01/23/2024 Dry skin dermatitis 01/23/2024 Atypical chest pain 10/27/2023 Microalbuminuria 10/19/2023 Unspecified dementia, unspec ified severity, without behavioral disturbance, psychotic disturbance, mood disturbance, and anxiety 07/18/2023 Primary osteoarthritis of both knees 07/18/2023 History of Mohs surgery for squamous cell carcin linda of skin 07/18/2023 Hiatal hernia 12/29/2022 TERMINATED MEDICATION USAGE AGREEMENT 02/03/2022 Overview (02/03/2022): UDS neg 01/28/22 Rotator cuff tear arthropathy of right shoulder 12/21/2021 RLS (restless legs syndrome) 12/21/2021 PLMD (periodic limb movement disorder) Chronic bilateral low back pain without sciatica 12/15/2020 Type 2 diabetes mellitus wit h stage 3a chronic kidney disease and hypertension 11/03/2020 Overview: Per CKD protocol Squamous cell carcinoma of skin of left samaritan 1 SCC (squamous cell carcinoma), hand, right 01/09 Sensorineural hearing loss (SNHL) of both ears 0 11/11/2016 HTN, goal below 140/90 12/07/2015 Overview: Per HTN Protocol Lung nodule 09/30/2013 Asymptomatic bilateral carotid artery stenosis 0 12/19/2009 Asbestosis 06/23/2009 Dyslipidemia, goal LDL below 70 06/08/2009 Overview (06/08/2009): Per Lipid Taxonomy. Type 2 diabetes mellitus wit h hemoglobin A1c goal of less than 8.0% 04/23/2009 Overview (10/22/2015): Per Diabetes Taxonomy. ICD-10 update of inactive term Neuropathy due to type 2 diabetes mellitus 08/19 Gastroesophageal reflux disease without esophagi tis 01/14/2008 Overview (04/11/2021): [id number] Hiatal hernia, continue omeprazole. Cataract extraction status 05/06/2005 Overview (07/07/2005): left eye 07/04/2005 dr driscoll Personal history of malignant neoplasm of breast 04/08/2003 Gouty arthropathy 08/09/2002 Persistent insomnia 10/13/2000 Overview (03/27/2017): ICD-10 update of inactive term documented as of this encounter (statuses as of 10/28/2024) Resolved Problems Problem Noted Date Diagnosed Date Resolved Date PMR (polymyalgia rheumatica) 02/20/2022 07/18/2023 Controlled substance agreement signed 06/02/2017 02/20/2022 Type 2 DM with CKD stage 3 and hypertension 01/10/2017 11/05/2020 Overview: Per CKD protocol Fungal otitis externa 11/11/20162016 Statin intolerance 11/29/2015 9 Gout 02/03/2015 04/29/2019 High triglycerides 09/23/2014 9 Abnormal finding on EKG 06/09/201412/24 HTN, goal below 140/80 07/06/201112/09 Overview: Per HTN Protocol Malignant neoplasm of male breast 07/20/2010 02/28/2012 KIDNEY DZ,CHRONIC (GFR 30-59) STAGE III 01/14/2010 01/17/2018 Overview (01/14/2010): Per CKD Protocol, #1 CANCER OF COLON,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 GOUT NOS 01/14/2008 02/03/2015 Type 2 diabetes mellitus wit h hemoglobin A1c goal of less than 7.0% 03/06/2007 04/23/2009 Overview (10/20/2015): Per Diabetes Taxonomy. ICD-10 update of inactive term Shortness of breath 01/17/2007 12/25/19 19 Seroma complicating a procedure 07/08/2005 11/26/2007 Headache 03/24/2005 01/10/2017 Overview (09/16/2015): ICD-10 update of inactive term Encounter for long-term (cur rent) use of medications 01/14/2003 01/10/2017 Overview (04/18/2017): ICD-10 update of inactive term DM type 2, not at goal 08/09/200203/06 UNILAT INGUINAL HERNIA 05/04/200101/10 IMPOTENCE, ORGANIC ORIGN 10/13/2000 HYPERTENSION NOS 05/19/2009 Overview (05/19/2009): Modified per HTN protocol #16. HYPERLIPIDEMIA NEC-NOS 06/08 Overview (06/08/2009): Per Lipid Taxonomy. BENIGN NEOPLASM LG BOWEL RESTLESS LEG SYNDROME 2017 LOW HDL CHOLESTEROL 01/19/20 11 documented as of this encounter (statuses as of 10/28/2024) Immunizations Name Administration Dates Next Due COVID-19 mRNA, LNP-s, No Pre serve, 2-Dose Series (WorldMate) 06/02/2021,09/04/2020,08/14/2020 COVID-19, MRNA-LNP, PF, 50 M CG/0.5 mL, 12 YRS AND ABOVE, IM (MODERNA-Spikevax) 04/10/2024,05/02/2023 Covid-19, Mrna, Lnp-s, Pf, B ivalent, 30 Mcg, IM, 12 yrs and above (WorldMate) 07/07/2022 Pneumococcal Conjugate Vacc, 13 Valent (Prevnar) 10/07/2015 Pneumococcal Polysaccharide PPV23 (Pneumovax) 06/26/2019 RSV Vac., Recomb, Adjuvant, PF,0.5 Ml (Arexvy) 05/02/2023 Season Influenza, Quad, PF, Adjuvanted, 65+ Yrs, IM (FLUAD) 04/09/2020 Seasonal Influenza Vac., MDV , IM, 0.5 mL (Fluzone) 03/26/2014,04/12/2013,04/09/2012,04/05,04/13/2010,04/21/2009,04/08/2008 ,04/11/2007,04/11/2006 Seasonal Influenza Virus Vac cine, Unspecified Formulation 04/18/2023,04/12/2022,04/10/2021,04/09,03/26/2020,04/01/2019,04/05/2018 ,04/10/2017,04/14/2016,03/26/2014,03/26,04/09/2012,04/05/2011, 0,04/21/2009,04/08/2008,04/11/2007,10/ Seasonal Influenza, High Dos e, Trivalent, PF, IM (Fluzone HD) 04/10/2024 Seasonal Influenza, PF, 6 M & above, IM , (FluLaval or Fluzone) 04/05/2018,04/10/2017 Seasonal Influenza, Quadriva lent Hd (Fluzone Hd) 04/18/2023,04/12/2022,04/10/2021 Seasonal Influenza, Quadriva lent, No Preserve, IM 04/14/2016,04/01/2015 Seasonal Influenza, Trivalen t, Adjuvanted, 65+ YRS, PF, (Fluad) 04/01/2019 TD - Tetanus/Diptheria (ADULT) 09/13/2007 TD, Preservative Free 11/16/2023 TDAP (age 10 and older)(Boostrix) 03/26/2014 Varicella Zoster Vaccine [place] lt (Zostavax) 12/24/2010,11/28/2010 Zoster Vaccine Recombinant (Shingrix) 12/21/2018 ,09/11/2018 documented as of this encounter Social History Tobacco Use Types Packs/Day Years Used Date Smoking Tobacco: Former Cigarettes 0.5 48 1 950 - 06/26/1997 Smokeless Tobacco: Never Alcohol Use Standard Drinks/Week Comments Yes 0.8 (1 standard drink = 0.6 oz p ure alcohol) occasional AUDIT-C Answer Date Recorded Frequency of Alcohol Consumption 4 or more times a week 04/09/2020 Average Number of Drinks 1 or 2 020 Frequency of Binge Drinking Not asked 03/26 PHQ-2 Answer Date Recorded PHQ Adult Total Score 0 01/31/2023 Hunger Vital Sign Answer Date Recorded Within the past 12 months, y ou worried that your food would run out before you got the money to buy more. Never true 01/29/20 22 Within the past 12 months, t he food you bought just didn't last and you didn't have money to get more. Never true 01/28/2022 Sex and Gender Information Value Date Recorded Sex Assigned at Male 03/01/2019 9:15 AM EDT Legal Sex Male 6:13 AM EST Gender Identity Male 03/01/2019 9:15 AM EDT Sexual Orientation Straight 03/01/2019 9: 15 AM EDT Occupation Industry Job Start Date Job End Date retired but works 2 days/[employer] at [employer] in [place] [employer] Not on file Not on file Not on file documented as of this encounter Plan of Treatment Upcoming Encounters Date Type Department Care Team (Late st Contact Info) Description 01/13/2025 9:30 AM EDT Imaging Radiology [address] [place] [phone] 01/24/2025 9:00 AM EDT Office Visit Cardiology, [facility] [address] [place] [phone] Diamante Davies CRNP [address] [place] [address] 01/27/2025 8:00 AM EDT Imaging Radiology [address] [place] [address] 01/27/2025 8:30 AM EDT Office Visit Pulmonary Medicine, [facility] [address] [place] [phone] Sumeet Miner MD [address] [place] [place] [address] 01/28/2025 9:20 AM EDT Office Visit General Internal Medicine [facility] [address] [facility] [place] [address] Marcy Diaz MD [address] [place] [address] 04/02/2025 8:30 AM EDT Office Visit Pulmonary Medicine, [facility] [address] [place] [phone] Sumeet Miner MD [address] [place] [address] 05/19/2025 10:00 AM EST Office Visit Pulmonary Medicine, [facility] [address] [place] [phone] Sumeet Miner MD [address] [place] [address] Health Maintenance Due Date Last Done Comments Depression Screening 1947 Adult Wellness Visit 01/28/2023 01/28/2022 COVID-19 Vaccine ( season) 2024 04/10/2024, 04/10/2024, 05/02/2023, Additional history exists HbA1c 01/07/2025 07/10/2024, 04/26, 01/18/2024, Additional history exists CKD PHOS USE SMARTSET 87511 01/17/202512/25, 09/18/2020, 08/29/2019, Additional history exists CKD HGB USE SMARTSET 59509 05/08/202510/09, 05/08/2024, 06/24/2022, Additional history exists Albumin/Creatinine Ratio 07/10/2025 025, 01/18/2024, 10/16/2023, Additional history exists Diabetic Foot Exam 07/29/2025 07/29/2024, 0 01/31/2023, 12/21/2021, Additional history exists Diabetic Eye Exam 09/09/2025 09/09/2024, , 06/29/2023, Additional history exists DTap/Tdap Vaccines (3 - Td or Tdap) 11/15/2033 11/16/2023, 03/26/2014, 09/13/2007 Zoster Vaccines Completed 12/21/2018, 08/24, 12/24/2010, Additional history exists Pneumococcal Vaccine: 50+ Years Completed 06/26/2019, 10/07/2015, 06/29/2005, Additional history exists Influenza Vaccine (FLU shot) Completed , 04/18/2023, 04/18/2023, Additional history exists HPV (Gardasil) Vaccine Aged Out No lo nger eligible based on patient's age to complete this topic Hepatitis B Vaccine Aged Out No longe r eligible based on patient's age to complete this topic MENINGOCOCCAL (MENACTRA/MENVEO) Aged Out No longer eligible based on patient's age to complete this topic Meningitis B Vaccine (Bexsero/Trumemba) Aged Out No longer eligible based on patient's age to complete this topic documented as of this encounter Medical Devices Not on filedocumented as of this encounter Procedures Procedure Name Priority Date/Time Associated Diagnosis Comments CHEMISTRY-OUTSIDE Routine 10/09/2024 documented in this encounter Results * CHEMISTRY-OUTSIDE (10/09/2024) Not all results display below - see scan for full detail OUTSIDE LAB (SEE SCANNED REPORT) Comment:SCAN INCL: PRE OP LA BS: CBCD,TYPE/SCR,UA CREATININE OUTSIDE L AB (SEE SCANNED REPORT) EGFR OUTSIDE LA B (SEE SCANNED REPORT) POTASSIUM OUTSIDE LA B (SEE SCANNED REPORT) GLUCOSE OUTSIDE LA B (SEE SCANNED REPORT) HOURS FASTING OUTSID E LAB (SEE SCANNED REPORT) TRIGLYCERIDES-OUT SIDE LAB OUTSIDE LAB (SEE SCANNED REPORT) CHOLESTEROL-OUTSI DE LAB OUTSIDE LAB (SEE SCANNED REPORT) HDL-OUTSIDE LAB OUTS AD LAB (SEE SCANNED REPORT) CHOL/HDL RATIO-OUTSIDE LAB OUTSIDE LA B (SEE SCANNED REPORT) LDL (CALCULATED)-OUTS AD LAB OUTSIDE LAB (SEE SCANNED REPORT) LDL (DIRECT MEASURE)-OUTSIDE LAB OUTSIDE LAB (SEE SCANNED REPORT) HEMOGLOBIN, [id number] LAB OUTSIDE LAB (SEE SCANNED REPORT) PHOSPHORUS-OUTSID E LAB OUTSIDE LAB (SEE SCANNED REPORT) PTH-OUTSIDE LAB OUTS AD LAB (SEE SCANNED REPORT) MICROALBUMIN RATIO-OUTSIDE LAB OUTSIDE LA B (SEE SCANNED REPORT) PROTEIN, UA-OUTSIDE LAB OUTSIDE LAB (SEE SCANNED REPORT) HGB 14.9 14.0 - 18.0 G/DL OUTSIDE LAB (SEE SCANNED REPORT) 10/09/2024 us History Per Patient LABORATORY Final Result OUTSIDE LAB (SEE SCANNED REPORT) documented in this encounter Care Teams Textile Conversion Manager Relationship Specialty Start Date End Date Marcy Diaz MD [address] [place] [address] PCP - General Internal Medicine 03/12/21 documented as of this encounter
--- OUTSIDE RECORDS SUMMARY | 2024-10-29 05:52 | External Medical Summary | Continuity of Care Document ---
Author Name Unknown Organization [facility] [address] [id number] Address [address] [place] [id number] Care Team Providers Care Private Pilot Name Role Phone Marcy Diaz Primary Care Physician [phone] Encounter [facility] [id number] Date(s): 10/09/24 - 10/09/24 [facility] [address] [facility] [address] [facility] [address] [place] [id number] Encounter Diagnosis Right knee DJD(Discharge Diagnosis) - 10/09/24 Discharge Disposition: Home or Self Care Attending Physician: PABLITO Ley, Renae Referring Physician: MD Duy, Ashish A Encounter Type: Clinic Allergies, Adverse Reactions, Alerts Substance Criticality Severity Reaction Reaction Severity Status LISBETH Inhibitors Unknown reaction Active Medications acetaminophen Start: 10/09/24 8:23:00 AM EDT, 1,000 mg =, PO, Q 8 prn Start Date: 10/09/24 Status: Ordered Repeat number: 1 albuterol CFC free 90 mcg/inh MDI Start: 10/09/24 8:24:00 AM EDT, 2 puff, inhaled, qid, PRN: as needed for wheezing Start Date: 10/09/24 Status: Ordered Repeat number: 1 allopurinol 300 mg oral tablet TAKE 1 TABLET BY MOUTH DAILY TO EQUAL 400MG Start Date: 02/09/23 Status: Ordered Repeat number: 1 apixaban 5 mg oral tablet Start: 03/13/24 7:53:00 AM EDT, 5 mg =, PO, 4 Refill(s) Start Date: 03/13/24 Status: Ordered Repeat number: 1 Aspir 81 Start: 10/09/24 8:23:00 AM EDT Start Date: 10/09/24 Status: Ordered Repeat number: 1 B-12 Start: 10/09/24 8:25:00 AM EDT, 1,000 mcg =, PO, Daily Start Date: 10/09/24 Status: Ordered Repeat number: 1 baclofen Start: 10/09/24 8:23:00 AM EDT, 10 mg =, PO, tid Start Date: 10/09/24 Status: Ordered Repeat number: 1 carvedilol 12.5 mg oral tablet TAKE HALF A TABLET BY MOUTH TWICE A DAY WITH FOOD Start Date: 02/09/23 Status: Ordered Repeat number: 1 DULoxetine 60 mg oral delayed release capsule TAKE 1 CAPSULE BY MOUTH IN THE MORNING AND 1 CAPSULE BEFORE BEDTIME. SINCE 05/09/22. Start Date: 02/09/23 Status: Ordered Repeat number: 1 Efudex 5% topical solution Start: 02/09/23 9:34:00 AM EDT, 1 appl, topical, qhs Start Date: 02/09/23 Status: Ordered Repeat number: 1 finasteride 5 mg oral tablet TAKE 1 TABLET BY MOUTH DAILY Start Date: 02/09/23 Status: Ordered Repeat number: 1 fluorometholone 0.1% ophthalmic suspension Start: 07/04/24 8:29:00 AM EST Start Date: 07/04/24 Status: Ordered Repeat number: 1 glipiZIDE 10 mg oral tablet, extended release TAKE 1 TABLET BY MOUTH EVERY DAY IN THE MORNING AND BEFORE BEDTIME Start Date: 02/09/23 Status: Ordered Repeat number: 1 Jardiance 10 mg oral tablet Start: 02/09/23 9:33:00 AM EDT, 1 tab, PO, Daily, Disp# 30 tab Start Date: 02/09/23 Status: Ordered Quantity: 30.0 Unit: tab Repeat number: 1 Linzess 72 mcg oral capsule Start: 02/09/23 9:34:00 AM EDT Start Date: 02/09/23 Status: Ordered Repeat number: 1 losartan 50 mg oral tablet TAKE 1 TABLET BY MOUTH IN THE MORNING. INC 10/19/2023. Start Date: 07/04/24 Status: Ordered Repeat number: 1 magnesium oxide 420 mg oral tablet Start: 02/09/23 9:35:00 AM EDT, 1 tab, PO, Daily Start Date: 02/09/23 Status: Ordered Repeat number: 1 memantine Start: 10/09/24 8:24:00 AM EDT, 10 mg =, PO, bid Start Date: 10/09/24 Status: Ordered Repeat number: 1 nortriptyline Start: 10/09/24 8:25:00 AM EDT, 10 mg =, PO, Daily Start Date: 10/09/24 Status: Ordered Repeat number: 1 nortriptyline Start: 07/04/24 8:31:00 AM EST, 10 mg =, PO, qhs Start Date: 07/04/24 Status: Ordered Repeat number: 1 pantoprazole 20 mg oral delayed release tablet Start: 07/04/24 8:29:00 AM EST Start Date: 07/04/24 Status: Ordered Repeat number: 1 pregabalin 150 mg oral capsule Start: 02/09/23 9:36:00 AM EDT, 1 cap, PO, bid Start Date: 02/09/23 Status: Ordered Repeat number: 1 rOPINIRole 0.5 mg oral tablet Start: 02/09/23 9:36:00 AM EDT, 1 tab, PO, Daily Start Date: 02/09/23 Status: Ordered Repeat number: 1 rosuvastatin 20 mg oral tablet TAKE BY MOUTH 1 TABLET IN THE MORNING. ST 03/12/2021 AND -STOP PRAVACHOL AND FENOFIBRATE.. Start Date: 02/09/23 Status: Ordered Repeat number: 1 sildenafil 20 mg oral tablet Start: 02/09/23 9:36:00 AM EDT, 1 tab, PO, tid Start Date: 02/09/23 Status: Ordered Repeat number: 1 tamsulosin 0.4 mg oral capsule TAKE 1 CAPSULE BY MOUTH AT BEDTIME Start Date: 02/09/23 Status: Ordered Repeat number: 1 Vitamin B12 Start: 02/09/23 9:37:00 AM EDT Start Date: 02/09/23 Status: Ordered Repeat number: 1 Vitamin C Start: 10/09/24 8:26:00 AM EDT, 500 mg =, PO, Daily Start Date: 10/09/24 Status: Ordered Repeat number: 1 Vitamin C Start: 02/09/23 9:37:00 AM EDT Start Date: 02/09/23 Status: Ordered Repeat number: 1 Vitamin D3 Start: 02/09/23 9:37:00 AM EDT Start Date: 02/09/23 Status: Ordered Repeat number: 1 zolpidem 5 mg oral tablet TAKE 1 TABLET BY MOUTH EVERYDAY AT BEDTIME Start Date: 02/09/23 Status: Ordered Repeat number: 1 Mental Status 10/09/24 Barriers to Learning one year None evide nt Mandatory Health Literacy Documentation Yes Health Literacy Communication Barriers N ever Primary Language Palauan Problem List Condition Confirmation Course Effective Dates Status Health St atus Informant Biceps tendinitis on right Confirmed Active DVT (deep venous thrombosis) Confirmed Active Diabetes Confirmed Active Gout Confirmed Active Hamstring strain Confirmed Active High blood pressure Confirmed Active Left knee pain Confirmed Active Breast cancer Confirmed Active Neuropathy of leg Confirmed Active Olecranon bursitis Confirmed Active Unilateral primary osteoarthritis, right knee Confirmed Active Right knee DJD Confirmed Active Right knee pain Confirmed Active Right shoulder pain Confirmed Active Diagnosis Diagnosis Type Effective Dates Health Status Cl inical Service Informant Right knee DJD Discharge Diagnosis 10/09/24 Procedures Procedure Date Related Diagnosis Body Site Status Biopsy 1 Completed Biopsy of prostate Comple [place]iana Breast cancer Completed Cancer 2 Completed Colonoscopy Completed Cornea 3 Completed Prostate Completed Radiation burn Completed 1lymph node 2right leg 3both eyes cornea transplant Vital Signs Most recent to oldest [Reference Range]: 1 Height 178 cm (10/09/24 8:20 AM) Patient Weight 95 kg (10/09/24 8:20 AM) Body Mass Index 29.98 kg/m2 (10/09/24 8:20 AM) Temperature [36.5-37.9 DegC] 36.0 DegC *LOW* (10/09/24 8:20 AM) Heart Rate 78 bpm (10/09/24 8:20 AM) Blood Pressure 120/60mmHg (10/09/24 8:20 AM) Cuff Pulse Pressure 60 mmHg (10/09/24 8:20 AM) Social History Social History Type Response Smoking Status Never smoked cigaret koko Sex Male Sex Representation Male (finding) Pre-OP H & P * PABLITO Ley [place]: PERFORM Event Display: Pre-OP H & P Authored Date: [id number] Name: PEDRO TOM Patient Number: [id number] : 1935 Date of Service: 10/09/2024 Procedure: Right total knee arthroplasty Chief Complaint pre op R knee History of Present Illness Patient is a 88 year-old female presenting today for their pre-operative history and physical examination for the above-noted surgery with Dr Gordillo. He had Iovera treatment 09/03/24 on his left knee, and a cortisone injection in his right knee on 07/24/24. He notes that every time he has gotten an injection, his pain has been relieved for about 1 month before it returns to normal. He wouldlike to discuss surgical intervention at this time. After discussing the risks and benefits of surgery he has elected to proceed with total knee replacement. Physical Exam Vitals & Measurements T: 36.0 °C HR: 78 (Monitored) BP: 120/60 SpO2: 97% HT: 178 cm WT: 95.000 kg (Dosing) WT: 95 kg BMI: 29.98 General: Pt is well nourished, seated on the exam table AA&O, in NAD, calm and cooperative during exam HENT: Nontraumatic, no gross deformity, hearing and vision grossly in-tact, PERRL Heart: +S1, +S2, RRR, no murmurs appreciated Lungs: CTABL, no wheezing appreciated Focusing on the patient's right lower extremity: Diminished sensation due to neuropathy, unchanged from last visit + Medial joint line tenderness - Hubert's Ligamentous examination exhibits: stable and unchanged Woody 0 mm anterior translation and firm endpoint Posterior drawer stable Varus stress at 5 and 30° stable Valgus stress at 5 and 30° stable Range of motion 5° to 120º Diagnostic Results OA series (Bilateral 45° flexion PA view, AP standing, hips to ankles, right knee lateral and sunrise view) of the bilateral knees obtained 07/04/[address] Gordillo taken at [facility] show progression of medial joint space narrowing with bone on bone on the right, near bone on bone on theleft. Sclerosis, osteophytes, subchondral cysts present. Assessment/Plan 1. Right knee DJD The risks and benefits of surgery as well as the post operative course was explained and discussed with the patient. Written consent obtained. The patient's past medical history, surgeries, social history, medication list, allergies and PDMP were reviewed and confirmed with the patient. Patient will need medical and cardiac clearance and pulmonology clearance. Preoperative orders were placed.We discussed postoperative pain medications including oxycodone, tylenol, as well as icing and elevating to control pain. We discussed post operative DVT prophylaxis, Patient will resume their previous anti-coagulation - eliquis. Patient may need the following additional medications after surgery - stool softener as needed to prevent constipation while on narcotics, Multi-vitamin OR Vitamin C 500mg BID x 2 weeks, Iron 324mg BID x 2 weeks to promote healing. The patient has been scheduledfor post operative appointments. Him and his son would like to go to an inpatient rehab after the surgey. He will starte OP PT once dc from rehab. The patient was given a preoperative booklet and we reviewed the most pertinent things leading up to the surgery and the day of surgery; including any assisted devices pt may need, when/who to call for the surgery time, where to arrive the day of surgery, NPO after midnight, medications to hold, prepping the skin with CHG to prevent infection etc. All of their questions and concerns were answered today. They were instructed to call our office if they have any further questions or concerns. Problem List/Past Medical History Ongoing Biceps tendinitis on right Breast cancer Diabetes DVT (deep venous thrombosis) Gout Hamstring strain High blood pressure Left knee pain Neuropathy of leg Olecranon bursitis Right knee DJD Right knee pain Right shoulder pain Unilateral primary osteoarthritis, right knee Procedure/Surgical History •Prostate•Breast cancer•Cornea•Biopsy of prostate•Cancer•Radiation burn•Colonoscopy•Biopsy Medications Home acetaminophen, 1000 mg, PO albuterol(albuterol CFC free 90 mcg/inh MDI), 2 puff, inhaled, qid, PRN allopurinol(allopurinol 300 mg oral tablet) apixaban(apixaban 5 mg oral tablet), 5 mg, PO ascorbic acid(Vitamin C), 500 mg, PO, Daily ascorbic acid(Vitamin C) aspirin(Aspir 81) baclofen, 10 mg, PO, tid carvedilol(carvedilol 12.5 mg oral tablet) cholecalciferol(Vitamin D3) cyanocobalamin(B-12), 1000 mcg, PO, Daily cyanocobalamin(Vitamin B12) DULoxetine(DULoxetine 60 mg oral delayed release capsule) empagliflozin(Jardiance 10 mg oral tablet), 10 mg= 1 tab, PO, Daily finasteride(finasteride 5 mg oral tablet) fluorometholone ophthalmic(fluorometholone 0.1% ophthalmic suspension) fluorouracil topical(Efudex 5% topical solution), 1 appl, topical, qhs glipiZIDE(glipiZIDE 10 mg oral tablet, extended release) linaclotide(Linzess 72 mcg oral capsule) losartan(losartan 50 mg oral tablet) magnesium oxide(magnesium oxide 420 mg oral tablet), 420 mg= 1 tab, PO, Daily memantine, 10 mg, PO, bid nortriptyline, 10 mg, PO, Daily nortriptyline, 10 mg, PO, qhs pantoprazole(pantoprazole 20 mg oral delayed release tablet) pregabalin(pregabalin 150 mg oral capsule), 150 mg= 1 cap, PO, bid rOPINIRole(rOPINIRole 0.5 mg oral tablet), 0.5 mg= 1 tab, PO, Daily rosuvastatin(rosuvastatin 20 mg oral tablet) sildenafil(sildenafil 20 mg oral tablet), 20 mg= 1 tab, PO, tid tamSULOsin(tamsulosin 0.4 mg oral capsule) zolpidem(zolpidem 5 mg oral tablet) Allergies LISBETH Inhibitors Unknown reaction Social History Smoking Status Never smoked cigarettes Family History Cancer: Unknown. Type II diabetes mellitus: Unknown. Health Status Family Member(s) Electronic Signature on File Electronically Reviewed/Signed by: Renae Ley PA-C Author Signature Dt/Tm:10/09/2024 09:27 AM Physician Correction [employer] [facility], [facility] of [facility] - [address], [address] [place] [address] Electronically Reviewed/Signed by: Ashish Gordillo MD Cosigner Signature Dt/Tm: 10/09/2024 11:31 AM [facility] [employer] Department of Orthopaedics and Rehabilitation [facility] [address], [place] [address] MK Patient Care team information Care Team Personnel Name: MD Diaz Anitha Position: Referring DIRECT Member Role: Primary Care Provider Address: [address] Telecom: [phone] Care Team Related Persons Name: LUCI TOM Insurance Providers Guarantor name: PEDRO TOM Health Plan Information #: 2 Payer: [facility] Member Number: [id number] Policy Number: NA Group Number: [id number] Payer Identifier: [id number] Health Plan Information #: 1 Payer: MEDICARE Member Number: [id number] Policy Number: ALLISON Group Number: NA Payer Identifier: [id number] Health Plan Information #: 3 Payer: [facility] Member Number: NA Policy Number: ALLISON Group Number: NA Payer Identifier: ALLISON
--- OUTSIDE RECORDS SUMMARY | 2024-10-29 05:52 | External Medical Summary | Summary of Care ---
Author Name Unknown Organization [facility] Address [address] [address] Phone [phone] Care Team Providers Care Big Data Lead Name Role Phone Marcy Diaz MD Primary Care Provider [phone] Reason for Visit * Reason Comments Follow Up Encounter Details Date Type Department Care Team (Late st Contact Info) Description 10/14/2024 9:00 AM EDT Office Visit Cardiology, [facility] [address] [place] [phone] Beti Jain CRNP [address] [place] [phone] Pre-operative cardiovascular examination*; Paroxysmal atrial fibrillation (HCC); HTN, goal below 140/90; Dyslipidemia, goal LDL below 70; Asymptomatic stenosis of right carotid artery Allergies Active Allergy Reactions Criticality Noted Date Comments Juan Inhibitors Cough High 12/04/2012 Gabapentin Diarrhea High 09/27/2010 Simvastatin Muscle pain High 08/17/2009 documented as of this encounter (statuses as of 10/14/2024) Medications ONE TOUCH BASIC SYSTEM KITIndications:DM type [...] (Revatio) 1 Active Vitamin D3 50 MCG (1999 UT) Oral CapsuleIndication s:Type 2 diabetes mellitus [...] 1 Tablet before bedtime. 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 07/29/2024. 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 Cataract extraction status 05/06/2005 Overview (07/07/2005): left eye 07/04/2005 dr driscoll Personal history of malignant neoplasm of breast 04/08/2003 Gouty arthropathy 08/09/2002 Persistent insomnia 10/13/2000 Overview (03/27/2017): ICD-10 update of inactive term documented as of this encounter (statuses as of 10/14/2024) Resolved Problems Problem Noted Date Diagnosed Date [...] as of this encounter (statuses as of 10/14/2024) Immunizations Name Administration Dates Next Due COVID-19 mRNA, LNP-s, No Pre serve, 2-Dose Series ([employer] 06/02/2021,09/04/2020,08/14/2020 COVID-19, MRNA-LNP, PF, 50 M CG/0.5 mL, 12 YRS AND ABOVE, IM (MODERNA-Spikevax) 04/10/2024,05/02/2023 Covid-19, Mrna, Lnp-s, Pf, B ivalent, 30 Mcg, IM, 12 yrs and above ([employer] 07/07/2022 Pneumococcal Conjugate Vacc, 13 Valent (Prevnar) 10/07/2015 Pneumococcal Polysaccharide PPV23 (Pneumovax) 06/26/2019 RSV Vac., Recomb, Adjuvant, PF,0.5 Ml (Arexvy) 05/02/2023 Season Influenza, Quad, PF, Adjuvanted, 65+ Yrs, IM (FLUAD) 04/09/2020 Seasonal Influenza Vac., MDV , IM, 0.5 mL (Fluzone) 03/26/2014,04/12/2013,04/09/2012,04/05,04/13/2010,04/21/2009,04/08/2008 ,04/11/2007,04/11/2006 Seasonal Influenza Virus Vac cine, Unspecified Formulation 04/18/2023,04/12/2022,04/10/2021,04/09,03/26/2020,04/01/2019,04/05/2018 ,04/10/2017,04/14/2016,03/26/2014,03/26,04/09/2012,04/05/2011, 0,04/21/2009,04/08/2008,04/11/2007, Seasonal Influenza, High Dos e, Trivalent, PF, [...] Job End Date retired but works 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/abraham [employer] at [employer] in [place] [facility] Not on file Not on file Not on file documented as of this encounter Last Filed Vital Signs Vital Sign Reading Time Taken Comments Blood Pressure 102/60 10/14/2024 8:58 AM EDT Pulse 86 10/14/2024 8:58 AM EDT Temperature - - Respiratory Rate - - Oxygen Saturation - - Inhaled Oxygen Concentration - - Weight 95.3 kg (210 lb) 10/14/2024 8:58 AM EDT Height - - Body Mass Index 29.29 10/11/2024 10:46 AM EDT documented in this encounter Patient Instructions * Patient Instructions* Beti Jain CRNP - 10/14/2024 9:24 AM EDT Please make sure your take your Carvedilol the morning of surgery with a sip of water. 2. You may hold your Eliquis for no more than 3 days prior to your surgery date. Please plan to resume on Post op Day 1. documented in this encounter Progress Notes * Beti Jain CRNP - 10/14/2024 9:00 AM EDT 10/14/2024 Cardiology Follow Up Primary Sub Plant Manager: Dr. Phan Cardiac Problems: Paroxysmal AFIB (on Eliquis), [id number] (age 1, HTN, carotid stenosis, DM) Atypical chest pain Negative dobutamine stress ECHO (04/2023) HTN HLD Mild-moderate right carotid stenosis Type 2 diabetes mellitus with neuropathy GERD CKD stage III History of male breast cancer status post mastectomy, chemotherapy, and radiation in his 40s HPI: Cuco Araujo is a 88 year old male presents for a preoperative cardiac clearance for a Right TKA with Dr. Gordillo on 10/29/24. Last seen in our office by CHACORTA Guo 06/2024 with concerns of intermittent left sided chest tightness that occurred at rest. Prior negative dobutamine stress echo 04/2023, ongoing DODSON, all chronic and unchanged. He underwent a routine carotid US which remains stable (less than 50% stenosis), and was advised to follow up in 6 months. Patient presents today presents today feeling well from a cardiac perspective. Denies any decline in his functional capacity outside of his knee pain. EKG today SR with 1st degree AVB. Rate 87bpm NO chest pain, pressure, palpitations, no shorntess of breath, pND, pre-syncope, syncope or edema. Reviewed last dobutamine stress echo, and zio monitor. BP well controlled Compliant on all medication therapies with no untoward effects. REVIEW OF SYSTEMS: See HPI for pertinent positives. All others negative other than those noted in the HPI. CONSTITUTIONAL: No change in weight, No weakness, No fatigue and No fevers, No sweats or chills. PULMONARY: No cough, sputum, or hemoptysis, No wheezing, No shortness or breath and No recent change in breathing. CARDIOVASCULAR: No chest pain, No dyspnea on exertion, No edema, No palpitations and No syncope. GASTROINTESTINAL: No abdominal pain, No change in bowel habits, No significant heartburn, No nausea, No vomiting, No diarrhea, No constipation, No blood in stools or black tarry stools. No dysphagia. HEMATOLOGIC: No abnormal bleeding and No bruising. NEUROLOGICAL: Normal balance, No headaches and No weakness. Review of patient's allergies indicates: Allergen Reactions Juan Inhibitors Cough Gabapentin Diarrhea Simvastatin Muscle pain Current Outpatient Medications Medication Sig Dispense Refill ONE TOUCH BASIC SYSTEM KIT use as directed 1 0 Cyanocobalamin (VITAMIN B-12) 1000 MCG Tablet Take 1 Tablet by mouth daily at noon. Ascorbic Acid (VITAMIN C) 500 MG chewable tablet Take 1 Tablet by mouth daily at noon. 30 Tab 5 finasteride (PROSCAR) 5 MG Tablet Take 1 Tablet by mouth daily at noon. 3 tamsulosin (FLOMAX) 0.4 MG Capsule Take 1 Capsule by mouth at bedtime. Fluorometholone 0.1 % Ophthalmic Suspension Instill 1 Drop into both eyes every evening. Sildenafil Citrate 20 MG Oral Tablet (Revatio) Vitamin D3 50 MCG (1999 UT) Oral Capsule Take by mouth 1 Capsule in the morning. -09/20/2021. 30Capsule 5 Empagliflozin 10 MG Oral Tablet Take 1 Tablet by mouth in the morning. Magnesium Oxide 420 (252 Mg) MG Oral Tablet Take by mouth. Linzess 72 MCG Oral Capsule (linaCLOtide) Take 1 Capsule by mouth in the morning. 90 Capsule 3 Apixaban 5 MG Oral Tablet (Eliquis) Take 1 Tablet by mouth in the morning and 1 Tablet before bedtime. Baclofen 10 MG Oral Tablet (Lioresal) TAKE 1 TABLET BY MOUTH IN THE MORNING AND BEFORE BEDTIME 180 Tablet 3 Nortriptyline HCl 10 MG Oral Capsule (Pamelor) Take 1 Capsule by mouth at bedtime. rOPINIRole HCl 1 MG Oral Tablet (Requip) 1 tab 2 hrs before bedtime -VA med 1 Tablet 0 Memantine HCl 10 MG Oral Tablet (Namenda) Take 1 Tablet by mouth in the morning and 1 Tablet beforebedtime. 180 Tablet 1 Pregabalin 150 MG Oral Capsule (Lyrica) TAKE 1 CAPSULE BY MOUTH IN THE MORNING AND BEFORE BEDTIME 180 Capsule 3 Losartan Potassium 50 MG Oral Tablet (Cozaar) Take 0.5 Tablets by mouth in the morning. 07/29/2024. 45 Tablet 2 Allopurinol 300 MG Oral Tablet (Zyloprim) TAKE 1 TABLET BY MOUTH EVERY DAY IN THE MORNING 90 Tablet2 glipiZIDE ER 10 MG Oral Tablet Extended Release 24 Hour (Glucotrol XL) TAKE 1 TABLET BY MOUTH EVERYDAY IN THE MORNING AND AT BEDTIME 180 Tablet 2 Rosuvastatin Calcium 20 MG Oral Tablet (Crestor) Take 1 Tablet by mouth in the morning. 90 Tablet 2 Carvedilol 12.5 MG Oral Tablet (Coreg) TAKE 1/2 TABLET BY MOUTH TWICE A DAY WITH FOOD 90 Tablet 3 DULoxetine HCl 60 MG Oral Capsule Delayed Release Particles (Cymbalta) Take 1 Capsule by mouth in the morning and 1 Capsule before bedtime. 180 Capsule 3 Pantoprazole Sodium 20 MG Oral Tablet Delayed Release (Protonix) Take 1 tab by mouth 30 min before breakfast and at bedtime 180 Tablet 3 Albuterol Sulfate HFA 108 (90 Base) MCG/ACT Inhalation Aerosol Solution INHALE BY MOUTH 2 PUFFS EVERY 4 HOURS NEEDED FOR WHEEZING. MCG/ACT 8.5 g 3 Zolpidem Tartrate 5 MG Oral Tablet (Ambien) Take 1 Tablet by mouth at bedtime as needed for Sleep. 30 Tablet 0 Current Facility-Administered Medications Medication Dose Route Frequency Provider Last Rate Last Admin Albuterol Sulfate (Proventil) (5 MG/ML) 0.5% *conc* inhalation solution 2.5 mg 2.5 mg Nebulizer PRN Albuterol Sulfate (Proventil) (2.5 MG/3ML) 0.083% inhalation solution 2.5 mg 2.5 mg Nebulizer PRN Albuterol Sulfate (Proventil) (5 MG/ML) 0.5% *conc* inhalation solution 2.5 mg 2.5 mg Nebulizer PRN Albuterol Sulfate (Proventil) (2.5 MG/3ML) 0.083% inhalation solution 2.5 mg 2.5 mg Nebulizer PRN 2.5 mg at 03/14/24 1005 Past Medical History: Diagnosis Date Benign localized hyperplasia of prostate without urinary obstruction and other lower urinary tract symptoms (LUTS) DR. COHEN Breast cancer (HCC) 1998 left, mastectomy Carotid Stenosis, non-symptomatic 50 -79 % right ICA, 16-49 % left 12/19/2009 Diverticulosis of colon 07/31 via colonoscopy DM type 2, goal A1C below 8.0 04/23/2009 Per Diabetes Taxonomy. Dyslipidemia, goal to be determined H/O mastectomy, left 12/18/1998 HTN, goal below 140/80 07/06/2011 Neoplasm of unspecified nature of breast PATHOLOGIC STAGE III B, MASTECTOMY, XRT,CHEMO, TAMOX OTHER chemopherpy, 4 months every 20 days Personal history of radiation therapy 1998 Statin intolerance 11/29/2015 Type 2 DM with CKD stage 3 and hypertension (HCC) 01/10/2017 Family History Problem Relation Name Age of Onset Hypertension Mother Anna Araujo Diabetes Father Chet Araujo SR. Hypertension Brother Chet Araujo Colon cancer Brother Dementia Brother Social History Socioeconomic History Marital status: Spouse name: Lucrecia Number of children: 2 Occupational History Occupation: retired but works 2 days/week at [employer] in [place] Comment: Retired for [employer] Tobacco Use Smoking status: Former Current packs/day: 0.00 Average packs/day: 0.5 packs/day for 48.0 years (24.0 ttl pk-yrs) Types: Cigarettes Start date: 1949 Quit date: 06/26/1997 Years since quittin.3 Smokeless tobacco: Never Vaping Use Vaping status: Never Used Substance and Sexual Activity Alcohol use: Yes Alcohol/week: 0.8 standard drinks of alcohol Types: 1 1.5 oz of liquor per week Comment: occasional Drug use: No Sexual activity: Not Currently Partners: Female Other Topics Concern Service Yes Blood Transfusions No Special Diet No Seat Belt Yes Social History Narrative ; 2 healthy children; [employer]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 A+Ox3. HEENT: Normocephalic. Atraumatic. PERRL. EOMI. Conjunctiva and sclera clear. NECK: No carotid bruits. No JVD. Carotid upstrokes are brisk. Heart: RRR. S1 and S2 noted. +1/6 systolic murmur. No rubs or gallops. PMI non displaced. Lungs: Clear to auscultation. No wheezes.No rhonchi. No rales. Abdomen: Normal bowel sounds. Soft. Nontender. No masses or organomegaly. No abdominal bruits. Extremities: No edema. No clubbing or cyanosis. Pulses: radial=2/4, posterior tibial=2/4, dorsalis pedis = 2/4. NEURO: No focal deficits. PSYCH: Appropriate affect and insight. DATA Labs & Imaging Reviewed Below: EKG 07/16/24 CONCLUSIONS: Sinus rhythm with 1st degree AV block Otherwise normal ECG When compared with ECG of 27-Oct-2023 09:46, No significant change was found Ventricular Rate: 67 Zio Monitor 12/15/23 Patient had a min HR of 40 bpm, max HR of 105 bpm, and avg HR of 63 bpm. Predominant underlying rhythm was Sinus Rhythm. Bundle Branch Block/IVCD was present. Atrial Fibrillation occurred (4% burden), ranging from 44-105 bpm (avg of 71 bpm), the longest lasting 11 hours 1 min with an avg rate of 71 bpm. Atrial Fibrillation was detected within +/- 45 seconds of symptomatic patient event(s). Isolated SVEs were rare (<1.0%), SVE Couplets were rare (<1.0%), and no SVE Triplets were present. Isolated VEs were rare (<1.0%), and no VE Couplets or VE Triplets were present. EKG 10/27/23 NSR with 1st degree AV block 69 bpm Qtc 422 ECHO 12/17/22 Left ventricle is normal in size Moderate concentric left ventricular hypertrophy Left ventricular wall motion is normal EF = 55-60% Grade I diastolic dysfunction (abnormal relaxation pattern) Aortic valve leaflets are mildly calcified with focal calcification of the left coronary cusp and preserved leaflet mobility No hemodynamically significant valvular aortic stenosis Carotid Artery Duplex 11/07/22 Impression: Right carotid artery duplex examination indicates evidence of less than 50% stenosis of the internal carotid artery. Left carotid artery duplex examination indicates evidence of less than 50% stenosis of the internalcarotid artery. Dobutamine Stress ECHO 06/26/22 The stress echo is negative for inducible ischemia. The left atrium is mildly enlarged. The left ventricular diastolic function is mildly abnormal (grade I). ASSESSMENT/PLAN: 88 year old year old male 1. Pre-operative cardiovascular examination -No acute changes on EKG, stable from a cardiac perspective. -Reviewed most recent cardiac testing - EKG; Future -per Vitaly Criteria, patient was counseled that he would be placed at a moderate risk for any adverseperioperative cardiovascular events associated with knee surgery. Patient is on a good medication regimen and no other cardiac testing or interventions would further lower that risk. Patient states he understands and is accepting of that risk and wishes to proceed with surgery. -Advised that he should take his Coreg (Carvedilol) the AM of surgery with a sip of water -May hold Eliquis no more than 3 days prior to surgery date, and should resume the day following his surgery 2. Paroxysmal atrial fibrillation (HCC) -Well controlled. Asymptomatic -Continue Coreg, and Eliquis (please seen preoperative surgery instructions above) 3. HTN, goal below 140/90 -Controlled. -Continue Coreg, and losartan 4. Dyslipidemia, goal LDL below 70 -Yearly lipid panel -Continue Crestor 5. Asymptomatic stenosis of right carotid artery -Continue Crestor DISPOSITION: Follow up 4 months as scheduled or if symptoms worsen/fail to improve. All questions were answered to the patients satisfaction. Patient advised to report to ED with any and all emergencies. The patient agrees to the above plan and will call with additional questions or concerns. CHACORTA Houser Cardiology, [facility] [address] [place] [address] I spent a total of 33 minutes on the date of service in preparation, delivery, and documentation ofthe care provided to Cuco Araujo excluding any time spent in the performance of separately billed services. This chart was completed in part utilizing [employer] Speech Voice Recognition Software. Grammatical errors, random word insertions, pronoun errors, and incomplete sentences are an occasional consequence of this system due to software limitations, ambient noise, and hardware issues. Any formal questions or concerns about the content, text, or information contained within the body of this dictation should be directly addressed to the provider for clarification. documented in this encounter Nursing Notes * Chiqui Linda CMA - 10/14/2024 8:57 AM EDT Examination Room: 4 Name: Cuco Araujo Date of : (1935) Reason for Visit: pre op Interim Hospitalization(s): none Problems/Concerns: denied Chest Pain/SOB: denied My [facility] is a way you can talk to your provider online through e-mail. Would you like to sign up? I can activate it for you? ALREADY ACTIVE Patient was instructed to not get up on the exam table until directed and assisted by their provider; patient is to remain seated in the chair/ wheelchair/ exam table for fall prevention and safety reasons. Patient is aware to have assistance to step down off exam table with personnel. Patient voiced full comprehension of instructions. documented in this encounter Plan of Treatment Upcoming Encounters Date Type Department Care Team (Late st Contact Info) Description 01/13/2025 9:30 AM EDT Imaging Radiology [facility] 1st Floor, [place] [address] [place] [phone] 01/24/2025 9:00 AM EDT Office Visit Cardiology, 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 [address] [place] [phone] [facility]ume[facility] Miner [facility] [address] [facility] [place] [address] 01/28/2025 9:20 AM EDT Office Visit General Internal Medicine [facility] [address] [facility] [place], [place] [address] Marcy Diaz MD [address] [facility], [place] [address] 04/02/2025 8:30 AM EDT Office Visit Pulmonary Medicine, [facility] [address] [place] [phone] Sumeet Miner MD [address] [place] [address] 05/19/2025 10:00 AM EST Office Visit Pulmonary Medicine, [facility] [address] [place] [phone] Sumeet Miner MD [address] [place] [address] Scheduled Orders Name Type Priority Associated Diagnoses Orde r Schedule EKG EKG Routine Pre-operative cardiovascular examination Expected: 10/14/2024 (Approximate), Expires: 11/13/2025 Health Maintenance Due Date Last Done Comments Depression Screening 1947 Adult Wellness Visit 01/28/2023 01/28/2022 COVID-19 Vaccine ( season) 2024 04/10/2024, 04/10/2024, 05/02/2023, Additional history exists HbA1c 01/07/2025 07/10/2024, 04/26, 01/18/2024, Additional history exists CKD PHOS USE SMARTSET 78208 01/17/202512/25, 09/18/2020, 08/29/2019, Additional history exists CKD HGB USE SMARTSET 64756 05/08/202505/08, 06/24/2022, 06/24/2022, Additional history exists Albumin/Creatinine Ratio 07/10/2025 [...] Not on filedocumented as of this encounter Visit Diagnoses Diagnosis Pre-operative cardiovascular examination- Primary Paroxysmal atrial fibrillation (HCC) Atrial fibrillation HTN, goal below 140/90 Unspecified essential hypertension Dyslipidemia, goal LDL below 70 Other and unspecified hyperlipidemia Asymptomatic stenosis of right carotid artery Screening mammogram for breast cancer documented in this encounter Care Teams Big Data Lead Relationship Specialty Start Date End Date Marcy Diaz MD [address] [facility] [place] [address] PCP - General Internal Medicine 03/12/21 documented as of this encounter"
--- OUTSIDE RECORDS SUMMARY | 2024-10-29 05:52 | External Medical Summary | Summary of Care ---
Author Name Unknown Organization [facility] Address [address] [place] [address] Phone [phone] Care Team Providers Care Grain Blender Name Role Phone Marcy Diaz MD Primary Care Provider [phone] Reason for Visit * Reason Comments pre-op exam Encounter Details Date Type Department Care Team (Latest Contact Info) Description 10/11/2024 10:40 AM EDT Office Visit General Internal Medicine 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; HTN, goal below 140/90; Type 2 diabetes mellitus with hemoglobin A1c goal of less than 8.0% ([facility]); Dyslipidemia, goal LDL below 70; Hiatal hernia; Gastroesophageal reflux disease without esophagitis; Chronic insomnia; Mild vascular dementia without behavioral disturbance, psychotic disturbance, mood disturbance, or anxiety ([facility]); Gouty arthropathy; PLMD (periodic limb movement disorder); RLS (restless legs syndrome); EMRE (obstructive sleep apnea); Multiple lung nodules on CT; Personal history of malignant neoplasm of breast; Chronic constipation; History of esophageal dilatation; Persistent insomnia Allergies Active Allergy Reactions Criticality Noted Date Comments Juan Inhibitors Cough High 12/04/2012 Gabapentin Diarrhea High 09/27/2010 Simvastatin Muscle pain High 08/17/2009 documented as of this encounter (statuses as of 10/11/2024) Medications ONE XAircraft SYSTEM KITIndications:DM type 2, goal A1c below [...] disturbance, psychotic disturbance, mood disturbance, or anxiety ([facility]) Take 1 Tablet by mouth in the [...] stage 3a chronic kidney disease and hypertension ([facility]),Type 2 diabetes mellitus with hemoglobin A1c goal [...] hemoglobin A1c goal of less than 8.0% (HCC) TAKE 1 TABLET BY MOUTH EVERY DAY [...] 1 Capsule before bedtime. 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 Cataract extraction status 05/06/2005 Overview (07/07/2005): left eye 07/04/2005 dr driscoll Personal history of malignant neoplasm of breast 04/08/2003 Gouty arthropathy 08/09/2002 Persistent insomnia 10/13/2000 Overview (03/27/2017): ICD-10 update of inactive term documented as of this encounter (statuses as of 10/11/2024) Resolved Problems Problem Noted Date Diagnosed Date [...] as of this encounter (statuses as of 10/11/2024) Immunizations Name Administration Dates Next Due COVID-19 mRNA, LNP-s, No Pre serve, 2-Dose Series (Rocawear) 06/02/2021,09/04/2020,08/14/2020 COVID-19, MRNA-LNP, PF, 50 M CG/0.5 mL, 12 YRS AND ABOVE, IM (MODERNA-Spikevax) 04/10/2024,05/02/2023 Covid-19, Mrna, Lnp-s, Pf, B ivalent, 30 Mcg, IM, 12 yrs and above (Rocawear) 07/07/2022 Pneumococcal Conjugate Vacc, 13 Valent (Prevnar) [...] retired but works 2 days/abraham [employer] at [employer] in [facility] Not on file Not on file Not on file documented as of this encounter Last Filed Vital Signs Vital Sign Reading Time Taken Comments Blood Pressure 118/62 10/11/2024 10:46 AM EDT Pulse 75 10/11/2024 10:46 AM EDT Temperature 36.5 °C (97.7 °F) 10/11/2024 10:46 AM E DT Respiratory Rate - - Oxygen Saturation 95% 10/11/2024 10:46 AM EDT Inhaled Oxygen Concentration - - Weight 95 kg (209 lb 6.4 oz) 10/11/2024 10:46 AM EDT Height 180.3 cm (5' 11") 10/11/2024 10:46 AM EDT Body Mass Index 29.21 10/11/2024 10:46 AM EDT documented in this encounter Progress Notes * Marcy Diaz MD - 10/11/2024 10:54 AM EDT SUBJECTIVE: Cuco Araujo is a 88 year old male. Chief Complaint Patient presents with pre-op exam Nursing Notes: Marycruz Ordaz CCMA 10/11/24 1049 Signed Pt is here today for Pre op surgery pt is having a right knee replacement done on 10/29/[address] Gordillo pt did labs work done this week and there is an update EKG done and xrays too pt does not have paper work HPI: Patient presents Is being seen for preoperative evaluation at the request of Procedure and Date of surgery:Rt TKR 10/29/24 under general/block anesthesia Wt Readings from Last 5 Encounters: 10/11/24 209 lb 6.4 oz (95 kg) 10/01/24 211 lb (95.7 kg) 07/29/24 193 lb 8 oz (87.8 kg) 07/16/24 211 lb 12.8 oz (96.1 kg) 05/13/24 208 lb (94.3 kg) BP Readings from Last 5 Encounters: 10/11/24 118/62 10/01/24 118/72 07/29/24 106/56 07/16/24 100/60 05/13/24 102/62 PMH-Hiatal hernia, GERD,.h/o Schatzki's ring SP dilation, h/o chronic constipation, followed by GI Type 2 diabetes with neuropathy ;Hypertension, dyslipidemia, asymptomatic carotid stenosis PLMD, h/o hypomagnesemia, varicose vein left lower extremity with stasis dermatitis ; SC skin cancer;. H/o PMR in 2021, gouty arthropathy on allopurinol, Asbestosis Colonoscopy 09/10-mild diverticulosis. BPH on Proscar and Flomax--f/u [facility] H/o left breast cancer SP mastectomy in November 1998, SP radiation and chemotherapy, left chest chronic seroma which had been draining intermittently in the past, surgical evaluation by Dr. Brunner in 2015. chronic pain left chest , failed M UA in the past, followed by [facility] clinic. chronic insomnia, mild EMRE, RLS/PLMD being followed by Sleep Clinic.01/16--refuses cpap and excite emre--to [facility] will inc requip,ferritin at goal 03/17-spirometry normal but flow loop shows obstructive lung disease Has chronic calf pain bilaterally.--symptoms occurs with ambulation, does not improve with rest, sometimes may have it at rest as well.>>>>kehinde l/e Arterial Doppler neg 01/17/18 OA chg LS spine on abd xray OA knees f/b [facility] ortho-had nerve block procedure left 11/10/23 and plan for rt in 4-6 wks Smoked in past 1 ppd x 30 yrs, quit in 1979 History of pneumonia 10/16, aspiration pneumonia left upper lobe 12/16. 07/20--Saw Paulo 05/13/24> PFT show moderate restrictive ventilatory pattern, declining FEV1 c/w 2021 data, down from 83% to 64% 6 minute walk test showed stable oxygen saturation Wixela added, c/w Albuterol PRN Maintain Physical Activity status Periodic CT scan Chest based on clinical assessment F/u 1 year Med list- -Jardiance 10 mg daily, glipizide 10 mg twice a day,. rosuvastatin 20 mg, aspirin 81mg . --added back losartan 25mg 08/19 ;-amlodipine 2.5 mg DC and losartan inc 50mg 10/19/23 for microalbuminuria >>bp low dec losartan 25 mg 07/29/2024, advised to increase fluids to 80 oz per day -Coreg 6.25 mg twice daily-[place] med ( now off Lasix, losartan/HCTZ due to dehydration and symptoms ofdizziness ) -eliquis added by cardiology- 02/21/24 -Omeprazole 40mg am, n/t pepcid resume as per GI notes, ct low dose linzess--Taking 3/week per pt as noted 10/11/2024 ; n/t probiotic;baclofen 10mg twice a day for dysphagia(per GI),magnesium citrate daily>12/17-will discontinue omeprazole and switch to pantoprazole -allopurinol 300 mg daily,(stop + 100mg 07/21/23). Alb hfa prn - Cymbalta 60 mg twice a day since 05/09/22, Lyrica 150 mg twice a day - Ambien 5 mg at HS--dose inc 6.25mg 11/16,Namenda 5 mg 2 twice a day.;Requip 0.5 mg at HS--now 1mg [facility],> pamelor 10mg hs per [facility] -B12 daily, vitamin-D 2k daily,; -finasteride, tamsulosin daily 12/17/22--echo at [facility] preserved LVEF wihtout significant valvular heart disease. Negative dobutamine stress echo 04/2023--Zio monitor -in eval dizziness-9 days and 6 hours-predominantly normal sinus rhythm, intraventricular conduction delay , AFib occurred 4% burden 44-105 beats per minute and correlated with patient's symptoms. Given low afib burden with a controlled ventricular response and his age , continue Coreg twice daily - Requesting Cardiology input to decide on anticoagulation -message routed--has appt 02/20/[address] on eliquis bid EKG-07/16/2024-NSR at 67 bpm, FAVB IL 226 milliseconds 07/10/2024-A1c 6.9%, stable BMP GFR 53, lipids 133/254/36/64 , nl alt,UA negative, no microalbumin -preoperative labs obtain-10/10/2024-UA SG 1.026, 3+ glucose otherwise negative, normal CBC, O positive blood group Saw Paulo 10/01/24.>Pt is CLEARED for Right TKR with Moderate risk for periop Pulmonary Complications. Surgical benefit outweighs the inherent Risk. C/w Albuterol Inhaler/nebs perioperatively. Hold/Resume Apixaban Perioperatively per surgical team recommendations c/w Albuterol PRN. Renewal Script submitted Maintain Physical Activity status Periodic CT scan Chest based on clinical assessment, Next CT chest scheduled for 01/2025 F/u 6 months He is scheduled to see Cardiology 10/14/2024 for preoperative evaluation Constitutional: no weight loss, no weakness Eyes: no worsening of vision ENT: no hearing loss, no congestion, no runny nose, no sore throat, no tinnitus. No dental problems Resp: no cough, no sputum, no wheezing, no SOB and no hemoptysis Cardiac: no chest pain, no orthopnea, no dyspnea on exertion, no PND, no edema, no claudication andno palpitations GI: no pain, no heartburn, no diarrhea, no constipation, no blood/melena, no nausea, no vomiting Musculoskeletal: no other significant pain. : no dysuria, no incontinence Neuro: no weakness, no falling, no numbness or tingling and no vertigo Heme: no fever, no chills, no sweats, no bleeding/bruising, no weight loss and no swollen nodes Endo: no unplanned weight change, no excessive thirst and no excessive urination Skin: no rash, no itching -continues to complain of difficulty sleeping at night,. Goes to bed around 6:30 p.m. and watches TV till about 8:00 p.m. and then goes to sleep but unable to sleep continuously, wakes up around 11:00 p.m. and then takes Ambien. Advised not to watch television in bed, take Requip 2 hours before going to bed and take Ambien at bedtime. Immunizations are uptodate. 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) Type 2 diabetes mellitus with hemoglobin A1c goal of less than 8.0% ([facility]) Dyslipidemia, goal LDL below 70 Asbestosis ([facility]) Asymptomatic bilateral carotid artery stenosis Lung nodule HTN, goal below 140/90 Sensorineural hearing loss (SNHL) of both ears SCC (squamous cell carcinoma), hand, 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 hypertension (HCC) Chronic bilateral low back pain without sciatica Rotator cuff tear arthropathy of right shoulder RLS (restless legs syndrome) PLMD (periodic limb movement disorder) TERMINATED MEDICATION USAGE AGREEMENT Hiatal hernia Unspecified dementia, unspecified severity, without behavioral disturbance, psychotic disturbance, mood disturbance, and anxiety ([facility]) Primary osteoarthritis of both knees History of Mohs surgery for squamous cell carcinoma of skin Microalbuminuria Atypical chest pain Paroxysmal A-fib ([facility]) Dry skin dermatitis Current Outpatient Medications (Endocrine & Metabolic Agents) Medication Sig Dispense Refill glipiZIDE ER 10 MG Oral Tablet Extended Release 24 Hour (Glucotrol XL) TAKE 1 TABLET BY MOUTH EVERYDAY IN THE MORNING AND AT BEDTIME 180 Tablet 2 Empagliflozin 10 MG Oral Tablet Take 1 Tablet by mouth in the morning. Current Outpatient Medications (Cardiovascular Agents) Medication Sig Dispense Refill Carvedilol 12.5 MG Oral Tablet (Coreg) TAKE 1/2 TABLET BY MOUTH TWICE A DAY WITH FOOD 90 Tablet 3 Rosuvastatin Calcium 20 MG Oral Tablet (Crestor) Take 1 Tablet by mouth in the morning. 90 Tablet 2 Losartan Potassium 50 MG Oral Tablet (Cozaar) Take 0.5 Tablets by mouth in the morning. 07/29/2024. 45 Tablet 2 Sildenafil Citrate 20 MG Oral Tablet (Revatio) Current Outpatient Medications (Antihistamines/Nasal Agents/Cough & Cold/Respiratory/Misc) Medication Sig Dispense Refill Albuterol Sulfate HFA 108 (90 Base) MCG/ACT Inhalation Aerosol Solution INHALE BY MOUTH 2 PUFFS EVERY 4 HOURS NEEDED FOR WHEEZING. MCG/ACT 8.5 g 3 Current Outpatient Medications (Gastrointestinal Agents) Medication Sig Dispense Refill Pantoprazole Sodium 20 MG Oral Tablet Delayed Release (Protonix) Take 1 tab by mouth 30 min before breakfast and at bedtime 180 Tablet 3 Linzess 72 MCG Oral Capsule (linaCLOtide) Take 1 Capsule by mouth in the morning. 90 Capsule 3 Current Outpatient Medications (Genitourinary Antispasmodics/Vaginal Products/Misc) Medication Sig Dispense Refill tamsulosin (FLOMAX) 0.4 MG Capsule Take 1 Capsule by mouth at bedtime. finasteride (PROSCAR) 5 MG Tablet Take 1 Tablet by mouth daily at noon. 3 Current Outpatient Medications (Central Nervous System Agents) Medication Sig Dispense Refill Zolpidem Tartrate 5 MG Oral Tablet (Ambien) Take 1 Tablet by mouth at bedtime as needed for Sleep. 30 Tablet 0 DULoxetine HCl 60 MG Oral Capsule Delayed Release Particles (Cymbalta) Take 1 Capsule by mouth in the morning and 1 Capsule before bedtime. 180 Capsule 3 Nortriptyline HCl 10 MG Oral Capsule (Pamelor) Take 1 Capsule by mouth at bedtime. Current Outpatient Medications (Analgesic/Anti-Inflammatory/Migraine/Gout Agents/Anesthetics) Medication Sig Dispense Refill Allopurinol 300 MG Oral Tablet (Zyloprim) TAKE 1 TABLET BY MOUTH EVERY DAY IN THE MORNING 90 Tablet2 Current Outpatient Medications (Neuromuscular Agents) Medication Sig Dispense Refill Pregabalin 150 MG Oral Capsule (Lyrica) TAKE 1 CAPSULE BY MOUTH IN THE MORNING AND BEFORE BEDTIME 180 Capsule 3 rOPINIRole HCl 1 MG Oral Tablet (Requip) 1 tab 2 hrs before bedtime -[facility] 1 Tablet 0 Baclofen 10 MG Oral Tablet (Lioresal) TAKE 1 TABLET BY MOUTH IN THE MORNING AND BEFORE BEDTIME 180 Tablet 3 Current Outpatient Medications (Nutritional Products) Medication Sig Dispense Refill Magnesium Oxide 420 (252 Mg) MG Oral Tablet Take by mouth. Vitamin D3 50 MCG (2000 UT) Oral Capsule Take by mouth 1 Capsule in the morning. -09/20/2021. 30Capsule 5 Ascorbic Acid (VITAMIN C) 500 MG chewable tablet Take 1 Tablet by mouth daily at noon. 30 Tab 5 Current Outpatient Medications (Hematological Agents) Medication Sig Dispense Refill Apixaban 5 MG Oral Tablet (Eliquis) Take 1 Tablet by mouth in the morning and 1 Tablet before bedtime. Cyanocobalamin (VITAMIN B-12) 1000 MCG Tablet Take 1 Tablet by mouth daily at noon. Current Outpatient Medications (Dermatological/Anorectal/Mouth-Throat/Dental/Ophthalmic/Otic) Medication Sig Dispense Refill Fluorometholone 0.1 % Ophthalmic Suspension Instill 1 Drop into both eyes every evening. Current Outpatient Medications (Miscellaneous Products) Medication Sig Dispense Refill ONE TOUCH BASIC SYSTEM KIT use as directed 1 0 Current Outpatient Medications (Psychotherapeutic & Neurological Agents - Misc) Medication Sig Dispense Refill Memantine HCl 10 MG Oral Tablet (Namenda) Take 1 Tablet by mouth in the morning and 1 Tablet beforebedtime. 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 EGD, FLEXIBLE, DIAGNOSTIC 06/15/2016 inflammation on bx, Schatzki ring, HH/ESOPHAGOGASTRODUODENOSCOPY (EGD), FLEXIBLE, TRANSORAL, DIAGNOSTIC performed by Sonali Brunner DO at [facility] EGD, FLEXIBLE, DIAGNOSTIC 04/17/2018 mild inflammatory changes, Schatzki ring, hiatal hernia/ESOPHAGOGASTRODUODENOSCOPY (EGD), FLEXIBLE,TRANSORAL, DIAGNOSTIC performed by Sonali Brunner DO at [facility] EGD, FLEXIBLE, DIAGNOSTIC 04/08/2019 gastritis, Schatzki ring, hiatal hernia/ESOPHAGOGASTRODUODENOSCOPY (EGD), FLEXIBLE, TRANSORAL, DIAGNOSTIC performed by Sonali Brunner DO at [facility] EGD, FLEXIBLE, DIAGNOSTIC 02/04/2020 Schatzki ring, hiatal hernia / ESOPHAGOGASTRODUODENOSCOPY (EGD), FLEXIBLE, TRANSORAL, DIAGNOSTIC performed by Sonali Brunner DO at [facility] EGD, FLEXIBLE, DIAGNOSTIC 07/05/2021 Tortuous esophagus, Schatzki ring / ESOPHAGOGASTRODUODENOSCOPY (EGD), FLEXIBLE, TRANSORAL, DIAGNOSTIC performed by Sonali Brunner DO at [facility] EGD, FLEXIBLE, DIAGNOSTIC 05/08/2024 tortuous esophagus/moderate schatzki ring/large type III paraesophageal hernia/ESOPHAGOGASTRODUODENOSCOPY (EGD), FLEXIBLE, TRANSORAL, DIAGNOSTIC performed by Sonali Brunner DO at [facility] EGD, FLEXIBLE, W/BIOPSY 04/01/2011 no infection EGD, FLEXIBLE, W/BIOPSY 02/26/2013 stomach nodule EGD, W/ENDOSCOPIC US 10/16/2013 ESOPHAGOGASTRODUODENOSCOPY (EGD), FLEXIBLE, TRANSORAL, ENDOSCOPIC ULTRASOUND performed by Sonali Brunner DO at [facility] GWV TUNA PROCEDURE MASTECTOMY, SIMPLE, COMPLETE Left [address] Orellana - simple mastectomy -- NONE 02/08/2005 CT scan done of head here at [facility] NONE 03/25/2005 Full body bone scan at [facility] NONE 04/01/2005 MRI of brain at [facility] PUNCTURE DRAINAGE BREAST CYST Left 12/2020 seroma was drained. 5 cc of red tinged fluid was obtained and sent for culture which showed no growth RADIATION THERAPY 1998 Radiation [id number] [facility], (40 treatment)s RADIATION THERAPY MANAGEMENT NEC 1998 Radiation [id number] [facility], (40 treatment)s RADICAL REMOVAL OF BREAST 12/17/1998 12/17/1998 DR. VANCE, LEFT BREAST UPPER ENDOSCOPY GI REFERRAL OP 09/2004 esophageal dilitation Review of patient's allergies indicates: Allergen Reactions Juan Inhibitors Cough Gabapentin Diarrhea Simvastatin Muscle pain Family History Problem Relation Name Age of Onset Hypertension Mother Anna Araujo Diabetes Father Chet Araujo SR. Hypertension Brother Chet Araujo Colon cancer Brother Dementia Brother Social History Tobacco Use Smoking status: Former Current packs/day: 0.00 Average packs/day: 0.5 packs/day for 48.0 years (24.0 ttl pk-yrs) Types: Cigarettes Start date: 1950 Quit date: 06/26/1997 Years since quittin.3 Smokeless tobacco: Never Vaping Use Vaping status: Never Used Substance Use Topics Alcohol use: Yes Alcohol/week: 0.8 standard drinks of alcohol Types: 1 1.5 oz of liquor per week Comment: occasional Drug use: No OBJECTIVE: BP 118/62 | Pulse 75 | Temp 97.7 °F (36.5 °C) | Ht 5' 11" (1.803 m) | Wt 209 lb 6.4 oz (95 kg) | SpO2 95% | BMI 29.21 kg/m² | BSA 2.18 m² PHYSICAL EXAM: General: alert, healthy, no distress, well nourished and well developed Head: Normocephalic, atraumatic Eye Exam: PERRLA, EOMI, Conjunctiva are pink and non-injected, sclera clear Ears: External ears normal, Canal clear, TM nml Nose: no mucosal erythema, no mucosal edema, no purulent discharge Oropharynx: no exudate and no erythema Neck: supple, no adenopathy, no JVD, thyroid normal size, non-tender, without nodularity Lymph: No palpable lymphadenopathy. Heart: regular Rhythm and rate, no murmurs. 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 HTN, goal below 140/90 Type 2 diabetes mellitus with hemoglobin A1c goal of less than 8.0% (HCC) Dyslipidemia, goal LDL below 70 Hiatal hernia Gastroesophageal reflux disease without esophagitis Chronic insomnia Mild vascular dementia without behavioral disturbance, psychotic disturbance, mood disturbance, or anxiety (HCC) Gouty arthropathy PLMD (periodic limb movement disorder) RLS (restless legs syndrome) EMRE (obstructive sleep apnea) Multiple lung nodules on CT Personal history of malignant neoplasm of breast Chronic constipation History of esophageal dilatation Persistent insomnia Is scheduled for right knee replacement 10/30/2019 5 Patient is at low risk For perioperative cardiac event and may undergo the proposed surgery under noninvasive cardiac monitoring. Has Cardiology appointment on 10/14/2024. Advised to take Coreg with a sip of water even on the day of his surgery, other medications as per anesthesia preop assessment depending on the time of his surgery. Hold eliquis 2 day before and on day of procedure. Start back 2-3 day after procedure when OK with surgeon - high risk bleeding procedure. Postoperative pain control per surgeon. Has mild sleep apnea not on CPAP and will need monitored during the postoperative period Advised to hold glipizide the day of surgery and before dinner the next day depending on the time of his surgery Advised not to watch television in bed, take Requip 2 hours before going to bed and take Ambien at bedtime. Follow Up: Return if symptoms worsen or fail to improve, for Return with Physician. | For: Return with Physician Cc - referring provider.. (This note was completed using the dictation program Fluency Direct. As such, there may be misspellings, word substitutions, or other variations that should not change the essence of the clinical content of this encounter note. If there is need for further clarification, please direct questions to the provider listed above.) Patient and / caregiver verbalize understanding of above instructions and agrees with plan of care. Marcy Diaz MD 10/11/2024 documented in this encounter Nursing Notes * Marycruz Ordaz CCMA - 10/11/2024 10:44 AM EDT Pt is here today for Pre op surgery pt is having a right knee replacement done on 10/29/[address] Gordillo pt did labs work done this week and there is an update EKG done and xrays too pt does not have paper work documented in this encounter Plan of Treatment Upcoming Encounters Date Type Department Care Team (Late st Contact Info) Description 10/14/2024 9:00 AM EDT Office Visit Cardiology, [facility] [address] [place] [phone] Beti Jain CRNP [address] [place] [id number] 01/13/2025 9:30 AM EDT Imaging Radiology [address] [place] [phone] 01/24/2025 9:00 AM EDT Office Visit Cardiology, [facility] [address] [place] [phone] Diamante Davies CRNP [address] [place] [address] 01/27/2025 8:00 AM EDT Imaging Radiology [address] [place] [phone] 01/27/2025 8:30 AM EDT Office Visit Pulmonary Medicine, [facility] [address] [place] [phone] Sumeet Miner MD [address] [place] [address] 01/28/2025 9:20 AM EDT Office Visit [place] [facility] [address] [place], [place] [address] Marcy Diaz MD [address] [place] [address] 04/02/2025 8:30 AM EDT Office Visit Pulmonary Medicine, [facility] [address] [place] [phone] Sumeet Mienr MD [address] [place] [id number] 05/19/2025 10:00 AM EST Office Visit Pulmonary Medicine, [facility] [address] [place] [phone] Sumeet Miner MD [address] [place] [id number] Health Maintenance Due Date Last Done Comments Depression Screening 1947 Adult Wellness Visit 01/28/2023 01/28/2022 COVID-19 Vaccine ( season) 2024 04/10/2024, 04/10/2024, 05/02/2023, Additional history exists HbA1c 01/07/2025 07/10/2024, 04/26, 01/18/2024, Additional history exists CKD PHOS USE SMARTSET 45146 01/17/202512/25, 09/18/2020, 08/29/2019, Additional history exists CKD HGB USE SMARTSET 25407 05/08/202505/08, 06/24/2022, 06/24/2022, Additional history exists Albumin/Creatinine [...] as of this encounter Visit Diagnoses Diagnosis Preoperative general physical examination- Primary Other specified pre-operative examination Primary osteoarthritis of both knees Primary localized osteoarthrosis, lower leg Paroxysmal A-fib (HCC) 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 HTN, goal below 140/90 Unspecified essential hypertension Type 2 diabetes mellitus with hemoglobin A1c goal of less than 8.0% (HCC) Dyslipidemia, goal LDL below 70 Other and unspecified hyperlipidemia Hiatal hernia Diaphragmatic hernia without mention of obstruction or gangrene Gastroesophageal reflux disease without esophagitis Esophageal reflux Chronic insomnia Insomnia, unspecified Mild vascular dementia without behavioral disturbance, psychotic disturbance, mood disturbance, or anxiety (HCC) Gouty arthropathy Gouty arthropathy, unspecified PLMD (periodic limb movement disorder) Periodic limb movement disorder RLS (restless legs syndrome) Restless legs syndrome (RLS) EMRE (obstructive sleep apnea) Obstructive sleep apnea (adult) (pediatric) Multiple lung nodules on CT Personal history of malignant neoplasm of breast Chronic constipation Unspecified constipation History of esophageal dilatation Persistent insomnia Persistent disorder of initiating or maintaining sleep Screening mammogram for breast cancer documented in this encounter Care Teams Grain Blender Relationship Specialty Start Date End Date Marcy Diaz MD [address] [facility], [place] [id number] PCP - General Internal Medicine 03/12/21 documented as of this encounter
[2024-10-29] MEDS: ACETAMINOPHEN 500 MG TAB PO SCH ×2 (05:54→13:17)
[2024-10-29] MEDS: CeleBREX 200 MG CAP PO SCH (05:54)
[2024-10-29] MEDS: LR 500ML BOLUS, THEN 15ML/HR IV SCH (05:54)
[2024-10-29] MEDS: Scopolamine 1 MG TDSY TD SCH (05:55)
[2024-10-29] MEDS: LR 60ML/HR IV SCH (05:56)
[2024-10-29] MEDS ORDERED: BUPIVACAINE 0.5 % 5 MG/1 ML PF 10ML VIAL ONE (06:29)
[2024-10-29] MEDS ORDERED: ROPIVACAINE 0.5% 5 MG/ML 30 ML VIAL ONE (06:29)
--- NOTE | 2024-10-29 06:39 | History & Physical Bridge Note ---
Date of Service October 29, 2024 History & Physical Bridge Note I have examined the patient, reviewed the History & Physical and in the interval since the performance of the History & Physical I have noted the following changes of clinical significance: no changes noted
[2024-10-29] MEDS ORDERED: MIDAZOLAM HCL 1 MG/ML 2ML VIAL ONE (06:44)
[2024-10-29] MEDS ORDERED: ONDANSETRON INJ 2 MG/ML 2 ML VIAL IV PRN ×2 (06:45→11:21)
[2024-10-29] MEDS ORDERED: HYDROmorphone INJ 1 MG/ML SYRINGE IV PRN (06:45)
[2024-10-29] MEDS ORDERED: ePHEDrine sulfate 50 MG/ML AMP IV PRN (06:45)
[2024-10-29] MEDS ORDERED: fentaNYL citrate PF 100 MCG/2 ML VIAL IV PRN (06:45)
[2024-10-29] MEDS ORDERED: ATROPINE SULFATE 0.1 MG/ML 10ML SYR IV PRN (06:45)
[2024-10-29] MEDS: TRANEXAMIC ACID 1,000 MG **IV Pre-op IV SCH (06:48)
[2024-10-29] MEDS: ceFAZolin 2000MG 2,000 MG/15 ML SYR IV SCH ×2 (07:00→15:58)
[2024-10-29] MEDS ORDERED: PROPOFOL IV EMULSION 10 MG/ML 20 ML VIAL IV ONE (07:37)
[2024-10-29] MEDS: ROPIV 0.5% 246mg, Ketorolac 30mg, EPINEPHrine 0.5mg in NSS INFIL SCH (07:44)
[2024-10-29] MEDS: ORTHO JOINT ANESTHETIC ONE (07:45)
[2024-10-29] MEDS: TRANEXAMIC ACID 1,000 MG **IV Intra-op IV SCH (09:18)
--- NOTE | 2024-10-29 09:35 | Post Operative Brief Note ---
Immediate Post Op Note Date of Surgery October 29, 2024 Pre & Post Diagnosis Operation Date: 10/29/24 07:00 Pre-Op Diagnosis: Right Knee Osteoarthritis Post-Op Diagnosis: Right Knee Osteoarthritis I identified the patient and participated in the time-out.: Yes Procedure Operation Date: 10/29/24 07:00 Actual Procedures p Right Total Knee Arthroplasty(Right) - Ashish Gordillo MD Surgeon Ashish Gordillo MD Adaptive Physical Educator Chela Ley PA-C (No fellow avail) Estimated Blood Loss 75 Findings Consistent with Post-Op Diagnosis Fluids 1000 cc Specimens R knee contents Anesthesia Type MAC Spinal Regional Complications none
--- NOTE | 2024-10-29 09:36 | Operative Report ---
Post Operative Report Pre & Post Diagnosis Operation Date: 10/29/24 07:00 Pre-Op Diagnosis: Right Knee Osteoarthritis Post-Op Diagnosis: Right Knee Osteoarthritis I identified the patient and participated in the time-out.: Yes Procedure Operation Date: 10/29/24 07:00 Actual Procedures p Right Total knee replacement, imageless computer assisted navigation - Ashish Gordillo MD Surgeon Ashish Gordillo MD Wall Steamer Chela Ley PA-C (No fellow avail) Estimated Blood Loss 75 Findings See Below Examined Under Anesthesia: ROM -- There was 10 degrees to 125 degrees of flexion Ligamentous examination -- revealed stable Woody, posterior drawer, varus and valgus stress at 0 and 30 degrees. Outerbridge Grade IV changes of Patellofemoral & medial compartment, grade III changes lateral compartment. Fluids 1000 cc Specimens R knee contents Anesthesia Type MAC Spinal Regional Complications none Indications This is a 88-year-old male who has clinical and radiographic findings consistent with osteoarthritis of the a right knee. I recommended that a right total knee replacement be performed. The patient understands the risks of surgery, which include but not limited to: bleeding, infection, re-operation, damage to nerves and arteries, continued knee pain, knee stiffness, DVT, and . The patient understands all these instructions and explanations, all his questions have been satisfactorily addressed, and the patient has elected to proceed. Informed consent was signed. Description of Procedure IMPLANTS: 1. Femur: Triathlon #5 Right PS. 2. Tibia: Triathlon #5 [place] with 12 x 50 mm stem. 3. Insert: Triathlon #5 x 11 mm PS X3 poly. 4. Patella: Triathlon A38 x 11 mm X3 poly. 5. Simplex + Gentamicin cement. Chela Ley PA-C is assisting with positioning, retracting, and closure due to fellow not available. Procedure: The patient was taken to the Operating Room and placed in the supine position after spinal and adductor canal nerve block was administered. My initials and a multidisciplinary time-out were used to identify the right leg as the correct operative limb. A tourniquet was placed high in the thigh. Prior to the incision, 2 grams of intravenous Ancef were given. One g of TXA was given pre- operatively and another after the tourniquet was released. The right leg was then prepped and draped in a standard sterile fashion. An Esmarch was used to exsanguinate the leg and the tourniquet was inflated to 250 mmHg. The planned mid-line 20 cm incision was created exposing the extensor mechanism. The medial parapatellar arthrotomy was made and the patella was everted. The patella was addressed first. It was prepared by reaming from 20 mm down to 11 mm. An A38 button was found to fit best. The peg holes were made in the standard fashion. The femur was addressed next and using computer assisted OrthoAlign with 3 degrees of flexion and 0 degrees of valgus, removing 10 mm in the standard fashion for the distal cut. The cut was made and the 4-in-1 cutting block for After making the Tibial cut and checking the balancing using OrthoAlign Lantern, the 4-in-1 cutting block for a size 5 femur was placed. These cuts and the cuts to place the box were made in the standard fashion. The tibia cut with using imageless computer assisted OrthoAlign, taking 2 mm from the medial low side. There was sufficient extension and flexion gap of 9 mm using OrthoAlign Lantern. A #5 Tibial baseplate fit well. A trial with a 11 mm spacer showed excellent stability in both flexion and extension, with good ligament balance, and thumbs free patellar tracking. Range of motion of 0-130 degrees. The tibial baseplate was prepped for the keel and stem. A stem was used due to some areas of soft bone, to avoid subsidence. All components were removed. 90 ml of total knee cocktail were injected into the soft tissues and periosteum. All surfaces were copiously irrigated prior to placement of the components. The femoral component followed by Tibial baseplate were cemented in place and a 11 mm trial placed. Next, the patellar button was placed using the same cement. Once the cement had cured, the range of motion and stability were unchanged. The 11 mm X3 poly was placed. Again, the range of motion and stability were unchanged. The tourniquet was deflated. Hemostasis was obtained. Another 1g TXA was given. The extensor mechanism was closed with 1-0 Vicryl and 0 Stratafix with the knee bent approximately 60 degrees in a standard fashion. The peritenon and deep fascia was closed with 2-0 Vicryl. The subcutaneous layer was closed with 3-0 Vicryl. The skin was closed with Zipline and shield. The limb was cleaned and dried. 4x4 dressing was placed over top followed by ABDs, sterile Webril, and a foot to thigh Juan bandage. The patient was then transferred to the Recovery Room in stable condition. The sponge and needle counts were correct. POST-OP INSTRUCTIONS: The patient will be WBAT. The patient will be admitted to the hospital. Complete 24-hour course antibiotics. Labs will be obtained during the stay. DVT prophylaxis will include resumption of Eliquis tomorrow due to spinal, TEDs, and mechanical foot pumps. The dressing will be changed postop day #2-3 and covered with a Silverlon dressing. I attest to the content of the Intraoperative Record and any orders documented therein. Any exceptions are noted below.
--- NOTE | 2024-10-29 10:36 | XRay Report ---
XR knee RT 1 or 2V routine CLINICAL HISTORY: Surgical Post Op COMPARISON: 07/04/2024 FINDINGS: Interval right knee prosthesis shows no hardware complication. There is expected soft tiss ue gas. IMPRESSION: Unremarkable postoperative exam. ACT 112: Negative or not required by law. Electronically signed by: Fransico Dunlap M.D. 10/29/2024 10:35 AM
[2024-10-29] MEDS ORDERED: NALOXONE HCL 0.4 MG/1 ML VIAL/CARP IV PRN (11:21)
[2024-10-29] MEDS ORDERED: bisacodyL 10 MG SUPP PR PRN (11:21)
[2024-10-29] MEDS ORDERED: diphenhydrAMINE Capsule 25 MG CAP PO PRN (11:21)
[2024-10-29] MEDS ORDERED: MAGNESIUM HYDROXIDE SUSP 30 ML UDC PO PRN (11:21)
[2024-10-29] MEDS ORDERED: TRIAMCINOLONE ACET 0.1% CR 15 GM TUBE TOP PRN (11:21)
[2024-10-29] MEDS ORDERED: METOCLOPRAMIDE HCL INJ 5 MG/ML 2 ML VIAL IV PRN (11:21)
[2024-10-29] MEDS ORDERED: ALBUTEROL HFA 8 GM INHALER INH PRN (11:21)
[2024-10-29] MEDS ORDERED: PHARMACY GLYCEMIC MGMT CONSULT PRN (11:21)
[2024-10-29] MEDS ORDERED: HYDROmorphone INJ 0.5 MG/0.5 ML SYR IV PRN (11:21)
[2024-10-29] MEDS ORDERED: linaCLOtide 72 MCG CAPSULE PO PRN (11:21)
[2024-10-29] MEDS: SODIUM CHLORIDE 0.9% 1,000 ML IV SCH (12:16)
--- NOTE | 2024-10-29 12:28 | Hospitalist Consultation ---
Date of Consultation October 29, 2024 Assessment & Plan (1) Status post right knee replacement: (2) Diabetes mellitus, type II: (3) COPD (chronic obstructive pulmonary disease): (4) Paroxysmal atrial fibrillation: (5) CKD (chronic kidney disease), stage III: (6) Hypertension: (7) Restless legs: (8) BPH NOS w ur obs/LUTS: (9) Dyslipidemia: Plan This is an 88yo M with a PMH of PMH of DM II with peripheral neuropathy, HTN, HLD, history of L breast cancer (s/p mastectomy and chemo/radiation therapy), CKD stage III, asbestosis/COPD, asymptomatic b/l carotid artery stenosis, GERD, RLS, dementia, depression, BPH and other problems listed below who is POD #0 s/p Right Total Knee Arthroplasty(Right) by Dr. Gordillo. S/p R total knee arthroplasty POD #0 s/p Right Total Knee Arthroplasty(Right) by Dr. Gordillo Per ortho for pain control, wound care, anticoagulation and activities Monitor H&H (pre-op hgb 14.9, EBL 75 ml), continue incentive spirometry, PT/OT when appropriate Paroxysmal atrial fibrillation Continue beta amena, Eliquis to resume tomorrow AM per ortho DM II Hgb A1c 6.8 in September 2024 Hold home meds SSI while in-patient Glycemic consult placed by primary, received high dose steroids in radha- operative setting Repeat Hgb A1C in AM COPD, hx of asbestosis exposure Continue SURVEY WORKERS SUPERVISOR PRN albuterol inhaler Hx of b/l corneal transplants Continue SURVEY WORKERS SUPERVISOR anti-rejection eye drops HTN Optimize pain control Continue losartan, carvedilol CKD stage III Baseline Cr ~1.3 per chart review Hyperlipidemia Continue rosuvastatin BPH Bladder scan PRN Continue Finasteride, Flomax History of dysphagia Easy to chew diet, aspiration precautions Dementia Continue memantine Monitor for any signs of delirium throughout hospitalization Other chronic medical conditions/problems: RLS, gouty arthropathy, peripheral neuropathy, persistent insomnia and GERD --> Can continue SURVEY WORKERS SUPERVISOR medications for these conditions/problems while admitted. DVT Prophylaxis: Resume Eliquis tomorrow AM, per primary service Code Status: Full Code PCP: Joe Dispo: Observation med/surg Patient seen in collaboration with Dr. Sosa. Please see addendum. I spent a total of 60 minutes coordinating, documenting, and providing care for this patient excluding time spent in the performance of separately billed services or time spent by another provider/QHP. Thank you for this consultation. We will follow the patient with you during their hospital stay. You can reach a member of the [facility] 16/01 via [employer]. Supervising Physician Co-Signing Physician Notes Patient is an 88-year-old male with history of diabetes mellitus with nephropathy, hypertension, hyperlipidemia, CKD stage III, BPH, COPD, squamous cell carcinoma, left breast cancer s/p chemo, radiation, surgery, GERD and other medical problems was consulted for postop medical management. Patient underwent right total knee arthroplasty by Dr. Gordillo. Postoperatively, patient is doing well. Denies any significant pain at surgical site. Also denies any chest pain, dyspnea, nausea, vomiting, abdominal pain. Please review HPI for complete details of presentation. Physical Exam: Vitals signs as noted above General Appearance:Moderately built and nourished, no apparent distress Head: normocephalic, Atraumatic Eyes: normal inspection, EOMI Neck: supple, Trachea midline Respiratory/Chest: Normal breath sounds, CTA, L breast mastectomy, No accessory muscle use Cardiovascular: S1, S2, No murmur Abdomen/GI:Soft, Non tender, Bowel sounds present Extremities/Musculoskeletal:normal inspection, no edema, R knee surgical dressing Neurologic/Psych:AAOX3, grossly no focal neurological deficits Skin: normal color, warm Postoperative state S/P R TKA POD# 0 Monitor for postop anemia Pain is controlled PT OT, wound care, activity as per primary team. Continue bowel regimen to prevent constipation Plan to be resumed on Eliquis tomorrow DM II P.afib HTN, mood disorder Other chronic conditions Resume home medications as able Utilize insulin while hospitalized and hold oral medications for management of diabetes mellitus I personally interviewed and examined the patient at bedside. I have reviewed the advanced practitioner's documentation on the date of service referred in note and agree with plan. Patient's care is coordinated with Kylie Vaz PA-C. Please refer to the documentation above for details of patient's presentation and for discussion of other issues. I spent a total [id number] coordinating, documenting, and providing care for this patient excluding time spent in the performance of separately billed services or time spent by another provider/QHP. History of Present Illness Reason for Consultation: post op med mgmt Attending Physician: Ashish Gordillo MD History of Present Illness This is an 88yo M with a PMH of PMH of DM II with peripheral neuropathy, HTN, HLD, history of L breast cancer (s/p mastectomy and chemo/radiation therapy), CKD stage III, asbestosis/COPD, asymptomatic b/l carotid artery stenosis, GERD, RLS, dementia, depression, BPH and other problems listed below who is POD #0 s/p Right Total Knee Arthroplasty(Right) by Dr. Gordillo. Feeling well post- operatively. Nerve block still in partial effect. No F/C, CP, SOB, N/V, abd pain, dysuria. Has not urinated since procedure. Last bowel movement yesterday evening. Takes Eliquis for A fib - has been held for 72 hours pre-op. Follows with Dr. Diaz for primary care. Allergies Allergy/AdvReac Type Severity Reaction Status Date / Time gabapentin AdvReac Intermediate Diarrhea Verified 10/29/24 05:41 simvastatin AdvReac Intermediate Muscle Pain Verified 10/29/24 05:41 LISBETH Inhibitors AdvReac Mild COUGH Verified 10/29/24 05:41 Home Medications Medication Instructions Recorded Confirmed Type allopurinol 300 mg tablet 300 mg PO QAM 06/02/19 10/29/24 History carvedilol 12.5 mg tablet 6.25 mg PO BID 06/02/19 10/29/24 History glipizide 10 mg tablet, extended 10 mg PO BID 06/02/19 10/29/24 History release 24 hr albuterol sulfate 90 mcg/actuation 2 inh inhalation Q4H PRN SOB or 02/05/20 10/29/24 History aerosol inhaler (ProAir HFA) Wheezing ascorbic acid (vitamin C) 500 mg 500 mg PO DAILY 09/24/20 10/29/24 History chewable tablet (Vitamin C) cholecalciferol (vitamin D3) 50 50 mcg PO QAM 09/24/20 10/29/24 History mcg (2,000 unit) capsule (Vitamin D3) cyanocobalamin (vitamin B-12) 1,000 mcg PO QAM 09/24/20 10/29/24 History 1,000 mcg tablet (Vitamin B-12) triamcinolone acetonide 0.1 % 1 applic topical DAILY PRN Rash 09/24/20 10/29/24 History topical cream acetaminophen 500 mg tablet 1,000 mg PO Q8H PRN Pain 10/14/22 10/29/24 History (Tylenol Extra Strength) duloxetine 60 mg capsule,delayed 60 mg PO BID 10/14/22 10/29/24 History release (Cymbalta) fluorometholone 0.1 % eye 1 drp OPB HS 10/14/22 10/29/24 History drops,suspension fluorouracil 0.5 % topical cream 1 applic topical DAILY PRN Skin 10/14/22 10/29/24 History Irritation linaclotide 72 mcg capsule 72 mcg PO DAILY PRN ABD PAIN 10/14/22 10/29/24 History (Linzess) pregabalin 150 mg capsule (Lyrica) 150 mg PO BID 10/14/22 10/29/24 History ropinirole 0.5 mg tablet 1 mg PO HS 10/14/22 10/29/24 History rosuvastatin 20 mg tablet 20 mg PO QAM 10/14/22 10/29/24 History magnesium oxide 400 mg PO HS 02/03/23 10/29/24 History tamsulosin 0.4 mg capsule 0.4 mg PO HS #90 caps 11/29/23 10/29/24 Rx losartan 50 mg tablet 25 mg PO QAM 12/11/23 10/29/24 History memantine 10 mg tablet 10 mg PO BID 12/11/23 10/29/24 History apixaban 5 mg tablet 5 mg PO BID 10/08/24 10/29/24 History baclofen 10 mg tablet 10 mg PO BID 10/08/24 10/29/24 History empagliflozin 10 mg tablet 10 mg PO QAM 10/08/24 10/29/24 History (Jardiance) finasteride 5 mg tablet 5 mg PO QDL 10/08/24 10/29/24 History nortriptyline 10 mg capsule 10 mg PO HS 10/08/24 10/29/24 History pantoprazole 20 mg tablet,delayed 20 mg PO HS 10/08/24 10/29/24 History release zolpidem 5 mg tablet 5 mg PO HS PRN Insomnia 10/29/24 10/29/24 History Patient History Medical History (Updated 10/29/24 @ 14:41 by Kylie Vaz PA-C) Paroxysmal atrial fibrillation Sleep apnea no current treatment History of Lyme disease multiple-denies known residual effects Restless leg Schatzki's ring Hx of sepsis (2022) due to pneumonia Dyslipidemia History of diverticulitis last episode several years ago Chronic pain Atrial fibrillation no cardioversion, follows with quynh Hx of frostbite , both feet, has chronic pain Vertigo Large hiatal hernia Stage III chronic kidney disease Limb alert care status left arm Hx of chest pain not cardiac related, feels related to mastectomy- states has daily Hx of colonic polyps Dysphagia occasional, has had esophageal dialation in past History of esophageal dilatation History of left breast cancer (1997) surgery, chemo and xrt Hypertension controlled, stable per pt GERD (gastroesophageal reflux disease) controlled, stable per pt Nodular prostate with urinary obstruction Nocturia Diabetes mellitus NIDDM COPD (chronic obstructive pulmonary disease) follows with pulm - dr. tracey [facility] at [facility] BPH with obstruction/lower urinary tract symptoms Arthritis Actinic keratosis History of prostate cancer "cancerous" prostate biopsy noted in [facility] CAD (coronary artery disease) follows with Dr. Phan Aspiration pneumonitis Hx, "resolved" per pt CAP (community acquired pneumonia) 11/2022 "Resolved" s/p abx, reason for inhaler PRN prescription per patient Carotid stenosis under surveillance by cardiology Osteoarthritis Hearing deficit Peripheral neuropathy feet Hx of gout Asbestosis follows with pulm - dr. 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 H/O prostate biopsy cancerous > TURP Hx of transurethral resection of prostate History of colonoscopy History of tooth extraction History of cataract surgery R/L Family History Brother Family history of diabetes mellitus Family hx of colon cancer Other Colorectal cancer Diabetes Hypertension Social History Smoking Status: Former smoker Tobacco Type: Cigarettes Cigarettes Per Day: 1 PPD; Smoking End Date: ~ 50 years; Second Hand Exposure: No; Do You Dip or Chew Tobacco: No; Tobacco Cessation Education Requested by Patient: No Hx Alcohol Use: Yes Alcohol type: hard liquor Hx Substance Use: No Preferred Language: Divehi Communication Ability: Effective Correspondence Section Supervisor Required: No Beliefs That Will Affect Care: None marital status: Current Living Situation: Family Current Living Situation Comment: son comes by occassionally Other Information That Helps Us Care for You: No Feels Safe at Home: Yes Safety Concerns: Feels Safe At This Time Assistive Devices: Cane, Denture - Upper, Denture - Lower, Glasses, Hearing Aid - Bilateral and Walker Review of Systems Review of Systems: At least ten systems reviewed and negative except as noted in the HPI. Physical Exam Physical Exam: General Appearance: WD/WN, vitals as above, NAD, sitting up in bed, pleasant, conversing easily Head: normocephalic, atraumatic Eyes: normal inspection, PERRL, conjunctivae normal, anicteric sclerae ENT: external ear and nose normal, oropharynx normal Neck: normal visual inspection Chest: L breast mastectomy Respiratory: normal respiratory effort, lungs clear to auscultation Cardiovascular: regular rate, rhythm, normal peripheral pulses, no BLE edema Abdomen/GI: normal bowel sounds, soft, nontender Extremities/Musculoskeletal: R knee surgical dressing c/d/i. Ice in place. Distal extremity NVI, extremities motor strength 5/5 Neurologic: PERRL, EOMI, CN's II-XI intact bilaterally and moves all extremities Psychiatric: A+Ox3, euthymic affect Skin: no rashes, normal color, warm/dry Results & Data Results & Data Vital Signs (Past 12 Hours) Vital Signs Temp Pulse Pulse Resp BP Pulse Ox O2 Del Method 10/29/24 11:50 59 L 16 173/84 H 98 Nasal Cannula 10/29/24 11:21 36.4 C L 56 L 18 175/81 H 97 Nasal Cannula 10/29/24 10:50 59 L 12 161/87 H 98 Nasal Cannula 10/29/24 10:40 36.4 C L 60 15 161/87 H 97 Nasal Cannula 10/29/24 10:30 59 L 12 170/77 H 97 Nasal Cannula 10/29/24 10:20 62 24 167/79 H 96 Oxymask 10/29/24 10:10 59 L 12 152/80 H 96 Oxymask 10/29/24 10:00 60 12 160/77 H 95 Oxymask 10/29/24 09:54 36.7 C 60 13 118/65 94 Oxymask 10/29/24 05:45 36.9 C 60 20 158/62 H 94 Room Air O2 Flow Rate 10/29/24 11:50 2 10/29/24 11:21 2 10/29/24 10:50 2 10/29/24 10:40 4 10/29/24 10:30 4 10/29/24 10:20 5 10/29/24 10:10 5 10/29/24 10:00 11 10/29/24 09:54 11 10/29/24 05:45 Diagnostic Findings Knee X-Ray 10/29/24 10:11 XR knee RT 1 or 2V routine CLINICAL HISTORY: Surgical Post Op COMPARISON: 07/04/2024 FINDINGS: Interval right knee prosthesis shows no hardware complication. There is expected soft tissue gas. IMPRESSION: Unremarkable postoperative exam. ACT 112: Negative or not required by law. Electronically signed by: Fransico Dunlap M.D. 10/29/2024 10:35 AM
--- NOTE | 2024-10-29 12:29 | Anesthesiology Progress Note ---
Date of Service October 29, 2024 Anesthesia Post Procedure Vital Signs Vital Signs: Temp Pulse Pulse Resp BP Pulse Ox O2 Del Method 10/29/24 12:23 36.7 C 65 18 167/76 H 97 Nasal Cannula 10/29/24 11:50 59 L 16 173/84 H 98 Nasal Cannula 10/29/24 11:21 36.4 C L 56 L 18 175/81 H 97 Nasal Cannula 10/29/24 10:50 59 L 12 161/87 H 98 Nasal Cannula 10/29/24 10:40 36.4 C L 60 15 161/87 H 97 Nasal Cannula 10/29/24 10:30 59 L 12 170/77 H 97 Nasal Cannula 10/29/24 10:20 62 24 167/79 H 96 Oxymask 10/29/24 10:10 59 L 12 152/80 H 96 Oxymask 10/29/24 10:00 60 12 160/77 H 95 Oxymask 10/29/24 09:54 36.7 C 60 13 118/65 94 Oxymask 10/29/24 05:45 36.9 C 60 20 158/62 H 94 Room Air O2 Flow Rate 10/29/24 12:23 2 10/29/24 11:50 2 10/29/24 11:21 2 10/29/24 10:50 2 10/29/24 10:40 4 10/29/24 10:30 4 10/29/24 10:20 5 10/29/24 10:10 5 10/29/24 10:00 11 10/29/24 09:54 11 10/29/24 05:45 Transfer of Care Handoff Completed per policy Notes Mental Status: alert / awake / arousable and participated in evaluation Patient Amnestic to Procedure: Yes Nausea / Vomiting: adequately controlled Pain: adequately controlled Airway Patency, RR, SpO2: stable & adequate BP & HR: stable & adequate Hydration State: stable & adequate Neuraxial Anesthesia: was administered and sensory block is resolving Anesthetic Complications: no major complications apparent and Pt Satisfied with anesthetic care
[2024-10-29] MEDS: INSULIN ASPART PER UNIT CHARGE SC SCH (12:56)
--- NOTE | 2024-10-29 13:01 | Pharmacy Report ---
Pharmacy Glycemic Short Note 2 - Date of Service October 29, 2024 - Glycemic Short BSG Results (Last 24 hours): 10/29/24 10/29/24 10/29/24 05:40 09:54 11:19 POC Glucose 138 H 134 H 132 H OUTPATIENT ANTIDIABETIC REGIMEN: * glipizide ER 10mg po daily * Jardiance 10mg po daily HbA1c: 6.8% on 10/09/24 ASSESSMENT: * Cuco is an 88 year old male admitted today for a right total knee arthroplasty (POD #0). Pharmacy has been consulted for glycemic management postop. * Preop BSG was 138mg/dL and postop was 132mg/dL. It does not appear that he received any steroids pre/intra-op. However dexamethasone 10mg iv x 1 is ordered for tomorrow morning. * No Lantus is needed at this time and a weight based bolus insulin regimen with a stress between 1 and 2 was started. PLAN FOR INPATIENT GLYCEMIC CONTROL: * Hold outpatient oral diabetes medications * Basal insulin * none * Bolus insulin * NovoLog per scale ACHS or Q6hrs while NPO * Goal Range: Low 110 mg/dL - High 140 mg/dL * Correction Factor: 30 mg/dL/unit * Nutritional / Prandial insulin per carb ratio of 1 unit per 20 grams CHO consumed
[2024-10-29] MEDS: FINASTERIDE 5 MG TAB PO SCH (13:17)
[2024-10-29] MEDS ORDERED: POLYETHYLENE (MIRALAX) 17 GM PACK PO PRN (14:10)
[2024-10-29] MEDS: Scopolamine CHECK PATCH PLACEMENT SCH (15:49)
[2024-10-29] MEDS: FERROUS GLUCONATE 324 MG TAB PO SCH (16:02)
--- NOTE | 2024-10-29 16:58 | Orthopedic Progress Note ---
Date of Service October 29, 2024 Assessment & Plan (1) Osteoarthritis of right knee: Plan: POD #0 s/p R TKA, doing as well as expected. Resume diet. WBAT with walker. OOB to chair. Continue pain control. Check labs tomorrow. DVT prophylaxis: TEDs 3 weeks, foot pumps while in hospital, Resume Eliquis starting tomorrow due to spinal. PT/OT. D/C planning. Appreciate Hospitalist input. Dressing to be changed POD 2-3 to Silverlon type dressing. Present on Admission?: Yes Admission and Anticipated Discharge Date Admission Date: October 29, 2024 Subjective No complaints Physical Exam Physical Exam: RLE: BCR < 2 sec. Sensation to light touch unchanged. Able to wiggle toes and do straight leg raise. Dressing clean, dry, intact. Calf soft and non-tender. Results & Data Vital Signs (Past 12 Hours) Vital Signs Temp Pulse Pulse Resp BP Pulse Ox O2 Del Method 10/29/24 14:06 36.6 C 62 16 168/71 H 94 Room Air 10/29/24 13:14 66 16 160/75 H 97 Room Air 10/29/24 12:23 36.7 C 65 18 167/76 H 97 Nasal Cannula 10/29/24 11:50 59 L 16 173/84 H 98 Nasal Cannula 10/29/24 11:21 36.4 C L 56 L 18 175/81 H 97 Nasal Cannula 10/29/24 10:50 59 L 12 161/87 H 98 Nasal Cannula 10/29/24 10:40 36.4 C L 60 15 161/87 H 97 Nasal Cannula 10/29/24 10:30 59 L 12 170/77 H 97 Nasal Cannula 10/29/24 10:20 62 24 167/79 H 96 Oxymask 10/29/24 10:10 59 L 12 152/80 H 96 Oxymask 10/29/24 10:00 60 12 160/77 H 95 Oxymask 10/29/24 09:54 36.7 C 60 13 118/65 94 Oxymask 10/29/24 05:45 36.9 C 60 20 158/62 H 94 Room Air O2 Flow Rate 10/29/24 14:06 10/29/24 13:14 10/29/24 12:23 2 10/29/24 11:50 2 10/29/24 11:21 2 10/29/24 10:50 2 10/29/24 10:40 4 10/29/24 10:30 4 10/29/24 10:20 5 10/29/24 10:10 5 10/29/24 10:00 11 10/29/24 09:54 11 10/29/24 05:45 Diagnostic Findings Laboratory Results POC Glucose 99 mg/dl (70-99) 10/29/24 16:33 Impressions Knee X-Ray 10/29/24 10:11 XR knee RT 1 or 2V routine CLINICAL HISTORY: Surgical Post Op COMPARISON: 07/04/2024 FINDINGS: Interval right knee prosthesis shows no hardware complication. There is expected soft tissue gas. IMPRESSION: Unremarkable postoperative exam. ACT 112: Negative or not required by law. Electronically signed by: Fransico Dunlap M.D. 10/29/2024 10:35 AM
--- NOTE | 2024-10-29 20:11 | Communication Note ---
Date of Service: October 29, 2024 Made aware by RN of uncontrolled blood pressure. SBP 1 50-1 90s since a.m. Patient asymptomatic as per RN. AP Hypertensive urgency Celebrex contributory Titrate home BP meds Hold Celebrex for now Will relay to AM provider.
[2024-10-29] MEDS: SENNA 8.6 MG TAB PO SCH (20:16)
[2024-10-29] MEDS: DOCUSATE SODIUM 100 MG CAP PO SCH (20:16)
[2024-10-29] MEDS: PREGABALIN 150 MG CAP PO SCH (20:16)
[2024-10-29] MEDS: PANTOprazole 40 MG TAB PO SCH (20:17)
[2024-10-29] MEDS: TAMSULOSIN HCL 0.4 MG CAP PO SCH (20:18)
[2024-10-29] MEDS: MAGNESIUM OXIDE 400 MG TAB PO SCH (20:18)
[2024-10-29] MEDS: BACLOFEN 10 MG TAB PO SCH (20:18)
[2024-10-29] MEDS: MEMANTINE HCL 10 MG TAB PO SCH (20:18)
[2024-10-29] MEDS: carvediloL 6.25 MG TAB PO SCH (20:18)
[2024-10-29] MEDS: rOPINIRole HCL 1 MG TABLET PO SCH (20:19)
[2024-10-29] MEDS: DULoxetine HCL 60 MG CAP PO SCH (20:19)
[2024-10-29] MEDS: NORTRIPTYLINE HCL 10 MG CAP PO SCH (20:20)
[2024-10-29] MEDS: FLUOROMETHOLONE OP SCH (20:21)
[2024-10-29] MEDS ORDERED: CeleBREX 200 MG CAP PO SCH (21:00)
[2024-10-29] MEDS: ZOLPIDEM TARTRATE 5 MG TAB PO SCH (21:59)
[2024-10-30 06:39] LABS: Hematocrit (blood only) 37.8 % (42.0-52.0); Mean Corpuscular Hemoglobin 31.8 pg (25.0-34.0); Mean Corpuscular Hgb Conc 34.4 g/dL (32.0-36.0); Mean Corpuscular Volume 92.4 fL (80.0-100.0); Mean Platelet Volume 10.8 fL (9.4-12.4); Platelet Count 135 K/uL (130-400); RDW Coefficient of Variation 13.7 % (11.5-14.5); RDW Standard Deviation 46.5 fL (36.4-46.3); Red Blood Count 4.09 M/uL (4.70-6.10); White Blood Count 10.44 K/ul (4.8-10.8)
[2024-10-30 07:05] LABS: BUN Creatinine Ratio 18.6 (10-20); Calcium 8.2 mg/dl (8.6-10.3); Creatinine Clr Calc Pharmacy 45.6 ml/min; Potassium 4.4 mmol/L (3.5-5.1)
--- NOTE | 2024-10-30 07:11 | Hospitalist Progress Note ---
Date of Service October 30, 2024 Assessment & Plan (1) Osteoarthritis of right knee: (2) Status post right knee replacement: Plan: Mr. Araujo is an 88y/o M with PMHx significant for DMII with peripheral neuropathy, HTN, HLD, history of L breast cancer s/p mastectomy and chemo/radiation therapy, CKD stage III, asbestosis/COPD, asymptomatic bilateral carotid artery stenosis, GERD, RLS, dementia, depression and BPH who is being seen in consultation for routine postoperative medical management after undergoing elective R total knee arthroplasty performed by Dr. Ashish Gordillo on 10/29/24. Per ortho for pain control, wound care, anticoagulation and activities. Continue incentive spirometry, PT/OT when appropriate as per ortho team. Maintain Lopez catheter per ortho. (3) Hypertensive urgency: Plan: Noted last evening with SBP in the 190s. Likely Celebrex contributory therefore this was placed on hold. Suspect mostly related to postoperative pain. BP improving this AM. Continue home antihypertensive regimen with routine BP checks and hold parameters. (4) Acute blood loss anemia: Plan: In the setting of expected surgical loss (EBL = 75mL). Likely dilutional component contributing as well. Preoperative Hgb 14.9, now downtrended to 13 today. No indication to transfuse at this time. Continue to monitor daily CBC. (5) Diabetes mellitus, type II: Plan: Hgb A1c 6.8% in September 2024. Hold home agents. SSI protocol while inpatient with routine BSG checks. Glycemic pharmacy consult placed by primary service. (6) COPD (chronic obstructive pulmonary disease): Plan: History of asbestosis exposure. No current signs/symptoms of an acute exacerbation. Continue home albuterol inhaler PRN. (7) Paroxysmal atrial fibrillation: Plan: Continue BB. Resume Eliquis today as per primary service. (8) CKD (chronic kidney disease), stage III: Plan: Cr remains stable, baseline Cr around 1.3 per chart review. Avoid nephrotoxic agents when able. Monitor renal function closely with daily labs and renally dose medications when able. Other Chronic Medical Conditions: History of Dysphagia - No reported issues. Continue aspiration precautions, easy to chew diet. HLD/BPH/Dementia/RLS/Neuropathy/GERD - Continue home meds for these specific conditions. DVT Prophylaxis: Eliquis restarted this morning per primary service. Code Status: FULL CODE PCP: Marcy Diaz MD Disposition: Discharge planning as per primary service. Received message from that [facility] may be able to accept the patient today. Patient is medically stable for discharge to [facility] today if this is approved . We will follow the patient with you during their hospital stay. You can reach a member [facility] via [email or web address]. Patient seen in collaboration with Dr. Sousa. Please see addendum. I spent a total of 42 minutes coordinating, documenting, and providing care for this patient excluding time spent in the performance of separately billed services or time spent by another provider/QHP. This included personally reviewing all current laboratories and imaging studies, medical reconciliation, outpatient chart review and discussion with specialists. This chart was completed in part utilizing Speech Voice Recognition Software. Grammatical errors, random word insertions, pronoun errors, and incomplete sentences are an occasional consequence of this system due to software limitations, ambient noise, and hardware issues. Any formal questions or concerns about the content, text, or information contained within the body of this dictation should be directly addressed to the provider for clarification. Admission and Anticipated Discharge Date Admission Date: October 29, 2024 Supervising Physician Co-Signing Physician Notes I have reviewed the advanced practitioner's documentation, and I agree with, and take responsibility for the plan of care I spent a total of 20 minutes coordinating, documenting, and providing care for this patient excluding time spent in the performance of separately billed services. All of the aforementioned completed while collaborating with the assigned advanced practitioner for a full treatment plan Subjective Patient seen and examined in room E303-1. Was quite hypertensive last evening however suspect this was likely 2/2 pain. BP improving this morning. Patient denies any prior issues with his current antihypertensive medication regimen. Endorses some pain in his R knee postoperatively. Was working with PT when I entered the room. Denies any chest pain, SOB, abdominal pain or N/V. Review of Systems Review of Systems: At least ten systems reviewed and negative, except as noted in the subjective section. Physical Exam Physical Exam: General: Elderly, M. Sitting up in bed. NAD. Very pleasant. A&Ox4. Conversing appropriately. HEENT: Normocephalic, atraumatic. Conjunctivae normal. External ear and nose normal, oropharynx normal. Respiratory: Normal respiratory effort,. CTAB. No accessory muscle use. Saturating in low to mid 90s on RA. Cardiovascular: Regular rate and rhythm, normal peripheral pulses. No BLE edema. Abdomen/GI: Normal bowel sounds, soft, nondistended, nontender to palpation in all quadrants. : Lopez catheter intact and draining clear, yellow urine. Extremities/MSK: No cyanosis or clubbing. Surgical dressings on R knee C/D/I. Has ice packs on R knee. Neurologic: No overt focal deficits. CN's II-XI not formally tested but appear grossly intact bilaterally. Results & Data Results & Data Vital Signs (Past 12 Hours) Vital Signs Temp Pulse Pulse Resp BP Pulse Ox O2 Del Method 10/30/24 02:37 36.3 C L 65 18 178/78 H 93 Room Air 10/29/24 22:42 36.6 C 55 L 16 174/75 H 93 Room Air 10/29/24 20:05 62 10/29/24 19:57 36.8 C 57 L 16 198/80 H 95 Room Air Laboratory Results Short CBC 10/30/24 Range/Units 06:16 WBC 10.44 (4.8-10.8) K/ul Hgb 13.0 L (14.0-18.0) g/dl Hct 37.8 L (42.0-52.0) % Plt Count 135 (130-400) K/uL BMP 10/30/24 06:16 Sodium 138 Potassium 4.4 Chloride 105 Carbon Dioxide 31 BUN 24 H Creatinine 1.29 Glucose 118 H Calcium 8.2 L (1) Osteoarthritis of right knee Osteoarthritis type: unspecified Qualified Code(s): M17.11 - Unilateral primary osteoarthritis, right knee (5) Diabetes mellitus, type II Diabetes mellitus complication detail: with polyneuropathy Diabetes mellitus complication status: with neurologic complications 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
[2024-10-30 07:13] VITALS: PULSE 69; RESP 16; TEMP 98.4; O2SAT 90
[2024-10-30] MEDS: dexAMETHasone 10 MG in SYRINGE 0 ML IV SCH (08:12)
[2024-10-30] MEDS: allopurinoL 300 MG TAB PO SCH (08:13)
[2024-10-30] MEDS: CHOLECALCIFEROL 25 MCG (1000 UNITS) TAB PO SCH (08:13)
[2024-10-30] MEDS: ROSUVASTATIN CALCIUM 20 MG TAB PO SCH (08:13)
[2024-10-30] MEDS: CYANOCOBALAMIN (B-12) 500 MCG TABLET PO SCH (08:13)
[2024-10-30] MEDS: LOSARTAN POTASSIUM 25 MG TAB PO SCH (08:14)
[2024-10-30] MEDS: ASCORBIC ACID 500 MG TAB PO SCH (08:14)
[2024-10-30] MEDS: APIXABAN 5 MG TABLET PO SCH (08:14)
[2024-10-30] MEDS: oxyCODONE HCL IR 5 MG TAB (IMMEDIATE RELEASE) PO PRN (08:15)
[2024-10-30] MEDS ORDERED: LOSARTAN POTASSIUM 50 MG TAB PO SCH (09:00)
--- NOTE | 2024-10-30 09:46 | Orthopedic Progress Note ---
Date of Service October 30, 2024 Assessment & Plan (1) Osteoarthritis of right knee: Plan: POD #1 s/p R TKA, doing as well as expected. Resume diet. WBAT with walker. OOB to chair. Continue pain control. H/H stable. Asymptomatic. DVT prophylaxis: TEDs 3 weeks, foot pumps while in hospital, Resume Eliquis today. He is on this chronically. PT/OT. D/C planning - Patient would like to go to [facility]. Appreciate Hospitalist input. Dressing to be changed POD 2-3 to Silverlon type dressing; most likely tomorrow. Plan for discharge possible tomorrow if disposition determined. Admission and Anticipated Discharge Date Admission Date: October 29, 2024 Subjective Patient sitting up in chair. No complaints of significant pain in his right knee. He did feel a pop in this knee last night. He states he thinks it came from his hamstring. He has had this before. No significant pain today. He has been applying ice. He has been out of bed with nursing. Has been using a walker. Physical Exam Musculoskeletal: Exam focused on his right lower extremity: Postoperative dressings have bloody drainage on the anterior aspect of the knee. Dressings were removed and the incision was evaluated. The is some bloody drainage from the distal aspect of the incision. The Zipline is in place and the skin edges are well-approximated. There is no active drainage today. No underlying hematoma or effusion. Nontender with palpation. The incision was cleansed with a sterile saline wipe and a new pressure dressing was applied. Dressing included 4 x 4's, ABDs, mother cotton, Kerlix and LISBETH bandages. He is able to independently straight leg raise. Strength is 5/5. Full ankle range of motion and normal strength. Distal pulses are 1+. Foot is warm. Moves toes well. Tolerates hip range of motion without discomfort. Results & Data Vital Signs (Past 12 Hours) Vital Signs Temp Pulse Pulse Resp BP Pulse Ox O2 Del Method 10/30/24 07:09 36.9 C 69 16 165/80 H 90 Room Air 10/30/24 02:37 36.3 C L 65 18 178/78 H 93 Room Air 10/29/24 22:42 36.6 C 55 L 16 174/75 H 93 Room Air Laboratory Results 10/30/24 10/30/24 10/29/24 Range/Units 07:42 06:16 20:18 WBC 10.44 (4.8-10.8) K/ul RBC 4.09 L (4.70-6.10) M/uL Hgb 13.0 L (14.0-18.0) g/dl Hct 37.8 L (42.0-52.0) % MCV 92.4 (80.0-100.0) fL MCH 31.8 (25.0-34.0) pg MCHC 34.4 (32.0-36.0) g/dL RDW Std Deviation 46.5 H (36.4-46.3) fL RDW Coeff of Gena 13.7 (11.5-14.5) % Plt Count 135 (130-400) K/uL MPV 10.8 (9.4-12.4) fL Sodium 138 (136-145) mmol/L Potassium 4.4 (3.5-5.1) mmol/L Chloride 105 (98-107) mmol/L Carbon Dioxide 31 (21-32) mmol/L Anion Gap 2 L (3-11) BUN 24 H (6-23) mg/dl Creatinine 1.29 (0.6-1.4) mg/dl Est Cr Clr Drug Dosing 45.6 ml/min eGFR 53.00 BUN/Creatinine Ratio 18.6 (10-20) Glucose 118 H (70-99(Fasting)) mg/dl POC Glucose 141 H 126 H (70-99) mg/dl Calcium 8.2 L (8.6-10.3) mg/dl 10/29/24 10/29/24 10/29/24 Range/Units 16:33 11:19 09:54 WBC (4.8-10.8) K/ul RBC (4.70-6.10) M/uL Hgb (14.0-18.0) g/dl Hct (42.0-52.0) % MCV (80.0-100.0) fL MCH (25.0-34.0) pg MCHC (32.0-36.0) g/dL RDW Std Deviation (36.4-46.3) fL RDW Coeff of Gena (11.5-14.5) % Plt Count (130-400) K/uL MPV (9.4-12.4) fL Sodium (136-145) mmol/L Potassium (3.5-5.1) mmol/L Chloride (98-107) mmol/L Carbon Dioxide (21-32) mmol/L Anion Gap (3-11) BUN (6-23) mg/dl Creatinine (0.6-1.4) mg/dl Est Cr Clr Drug Dosing ml/min eGFR BUN/Creatinine Ratio (10-20) Glucose (70-99(Fasting)) mg/dl POC Glucose 99 132 H 134 H (70-99) mg/dl Calcium (8.6-10.3) mg/dl
[2024-10-30 11:51] VITALS: BP 174/87
--- NOTE | 2024-10-30 14:43 | Discharge Summary ---
Date of Service October 30, 2024 Admission HPI Per Admitting Provider Right knee end-stage osteoarthritis undergoing right total knee arthroplasty with Dr. Gordillo 10/29/2024 Principal Diagnosis Status post right total knee arthroplasty Discharge Exam General: Elderly, M. Sitting up in bed. NAD. Very pleasant. A&Ox4. Conversing appropriately. HEENT: Normocephalic, atraumatic. Conjunctivae normal. External ear and nose normal, oropharynx normal. Respiratory: Normal respiratory effort,. CTAB. No accessory muscle use. Sa turating in low to mid 90s on RA. Cardiovascular: Regular rate and rhythm, normal peripheral pulses. No BLE edema. Abdomen/GI: Normal bowel sounds, soft, nondistended, nontender to palpation in all quadrants. : Lopez catheter intact and draining clear, yellow urine. Extremities/MSK: No cyanosis or clubbing. Surgical dressings on R knee C/D/I. Has ice packs on R knee. Neurologic: No overt focal deficits. CN's II-XI not formally tested but appear grossly intact bilaterally. Exam focused on his right lower extremity: Postoperative dressings have bloody drainage on the anterior aspect of the knee. Dressings were removed and the incision was evaluated. The is some bloody drainage from the distal aspect of the incision. The Zipline is in place and the skin edges are well-approximated. There is no active drainage today. No underlying hematoma or effusion. Nontender with palpation. The incision was cleansed with a sterile saline wipe and a new pressure dressing was applied. Dressing included 4 x 4's, ABDs, mother cotton, Kerlix and LISBETH bandages. He is able to independently straight leg raise. Strength is 5/5. Full ankle range of motion and normal strength. Distal pulses are 1+. Foot is warm. Moves toes well. Tolerates hip range of motion without discomfort. Discharge Data Allergies Allergy/AdvReac Type Severity Reaction Status Date / Time gabapentin AdvReac Intermediate Diarrhea Verified 10/29/24 05:41 simvastatin AdvReac Intermediate Muscle Pain Verified 10/29/24 05:41 LISBETH Inhibitors AdvReac Mild COUGH Verified 10/29/24 05:41 Consultations 10/23/24 16:11 Consult Hospitalist Routine Procedures Performed Operation Date: 10/29/24 07:00 Actual Procedures p Right Total Knee Arthroplasty(Right) - Ashish Mimi Gordillo MD Ordered Studies 10/29/24 05:00 US - OR guided needle placemen Routine Hospital Course (1) Osteoarthritis of right knee: POD #1 s/p R TKA, doing as well as expected. Resume diet. WBAT with walker. OOB to chair. Continue pain control. H/H stable. Asymptomatic. DVT prophylaxis: TEDs 3 weeks, foot pumps while in hospital, Resume Eliquis today. He is on this chronically. PT/OT. D/C planning - Patient would like to go to [facility]. Appreciate Hospitalist input. Dressing to be changed POD 2-3 to Silverlon type dressing; most likely tomorrow. Medically and orthopedically stable for discharge to [facility] Total Time Total Time Spent Total Time Spent (In Minutes): 20 Discharge Plan Discharge Items Patient Disposition: Transfer Inpatient Rehab Fac Reason For Visit: Right Knee Osteoarthritis Discharge Diagnosis: Right knee osteoarthritis Activity: Per Instructions section Weightbearing: Right weightbearing Weightbearing Comment: with knee immobilizer for ambulation/transfers x 4 days until knee steady Non-emergency contact: Surgeon Call non-emergency contact if: you have any medication questions, your symptoms worsen, your pain is not controlled, your temperature is above 101, your wound has increased redness and your wound has increased drainage Follow-up/Referrals: Marcy Diaz MD [Primary Care Provider] - Renae Ley PA-C [Physician Fashion Director [employer]] - 11/04/24 1:00 pm Diet: Regular Addtl Attending Provider Instructions: POST OPERATIVE DISCHARGE INSTRUCTIONS Pain Control Please take the follow medications for pain control, as well as icing and elevating your operative extremity. Pain after surgery is to be expected. We may not be able to take away all of your pain, but the goal is to make your pain manageable - Extra strength Tylenol 1,000mg (2 tabs) every 8 hours - Celebrex 200mg (1 tab) twice a day with food for 2 weeks - Oxycodone 5-10mg (1-2tabs) every 4-6 hours as needed DVT Prophylaxis With any surgery, you are at increased risk for blood clots. Please take the follow measures to prevent blood clots and read the warning signs to watch for. Please take the follow anticoagulant: Continue taking your Eliquis as already prescribed - 5mg twice a day If you were given BRUNILDA compression stockings, these are to be worn on both legs for 18-20 hours daily for 2 weeks, or for 3 weeks for any lower extremity surgery. Warning signs: Calf pain, lower extremity swelling, numbness/tingling, skin discoloration, increased pain, shortness of breath, chest pain. Please contact our office if you experience any of these symptoms or call 911 if you are having trouble breathing. Ice Ice your operative site at least 5 times a day for 15-30 minutes at a time, for the first three days, then as needed. This will help to reduce swelling and pain. Make sure you have a thin cloth between the ice or cooling unit and your skin to prevent cornejo bite. This is especially important if you received a nerve block. Diet/Nausea/Vomiting Start by drinking clear liquids and eating crackers. If you can tolerate this, then you may resume your normal diet. If you feel nauseated or vomit, take Zofran/ondansetron (if prescribed). Please call our office if you have intractable nausea or vomiting, or, if after hours, you may go to the Emergency Room for help. Surgical Dressing Please leave on any dressing until you are seen by either PT or PA for your post-operative appointment, unless you are otherwise instructed. If there are any issues with your dressing please give our office a call. Weight bearing, Range of Motion, Activity You will be weight bearing as tolerated on your operative site. You may use walker to assist in ambulation. Physical therapy You will do your rehab for the first two weeks with home health or at a short term rehab facility. Then you will begin outpatient physical therapy. It is very important you follow your rehab protocol and do your exercises as instructed by your provider and physical therapist. Wound care and showering We will inspect your wound at your first post-operative visit. It is normal to see some dried blood on the dressing. Do not remove your dressing, paper strips or sutures yourself unless otherwise instructed. CHANGE DRESSING ON RIGHT LEG NEEDED. MAY LEAVE CURRENT DRESSING IN PLACE UNTIL FOLLOW UP APPOINTMENT. Showering is allowed post op day 3. Do not scrub or remove any dressings, unless you are otherwise instructed. Once your dressing is changed in the office to the water-resistant dressing. You can shower with this on as long as all the edges are in tact. To promote wound healing, we recommend taking a multi-vitamin, or taking 500mg Vitamin C supplement twice a day for two weeks and 325mg Iron supplement twice a day for two weeks. This is especially important if you had a total joint replacement. Constipation Constipation is a common side effect of narcotic pain medication, dehydration after surgery and iron supplement (if you were instructed to begin that after surgery). We recommend purchasing an [id number] laxative such as Milk of Magnesia, Colace, Dulcolax, Miralax or Senna from a local pharmacy, and taking it as instructed. Stay hydrated and you may increase your fiber in your diet as well. Call our clinic if any questions. Driving You may not drive while taking narcotic pain medication or while in a cast, splint, sling or brace. Driving will be discussed at your first post op appointment Travel Avoid long distance travel (greater than 1 hour) in airplanes and cars for the first 6 weeks after surgery. Follow-up Please attend your post operative appointments as scheduled. At these appointments, we may do dressing change and remove any sutures/kira/Zip-line 10-14 days after your surgery. If you do not know your post operative appointment dates or times please call the office at [phone] When to call the office It is normal to have swelling and bruising in the limb that was operated on. This will improve with time. It is also normal to have fevers for the first 2 days after surgery. Reasons you should call your doctor include: Uncontrolled pain; Nausea, vomiting, or constipation that does not improve with medication; Fevers over 101.5, chills, sweats; Drainage or bleeding from the wound; Foul odor; Spreading areas of redness; calf pain or swelling, shortness of breath, chest pain; Any other concerns You may call the office at [phone]. If it is a medical emergency please call 911. Pending Studies at Discharge: No Stand-Alone Forms: My [facility] Skilled Items Patient informed of condition?: Yes DNR: No Discharge Level of Care: Acute rehab Communicable Disease: No Discharge Prognosis: Stable Lines: None Urinary Catheter: Yes Medications and DC Order Prescriptions: New ferrous gluconate 324 mg (38 mg iron) Tablet 324 mg PO BIDM 14 Days Qty: 28 0RF oxycodone 5 mg Tablet 5 - 10 mg PO Q4H PRN (Reason: pain) Qty: 18 0RF Rx Instructions: 5mg for pain 1-5 10 mg for pain 6-10 docusate sodium 100 mg Capsule 100 mg PO BID 14 Days Qty: 28 0RF celecoxib [Celebrex] 200 mg capsule 200 mg PO BID 14 Days Qty: 28 0RF Continued tamsulosin 0.4 mg capsule 0.4 mg PO HS Qty: 90 3RF albuterol sulfate [ProAir HFA] 90 mcg/actuation Hfa Aerosol Inhaler 2 inh INHALATION Q4H PRN (Reason: SOB or Wheezing) carvedilol 12.5 mg tablet 6.25 mg PO BID Rx Instructions: TAKES 0.5 TAB BID glipizide 10 mg tablet extended release 24hr 10 mg PO BID Rx Instructions: TAKE 1 TABLET BY MOUTH EVERY DAY IN THE MORNING AND BEFORE BEDTIME. allopurinol 300 mg tablet 300 mg PO QAM cyanocobalamin (vitamin B-12) [Vitamin B-12] 1,000 mcg Tablet 1,000 mcg PO QAM triamcinolone acetonide 0.1 % cream 1 applic TOPICAL DAILY PRN (Reason: Rash) Rx Instructions: Apply to legs as needed for dermatitis. ascorbic acid (vitamin C) [Vitamin C] 500 mg Tablet,Chewable 500 mg PO DAILY cholecalciferol (vitamin D3) [Vitamin D3] 50 mcg (2,000 unit) Capsule 50 mcg PO QAM acetaminophen [Tylenol Extra Strength] 500 mg Tablet 1,000 mg PO Q8H PRN (Reason: Pain) ropinirole 0.5 mg Tablet 1 mg PO HS Rx Instructions: 1 tab 2hrs before bedtime - [facility] medication. fluorometholone 0.1 % Drops,Suspension 1 drp OPB HS fluorouracil 0.5 % Cream 1 applic TOPICAL DAILY PRN (Reason: Skin Irritation) rosuvastatin 20 mg Tablet 20 mg PO QAM duloxetine [Cymbalta] 60 mg Capsule,Delayed Release(Dr/Ec) 60 mg PO BID pregabalin [Lyrica] 150 mg Capsule 150 mg PO BID Linzess 72 mcg Capsule 72 mcg PO DAILY PRN (Reason: ABD PAIN) magnesium oxide 400 mg magnesium Tablet 400 mg PO HS losartan 50 mg tablet 25 mg PO QAM Rx Instructions: Take 1 Tablet by mouth in the morning. memantine 10 mg tablet 10 mg PO BID Rx Instructions: Take 1/2 tablet by mouth 2 times a day with morning and evening meals. pantoprazole 20 mg Tablet,Delayed Release (Dr/Ec) 20 mg PO HS baclofen 10 mg tablet 10 mg PO BID nortriptyline 10 mg Capsule 10 mg PO HS apixaban 5 mg Tablet 5 mg PO BID Jardiance 10 mg tablet 10 mg PO QAM finasteride 5 mg tablet 5 mg PO QDL zolpidem 5 mg tablet 5 mg PO HS PRN (Reason: Insomnia) Discharge Orders: Discharge Order (Routine); Ordered 10/30/24 Ordered By: Omayra Pandya/Other Patient Handouts: Knee Replace Surg Post Op Exercises Admission Data Admit Date/Time: 10/29/24 10:11 Attending Provider: Ashish Gordillo Admit Provider: Ashish Gordillo Primary Care Provider: Marcy Diaz Other Providers: Melony Tidwell; [facility]; Bobo Sousa Other Interventions: Discharge Summary Assessment (RN) Last Done: 10/30/24 13:05
== END 2024-10-30 14:32 ==
LOC: 3E 05:25 → ASU 05:25